=== PATIENT | female | born 1935 | race Caucasian/White ===

== ENCOUNTER 2019-02-27 16:52 | Emergency (ER) | payer MEDICARE ==
[2019-02-27 16:57] VITALS: BP 199/80; PULSE 104; RESP 20; TEMP 98.4
[2019-02-27] MEDS ORDERED: IBUPROFEN 600 MG TAB PO STA (17:07)
[2019-02-27] MEDS ORDERED: DIPH,PERTUS(ACELL)TETVAC-LF 0.5 ML VIAL IM ONE (17:08)
--- NOTE | 2019-02-27 17:12 | ED ---
General Adult HPI - General Chief complaint: Extremity Injury, Upper Stated complaint: hand lac Time Seen by Provider: 02/27/19 16:59 Source: patient Mode of arrival: ambulatory Limitations: no limitations - History of Present Illness Initial comments: 83-year-old female presenting with left hand pain after cutting her finger with scissors 1 week prior. She states that since then she began having throbbing and shooting pain with ROM of her hand. She denies any fevers, drainage, or swelling. She is not up to date on her tetanus. She did not take anything for the pain. She states it was her home kitchen scissors she was using. - Related Data Home Medications Medication Instructions Recorded Confirmed Gemfibrozil [Lopid] 600 mg PO AC-BID 11/04/15 11/04/15 Ibuprofen [Motrin] 800 mg PO Q8HR PRN 11/04/15 11/04/15 Previous Rx's Medication Instructions Recorded predniSONE 10 mg PO DIRECTED #42 tab 11/04/15 valACYclovir HCL [Valacyclovir] 1,000 mg PO TID #21 tab 11/04/15 Cephalexin [Keflex] 500 mg PO Q6HR 7 Days #28 cap 02/27/19 Ibuprofen [Motrin] 600 mg PO Q6HR PRN #30 tab 02/27/19 Allergies Allergy/AdvReac Type Severity Reaction Status Date / Time Penicillins Allergy Rash/Hives Verified 11/04/15 02:57 Review of Systems ROS Statement: Those systems with pertinent positive or pertinent negative responses have been documented in the HPI. Review of Systems Constitutional: Denies fever, chills Eyes: Denies change in vision, Denies pain Ears, nose, mouth, throat: Denies headaches, Denies sore throat Cardiovascular: Denies chest pain. Denies palpitations Respiratory: Denies shortness of breath, Denies cough Gastrointestinal: Denies abdominal pain. Denies nausea, vomiting, diarrhea. Genitourinary: Denies hematuria, Denies infections Musculoskeletal: Positive pain, Denies swelling Integumentary: Positive wound Neurological: Denies headache, focal weakness, focal numbness Psychiatric: Denies anxiety, Denies depression Hematologic/Lymphatic: Denies easy bleeding or bruising ROS Other: All systems not noted in ROS Statement are negative. 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 Atraumatic Eyes: PERRL. EOMI. No scleral icterus. No injected conjunctiva Neck: Full ROM Chest/Lungs: Clear to auscultation bilaterally. No wheezing, rhonchi, or rales Cardiac: Regular rate, rhythm. No murmurs or rubs Abdomen/GI: Soft, nontender, nondistended. No rebound, guarding, or rigidity. Musculoskeletal: Full ROM Skin: Warm, dry. Superifical healing laceration to the webspace between the index and ring finger on left with tenderness to palpation. No tenderness along the flexor tendon. No pain with passive ROM. No erythema. No purulent drainage, fluctuance, or induration. Neurologic: A/Ox3, full ROM. Limitations: no limitations Course Vital Signs 02/27/19 16:52 Temperature 98.4 F Pulse Rate 104 H Respiratory 20 Rate Blood Pressure 199/80 O2 Sat by Pulse 95 Oximetry Medical Decision Making - Medical Decision Making 83-year-old female presenting with hand pain after cutting her finger with scissors. This exam the patient is awake, alert, no acute distress. VSS. X- ray is negative for foreign body. Bedside Ultrasound showed no discrete collection of fluid. I discussed with the patient placing her on a short course of antibiotics for cellulitis secondary to the redness and tenderness she was having in that aspect of her hand. I discussed that I would like her to follow- up with her primary care physician in the next 1-2 days for wound recheck, and if she is unable to be seen to come back to the emergency department. Patient has a penicillin ALLERGY but states it is just hives, and therefore she was started on Keflex. I discussed this with the patient and she was agreeable to trying the antibiotic. I also gave the patient hand surgery follow-up in case her symptoms worsen. Patient verbalized understanding of her treatment plan. No further emergent workup indicated. The patient was given return to ED instructions. They were instructed to follow up with their primary care provid er. Stable for discharge at this time. Disposition Clinical Impression: Hand injury, Cellulitis, Osteoarthritis Disposition: HOME SELF-CARE Condition: Good Instructions (If sedation given, give patient instructions): Cellulitis (ED), Osteoarthritis (ED) Prescriptions: Cephalexin [Keflex] 500 mg PO Q6HR 7 Days #28 cap Ibuprofen [Motrin] 600 mg PO Q6HR PRN #30 tab PRN Reason: Pain Is patient prescribed a controlled substance at d/c from ED?: No Referrals: Brandon Lopez MD [Primary Care Provider] - 1-2 days Enrique Funez DO [Medical Doctor] - 1-2 days
--- NOTE | 2019-02-27 18:10 | XR ---
EXAMINATION TYPE: XR hand limited LT DATE OF EXAM: 02/27/2019 COMPARISON: NONE HISTORY: Left hand pain TECHNIQUE: 2 views FINDINGS: There is narrowing of the IP joints of the digits. There is narrowing and spurring at the f irst carpometacarpal joint. I see no fracture nor dislocation. There is no subluxation. There is no s ign of a foreign body. IMPRESSION: Osteoarthritis. no fracture. No foreign body seen.
[2019-02-27] MEDS ORDERED: CEPHALEXIN 500MG STARTER PACK 4 CAP BTL PO STA (18:30)
== END 2019-02-27 18:42 | disposition home or self-care (01) ==
LOC: EC 16:52
DX: S61.412A Laceration without foreign body of left hand, initial encounter (principal); L03.818 Cellulitis of other sites; M19.042 Primary osteoarthritis, left hand; E78.5 Hyperlipidemia, unspecified; Z87.891 Personal history of nicotine dependence; Z79.899 Other long term (current) drug therapy; Z88.0 Allergy status to penicillin; Z23 Encounter for immunization; W26.8XXA Contact with other sharp object(s), not elsewhere classified, initial encounter; Y92.009 Unspecified place in unspecified non-institutional (private) residence as the place of occurrence of the external cause
CPT/HCPCS: 90471; 90715; 99284

== ENCOUNTER 2020-02-23 18:25 | Emergency (ER) | payer MEDICARE ==
[2020-02-23 18:34] VITALS: BP 145/72; PULSE 82; RESP 18; TEMP 97.3
[2020-02-23] MEDS ORDERED: DIPH,PERTUS(ACELL)TETVAC-LF 0.5 ML VIAL IM ONE (19:20)
[2020-02-23] MEDS ORDERED: LIDOCAINE 1% INJ 10MG/ML (20 ML MDV) SQ ONE (19:20)
--- NOTE | 2020-02-23 20:15 | ED ---
Wound/Laceration HPI - General Source: patient Mode of arrival: ambulatory Limitations: no limitations <Mercedes Tapia - Last Filed: 02/24/20 06:14> <Sharmin Kumar - Last Filed: 02/28/20 00:03> - General Chief Complaint: Wound/Laceration Stated Complaint: Laceration Time Seen by Provider: 02/23/20 19:07 - History of Present Illness Initial Comments: Patient is an 84-year-old female presenting to the emergency Department with complaints of a laceration on her right ring finger from a mandolin. Patient states she was slicing potatoes when she actually cut her right finger. She does not number her last tetanus vaccine. She is not currently on blood thinners. Bleeding is controlled at this time by bandage. She has no other complaints. Upon arrival to the ER her vitals are stable. (Mercedes Tapia) - Related Data Home Medications Medication Instructions Recorded Confirmed Gemfibrozil [Lopid] 600 mg PO AC-BID 11/04/15 11/04/15 Ibuprofen [Motrin] 800 mg PO Q8HR PRN 11/04/15 11/04/15 Previous Rx's Medication Instructions Recorded predniSONE 10 mg PO DIRECTED #42 tab 11/04/15 valACYclovir HCL [Valacyclovir] 1,000 mg PO TID #21 tab 11/04/15 Cephalexin [Keflex] 500 mg PO Q6HR 7 Days #28 cap 02/27/19 Ibuprofen [Motrin] 600 mg PO Q6HR PRN #30 tab 02/27/19 Allergies Allergy/AdvReac Type Severity Reaction Status Date / Time Penicillins Allergy Rash/Hives Verified 02/23/20 18:34 Review of Systems ROS Other: All systems not noted in ROS Statement are negative. <Mercedes Tapia - Last Filed: 02/24/20 06:14> ROS Other: All systems not noted in ROS Statement are negative. <Sharmin Kumar - Last Filed: 02/28/20 00:03> ROS Statement: Those systems with pertinent positive or pertinent negative responses have been documented in the HPI. 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 HEAD: Atraumatic, normocephalic. EYES: Pupils equal round and reactive to light, extraocular movements intact, sclera anicteric, conjunctiva are normal. ENT: Moist mucous membranes. NECK: Normal range of motion, supple without lymphadenopathy or JVD. LUNGS: Breath sounds clear to auscultation bilaterally and equal. No wheezes rales or rhonchi. HEART: Regular rate and rhythm without murmurs, rubs or gallops. ABDOMEN: Soft, nontender, normoactive bowel sounds. : Deferred EXTREMITIES: The patient has full range of motion of the right hand and fingers. Neurovascular intact. No pitting or edema. No clubbing or cyanosis. NEUROLOGICAL: Normal speech, normal gait. PSYCH: Normal mood, normal affect. SKIN: Warm, Dry, normal turgor, no rashes. Patient has a 2 cm laceration to the palmar aspect of the right ring finger, distal portion. No nail involvement. Bleeding is controlled at this time. (ReginaMercedes Pamela) Course Vital Signs 02/23/20 18:32 Temperature 97.3 F L Pulse Rate 82 Respiratory 18 Rate Blood Pressure 145/72 O2 Sat by Pulse 98 Oximetry Procedures - Laceration Laceration #1 Consent Obtained: verbal consent Indication: laceration Site: hand (Right ring finger, palmar aspect, distal portion) Size (cm): 2 Description: linear, avulsion Depth: simple, single layer Anesthetic Used: lidocaine 1% Anesthesia Technique: local infiltration Amount (mls): 3 Pre-repair: irrigated extensively Type of Sutures: nylon Size of Sutures: 5-0 Number of Sutures: 3 Technique: simple, interrupted Patient Tolerated Procedure: well <Mercedes Tapia - Last Filed: 02/24/20 06:14> Medical Decision Making <Mercedes Tapia - Last Filed: 02/24/20 06:14> <Sharmin Kumar Last Filed: 02/28/20 00:03> - Medical Decision Making Patient is an 84-year-old female here for a 2 cm laceration to her right ring finger. She is not on blood thinners. Her tetanus vaccine was updated today. Patient's wound was cleaned, closed with 3, 5-0 sutures. Patient tolerated procedure well. Patient is stable for discharge. Patient was sutures removed in 7-10 days. Patient will apply topical antibiotic twice a day. She is in agreement with this plan of care. Return parameters were discussed with the patient she verbalized understanding. Case discussed with Dr. Kumar. (Mercedes Tapia) I was available for consultation in the emergency department. The history and physical exam were done by the midlevel provider. I was consulted for this patients care. I reviewed the case with the midlevel provider and based on their presentation of the patient, I agree with the assessment, medical decision making and plan of care as documented. Chart was dictated using [employer] dictation software. Attempts were made to correct any dictation errors however some typographical errors may persist. Patient was seen during a national state of emergency due to the Covid-19 pandemic. (Sharmin Kumar) Disposition Is patient prescribed a controlled substance at d/c from ED?: No <Mercedes Tapia - Last Filed: 02/24/20 06:14> <Sharmin Kumar - Last Filed: 02/28/20 00:03> Clinical Impression: Laceration of right ring finger Disposition: HOME SELF-CARE Condition: Stable Instructions (If sedation given, give patient instructions): Care For Your Stitches (ED) Additional Instructions: Please return to the Emergency Department if symptoms worsen or any other concerns. Stitches need to be removed in 7-10 days as discussed. Keep wound clean and dry. Apply topical antibiotic twice a day. Tetanus vaccine was updated today. Referrals: Brandon Lopez MD [Primary Care Provider] - 1-2 days
== END 2020-02-23 20:20 | disposition home or self-care (01) ==
LOC: EC 18:25
DX: S61.214A Laceration without foreign body of right ring finger without damage to nail, initial encounter (principal); Z23 Encounter for immunization; E78.5 Hyperlipidemia, unspecified; G51.0 Bell's palsy; Z79.899 Other long term (current) drug therapy; Z88.0 Allergy status to penicillin; W27.8XXA Contact with other nonpowered hand tool, initial encounter; Y93.G3 Activity, cooking and baking; Y92.000 Kitchen of unspecified non-institutional (private) residence as the place of occurrence of the external cause
CPT/HCPCS: 90715; 99282; 12001; 90471; J2001

== ENCOUNTER 2021-01-17 17:15 | Inpatient (IN) | payer MEDICARE ==
[2021-01-17] MEDS ORDERED: cefTRIAXone IN SWFI 1,000 MG/10 ML SYRINGE IVP STA (17:49)
[2021-01-17] MEDS ORDERED: SODIUM CHLORIDE 0.9% 1,000 ML IV STA (17:49)
[2021-01-17 18:21] LABS: Basophils % (A) 0 %; Eosinophils # (A) 0.1 k/uL (0-0.7); Eosinophils % (A) 2 %; HCT 41.5 % (34.0-46.0); HGB 13.5 gm/dL (11.4-16.0); Lymphocytes # (A) 0.9 k/uL (1.0-4.8); Lymphocytes % (A) 20 %; MCH 28.3 pg (25.0-35.0); MCHC 32.5 g/dL (31.0-37.0); MCV 87.1 fL (80.0-100.0); Mean Platelet Volume 10.4; Monocytes # (A) 0.3 k/uL (0-1.0); Monocytes % (A) 6 %; Neutrophils # (A) 3.3 k/uL (1.3-7.7); Neutrophils % (A) 71 %; Platelet Count 155 k/uL (150-450); Poikilocytosis Slight; RBC 4.76 m/uL (3.80-5.40); RDW 15.8 % (11.5-15.5); WBC 4.7 k/uL (3.8-10.6)
[2021-01-17 18:35] LABS: Albumin 3.9 g/dL (3.5-5.0); C Reactive Protein 53.6 mg/L (<10.0); Calcium 8.3 mg/dL (8.4-10.2); Potassium 4.3 mmol/L (3.5-5.1); Total Bilirubin 0.7 mg/dL (0.2-1.3); Total Protein 6.7 g/dL (6.3-8.2)
[2021-01-17 18:40] LABS: Prothrombin Time 10.4 sec (9.0-12.0)
[2021-01-17 18:42] LABS: Partial Thromboplastin Time 19.8 sec (22.0-30.0)
[2021-01-17 18:43] LABS: D-Dimer 1.41 mg/L FEU (<0.60)
--- NOTE | 2021-01-17 18:57 | XR ---
EXAMINATION TYPE: XR chest 1V portable DATE OF EXAM: 01/17/2021 COMPARISON: NONE HISTORY: Shortness of breath and weakness. TECHNIQUE: Single frontal view of the chest is obtained. FINDINGS: There a reticular increased markings bilaterally greatest in the periphery of the upper tata ngs. No pleural effusion or pneumothorax seen. Mild cardiomegaly. The osseous structures are intact . Overlying EKG leads. IMPRESSION: Mild cardiomegaly. 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 Areas of acute infiltrate in the periphery of the upper lungs canno t be excluded. Correlation with old outside x-ray or CT would be extremely beneficial.
--- NOTE | 2021-01-17 18:59 | ED ---
Weakness HPI <Rolo Lima - Last Filed: 01/17/21 20:18> - General Source: patient, EMS Mode of arrival: EMS <Edson Laboy - Last Filed: 01/17/21 20:31> - General Chief complaint: Weakness Stated complaint: weakness/fever Time Seen by Provider: 01/17/21 17:30 - History of Present Illness Initial comments: 85-year-old female resents to emergency Department with a chief complaint of fever and weakness. Patient reports 9 days ago she received the moderna vaccine and ever since then she has been feeling progressively weaker. Patient reports an operative cough for the past several days along with a fever for the past 5 days. Patient reports she has been mouth breathing the whole time because her nose is congested. She does report dyspnea at rest but denies any chest pain. States she's had decreased oral intake. She denies any nausea vomiting or diarrhea. (Edson Laboy) - Related Data Home Medications Medication Instructions Recorded Confirmed Montelukast Sodium [Singulair] 10 mg PO HS 01/17/21 01/17/21 lisinopriL [Zestril] 5 mg PO DAILY 01/17/21 01/17/21 Allergies Allergy/AdvReac Type Severity Reaction Status Date / Time Penicillins Allergy Rash/Hives Verified 01/17/21 18:18 Review of Systems ROS Other: All systems not noted in ROS Statement are negative. <Rolo Lima - Last Filed: 01/17/21 20:18> ROS Other: All systems not noted in ROS Statement are negative. <Edson Laboy - Last Filed: 01/17/21 20:31> ROS Statement: Those systems with pertinent positive or pertinent negative responses have been documented in the HPI. 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, History of Any Multi-Drug Resistant Organisms: None Reported Past Surgical History: Orthopedic Surgery Past Psychological History: No Psychological Hx Reported Smoking Status: Former smoker Past Alcohol Use History: None Reported Past Drug Use History: None Reported <Edson Laboy - Last Filed: 01/17/21 20:31> General Exam Limitations: no limitations General appearance: alert, in no apparent distress Head exam: Present: atraumatic, normocephalic, normal inspection Eye exam: Present: normal appearance, PERRL, EOMI Pupils: Present: normal accommodation ENT exam: Present: normal exam, normal oropharynx, mucous membranes dry Neck exam: Present: normal inspection, full ROM. Absent: tenderness Respiratory exam: Present: normal lung sounds bilaterally. Absent: respiratory distress, wheezes, rales, rhonchi, stridor Cardiovascular Exam: Present: regular rate, normal rhythm, normal heart sounds GI/Abdominal exam: Present: soft. Absent: distended, tenderness, guarding Extremities exam: Present: normal inspection, full ROM, normal capillary refill. Absent: tenderness Back exam: Present: normal inspection, full ROM. Absent: tenderness Neurological exam: Present: alert, oriented X3 Skin exam: Present: warm, dry, intact, normal color <Edson Laboy - Last Filed: 01/17/21 20:31> Course <Rolo Lima - Last Filed: 01/17/21 20:18> Vital Signs 01/17/21 01/17/21 01/17/21 17:25 17:35 20:11 Temperature 102.2 F H 101.1 F H Pulse Rate 109 H 107 H Respiratory 22 22 18 Rate Blood Pressure 188/95 157/85 O2 Sat by Pulse 88 L 97 Oximetry - Reevaluation(s) Reevaluation #1: 01/17/21 20:18 The supervision: I did personally evaluate this case patient did present with complaints of weakness she does have evidence of infiltrates on imaging. (Rolo Lima) Medical Decision Making - Lab Data Result diagrams: 01/17/21 18:05 01/17/21 18:05 <Rolo Lima - Last Filed: 01/17/21 20:18> - Lab Data Result diagrams: 01/17/21 18:05 01/17/21 18:05 <Edson Laboy - Last Filed: 01/17/21 20:31> - Medical Decision Making 85-year-old female presents to emergency Department with a chief complaint of fever and weakness. On physical examination, patient has dry mucous membrane. She has been mouth breathing the whole time. Lungs are clear to auscultation. On initial evaluation, she is tachycardic, febrile and hypoxic. Patient was immediately started on 4 L of nasal cannula. Her oxygen saturation has been brought up to mid 90s. CBC unremarkable. Elevated reactive markers. Elevated d-dimer. CT angiogram cannot fully exclude PE. She will be started on 40 mg Lovenox. She tested positive for coronavirus. Patient is otherwise in the mid 80s on room air. Patient will be started on azithromycin and 6 migrans of Decadron. She will be admitted for further medical management. Case discussed with Dr. Lima. Admitting physician is , I spoke with Jessica Soni NP. Pulmonary on consult (Edson Laboy) - Lab Data Lab Results 01/17/21 01/17/21 01/17/21 Range/Units 18:05 18:05 18:05 WBC 4.7 (3.8-10.6) k/uL RBC 4.76 (3.80-5.40) m/uL Hgb 13.5 (11.4-16.0) gm/dL Hct 41.5 (34.0-46.0) % MCV 87.1 (80.0-100.0) fL MCH 28.3 (25.0-35.0) pg MCHC 32.5 (31.0-37.0) g/dL RDW 15.8 H (11.5-15.5) % Plt Count 155 (150-450) k/uL MPV 10.4 Neutrophils % 71 % Lymphocytes % 20 % Monocytes % 6 % Eosinophils % 2 % Basophils % 0 % Neutrophils # 3.3 (1.3-7.7) k/uL Lymphocytes # 0.9 L (1.0-4.8) k/uL Monocytes # 0.3 (0-1.0) k/uL Eosinophils # 0.1 (0-0.7) k/uL Basophils # 0.0 (0-0.2) k/uL Poikilocytosis Slight PT 10.4 (9.0-12.0) sec INR 1.0 (<1.2) APTT 19.8 L (22.0-30.0) sec D-Dimer 1.41 H (<0.60) mg/L FEU Sodium 135 L (137-145) mmol/L Potassium 4.3 (3.5-5.1) mmol/L Chloride 101 (98-107) mmol/L Carbon Dioxide 22 (22-30) mmol/L Anion Gap 12 mmol/L BUN 13 (7-17) mg/dL Creatinine 0.72 (0.52-1.04) mg/dL Est GFR (CKD-EPI)AfAm 90 (>60 ml/min/1.73 sqM) Est GFR (CKD-EPI)NonAf 78 (>60 ml/min/1.73 sqM) Glucose 116 H (74-99) mg/dL Plasma Lactic Acid Remigio (0.7-2.0) mmol/L Calcium 8.3 L (8.4-10.2) mg/dL Magnesium 2.0 (1.6-2.3) mg/dL Total Bilirubin 0.7 (0.2-1.3) mg/dL AST 42 H (14-36) U/L ALT 30 (4-34) U/L Alkaline Phosphatase 82 (38-126) U/L Lactate Dehydrogenase 902 H (313-618) U/L Troponin I (0.000-0.034) ng/mL C-Reactive Protein 53.6 H (<10.0) mg/L Total Protein 6.7 (6.3-8.2) g/dL Albumin 3.9 (3.5-5.0) g/dL Urine Color Urine Appearance (Clear) Urine pH (5.0-8.0) Ur Specific [place] (1.001-1.035) Urine Protein (Negative) Urine Glucose (UA) (Negative) Urine Ketones (Negative) Urine Blood (Negative) Urine Nitrite (Negative) Urine Bilirubin (Negative) Urine Urobilinogen (<2.0) mg/dL Ur Leukocyte Esterase (Negative) Urine WBC (0-5) /hpf Ur Squamous Epith Cells (0-4) /hpf Urine Bacteria (None) /hpf Urine Mucus (None) /hpf Coronavirus (PCR) (Not Detectd) 01/17/21 01/17/21 01/17/21 Range/Units 18:05 18:05 18:05 WBC (3.8-10.6) k/uL RBC (3.80-5.40) m/uL Hgb (11.4-16.0) gm/dL Hct (34.0-46.0) % MCV (80.0-100.0) fL MCH (25.0-35.0) pg MCHC (31.0-37.0) g/dL RDW (11.5-15.5) % Plt Count (150-450) k/uL MPV Neutrophils % % Lymphocytes % % Monocytes % % Eosinophils % % Basophils % % Neutrophils # (1.3-7.7) k/uL Lymphocytes # (1.0-4.8) k/uL Monocytes # (0-1.0) k/uL Eosinophils # (0-0.7) k/uL Basophils # (0-0.2) k/uL Poikilocytosis PT (9.0-12.0) sec INR (<1.2) APTT (22.0-30.0) sec D-Dimer (<0.60) mg/L FEU Sodium (137-145) mmol/L Potassium (3.5-5.1) mmol/L Chloride (98-107) mmol/L Carbon Dioxide (22-30) mmol/L Anion Gap mmol/L BUN (7-17) mg/dL Creatinine (0.52-1.04) mg/dL Est GFR (CKD-EPI)AfAm (>60 ml/min/1.73 sqM) Est GFR (CKD-EPI)NonAf (>60 ml/min/1.73 sqM) Glucose (74-99) mg/dL Plasma Lactic Acid Remigio 1.2 (0.7-2.0) mmol/L Calcium (8.4-10.2) mg/dL Magnesium (1.6-2.3) mg/dL Total Bilirubin (0.2-1.3) mg/dL AST (14-36) U/L ALT (4-34) U/L Alkaline Phosphatase (38-126) U/L Lactate Dehydrogenase (313-618) U/L Troponin I 0.016 (0.000-0.034) ng/mL C-Reactive Protein (<10.0) mg/L Total Protein (6.3-8.2) g/dL Albumin (3.5-5.0) g/dL Urine Color Urine Appearance (Clear) Urine pH (5.0-8.0) Ur Specific [place] (1.001-1.035) Urine Protein (Negative) Urine Glucose (UA) (Negative) Urine Ketones (Negative) Urine Blood (Negative) Urine Nitrite (Negative) Urine Bilirubin (Negative) Urine Urobilinogen (<2.0) mg/dL Ur Leukocyte Esterase (Negative) Urine WBC (0-5) /hpf Ur Squamous Epith Cells (0-4) /hpf Urine Bacteria (None) /hpf Urine Mucus (None) /hpf Coronavirus (PCR) Detected A (Not Detectd) 01/17/21 Range/Units 19:19 WBC (3.8-10.6) k/uL RBC (3.80-5.40) m/uL Hgb (11.4-16.0) gm/dL Hct (34.0-46.0) % MCV (80.0-100.0) fL MCH (25.0-35.0) pg MCHC (31.0-37.0) g/dL RDW (11.5-15.5) % Plt Count (150-450) k/uL MPV Neutrophils % % Lymphocytes % % Monocytes % % Eosinophils % % Basophils % % Neutrophils # (1.3-7.7) k/uL Lymphocytes # (1.0-4.8) k/uL Monocytes # (0-1.0) k/uL Eosinophils # (0-0.7) k/uL Basophils # (0-0.2) k/uL Poikilocytosis PT (9.0-12.0) sec INR (<1.2) APTT (22.0-30.0) sec D-Dimer (<0.60) mg/L FEU Sodium (137-145) mmol/L Potassium (3.5-5.1) mmol/L Chloride (98-107) mmol/L Carbon Dioxide (22-30) mmol/L Anion Gap mmol/L BUN (7-17) mg/dL Creatinine (0.52-1.04) mg/dL Est GFR (CKD-EPI)AfAm (>60 ml/min/1.73 sqM) Est GFR (CKD-EPI)NonAf (>60 ml/min/1.73 sqM) Glucose (74-99) mg/dL Plasma Lactic Acid Remigio (0.7-2.0) mmol/L Calcium (8.4-10.2) mg/dL Magnesium (1.6-2.3) mg/dL Total Bilirubin (0.2-1.3) mg/dL AST (14-36) U/L ALT (4-34) U/L Alkaline Phosphatase (38-126) U/L Lactate Dehydrogenase (313-618) U/L Troponin I (0.000-0.034) ng/mL C-Reactive Protein (<10.0) mg/L Total Protein (6.3-8.2) g/dL Albumin (3.5-5.0) g/dL Urine Color Yellow Urine Appearance Clear (Clear) Urine pH 6.0 (5.0-8.0) Ur Specific [place] 1.015 (1.001-1.035) Urine Protein 1+ H (Negative) Urine Glucose (UA) Negative (Negative) Urine Ketones 2+ H (Negative) Urine Blood Negative (Negative) Urine Nitrite Negative (Negative) Urine Bilirubin Negative (Negative) Urine Urobilinogen <2.0 (<2.0) mg/dL Ur Leukocyte Esterase Negative (Negative) Urine WBC 1 (0-5) /hpf Ur Squamous Epith Cells 3 (0-4) /hpf Urine Bacteria Rare H (None) /hpf Urine Mucus Rare H (None) /hpf Coronavirus (PCR) (Not Detectd) Disposition <Rolo Lima - Last Filed: 01/17/21 20:18> Is patient prescribed a controlled substance at d/c from ED?: No Time of Disposition: 20:09 <Edson Laboy - Last Filed: 01/17/21 20:31> Clinical Impression: Pneumonia due to coronavirus disease 2019, Hypoxemia Disposition: ADMITTED IP TO THIS HOSP Condition: Fair Referrals: Brandon Lopez MD [Primary Care Provider] - 1-2 days
[2021-01-17 19:28] LABS: Appearance,Urine Clear (Clear); Bacteria,Urine Rare /hpf; Bilirubin,Urine Negative (Negative); Blood,Urine Negative (Negative); Color,Urine Yellow; Glucose,Urine (UA) Negative (Negative); Ketones,Urine 2+ (Negative); Leukocyte Esterase,Urine Negative (Negative); Mucus,Urine Rare /hpf; Nitrite,Urine Negative (Negative); Protein,Urine 1+ (Negative); Specific Gravity,Urine 1.015 (1.001-1.035); Squamous Epithelial Cell,Urine 3 /hpf (0-4); Urobilinogen,Urine <2.0 mg/dL (<2.0); WBC,Urine 1 /hpf (0-5)
[2021-01-17] MEDS ORDERED: MORPHINE SULFATE 4 MG/ML SYRINGE IV PRN (20:03)
[2021-01-17] MEDS ORDERED: NALOXONE 0.4 MG/ML 1 ML VIAL IV PRN (20:03)
[2021-01-17] MEDS ORDERED: oxyCODONE-APAP 5-325MG 1 EACH TAB PO PRN (20:03)
[2021-01-17] MEDS ORDERED: traMADol 50 MG TAB PO PRN (20:03)
[2021-01-17] MEDS ORDERED: LORazepam 2 MG/ML INJ IV PRN (20:03)
--- NOTE | 2021-01-17 20:04 | CT ---
EXAMINATION TYPE: CT chest angio for PE DATE OF EXAM: 01/17/2021 COMPARISON: Chest x-ray earlier today HISTORY: Elevated d-dimer, Covid + CT DLP: 443.2 mGycm Automated exposure control for dose reduction was used. CONTRAST: CT Chest for pulmonary embolism performed with with IV Contrast, patient injected with 80 mL of Isovu e 370. FINDINGS: LUNGS: Peripheral reticulation and honeycombing in the upper lungs bilaterally with increased groundg lass and intralobular opacities. Evaluation is suboptimal as patient unable to hold breath, significa nt degradation mid to lower lungs. Additional multifocal areas of groundglass opacity in the mid to l ower lungs bilaterally. Roughly 5 mm nodule or nodular consolidation lateral right lower lobe axial i mage 75 noted. No pleural effusion or pneumothorax seen. MEDIASTINUM: There is a suboptimal study with heterogeneity in the periphery. There is equal dense co ntrast in the aorta. Most dense contrast noted SVC. No central pulmonary embolism. Cannot entirely ex clude segmental and subsegmental PE on this study. There are prominent bilateral hilar lymph nodes. T here are prominent prevascular along with AP window, paratracheal, and subcarinal lymph nodes mild ca rdiomegaly. No pericardial effusion is seen. OTHER: Small sized hiatal hernia. Diffuse fatty infiltration of liver. Slight scoliotic curvature wi th fairly moderate multilevel spurring in the spine. IMPRESSION: 1. Suboptimal study without central acute pulmonary embolus. Cannot exclude smaller segmental and sub segmental on the embolism on this study. 2. Multifocal infiltrates and/or edema on background upper lung fibrotic changes, consistent with cov id-19 infection. Reactive thoracic adenopathy noted. Underlying cardiomegaly present.
[2021-01-17] MEDS ORDERED: AZITHROMYCIN 500 MG in SODIUM CHLORIDE 0.9% 250 ML IVPB STA (20:10)
[2021-01-17] MEDS: ACETAMINOPHEN TAB 325 MG TAB PO PRN (20:18)
[2021-01-17] MEDS ORDERED: ENOXAPARIN 40 MG/0.4 ML SYRINGE SQ STA (20:29)
[2021-01-17] MEDS: SODIUM CHLORIDE 0.9% 1,000 ML IV SCH (22:02)
[2021-01-18 00:56] LABS: Ferritin 520.1 ng/mL (10.0-291.0)
[2021-01-18] MEDS: DEXAMETHASONE SOD PHOSPHATE 10 MG/ML 1 ML VIAL IV SCH (07:55)
[2021-01-18] MEDS: SODIUM CHLORIDE 0.9% 1,000 ML IV SCH ×3 (07:57→21:59)
[2021-01-18] MEDS ORDERED: REMDESIVIR 200 MG in SODIUM CHLORIDE 0.9% 250 ML IVPB ONE (14:00)
--- NOTE | 2021-01-18 14:22 | P.CNPUL ---
History of Present Illness Consult date: 01/18/21 Requesting physician: Viviane Lee Reason for consult: dyspnea, abnormal CXR/CT Chief complaint: Fever, weakness History of present illness: This is a very pleasant 85-year-old female patient who follows with Dr. Lopez as her primary care provider. She has a history of hypertension, Polanco's palsy, former smoker. She presented to the emergency room yesterday with complaints of ongoing fever and weakness. She had obtained the Moderna vaccination approximately 7 days ago. Shortly after that she developed increasing cough, congestion, aches, weakness, fever. Her cough and shortness of breath has been progressively getting worse the past 5 days. She presented here to the emergency room yesterday for the same. Chest x-ray revealed mild cardiomegaly. Reticular nodular interstitial changes bilaterally with possible chronic parenchymal fibrosis. Areas of acute infiltrate in the periphery of the upper lungs. CT angiogram ruled out any central PE. There is noted multifocal infiltrates and/or edema back on of upper lung fibrotic changes, consistent with CoVID 19 infection. Reactive thoracic adenopathy noted. CoVID 19 screen positive. White count 4.7. Hemoglobin 13.5. Lymphocytes 0.9. D-dimer 1.41. Sodium 135. Potassium 4.3. Creatinine 0.72. LDH 902. C-reactive protein 53.6. Pro-calcitonin 0.09. She been initiated on dexamethasone. She is seen today in consultation on the regular medical floor. She is currently resting comfortably in bed. Awake and alert. In mild respiratory distress. Earlier this morning she was on 3 L maintain O2 saturation in the 90s. She is currently on 13 L high flow nasal cannula. Temperature 100.3. Hemodynamically stable. S he has a loose nonproductive cough. Review of Systems REVIEW OF SYSTEMS: CONSTITUTIONAL: Fever, weakness. Denies any recent significant weight loss or weight gain. EYES: Denies change in vision. EARS, NOSE, MOUTH, THROAT: Denies headaches, denies sore throat. CARDIOVASCULAR: Denies chest pain, palpitations or syncopal episodes. RESPIRATORY: Positive for shortness of breath, cough, congestion no hemoptysis. GASTROINTESTINAL: Denies change in appetite, denies abdominal pain GENITOURINARY: Denies hematuria, denies infections. MUSKULOSKELETAL: Denies pain, denies swelling. INTEGUMENTARY: Denies rash, denies eczema. NEUROLOGICAL: Denies recent memory loss, no recent seizure activity. PSYCHIATRIC: Denies anxiety, denies depression. HEMATOLOGIC/LYMPHATIC: Denies anemia, denies enlarged lymph nodes. Past Medical History Past Medical History: Hyperlipidemia, Hypertension Additional Past Medical History / Comment(s): bells palsy, History of Any Multi-Drug Resistant Organisms: None Reported Past Surgical History: Orthopedic Surgery Additional Past Surgical History / Comment(s): left pointer finger Past Anesthesia/Blood Transfusion Reactions: No Reported Reaction Past Psychological History: No Psychological Hx Reported Smoking Status: Former smoker Past Alcohol Use History: None Reported Additional Past Alcohol Use History / Comment(s): quit 10 years ago Past Drug Use History: None Reported Medications and Allergies Home Medications Medication Instructions Recorded Confirmed Type Montelukast Sodium [Singulair] 10 mg PO HS 01/17/21 01/17/21 History lisinopriL [Zestril] 5 mg PO DAILY 01/17/21 01/17/21 History Allergies Allergy/AdvReac Type Severity Reaction Status Date / Time Penicillins Allergy Rash/Hives Verified 01/17/21 18:18 Physical Exam Vitals: Vital Signs Temp Pulse Pulse Resp BP BP Pulse Ox 01/18/21 13:32 98.4 F 84 24 136/70 92 L 01/18/21 12:51 90 L 01/18/21 10:00 100.3 F H 97 22 148/77 93 L 01/18/21 07:44 96 01/18/21 05:44 99.5 F 97 20 152/82 97 01/18/21 02:00 97.9 F 86 20 145/80 90 L 01/17/21 22:43 99.1 F 98 22 157/83 92 L 01/17/21 20:11 101.1 F H 107 H 18 157/85 97 01/17/21 17:35 22 01/17/21 17:25 102.2 F H 109 H 22 188/95 88 L Intake and Output 01/17/21 01/18/21 01/18/21 22:59 06:59 14:59 Intake Total 300 Balance 300 Intake: Oral 300 Other: Voiding Method Toilet Toilet # Voids 2 Weight 97.976 kg GENERAL EXAM: Alert, obese, pleasant 85-year-old female patient, on 13 L high flow nasal cannula, comfortable in mild distress. HEAD: Normocephalic. EYES: Normal reaction of pupils, equal size. NOSE: Clear with pink turbinates. THROAT: No erythema or exudates. NECK: No masses, no JVD. CHEST: No chest wall deformity. LUNGS: Equal air entry with crackles in the posterior bases, scattered rhonchi. CVS: S1 and S2 normal with no audible murmur, regular rhythm. ABDOMEN: No hepatosplenomegaly, normal bowel sounds, no guarding or rigidity. SPINE: No scoliosis or deformity SKIN: No rashes CENTRAL NERVOUS SYSTEM: No focal deficits, tone is normal in all 4 extremities. EXTREMITIES: There is no peripheral edema. No clubbing, no cyanosis. Peripheral pulses are intact. Results - Laboratory Findings CBC and BMP: 01/17/21 18:05 01/17/21 18:05 PT/INR, D-dimer PT 10.4 sec (9.0-12.0) 01/17/21 18:05 INR 1.0 (<1.2) 01/17/21 18:05 D-Dimer 1.41 mg/L FEU (<0.60) H 01/17/21 18:05 Abnormal lab findings: Abnormal Labs 01/17/21 01/17/21 01/17/21 18:05 18:05 18:05 RDW 15.8 H Lymphocytes # 0.9 L APTT 19.8 L D-Dimer 1.41 H Sodium 135 L Glucose 116 H Calcium 8.3 L Ferritin 520.1 H AST 42 H Lactate Dehydrogenase 902 H C-Reactive Protein 53.6 H Urine Protein Urine Ketones Urine Bacteria Urine Mucus Coronavirus (PCR) 01/17/21 01/17/21 18:05 19:19 RDW Lymphocytes # APTT D-Dimer Sodium Glucose Calcium Ferritin AST Lactate Dehydrogenase C-Reactive Protein Urine Protein 1+ H Urine Ketones 2+ H Urine Bacteria Rare H Urine Mucus Rare H Coronavirus (PCR) Detected A - Diagnostic Findings Chest x-ray: image reviewed CT scan - chest: image reviewed Assessment and Plan Assessment: 1 Acute hypoxic respiratory failure secondary to acute CoVID 19 pneumonitis 2 Febrile illness secondary to above 3 Lymphocytopenia secondary to above 4 Elevated inflammatory markers secondary to above 5 Obesity 6 Hypertension 7 Former smoker Plan: The patient was seen and evaluated by Dr. Soraino The patient is somewhat of a poor historian regarding specific dates of her onset of illness Suspect within the past week and her symptoms have worsened, initiate Remdesivir Continue dexamethasone, Lovenox, Colcrys, vitamin supplements Repeat chest x-ray and labs in a.m. Continue monitor oxygen requirements closely May need transfer to the intensive care unit condition deteriorated In the interim, we'll continue to follow and make further recommendations based on her clinical status I, the cosigning physician, performed a history & physical examination of the patient. Lungs sounds with crackles in bilateral bases, few scattered rhonchi. Maintaining good O2 saturations in the 90s on 13 L high flow nasal cannula. I discussed the assessment and plan of care with my nurse practitioner, Alley Luna. I attest to the above consultation as dictated by her. Time with Patient: Greater than 30
[2021-01-18] MEDS: ENOXAPARIN 40 MG/0.4 ML SYRINGE SQ SCH (15:23)
[2021-01-18] MEDS: ASCORBIC ACID 500 MG TAB PO SCH (15:24)
[2021-01-18] MEDS: CHOLECALCIFEROL 25 MCG (1000 IU) TABLET PO SCH (15:24)
[2021-01-18] MEDS: ZINC SULFATE 220 MG CAP PO SCH (15:24)
[2021-01-18] MEDS: FAMOTIDINE 20 MG TAB PO SCH (21:56)
[2021-01-18] MEDS: COLCHICINE 0.6 MG EACH PO SCH (21:56)
--- NOTE | 2021-01-19 00:12 | P.HPIM ---
History of Present Illness H&P Date: 01/18/21 Chief Complaint: Shortness of breath Patient is a 85-year-old female with known history of hypertension, hyperlipidemia, history of Polanco's palsy and previous history of smoking presents to ER on 01/17/2021 with complaints of fever and generalized weakness and exertional dyspnea. Patient states that she received first dose of Covid 19 vaccine on 01/08/2021. Patient says that she has been feeling progressively weak since then. Patient does complain of cough along with fever for the past 5 days. Denied any abdominal pain. No nausea or vomiting. Patient has not been eating well due to decreased appetite. Chest x-ray showed mild cardiomegaly. Reticulonodular interstitial changes bilaterally and chronic parenchymal changes. Areas of acute infiltrate in the periphery of the upper lungs cannot be excluded. CT angiogram showed suboptimal study without central acute pulmonary embolus. Cannot exclude small segmental and subsegmental on the embolism on this study. Multifocal infiltrates/and or edema on background upper lung fibrotic changes consistent with Covid 19 infection. Reactive thoracic adenopathy noted. Underlying cardiomegaly present. D-dimer 1.41 Sodium 135 percussion 4.3, chloride 101, BUN 13 and creatinine 0.72 Ferritin 520, Eliquis 902, CRP 53.6 and a pro-calcitonin level is 0.09 Urinalysis is negative for infection. Covid 19 PCR is detected. Patient was hypoxic with pulse ox 88% on room air on admission and tachycardic and febrile with T-max 102.2 Review of Systems Constitutional: Patient does have fever chills and generalized weakness and malaise.. Abdomen: Patient denied nausea vomiting and diarrhea and abdominal pain. Cardiovascular: Patient denies any chest pain or short of breath no palpitations. Respiratory: Cough without sputum production and positive shortness of breath Neurologic: Patient denied any numbness or tingling headache. Musculoskeletal: Patient denies any complaints of joint swelling or deformity. Skin: Negative Psychiatric: Negative Endocrine: No heat or cold intolerance. No recent weight gain. Genitourinary: No dysuria or hematuria. All other 14 point ROS negative except the above Past Medical History Past Medical History: Hyperlipidemia, Hypertension Additional Past Medical History / Comment(s): bells palsy, History of Any Multi-Drug Resistant Organisms: None Reported Past Surgical History: Orthopedic Surgery Additional Past Surgical History / Comment(s): left pointer finger Past Anesthesia/Blood Transfusion Reactions: No Reported Reaction Past Psychological History: No Psychological Hx Reported Smoking Status: Former smoker Past Alcohol Use History: None Reported Additional Past Alcohol Use History / Comment(s): quit 10 years ago Past Drug Use History: None Reported Medications and Allergies Home Medications Medication Instructions Recorded Confirmed Type Montelukast Sodium [Singulair] 10 mg PO HS 01/17/21 01/17/21 History lisinopriL [Zestril] 5 mg PO DAILY 01/17/21 01/17/21 History Allergies Allergy/AdvReac Type Severity Reaction Status Date / Time Penicillins Allergy Rash/Hives Verified 01/17/21 18:18 Physical Exam Vitals: Vital Signs Temp Pulse Pulse Resp BP BP Pulse Ox 01/18/21 10:00 100.3 F H 97 22 148/77 93 L 01/18/21 07:44 96 01/18/21 05:44 99.5 F 97 20 152/82 97 01/18/21 02:00 97.9 F 86 20 145/80 90 L 01/17/21 22:43 99.1 F 98 22 157/83 92 L 01/17/21 20:11 101.1 F H 107 H 18 157/85 97 01/17/21 17:35 22 01/17/21 17:25 102.2 F H 109 H 22 188/95 88 L Intake and Output 01/17/21 01/18/21 01/18/21 22:59 06:59 14:59 Intake Total 300 Balance 300 Intake: Oral 300 Other: Voiding Method Toilet # Voids 2 Weight 97.976 kg PHYSICAL EXAMINATION: Patient is lying in the bed comfortably, no acute distress, awake alert and oriented.. HEENT: Normocephalic. Neck is supple. Pupils reactive. Nostrils clear. Oral cavity is moist. Ears reveal no drainage. Neck reveals no JVD, carotid bruits, or thyromegaly. CHEST EXAMINATION: Trachea is central. Symmetrical expansion. No wheezing. Scattered coarse sounds.. CARDIAC: Normal S1, S2 with no gallops. No murmurs ABDOMEN: Soft. Bowel sounds normal. No organomegaly. No abdominal bruits. Extremities: reveal no edema. No clubbing or cyanosis Neurologically awake, alert, oriented x3 with well-coordinated movements. No focal deficits noted Skin: No rash or skin lesions. Psychiatric: Coperative. Nonsuicidal Musculoskeletal: No joint swelling or deformity. Normal range of motion. Results CBC & Chem 7: 01/17/21 18:05 01/17/21 18:05 Labs: Abnormal Lab Results - Last 24 Hours (Table) 01/17/21 01/17/21 01/17/21 Range/Units 18:05 18:05 18:05 RDW 15.8 H (11.5-15.5) % Lymphocytes # 0.9 L (1.0-4.8) k/uL APTT 19.8 L (22.0-30.0) sec D-Dimer 1.41 H (<0.60) mg/L FEU Sodium 135 L (137-145) mmol/L Glucose 116 H (74-99) mg/dL Calcium 8.3 L (8.4-10.2) mg/dL Ferritin 520.1 H (10.0-291.0) ng/mL AST 42 H (14-36) U/L Lactate Dehydrogenase 902 H (313-618) U/L C-Reactive Protein 53.6 H (<10.0) mg/L Urine Protein (Negative) Urine Ketones (Negative) Urine Bacteria (None) /hpf Urine Mucus (None) /hpf Coronavirus (PCR) (Not Detectd) 01/17/21 01/17/21 Range/Units 18:05 19:19 RDW (11.5-15.5) % Lymphocytes # (1.0-4.8) k/uL APTT (22.0-30.0) sec D-Dimer (<0.60) mg/L FEU Sodium (137-145) mmol/L Glucose (74-99) mg/dL Calcium (8.4-10.2) mg/dL Ferritin (10.0-291.0) ng/mL AST (14-36) U/L Lactate Dehydrogenase (313-618) U/L C-Reactive Protein (<10.0) mg/L Urine Protein 1+ H (Negative) Urine Ketones 2+ H (Negative) Urine Bacteria Rare H (None) /hpf Urine Mucus Rare H (None) /hpf Coronavirus (PCR) Detected A (Not Detectd) Thrombosis Risk Factor Assmnt - DVT/VTE Prophylaxis DVT/VTE Prophylaxis: Pharmacologic Prophylaxis ordered - Choose All That Apply Each Risk Factor Represents 3 Points: Age 75 years or older Thrombosis Risk Factor Assessment Total Risk Factor Score: 3 Thrombosis Risk Factor Assessment Level: Moderate Risk Assessment and Plan Assessment: Acute hypoxic respiratory failure secondary to covid 19 pneumoniae with upper lobe peripheral infiltrates. Elevated inflammatory markers secondary to Coumadin 19 pneumonia Hypertension Hyperlipidemia Morbid obesity with BMI 38.3 Elevated d-dimer level without evidence of pulmonary embolism History of smoking Plan: Patient will be continued on oxygen supplementation and titrate down FiO2 slowly as tolerated. Patient will be continued on dexamethasone, Lovenox colchicine and vitamin supplementation. Patient was initiated on Remicade as per course. Pulmonary is on board. Prognosis is guarded at this time. Continue to monitor closely. Time with Patient: Greater than 30
[2021-01-19] MEDS: ACETAMINOPHEN TAB 325 MG TAB PO PRN (05:20)
--- NOTE | 2021-01-19 07:27 | XR ---
EXAMINATION TYPE: XR chest 1V portable DATE OF EXAM: 01/19/2021 COMPARISON: 01/17/2021 HISTORY: Covid TECHNIQUE: Single frontal view of the chest is obtained. FINDINGS there is marked diffuse interstitial opacity and partial airspace opacities in the left lung laterally and in the right lung laterally and perihilar region. Allowing for differences in techniqu e, these infiltrates are essentially unchanged. There is no pneumothorax or pleural effusion. Heart size is normal. The osseous structures are intact. IMPRESSION: Bilateral diffuse interstitial and airspace opacities unchanged compared to the prior study.
[2021-01-19 07:33] LABS: C Reactive Protein 62.8 mg/L (<10.0)
[2021-01-19] MEDS: ENOXAPARIN 40 MG/0.4 ML SYRINGE SQ SCH (08:23)
[2021-01-19] MEDS: SODIUM CHLORIDE 0.9% 1,000 ML IV SCH (08:24)
[2021-01-19] MEDS: lisinopriL 5 MG TAB PO SCH (08:24)
[2021-01-19] MEDS: DEXAMETHASONE SOD PHOSPHATE 10 MG/ML 1 ML VIAL IV SCH (08:24)
[2021-01-19] MEDS: ASCORBIC ACID 500 MG TAB PO SCH (08:24)
[2021-01-19] MEDS: ZINC SULFATE 220 MG CAP PO SCH (08:24)
[2021-01-19] MEDS: CHOLECALCIFEROL 25 MCG (1000 IU) TABLET PO SCH (08:24)
[2021-01-19] MEDS: COLCHICINE 0.6 MG EACH PO SCH ×2 (08:24→20:33)
[2021-01-19] MEDS: FAMOTIDINE 20 MG TAB PO SCH ×2 (08:24→20:33)
[2021-01-19] MEDS ORDERED: FUROSEMIDE 10 MG/ML 4 ML VIAL IV STA (10:49)
--- NOTE | 2021-01-19 12:40 | P.PN ---
Subjective Progress Note Date: 01/19/21 Principal diagnosis: Acute CoVID 19 pneumonia This is a very pleasant 85-year-old female patient who follows with Dr. Lopez as her primary care provider. She has a history of hypertension, Polanco's palsy, former smoker. She presented to the emergency room yesterday with complaints of ongoing fever and weakness. She had obtained the Moderna vaccination approximately 7 days ago. Shortly after that she developed increasing cough, congestion, aches, weakness, fever. Her cough and shortness of breath has been progressively getting worse the past 5 days. She presented here to the emergency room yesterday for the same. Chest x-ray revealed mild cardiomegaly. Reticular nodular interstitial changes bilaterally with possible chronic parenchymal fibrosis. Areas of acute infiltrate in the periphery of the upper lungs. CT angiogram ruled out any central PE. There is noted multifocal infiltrates and/or edema back on of upper lung fibrotic changes, consistent with CoVID 19 infection. Reactive thoracic adenopathy noted. CoVID 19 screen positive. White count 4.7. Hemoglobin 13.5. Lymphocytes 0.9. D-dimer 1.41. Sodium 135. Potassium 4.3. Creatinine 0.72. LDH 902. C-reactive protein 53.6. Pro-calcitonin 0.09. She been initiated on dexamethasone. She is seen today in consultation on the regular medical floor. She is currently resting comfortably in bed. Awake and alert. In mild respiratory distress. Earlier this morning she was on 3 L maintain O2 saturation in the 90s. She is currently on 13 L high flow nasal cannula. Temperature 100.3. Hemodynamically stable. She has a loose nonproductive cough. The patient seen today 01/19/2021 in follow-up on the regular medical floor. She is currently resting in bed. Awake and alert in no acute distress. She is still requiring 15 L high flow nasal cannula along with a nonrebreather mask but having O2 saturations in the upper 90s. Earlier temperature today 100.8. Chest x-ray continues to show bilateral infiltrates. Blood cultures reveal no growth to date. D-dimer 1.51. LDH is 972. C-reactive protein 62.8. She is on day #2 of Remdesivir. She remains on Lovenox, dexamethasone, vitamin supplements. Objective - Vital Signs Vital signs: Vital Signs Temp 97.9 F 01/19/21 09:35 Pulse 85 01/19/21 09:35 Resp 20 01/19/21 09:35 BP 121/69 01/19/21 09:35 Pulse Ox 99 01/19/21 09:35 Intake & Output 01/18/21 01/19/21 01/19/21 18:59 06:59 18:59 Other: Voiding Method Toilet Toilet Toilet # Voids 3 4 # Bowel Movements 1 - Exam GENERAL EXAM: Alert, obese, pleasant 85-year-old female patient, on 15 L high flow nasal cannula along with a nonrebreather mask, comfortable in mild distress. HEAD: Normocephalic. EYES: Normal reaction of pupils, equal size. NOSE: Clear with pink turbinates. THROAT: No erythema or exudates. NECK: No masses, no JVD. CHEST: No chest wall deformity. LUNGS: Equal air entry with crackles in the posterior bases, scattered rhonchi. CVS: S1 and S2 normal with no audible murmur, regular rhythm. ABDOMEN: No hepatosplenomegaly, normal bowel sounds, no guarding or rigidity. SPINE: No scoliosis or deformity SKIN: No rashes CENTRAL NERVOUS SYSTEM: No focal deficits, tone is normal in all 4 extremities. EXTREMITIES: There is no peripheral edema. No clubbing, no cyanosis. Peripheral pulses are intact. - Labs CBC & Chem 7: 01/17/21 18:05 01/17/21 18:05 Labs: Abnormal Lab Results - Last 24 Hours (Table) 01/19/21 01/19/21 Range/Units 06:40 06:40 D-Dimer 1.51 H (<0.60) mg/L FEU Lactate Dehydrogenase 972 H (313-618) U/L C-Reactive Protein 62.8 H (<10.0) mg/L Microbiology - Last 24 Hours (Table) 01/17/21 18:00 Blood Culture - Preliminary Blood No Growth after 24 hours 01/17/21 18:05 Blood Culture - Preliminary Blood No Growth after 24 hours Assessment and Plan Assessment: 1 Acute hypoxic respiratory failure secondary to acute CoVID 19 pneumonitis. Initiated on Remdesivir 01/18/2021 2 Febrile illness secondary to above 3 Lymphocytopenia secondary to above 4 Elevated inflammatory markers secondary to above 5 Obesity 6 Hypertension 7 Former smoker Plan: The patient was seen and evaluated by Dr. Christie Chest x-ray and labs reviewed Lasix 40 mg IVP 1, IV fluids to KVO Day #2 of Remdesivir Continue dexamethasone, Lovenox, Colcrys, vitamin supplements Continue monitor oxygen requirements closely May need transfer to the intensive care unit if condition deteriorates We will continue to follow I, the cosigning physician, performed a history & physical examination of the patient. Lungs sounds with crackles in bilateral bases, few scattered rhonchi. Maintaining good O2 saturations in the 90s on 15 L high flow nasal cannula along with nonrebreather mask. I discussed the assessment and plan of care with my nurse practitioner, Alley Luna. I attest to the above note as dictated by her.
[2021-01-19] MEDS: REMDESIVIR 100 MG in SODIUM CHLORIDE 0.9% 250 ML IVPB SCH (13:56)
[2021-01-20] MEDS: COLCHICINE 0.6 MG EACH PO SCH ×2 (07:43→21:37)
[2021-01-20] MEDS: lisinopriL 5 MG TAB PO SCH (07:43)
[2021-01-20] MEDS: ZINC SULFATE 220 MG CAP PO SCH (07:43)
[2021-01-20] MEDS: FAMOTIDINE 20 MG TAB PO SCH ×2 (07:43→21:37)
[2021-01-20] MEDS: ASCORBIC ACID 500 MG TAB PO SCH (07:43)
[2021-01-20] MEDS: DEXAMETHASONE SOD PHOSPHATE 10 MG/ML 1 ML VIAL IV SCH (07:44)
[2021-01-20] MEDS: ENOXAPARIN 40 MG/0.4 ML SYRINGE SQ SCH (07:44)
[2021-01-20] MEDS: CHOLECALCIFEROL 25 MCG (1000 IU) TABLET PO SCH (07:44)
[2021-01-20 11:39] LABS: C Reactive Protein 6.8 mg/dL (0.0-0.8)
[2021-01-20] MEDS: REMDESIVIR 100 MG in SODIUM CHLORIDE 0.9% 250 ML IVPB SCH (13:38)
--- NOTE | 2021-01-20 14:46 | P.PN ---
Subjective Progress Note Date: 01/20/21 Principal diagnosis: Acute CoVID 19 pneumonia This is a very pleasant 85-year-old female patient who follows with Dr. Lopez as her primary care provider. She has a history of hypertension, Polanco's palsy, former smoker. She presented to the emergency room yesterday with complaints of ongoing fever and weakness. She had obtained the Moderna vaccination approximately 7 days ago. Shortly after that she developed increasing cough, congestion, aches, weakness, fever. Her cough and shortness of breath has been progressively getting worse the past 5 days. She presented here to the emergency room yesterday for the same. Chest x-ray revealed mild cardiomegaly. Reticular nodular interstitial changes bilaterally with possible chronic parenchymal fibrosis. Areas of acute infiltrate in the periphery of the upper lungs. CT angiogram ruled out any central PE. There is noted multifocal infiltrates and/or edema back on of upper lung fibrotic changes, consistent with CoVID 19 infection. Reactive thoracic adenopathy noted. CoVID 19 screen positive. White count 4.7. Hemoglobin 13.5. Lymphocytes 0.9. D-dimer 1.41. Sodium 135. Potassium 4.3. Creatinine 0.72. LDH 902. C-reactive protein 53.6. Pro-calcitonin 0.09. She been initiated on dexamethasone. She is seen today in consultation on the regular medical floor. She is currently resting comfortably in bed. Awake and alert. In mild respiratory distress. Earlier this morning she was on 3 L maintain O2 saturation in the 90s. She is currently on 13 L high flow nasal cannula. Temperature 100.3. Hemodynamically stable. She has a loose nonproductive cough. The patient seen today 01/19/2021 in follow-up on the regular medical floor. She is currently resting in bed. Awake and alert in no acute distress. She is still requiring 15 L high flow nasal cannula along with a nonrebreather mask but having O2 saturations in the upper 90s. Earlier temperature today 100.8. Chest x-ray continues to show bilateral infiltrates. Blood cultures reveal no growth to date. D-dimer 1.51. LDH is 972. C-reactive protein 62.8. She is on day #2 of Remdesivir. She remains on Lovenox, dexamethasone, vitamin supplements. The patient is seen today 01/20/2021 in follow-up on the regular medical floor. She is currently resting fairly comfortably in bed. Awake and alert in no acute distress. She is still requiring 15 L high flow nasal cannula and a nonrebreather mask will maintaining O2 saturations are 95%. Blood cultures reveal no growth. D-dimer 1.27. LDH 398. C-reactive protein 6.8. This is day #3 of her Remdesivir. She remains on Lovenox, dexamethasone, vitamin supplements. Objective - Vital Signs Vital signs: Vital Signs Temp 97.5 F L 01/20/21 14:00 Pulse 82 01/20/21 14:00 Resp 18 01/20/21 14:00 BP 147/81 01/20/21 14:00 Pulse Ox 91 L 01/20/21 14:00 Intake & Output 01/19/21 01/20/21 01/20/21 17:59 06:59 18:59 Other: Voiding Method Toilet # Voids - Exam GENERAL EXAM: Alert, obese, pleasant 85-year-old female patient, on 15 L high flow nasal cannula along with a nonrebreather mask, comfortable in mild distress. HEAD: Normocephalic. EYES: Normal reaction of pupils, equal size. NOSE: Clear with pink turbinates. THROAT: No erythema or exudates. NECK: No masses, no JVD. CHEST: No chest wall deformity. LUNGS: Equal air entry with crackles in the posterior bases, scattered rhonchi. CVS: S1 and S2 normal with no audible murmur, regular rhythm. ABDOMEN: No hepatosplenomegaly, normal bowel sounds, no guarding or rigidity. SPINE: No scoliosis or deformity SKIN: No rashes CENTRAL NERVOUS SYSTEM: No focal deficits, tone is normal in all 4 extremities. EXTREMITIES: There is no peripheral edema. No clubbing, no cyanosis. Peripheral pulses are intact. - Labs CBC & Chem 7: 01/17/21 18:05 01/17/21 18:05 Labs: Abnormal Lab Results - Last 24 Hours (Table) 01/20/21 01/20/21 Range/Units 06:13 06:13 D-Dimer 1.27 H (<0.60) mg/L FEU Lactate Dehydrogenase 398 H (120-246) U/L C-Reactive Protein 6.8 H (0.0-0.8) mg/dL Microbiology - Last 24 Hours (Table) 01/17/21 18:00 Blood Culture - Preliminary Blood No Growth after 48 hours 01/17/21 18:05 Blood Culture - Preliminary Blood No Growth after 48 hours Assessment and Plan Assessment: 1 Acute hypoxic respiratory failure secondary to acute CoVID 19 pneumonitis. Initiated on Remdesivir 01/18/2021 2 Febrile illness secondary to above 3 Lymphocytopenia secondary to above 4 Elevated inflammatory markers secondary to above 5 Obesity 6 Hypertension 7 Former smoker Plan: The patient was seen and evaluated by Dr. Soriano Day #3 of Remdesivir Continue dexamethasone, Lovenox, Colcrys, vitamin supplements Continue to monitor oxygen requirements closely Titrate down the FiO2 as tolerated Follow-up chest x-ray in a.m. We will continue to follow I, the cosigning physician, performed a history & physical examination of the patient. Lungs sounds with crackles in bilateral bases, few scattered rhonchi. Maintaining good O2 saturations in the 90s on 15 L high flow nasal cannula along with nonrebreather mask. I discussed the assessment and plan of care with my nurse practitioner, Alley Luna. I attest to the above note as dictated by her.
[2021-01-20] MEDS: SODIUM CHLORIDE 0.9% 1,000 ML IV SCH (21:38)
--- NOTE | 2021-01-21 01:23 | P.PN ---
Subjective Progress Note Date: 01/19/21 Principal diagnosis: Acute hypoxic respiratory failure secondary to covid 19 pneumoniae with upper lobe peripheral infiltrates. Elevated inflammatory markers secondary to Coumadin 19 pneumonia Patient is a 85-year-old female with known history of hypertension, hyperlipidemia, history of Polanco's palsy and previous history of smoking presents to ER on 01/17/2021 with complaints of fever and generalized weakness and exertional dyspnea. Patient states that she received first dose of Covid 19 vaccine on 01/08/2021. Patient says that she has been feeling progressively weak since then. Patient does complain of cough along with fever for the past 5 days. Denied any abdominal pain. No nausea or vomiting. Patient has not been eating well due to decreased appetite. Chest x-ray showed mild cardiomegaly. Reticulonodular interstitial changes bilaterally and chronic parenchymal changes. Areas of acute infiltrate in the periphery of the upper lungs cannot be excluded. CT angiogram showed suboptimal study without central acute pulmonary embolus. Cannot exclude small segmental and subsegmental on the embolism on this study. Multifocal infiltrates/and or edema on background upper lung fibrotic changes consistent with Covid 19 infection. Reactive thoracic adenopathy noted. Underlying cardiomegaly present. D-dimer 1.41 Sodium 135 percussion 4.3, chloride 101, BUN 13 and creatinine 0.72 Ferritin 520, Eliquis 902, CRP 53.6 and a pro-calcitonin level is 0.09 Urinalysis is negative for infection. Covid 19 PCR is detected. Patient was hypoxic with pulse ox 88% on room air on admission and tachycardic and febrile with T-max 102.2 01/19/2021 Patient is currently resting in the bed awake alert and oriented. No acute distress. Exertional dyspnea and requiring oxygen high flow at 15 L via nasal cannula and 100% nonrebreather intermittently. T-max is 100.8 Chest x-ray showed bilateral diffuse interstitial and airspace opacities unchanged compared to prior study. Laboratory data showed LDH 972 CRP 62.8 and D-dimer 1.51 pulmonary is following. Patient is being continued on dexamethasone, remdesivir course and Lovenox. No nausea vomiting or abdominal pain or diarrhea. No dysuria or hematuria. No chest pain. Objective - Vital Signs Vital signs: Vital Signs Temp 97.9 F 01/19/21 09:35 Pulse 85 01/19/21 09:35 Resp 20 03/13/21 09:35 BP 121/69 01/19/21 09:35 Pulse Ox 99 01/19/21 09:35 Intake & Output 01/18/21 01/19/21 01/19/21 18:59 06:59 18:59 Other: Voiding Method Toilet Toilet Toilet # Voids 3 4 # Bowel Movements 1 - Exam PHYSICAL EXAMINATION: Patient is lying in the bed comfortably, no acute distress, awake alert and oriented.. HEENT: Normocephalic. Neck is supple. Pupils reactive. Nostrils clear. Oral cavity is moist. Ears reveal no drainage. Neck reveals no JVD, carotid bruits, or thyromegaly. CHEST EXAMINATION: Trachea is central. Symmetrical expansion. No wheezing. Scattered coarse sounds.. CARDIAC: Normal S1, S2 with no gallops. No murmurs ABDOMEN: Soft. Bowel sounds normal. No organomegaly. No abdominal bruits. Extremities: reveal no edema. No clubbing or cyanosis Neurologically awake, alert, oriented x3 with well-coordinated movements. No focal deficits noted Skin: No rash or skin lesions. Psychiatric: Coperative. Nonsuicidal Musculoskeletal: No joint swelling or deformity. Normal range of motion. - Labs CBC & Chem 7: 01/17/21 18:05 01/17/21 18:05 Labs: Abnormal Lab Results - Last 24 Hours (Table) 01/19/21 01/19/21 Range/Units 06:40 06:40 D-Dimer 1.51 H (<0.60) mg/L FEU Lactate Dehydrogenase 972 H (313-618) U/L C-Reactive Protein 62.8 H (<10.0) mg/L Microbiology - Last 24 Hours (Table) 01/17/21 18:00 Blood Culture - Preliminary Blood No Growth after 24 hours 01/17/21 18:05 Blood Culture - Preliminary Blood No Growth after 24 hours Assessment and Plan Assessment: Acute hypoxic respiratory failure secondary to covid 19 pneumoniae with upper lobe peripheral infiltrates. Elevated inflammatory markers secondary to Coumadin 19 pneumonia Hypertension Hyperlipidemia Morbid obesity with BMI 38.3 Elevated d-dimer level without evidence of pulmonary embolism History of smoking Plan: Patient will be continued on oxygen supplementation and titrate down FiO2 slowly as tolerated. Patient will be continued on dexamethasone, Lovenox colchicine an d vitamin supplementation. Patient was initiated on Remdesivir course. Pulmonary is on board. Prognosis is guarded at this time. Continue to monitor closely. Time with Patient: Greater than 30
--- NOTE | 2021-01-21 01:25 | P.PN ---
Subjective Progress Note Date: 01/20/21 Principal diagnosis: Acute hypoxic respiratory failure secondary to covid 19 pneumoniae with upper lobe peripheral infiltrates. Elevated inflammatory markers secondary to Coumadin 19 pneumonia Patient is a 85-year-old female with known history of hypertension, hyperlipidemia, history of Polanco's palsy and previous history of smoking presents to ER on 01/17/2021 with complaints of fever and generalized weakness and exertional dyspnea. Patient states that she received first dose of Covid 19 vaccine on 01/08/2021. Patient says that she has been feeling progressively weak since then. Patient does complain of cough along with fever for the past 5 days. Denied any abdominal pain. No nausea or vomiting. Patient has not been eating well due to decreased appetite. Chest x-ray showed mild cardiomegaly. Reticulonodular interstitial changes bilaterally and chronic parenchymal changes. Areas of acute infiltrate in the periphery of the upper lungs cannot be excluded. CT angiogram showed suboptimal study without central acute pulmonary embolus. Cannot exclude small segmental and subsegmental on the embolism on this study. Multifocal infiltrates/and or edema on background upper lung fibrotic changes consistent with Covid 19 infection. Reactive thoracic adenopathy noted. Underlying cardiomegaly present. D-dimer 1.41 Sodium 135 percussion 4.3, chloride 101, BUN 13 and creatinine 0.72 Ferritin 520, Eliquis 902, CRP 53.6 and a pro-calcitonin level is 0.09 Urinalysis is negative for infection. Covid 19 PCR is detected. Patient was hypoxic with pulse ox 88% on room air on admission and tachycardic and febrile with T-max 102.2 01/19/2021 Patient is currently resting in the bed awake alert and oriented. No acute distress. Exertional dyspnea and requiring oxygen high flow at 15 L via nasal cannula and 100% nonrebreather intermittently. T-max is 100.8 Chest x-ray showed bilateral diffuse interstitial and airspace opacities unchanged compared to prior study. Laboratory data showed LDH 972 CRP 62.8 and D-dimer 1.51 pulmonary is following. Patient is being continued on dexamethasone, remdesivir course and Lovenox. No nausea vomiting or abdominal pain or diarrhea. No dysuria or hematuria. No chest pain. 01/20/2021 Patient is awake alert and oriented x3. No acute distress. Currently 100% nonrebreather with 15 L high flow oxygen. Still elevated inflammatory markers. Remdesivir day 3. Patient has been afebrile today. No complaints of nausea vomiting or abdominal pain or diarrhea. Tolerate oral diet. No headache or dizziness. No chest pain. Continue dexamethasone, Lovenox subcu and vitamin supplementation. Pulmonary is on board. Current medications reviewed. Objective - Vital Signs Vital signs: Vital Signs Temp 97.5 F L 01/20/21 14:00 Pulse 82 01/20/21 14:00 Resp 18 01/20/21 14:00 BP 147/81 01/20/21 14:00 Pulse Ox 91 L 01/20/21 14:00 Intake & Output 01/19/21 01/20/21 01/20/21 17:59 06:59 18:59 Other: Voiding Method Toilet # Voids - Exam PHYSICAL EXAMINATION: Patient is lying in the bed comfortably, no acute distress, awake alert and oriented.. HEENT: Normocephalic. Neck is supple. Pupils reactive. Nostrils clear. Oral cavity is moist. Ears reveal no drainage. Neck reveals no JVD, carotid bruits, or thyromegaly. CHEST EXAMINATION: Trachea is central. Symmetrical expansion. No wheezing. Scattered coarse sounds.. CARDIAC: Normal S1, S2 with no gallops. No murmurs ABDOMEN: Soft. Bowel sounds normal. No organomegaly. No abdominal bruits. Extremities: reveal no edema. No clubbing or cyanosis Neurologically awake, alert, oriented x3 with well-coordinated movements. No focal deficits noted Skin: No rash or skin lesions. Psychiatric: Coperative. Nonsuicidal Musculoskeletal: No joint swelling or deformity. Normal range of motion. - Labs CBC & Chem 7: 01/17/21 18:05 01/17/21 18:05 Labs: Abnormal Lab Results - Last 24 Hours (Table) 01/20/21 01/20/21 Range/Units 06:13 06:13 D-Dimer 1.27 H (<0.60) mg/L FEU Lactate Dehydrogenase 398 H (120-246) U/L C-Reactive Protein 6.8 H (0.0-0.8) mg/dL Microbiology - Last 24 Hours (Table) 01/17/21 18:00 Blood Culture - Preliminary Blood No Growth after 48 hours 01/17/21 18:05 Blood Culture - Preliminary Blood No Growth after 48 hours Assessment and Plan Assessment: Acute hypoxic respiratory failure secondary to covid 19 pneumoniae with upper lobe peripheral infiltrates. Elevated inflammatory markers secondary to Coumadin 19 pneumonia Hypertension Hyperlipidemia Morbid obesity with BMI 38.3 Elevated d-dimer level without evidence of pulmonary embolism History of smoking Plan: Patient will be continued on oxygen supplementation and titrate down FiO2 slowly as tolerated. Patient will be continued on dexamethasone, Lovenox colchicine and vitamin supplementation. Patient was initiated on Remdesivir course. Pulmonary is on board. Prognosis is guarded at this time. Continue to monitor closely. Time with Patient: Greater than 30
[2021-01-21] MEDS: FAMOTIDINE 20 MG TAB PO SCH ×2 (07:41→20:45)
[2021-01-21] MEDS: ASCORBIC ACID 500 MG TAB PO SCH (07:41)
[2021-01-21] MEDS: COLCHICINE 0.6 MG EACH PO SCH ×2 (07:41→20:45)
[2021-01-21] MEDS: DEXAMETHASONE SOD PHOSPHATE 10 MG/ML 1 ML VIAL IV SCH (07:42)
[2021-01-21] MEDS: ENOXAPARIN 40 MG/0.4 ML SYRINGE SQ SCH (07:42)
[2021-01-21] MEDS: CHOLECALCIFEROL 25 MCG (1000 IU) TABLET PO SCH (07:42)
[2021-01-21] MEDS: lisinopriL 5 MG TAB PO SCH (07:42)
[2021-01-21] MEDS: ZINC SULFATE 220 MG CAP PO SCH (07:42)
--- NOTE | 2021-01-21 08:20 | XR ---
EXAMINATION TYPE: XR chest 1V portable DATE OF EXAM: 01/21/2021 COMPARISON: 01/19/2021 HISTORY: Cough TECHNIQUE: Single frontal view of the chest is obtained. FINDINGS: There is patchy bilateral infiltrates. Heart size stable. Atherosclerotic change aorta. Bi apical pleural thickening. No pleural effusion or pneumothorax. Size stable. Atherosclerotic change a catherine IMPRESSION: 1. Patchy bilateral infiltrate stable.
[2021-01-21 10:44] LABS: Basophils # (A) 0.01 X 10*3/uL (0.00-0.10); Basophils % (A) 0.1 %; Eosinophils # (A) 0 X 10*3/uL (0.04-0.35); Eosinophils % (A) 0 %; HCT 38.1 % (37.2-46.3); HGB 12.2 g/dL (12.0-15.0); Lymphocytes # (A) 0.94 X 10*3/uL (0.90-5.00); Lymphocytes % (A) 11.2 %; MCH 28.7 pg (27.0-32.0); MCV 89.6 fL (80.0-97.0); Mean Platelet Volume 11.9 fL (9.5-12.2); Monocytes # (A) 0.58 X 10*3/uL (0.20-1.00); Monocytes % (A) 6.9 %; Neutrophils # (A) 6.78 X 10*3/uL (1.80-7.70); Neutrophils % (A) 80.8 %; Platelet Count 289 X 10*3/uL (140-440); RBC 4.25 X 10*6/uL (4.10-5.20); RDW 15.9 % (11.5-14.5); WBC 8.39 X 10*3/uL (4.50-10.00)
--- NOTE | 2021-01-21 11:54 | P.PN ---
Subjective from records: Patient is a 85-year-old female with known history of hypertension, hyperlipidemia, history of Polanco's palsy and previous history of smoking presents to ER on 01/17/2021 with complaints of fever and generalized weakness and exertional dyspnea. Patient states that she received first dose of Covid 19 vaccine on 01/08/2021. Patient says that she has been feeling progressively weak since then. Patient does complain of cough along with fever for the past 5 days. Denied any abdominal pain. No nausea or vomiting. Patient has not been eating well due to decreased appetite. Chest x-ray showed mild cardiomegaly. Reticulonodular interstitial changes bilaterally and chronic parenchymal changes. Areas of acute infiltrate in the periphery of the upper lungs cannot be excluded. CT angiogram showed suboptimal study without central acute pulmonary embolus. Cannot exclude small segmental and subsegmental on the embolism on this study. Multifocal infiltrates/and or edema on background upper lung fibrotic changes consistent with Covid 19 infection. Reactive thoracic adenopathy noted. Underlying cardiomegaly present. D-dimer 1.41 Sodium 135 percussion 4.3, chloride 101, BUN 13 and creatinine 0.72 Ferritin 520, Eliquis 902, CRP 53.6 and a pro-calcitonin level is 0.09 Urinalysis is negative for infection. Covid 19 PCR is detected. Patient was hypoxic with pulse ox 88% on room air on admission and tachycardic and febrile with T-max 102.2 subjective 01/21/2021 this is a pleasant 85 years old female with multiple medical problems as above who was admitted with acute hypoxia secondary to bilateral cough or pneumonia.today she is lying in bed with mild respiratory distress, she feels a little better. She still on 15 L oxygen via nasal cannula with oxygen saturation 94% She denies chest pain or abdominal pain or diarrhea. She has little competent flap She remains on dexamethasone, remdesivir, and Vitamin C. CTA of the chest is negative for PE yesterday her lactate dehydrogenase were trending downto 300 and C-reactive protein down to 6.8. Pulmonary team on the case CONSTITUTIONAL: No fever, no malaise, no fatigue. HEENT: No recent visual problems or hearing problems. Denied any sore throat. CARDIOVASCULAR: No orthopnea, PND, no palpitations, no syncope. PULMONARY: No chest wall tenderness, no hemoptysis. GASTROINTESTINAL: No diarrhea, no nausea, no vomiting, no abdominal pain. Normoactive bowel sounds. NEUROLOGICAL: No headaches, no weakness, no numbness. HEMATOLOGICAL: Denies any bleeding or petechiae. Active Medications Generic Name Dose Route Start Last Admin Trade Name Freq PRN Reason Stop Dose Admin Acetaminophen 650 mg 01/17/21 20:03 01/19/21 05:20 Acetaminophen Tab 325 Mg Tab PO 650 mg Q6HR PRN Administration Mild Pain or Fever > 100.5 Ascorbic Acid 1,000 mg 01/18/21 14:30 01/21/21 07:41 Ascorbic Acid 500 Mg Tab PO 1,000 mg DAILY CARMINE Administration Cholecalciferol 25 mcg 01/18/21 14:30 01/21/21 07:42 Cholecalciferol 25 Mcg (1000 Iu) Tablet PO 25 mcg DAILY CARMINE Administration Colchicine 0.6 mg 01/18/21 21:00 01/21/21 07:41 Colchicine 0.6 Mg Each PO 0.6 mg BID CARMINE Administration Dexamethasone Sodium Phosphate 6 mg 01/18/21 09:00 01/21/21 07:42 Dexamethasone Sod Phosphate 10 Mg/Ml 1 Ml Vial IV 6 mg DAILY CARMINE Administration Enoxaparin Sodium 40 mg 01/18/21 14:30 01/21/21 07:42 Enoxaparin 40 Mg/0.4 Ml Syringe SQ 40 mg DAILY CARMINE Administration Famotidine 20 mg 01/18/21 21:00 01/21/21 07:41 Famotidine 20 Mg Tab PO 20 mg BID CARMINE Administration Sodium Chloride 1,000 mls @ 20 mls/hr 01/17/21 20:15 01/20/21 21:38 Saline 0.9% IV 20 mls/hr .Q24H CARMINE Administration Remdesivir 100 mg/ Sodium 250 mls @ 250 mls/hr 01/19/21 14:00 01/20/21 13:38 Chloride IVPB 01/22/21 14:59 250 mls/hr DAILY@1400 CARMINE Administration Lisinopril 5 mg 01/19/21 09:00 01/21/21 07:42 Lisinopril 5 Mg Tab PO 5 mg DAILY CARMINE Administration Lorazepam 0.5 mg 01/17/21 20:03 Lorazepam 2 Mg/Ml Inj IV Q6HR PRN Anxiety Morphine Sulfate 4 mg 01/17/21 20:03 Morphine Sulfate 4 Mg/Ml Syringe IV Q4HR PRN Severe Pain Naloxone HCl 0.2 mg 01/17/21 20:03 Naloxone 0.4 Mg/Ml 1 Ml Vial IV Q2M PRN Opioid Reversal Oxycodone/Acetaminophen 1 each 01/17/21 20:03 Oxycodone-Apap 5-325mg 1 Each Tab PO Q4HR PRN Severe Pain Tramadol HCl 50 mg 01/17/21 20:03 Tramadol 50 Mg Tab PO Q6H PRN Moderate Pain Zinc Sulfate 220 mg 01/18/21 14:30 01/21/21 07:42 Zinc Sulfate 220 Mg Cap PO 220 mg DAILY CARMINE Administration Objective - Vital Signs Vital signs: Vital Signs Temp 98.4 F 01/21/21 10:00 Pulse 80 01/21/21 10:00 Resp 20 01/21/21 10:00 BP 154/83 01/21/21 10:00 Pulse Ox 94 L 01/21/21 10:00 Intake & Output 01/20/21 01/21/21 01/21/21 18:59 06:59 18:59 Intake Total 470 Balance 470 Intake: Intake, IV Titration 470 Amount Remdesivir 100 mg In 250 Sodium Chloride 0.9% 250 ml @ 250 mls/hr IVPB DAILY@1400 [facility] Rx#: [id number] Sodium Chloride 0.9% 1, 220 000 ml @ 20 mls/hr IV . Q24H [facility] Rx#:[id number] Other: Voiding Method Toilet Toilet Toilet # Voids 3 # Bowel Movements 1 - Exam GENERAL: The patient is alert and oriented x3, not in any acute distress. Well developed, well nourished. HEENT: Pupils are round and equally reacting to light. EOMI. No scleral icterus. No conjunctival pallor. Normocephalic, atraumatic. No pharyngeal erythema. No thyromegaly. CARDIOVASCULAR: S1 and S2 present. No murmurs, rubs, or gallops. -PULMONARY: Chest is clear to auscultation, no wheezing or crackles.bilateral crepitation ABDOMEN: Soft, nontender, nondistended, normoactive bowel sounds. No palpable organomegaly. MUSCULOSKELETAL: No joint swelling or deformity. EXTREMITIES: No cyanosis, clubbing, or pedal edema. NEUROLOGICAL: Gross neurological examination did not reveal any focal deficits. SKIN: No rashes. no petechiae. - Labs CBC & Chem 7: 01/21/21 06:26 01/17/21 18:05 Labs: Abnormal Lab Results - Last 24 Hours (Table) 01/21/21 01/21/21 Range/Units 06:26 06:26 RDW 15.9 H (11.5-14.5) % Immature Gran # 0.08 H (0.00-0.04) X 10*3/uL Eosinophils # 0 L (0.04-0.35) X 10*3/uL D-Dimer 2.52 H (<0.60) mg/L FEU Microbiology - Last 24 Hours (Table) 01/17/21 18:00 Blood Culture - Preliminary Blood No Growth after 72 hours 01/17/21 18:05 Blood Culture - Preliminary Blood No Growth after 72 hours Assessment and Plan Assessment: Acute hypoxic respiratory failure secondary to covid 19 pneumoniae with upper lobe peripheral infiltrates. Elevated inflammatory markers secondary to Coumadin 19 pneumonia Hypertension Hyperlipidemia Morbid obesity with BMI 38.3 Elevated d-dimer level without evidence of pulmonary embolism History of smoking Plan: this is a pleasant 85 years old female who presents with cough and pneumonia and hypoxia. Patient will be continued on oxygen supplementation and titrate down FiO2 slowly as tolerated. Patient will be continued on dexamethasone, Lovenox , remdesivir and vitamin supplementation.Pulmonary is on board. Prognosis is guarded at this time. Continue to monitor closely.
[2021-01-21] MEDS: REMDESIVIR 100 MG in SODIUM CHLORIDE 0.9% 250 ML IVPB SCH (14:11)
[2021-01-21] MEDS: SODIUM CHLORIDE 0.9% 1,000 ML IV SCH (15:12)
[2021-01-21 15:32] LABS: Anion Gap 5.8 mmol/L (4.00-12.00); BUN/Creat Ratio 33.33 Ratio (12.00-20.00); C Reactive Protein 3.2 mg/dL (0.0-0.8); Calcium 8.4 mg/dL (8.7-10.3); Carbon Dioxide 28.2 mmol/L (21.6-31.8); Non-African American GFR(CKD) 83.7 (60.0-200.0)
--- NOTE | 2021-01-21 15:47 | P.PN ---
Subjective Progress Note Date: 01/21/21 Principal diagnosis: COVID 19 This is a very pleasant 85-year-old female patient who follows with Dr. Lopez as her primary care provider. She has a history of hypertension, Polanco's palsy, former smoker. She presented to the emergency room yesterday with complaints of ongoing fever and weakness. She had obtained the Moderna vaccination approximately 7 days ago. Shortly after that she developed increasing cough, congestion, aches, weakness, fever. Her cough and shortness of breath has been progressively getting worse the past 5 days. She presented here to the emergency room yesterday for the same. Chest x-ray revealed mild cardiomegaly. Reticular nodular interstitial changes bilaterally with possible chronic parenchymal fibrosis. Areas of acute infiltrate in the periphery of the upper lungs. CT angiogram ruled out any central PE. There is noted multifocal infi ltrates and/or edema back on of upper lung fibrotic changes, consistent with CoVID 19 infection. Reactive thoracic adenopathy noted. CoVID 19 screen positive. White count 4.7. Hemoglobin 13.5. Lymphocytes 0.9. D-dimer 1.41. Sodium 135. Potassium 4.3. Creatinine 0.72. LDH 902. C-reactive protein 53.6. Pro-calcitonin 0.09. She been initiated on dexamethasone. She is seen today in consultation on the regular medical floor. She is currently resting comfortably in bed. Awake and alert. In mild respiratory distress. Earlier this morning she was on 3 L maintain O2 saturation in the 90s. She is currently on 13 L high flow nasal cannula. Temperature 100.3. Hemodynamically stable. She has a loose nonproductive cough. The patient seen today 01/19/2021 in follow-up on the regular medical floor. She is currently resting in bed. Awake and alert in no acute distress. She is still requiring 15 L high flow nasal cannula along with a nonrebreather mask but having O2 saturations in the upper 90s. Earlier temperature today 100.8. Chest x-ray continues to show bilateral infiltrates. Blood cultures reveal no growth to date. D-dimer 1.51. LDH is 972. C-reactive protein 62.8. She is on day #2 of Remdesivir. She remains on Lovenox, dexamethasone, vitamin supplements. The patient is seen today 01/20/2021 in follow-up on the regular medical floor. She is currently resting fairly comfortably in bed. Awake and alert in no acute distress. She is still requiring 15 L high flow nasal cannula and a nonrebreather mask will maintaining O2 saturations are 95%. Blood cultures reveal no growth. D-dimer 1.27. LDH 398. C-reactive protein 6.8. This is day #3 of her Remdesivir. She remains on Lovenox, dexamethasone, vitamin supplements. On 01/27/2020 with patient seen in follow-up on medical floor, today is day 4 of Remdesivir, patient still requires high flow oxygen, she is currently in the 100% nonrebreather, and she does desaturate quite easily, with any little bit of exertion, she complicated with a car rate of 20 ML per hour, no fever, chest discomfort, today's chest x-ray shows stable patchy bilateral infiltrates. She remains on IV dexamethasone, 6 mg daily, on prophylactic dose of Lovenox, Pepcid, Remdesivir, and vitamins. Objective - Vital Signs Vital signs: Vital Signs Temp 98.9 F 01/21/21 13:32 Pulse 82 01/21/21 13:32 Resp 20 01/21/21 14:19 BP 145/72 01/21/21 13:32 Pulse Ox 87 L 01/21/21 13:32 Intake & Output 01/20/21 01/21/21 01/21/21 18:59 06:59 18:59 Intake Total 470 Balance 470 Intake: Intake, IV Titration 470 Amount Remdesivir 100 mg In 250 Sodium Chloride 0.9% 250 ml @ 250 mls/hr IVPB DAILY@1400 [facility] Rx#: [id number] Sodium Chloride 0.9% 1, 220 000 ml @ 20 mls/hr IV . Q24H [facility] Rx#:[id number] Other: Voiding Method Toilet Toilet Toilet # Voids 3 # Bowel Movements 1 - Exam GENERAL EXAM: Alert, very pleasant 85-year-old white female, tinnitus oxygen and the pulse ox of 87-92% comfortable in no apparent distress. HEAD: Normocephalic/atraumatic. EYES: Normal reaction of pupils, equal size. Conjunctiva pink, sclera white. NOSE: Clear with pink turbinates. THROAT: No erythema or exudates. NECK: No masses, no JVD, no thyroid enlargement, no adenopathy. CHEST: No chest wall deformity. Symmetrical expansion. LUNGS: Equal air entry with no crackles, wheeze, rhonchi or dullness. CVS: Regular rate and rhythm, normal S1 and S2, no gallops, no murmurs, no rubs ABDOMEN: Soft, nontender. No hepatosplenomegaly, normal bowel sounds, no guarding or rigidity. EXTREMITIES: No clubbing, no edema, no cyanosis, 2+ pulses and upper and lower extremities. MUSCULOSKELETAL: Muscle strength and tone normal. SPINE: No scoliosis or deformity SKIN: No rashes CENTRAL NERVOUS SYSTEM: Alert and oriented -3. No focal deficits, tone is normal in all 4 extremities. PSYCHIATRIC: Alert and oriented -3. Appropriate affect. Intact judgment and insight. - Labs CBC & Chem 7: 01/21/21 06:26 01/21/21 06:26 Labs: Abnormal Lab Results - Last 24 Hours (Table) 01/21/21 01/21/21 01/21/21 Range/Units 06:26 06:26 06:26 RDW 15.9 H (11.5-14.5) % Immature Gran # 0.08 H (0.00-0.04) X 10*3/uL Eosinophils # 0 L (0.04-0.35) X 10*3/uL D-Dimer 2.52 H (<0.60) mg/L FEU Chloride 111 H (96-109) mmol/L BUN/Creatinine Ratio 33.33 H (12.00-20.00) Ratio Glucose 117 H (70-110) mg/dL Calcium 8.4 L (8.7-10.3) mg/dL Lactate Dehydrogenase 444 H (120-246) U/L C-Reactive Protein 3.2 H (0.0-0.8) mg/dL Microbiology - Last 24 Hours (Table) 01/17/21 18:00 Blood Culture - Preliminary Blood No Growth after 72 hours 01/17/21 18:05 Blood Culture - Preliminary Blood No Growth after 72 hours Assessment and Plan Plan: Assessment: #1. Acute hypoxic respiratory failure secondary to acute coronary 19 pneumonitis, initiated on Remdesivir on 01/18/2021 #2. Febrile illness secondary to the above #3. Lymphopenia related to the above #4. Elevated inflammatory marker secondary to the above #5. Obesity #6. Hypertension #7. Former smoker Plan: Continue current medical treatment, continue Remdesivir, continue current dose dexamethasone, continue vitamins, continue prophylactic dose Lovenox, today's chest x-ray has been reviewed showing stable bilateral infiltrates. Patient sti ll requires high flow oxygen, easily desaturates. Today's labs have been noted, overload secondary markers are improving. Continue to follow patient's clinical course I performed a history & physical examination of the patient and discussed their management with my nurse practitioner, Trish Bell. I reviewed the nurse practitioner's note and agree with the documented findings and plan of care. Lung sounds are positive for diminished breath sounds The findings and the impression was discussed with the patient. I attest to the documentation by the nurse practitioner. Time with Patient: Less than 30
[2021-01-22] MEDS: lisinopriL 5 MG TAB PO SCH (09:07)
[2021-01-22] MEDS: ZINC SULFATE 220 MG CAP PO SCH (09:07)
[2021-01-22] MEDS: FAMOTIDINE 20 MG TAB PO SCH ×2 (09:07→20:48)
[2021-01-22] MEDS: DEXAMETHASONE SOD PHOSPHATE 10 MG/ML 1 ML VIAL IV SCH (09:07)
[2021-01-22] MEDS: CHOLECALCIFEROL 25 MCG (1000 IU) TABLET PO SCH (09:07)
[2021-01-22] MEDS: ASCORBIC ACID 500 MG TAB PO SCH (09:07)
[2021-01-22] MEDS: COLCHICINE 0.6 MG EACH PO SCH ×2 (09:07→20:48)
[2021-01-22] MEDS: ENOXAPARIN 40 MG/0.4 ML SYRINGE SQ SCH (09:08)
--- NOTE | 2021-01-22 12:16 | P.PN ---
Subjective from records: Patient is a 85-year-old female with known history of hypertension, hyperlipidemia, history of Polanco's palsy and previous history of smoking presents to ER on 01/17/2021 with complaints of fever and generalized weakness and exertional dyspnea. Patient states that she received first dose of Covid 19 vaccine on 01/08/2021. Patient says that she has been feeling progressively weak since then. Patient does complain of cough along with fever for the past 5 days. Denied any abdominal pain. No nausea or vomiting. Patient has not been eating well due to decreased appetite. Chest x-ray showed mild cardiomegaly. Reticulonodular interstitial changes bilaterally and chronic parenchymal changes. Areas of acute infiltrate in the periphery of the upper lungs cannot be excluded. CT angiogram showed suboptimal study without central acute pulmonary embolus. Cannot exclude small segmental and subsegmental on the embolism on this study. Multifocal infiltrates/and or edema on background upper lung fibrotic changes consistent with Covid 19 infection. Reactive thoracic adenopathy noted. Underlying cardiomegaly present. D-dimer 1.41 Sodium 135 percussion 4.3, chloride 101, BUN 13 and creatinine 0.72 Ferritin 520, Eliquis 902, CRP 53.6 and a pro-calcitonin level is 0.09 Urinalysis is negative for infection. Covid 19 PCR is detected. Patient was hypoxic with pulse ox 88% on room air on admission and tachycardic and febrile with T-max 102.2 subjective 01/21/2021 this is a pleasant 85 years old female with multiple medical problems as above who was admitted with acute hypoxia secondary to bilateral cough or pneumonia.today she is lying in bed with mild respiratory distress, she feels a little better. She still on 15 L oxygen via nasal cannula with oxygen saturation 94% She denies chest pain or abdominal pain or diarrhea. She has little competent flap She remains on dexamethasone, remdesivir, and Vitamin C. CTA of the chest is negative for PE yesterday her lactate dehydrogenase were trending downto 300 and C-reactive protein down to 6.8. Pulmonary team on the case 01/22/2021 Patient remains treated for Covid pneumonitis. She still needs high-dose of oxygen at 15 L/m via nonrebreather. She is afebrile but tachypneic with a breathing rate 20-22. Her trending up today to 5.2, she was on Lovenox 40 mg daily and increase it to 40 mg twice daily. Keep monitoring d-dimer Also she is on dexamethasone, zinc and vitamin C. Today her last dose of remdesivir Prognosis remains guarded CONSTITUTIONAL: No fever, no malaise, no fatigue. HEENT: No recent visual problems or hearing problems. Denied any sore throat. CARDIOVASCULAR: No orthopnea, PND, no palpitations, no syncope. PULMONARY: No chest wall tenderness, no hemoptysis. GASTROINTESTINAL: No diarrhea, no nausea, no vomiting, no abdominal pain. Normo active bowel sounds. NEUROLOGICAL: No headaches, no weakness, no numbness. HEMATOLOGICAL: Denies any bleeding or petechiae. Active Medications Generic Name Dose Route Start Last Admin Trade Name Freq PRN Reason Stop Dose Admin Acetaminophen 650 mg 01/17/21 20:03 01/19/21 05:20 Acetaminophen Tab 325 Mg Tab PO 650 mg Q6HR PRN Administration Mild Pain or Fever > 100.5 Amlodipine Besylate 5 mg 01/22/21 12:15 Amlodipine 5 Mg Tab PO DAILY CARMINE Ascorbic Acid 1,000 mg 01/18/21 14:30 01/22/21 09:07 Ascorbic Acid 500 Mg Tab PO 1,000 mg DAILY CARMINE Administration Cholecalciferol 25 mcg 01/18/21 14:30 01/22/21 09:07 Cholecalciferol 25 Mcg (1000 Iu) Tablet PO 25 mcg DAILY CARMINE Administration Colchicine 0.6 mg 01/18/21 21:00 01/22/21 09:07 Colchicine 0.6 Mg Each PO 0.6 mg BID CARMINE Administration Dexamethasone Sodium Phosphate 6 mg 01/18/21 09:00 01/22/21 09:07 Dexamethasone Sod Phosphate 10 Mg/Ml 1 Ml Vial IV 6 mg DAILY CARMINE Administration Enoxaparin Sodium 40 mg 01/22/21 21:00 Enoxaparin 40 Mg/0.4 Ml Syringe SQ Q12HR CARMINE Famotidine 20 mg 01/18/21 21:00 01/22/21 09:07 Famotidine 20 Mg Tab PO 20 mg BID CARMINE Administration Hydralazine HCl 25 mg 01/22/21 12:10 Hydralazine Hcl 25 Mg Tab PO Q6HR PRN Blood Pressure - High Sodium Chloride 1,000 mls @ 20 mls/hr 01/17/21 20:15 01/21/21 15:12 Saline 0.9% IV Not Given .Q24H CARMINE Remdesivir 100 mg/ Sodium 250 mls @ 250 mls/hr 01/19/21 14:00 01/21/21 14:11 Chloride IVPB 01/22/21 14:59 250 mls/hr DAILY@1400 CARMINE Administration Lisinopril 5 mg 01/19/21 09:00 01/22/21 09:07 Lisinopril 5 Mg Tab PO 5 mg DAILY CARMNIE Administration Lorazepam 0.5 mg 01/17/21 20:03 Lorazepam 2 Mg/Ml Inj IV Q6HR PRN Anxiety Morphine Sulfate 4 mg 01/17/21 20:03 Morphine Sulfate 4 Mg/Ml Syringe IV Q4HR PRN Severe Pain Naloxone HCl 0.2 mg 01/17/21 20:03 Naloxone 0.4 Mg/Ml 1 Ml Vial IV Q2M PRN Opioid Reversal Oxycodone/Acetaminophen 1 each 01/17/21 20:03 Oxycodone-Apap 5-325mg 1 Each Tab PO Q4HR PRN Severe Pain Tramadol HCl 50 mg 01/17/21 20:03 Tramadol 50 Mg Tab PO Q6H PRN Moderate Pain Zinc Sulfate 220 mg 01/18/21 14:30 01/22/21 09:07 Zinc Sulfate 220 Mg Cap PO 220 mg DAILY CARMINE Administration Objective - Vital Signs Vital signs: Vital Signs Temp 98.6 F 01/22/21 10:00 Pulse 78 01/22/21 10:00 Resp 20 01/22/21 10:00 BP 188/85 01/22/21 10:00 Pulse Ox 90 L 01/22/21 10:00 Intake & Output 01/21/21 01/22/21 01/22/21 18:59 06:59 18:59 Output Total 200 Balance -200 Output: Urine 200 Other: Voiding Method Toilet Toilet Toilet # Voids 4 4 - Exam GENERAL: The patient is alert and oriented x3, not in any acute distress. Well developed, well nourished. HEENT: Pupils are round and equally reacting to light. EOMI. No scleral icterus. No conjunctival pallor. Normocephalic, atraumatic. No pharyngeal erythema. No thyromegaly. CARDIOVASCULAR: S1 and S2 present. No murmurs, rubs, or gallops. -PULMONARY: Chest is clear to auscultation, no wheezing or crackles.bilateral crepitation ABDOMEN: Soft, nontender, nondistended, normoactive bowel sounds. No palpable organomegaly. MUSCULOSKELETAL: No joint swelling or deformity. EXTREMITIES: No cyanosis, clubbing, or pedal edema. NEUROLOGICAL: Gross neurological examination did not reveal any focal deficits. SKIN: No rashes. no petechiae. - Labs CBC & Chem 7: 01/21/21 06:26 01/21/21 06:26 Labs: Abnormal Lab Results - Last 24 Hours (Table) 01/21/21 01/22/21 Range/Units 06:26 06:52 D-Dimer 5.22 H (<0.60) mg/L FEU Chloride 111 H (96-109) mmol/L BUN/Creatinine Ratio 33.33 H (12.00-20.00) Ratio Glucose 117 H (70-110) mg/dL Calcium 8.4 L (8.7-10.3) mg/dL Lactate Dehydrogenase 444 H (120-246) U/L C-Reactive Protein 3.2 H (0.0-0.8) mg/dL Microbiology - Last 24 Hours (Table) 01/17/21 18:00 Blood Culture - Preliminary Blood No Growth after 96 hours 01/17/21 18:05 Blood Culture - Preliminary Blood No Growth after 96 hours Assessment and Plan Assessment: Acute hypoxic respiratory failure secondary to covid 19 pneumoniae with upper lobe peripheral infiltrates. Elevated inflammatory markers secondary to Coumadin 19 pneumonia Hypertension Hyperlipidemia Morbid obesity with BMI 38.3 Elevated d-dimer level without evidence of pulmonary embolism History of smoking Plan: this is a pleasant 85 years old female who presents with cough and pneumonia and hypoxia. Patient will be continued on oxygen supplementation and titrate down FiO2 slowly as tolerated. Patient will be continued on dexamethasone, Lovenox and vitamin supplementation. Is on 01/22. Her last dose of remdesivir Pulmonary is on board. Prognosis is guarded at this time. Continue to monitor closely. Norvasc and when necessary hydralazine for high blood pressure secondary to steroid effect Labs and medication were reviewed.. Continue same treatment. Continue with symptomatic treatment. Resume home medication. Monitor lytes and vitals. DVT and GI prophylaxis. Further recommendationsas per clinical course of the patient DVT prophylaxis: Subcutaneous Lovenox GI Prophylaxis: Pepcid Prognosis is guarded
[2021-01-22] MEDS: amLODIPine 5 MG TAB PO SCH (12:50)
--- NOTE | 2021-01-22 15:01 | P.PN ---
Subjective Progress Note Date: 01/22/21 Principal diagnosis: COVID 19 This is a very pleasant 85-year-old female patient who follows with Dr. Lopez as her primary care provider. She has a history of hypertension, Polanco's palsy, former smoker. She presented to the emergency room yesterday with complaints of ongoing fever and weakness. She had obtained the Moderna vaccination approximately 7 days ago. Shortly after that she developed increasing cough, congestion, aches, weakness, fever. Her cough and shortness of breath has been progressively getting worse the past 5 days. She presented here to the emergency room yesterday for the same. Chest x-ray revealed mild cardiomegaly. Reticular nodular interstitial changes bilaterally with possible chronic parenchymal fibrosis. Areas of acute infiltrate in the periphery of the upper lungs. CT angiogram ruled out any central PE. There is noted multifocal infi ltrates and/or edema back on of upper lung fibrotic changes, consistent with CoVID 19 infection. Reactive thoracic adenopathy noted. CoVID 19 screen positive. White count 4.7. Hemoglobin 13.5. Lymphocytes 0.9. D-dimer 1.41. Sodium 135. Potassium 4.3. Creatinine 0.72. LDH 902. C-reactive protein 53.6. Pro-calcitonin 0.09. She been initiated on dexamethasone. She is seen today in consultation on the regular medical floor. She is currently resting comfortably in bed. Awake and alert. In mild respiratory distress. Earlier this morning she was on 3 L maintain O2 saturation in the 90s. She is currently on 13 L high flow nasal cannula. Temperature 100.3. Hemodynamically stable. She has a loose nonproductive cough. The patient seen today 01/19/2021 in follow-up on the regular medical floor. She is currently resting in bed. Awake and alert in no acute distress. She is still requiring 15 L high flow nasal cannula along with a nonrebreather mask but having O2 saturations in the upper 90s. Earlier temperature today 100.8. Chest x-ray continues to show bilateral infiltrates. Blood cultures reveal no growth to date. D-dimer 1.51. LDH is 972. C-reactive protein 62.8. She is on day #2 of Remdesivir. She remains on Lovenox, dexamethasone, vitamin supplements. The patient is seen today 01/20/2021 in follow-up on the regular medical floor. She is currently resting fairly comfortably in bed. Awake and alert in no acute distress. She is still requiring 15 L high flow nasal cannula and a nonrebreather mask will maintaining O2 saturations are 95%. Blood cultures reveal no growth. D-dimer 1.27. LDH 398. C-reactive protein 6.8. This is day #3 of her Remdesivir. She remains on Lovenox, dexamethasone, vitamin supplements. On 01/27/2020 with patient seen in follow-up on medical floor, today is day 4 of Remdesivir, patient still requires high flow oxygen, she is currently in the 100% nonrebreather, and she does desaturate quite easily, with any little bit of exertion, she complicated with a car rate of 20 ML per hour, no fever, chest discomfort, today's chest x-ray shows stable patchy bilateral infiltrates. She remains on IV dexamethasone, 6 mg daily, on prophylactic dose of Lovenox, Pepcid, Remdesivir, and vitamins. On 01/22/2021 patient seen in follow-up on medical floor, patient is on 15 L of oxygen, her pulse ox is 88-92%. Inflammatory markers are improving, but d-dimer is up to 5.22. No new chest x-ray today, Estrace chest x-ray showed patchy bilateral infiltrates that were stable in appearance. No fever or chills, no nausea vomiting or diarrhea. Patient is on Lovenox 40 mg twice daily which was adjusted from prophylactic dose. Patient continues on Remdesivir, she will receive her fifth dose today. Objective - Vital Signs Vital signs: Vital Signs Temp 97.4 F L 01/22/21 14:00 Pulse 81 01/22/21 14:00 Resp 20 01/22/21 14:00 BP 165/90 01/22/21 14:00 Pulse Ox 88 L 01/22/21 14:00 Intake & Output 01/21/21 01/22/21 01/22/21 18:59 06:59 18:59 Output Total 200 Balance -200 Output: Urine 200 Other: Voiding Method Toilet Toilet Toilet # Voids 4 4 - Exam GENERAL EXAM: Alert, very pleasant 85-year-old white female, on 15 l/min oxygen and the pulse ox of 87-92% comfortable in no apparent distress. HEAD: Normocephalic/atraumatic. EYES: Normal reaction of pupils, equal size. Conjunctiva pink, sclera white. NOSE: Clear with pink turbinates. THROAT: No erythema or exudates. NECK: No masses, no JVD, no thyroid enlargement, no adenopathy. CHEST: No chest wall deformity. Symmetrical expansion. LUNGS: Equal air entry with no crackles, wheeze, rhonchi or dullness. CVS: Regular rate and rhythm, normal S1 and S2, no gallops, no murmurs, no rubs ABDOMEN: Soft, nontender. No hepatosplenomegaly, normal bowel sounds, no guarding or rigidity. EXTREMITIES: No clubbing, no edema, no cyanosis, 2+ pulses and upper and lower extremities. MUSCULOSKELETAL: Muscle strength and tone normal. SPINE: No scoliosis or deformity SKIN: No rashes CENTRAL NERVOUS SYSTEM: Alert and oriented -3. No focal deficits, tone is normal in all 4 extremities. PSYCHIATRIC: Alert and oriented -3. Appropriate affect. Intact judgment and insight. - Labs CBC & Chem 7: 01/21/21 06:26 01/21/21 06:26 Labs: Abnormal Lab Results - Last 24 Hours (Table) 01/21/21 01/22/21 Range/Units 06:26 06:52 D-Dimer 5.22 H (<0.60) mg/L FEU Chloride 111 H (96-109) mmol/L BUN/Creatinine Ratio 33.33 H (12.00-20.00) Ratio Glucose 117 H (70-110) mg/dL Calcium 8.4 L (8.7-10.3) mg/dL Lactate Dehydrogenase 444 H (120-246) U/L C-Reactive Protein 3.2 H (0.0-0.8) mg/dL Microbiology - Last 24 Hours (Table) 01/17/21 18:00 Blood Culture - Preliminary Blood No Growth after 96 hours 01/17/21 18:05 Blood Culture - Preliminary Blood No Growth after 96 hours Assessment and Plan Plan: Assessment: #1. Acute hypoxic respiratory failure secondary to acute coronary 19 pneumonitis, initiated on Remdesivir on 01/18/2021 #2. Febrile illness secondary to the above #3. Lymphopenia related to the above #4. Elevated inflammatory marker secondary to the above #5. Obesity #6. Hypertension #7. Former smoker #8. Elevated d-dimer, CTA chest was a suboptimal study without evidence of central acute pulmonary embolism however smaller segmental PEs could not be completely excluded. Plan: D-dimer has been noted, we will increase the Lovenox dose to 50 mg twice daily at intermediate dose 0.5 mg BID, continue following clinical course, continue Remdesivir treatment, continue Decadron. Overall prognosis is guarded. I performed a history & physical examination of the patient and discussed their management with my nurse practitioner, Trish Bell. I reviewed the nurse practitioner's note and agree with the documented findings and plan of care. Lung sounds are positive for diminished breath sounds The findings and the impression was discussed with the patient. I attest to the documentation by the nurse practitioner. Time with Patient: Less than 30
[2021-01-22] MEDS: REMDESIVIR 100 MG in SODIUM CHLORIDE 0.9% 250 ML IVPB SCH (17:52)
[2021-01-22] MEDS: SODIUM CHLORIDE 0.9% 1,000 ML IV SCH (19:07)
[2021-01-22] MEDS: ENOXAPARIN 60 MG/0.6 ML SYRINGE SQ SCH (20:48)
[2021-01-22] MEDS ORDERED: ENOXAPARIN 40 MG/0.4 ML SYRINGE SQ SCH (21:00)
[2021-01-23] MEDS ORDERED: hydrALAZINE HCL 25 MG TAB PO ONE
[2021-01-23] MEDS: lisinopriL 5 MG TAB PO SCH (08:38)
[2021-01-23] MEDS: FAMOTIDINE 20 MG TAB PO SCH ×2 (08:38→20:37)
[2021-01-23] MEDS: CHOLECALCIFEROL 25 MCG (1000 IU) TABLET PO SCH (08:38)
[2021-01-23] MEDS: ASCORBIC ACID 500 MG TAB PO SCH (08:38)
[2021-01-23] MEDS: amLODIPine 5 MG TAB PO SCH (08:38)
[2021-01-23] MEDS: ZINC SULFATE 220 MG CAP PO SCH (08:39)
[2021-01-23] MEDS: DEXAMETHASONE SOD PHOSPHATE 10 MG/ML 1 ML VIAL IV SCH (08:39)
[2021-01-23] MEDS: COLCHICINE 0.6 MG EACH PO SCH ×2 (08:39→20:37)
[2021-01-23] MEDS: ENOXAPARIN 60 MG/0.6 ML SYRINGE SQ SCH ×2 (08:39→20:37)
[2021-01-23 09:44] LABS: C Reactive Protein 39.5 mg/L (<10.0)
--- NOTE | 2021-01-23 14:44 | P.PN ---
Subjective Progress Note Date: 01/23/21 Principal diagnosis: COVID 19 This is a very pleasant 85-year-old female patient who follows with Dr. Lopez as her primary care provider. She has a history of hypertension, Polanco's palsy, former smoker. She presented to the emergency room yesterday with complaints of ongoing fever and weakness. She had obtained the Moderna vaccination approximately 7 days ago. Shortly after that she developed increasing cough, congestion, aches, weakness, fever. Her cough and shortness of breath has been progressively getting worse the past 5 days. She presented here to the emergency room yesterday for the same. Chest x-ray revealed mild cardiomegaly. Reticular nodular interstitial changes bilaterally with possible chronic parenchymal fibrosis. Areas of acute infiltrate in the periphery of the upper lungs. CT angiogram ruled out any central PE. There is noted multifocal infi ltrates and/or edema back on of upper lung fibrotic changes, consistent with CoVID 19 infection. Reactive thoracic adenopathy noted. CoVID 19 screen positive. White count 4.7. Hemoglobin 13.5. Lymphocytes 0.9. D-dimer 1.41. Sodium 135. Potassium 4.3. Creatinine 0.72. LDH 902. C-reactive protein 53.6. Pro-calcitonin 0.09. She been initiated on dexamethasone. She is seen today in consultation on the regular medical floor. She is currently resting comfortably in bed. Awake and alert. In mild respiratory distress. Earlier this morning she was on 3 L maintain O2 saturation in the 90s. She is currently on 13 L high flow nasal cannula. Temperature 100.3. Hemodynamically stable. She has a loose nonproductive cough. The patient seen today 01/19/2021 in follow-up on the regular medical floor. She is currently resting in bed. Awake and alert in no acute distress. She is still requiring 15 L high flow nasal cannula along with a nonrebreather mask but having O2 saturations in the upper 90s. Earlier temperature today 100.8. Chest x-ray continues to show bilateral infiltrates. Blood cultures reveal no growth to date. D-dimer 1.51. LDH is 972. C-reactive protein 62.8. She is on day #2 of Remdesivir. She remains on Lovenox, dexamethasone, vitamin supplements. The patient is seen today 01/20/2021 in follow-up on the regular medical floor. She is currently resting fairly comfortably in bed. Awake and alert in no acute distress. She is still requiring 15 L high flow nasal cannula and a nonrebreather mask will maintaining O2 saturations are 95%. Blood cultures reveal no growth. D-dimer 1.27. LDH 398. C-reactive protein 6.8. This is day #3 of her Remdesivir. She remains on Lovenox, dexamethasone, vitamin supplements. On 01/27/2020 with patient seen in follow-up on medical floor, today is day 4 of Remdesivir, patient still requires high flow oxygen, she is currently in the 100% nonrebreather, and she does desaturate quite easily, with any little bit of exertion, she complicated with a car rate of 20 ML per hour, no fever, chest discomfort, today's chest x-ray shows stable patchy bilateral infiltrates. She remains on IV dexamethasone, 6 mg daily, on prophylactic dose of Lovenox, Pepcid, Remdesivir, and vitamins. On 01/22/2021 patient seen in follow-up on medical floor, patient is on 15 L of oxygen, her pulse ox is 88-92%. Inflammatory markers are improving, but d-dimer is up to 5.22. No new chest x-ray today, [facility]ace chest x-ray showed patchy bilateral infiltrates that were stable in appearance. No fever or chills, no nausea vomiting or diarrhea. Patient is on Lovenox 40 mg twice daily which was adjusted from prophylactic dose. Patient continues on Remdesivir, she will receive her fifth dose today. On 01/23/2021 patient seen in follow-up on medical floor. She is sleeping comfortably in bed, breathing comfortably, she is on partial nonrebreather mask, pulse ox is 85-92%, seems to be in no acute respiratory distress, no new chest x-ray today, no fever or chills, blood pressures have been a bit elevated with systolic between 160-180, and diastolic in the 70s to 90s. Patient finished her Remdesivir, she remains on Lovenox 50 mg twice daily, she continues on IV dexamethasone and vitamins. sleepy today, but no acute distress noted. Objective - Vital Signs Vital signs: Vital Signs Temp 97.5 F L 01/23/21 14:00 Pulse 83 01/23/21 14:00 Resp 22 01/23/21 14:00 BP 170/98 01/23/21 14:00 Pulse Ox 92 L 01/23/21 14:00 Intake & Output 01/22/21 01/23/21 01/23/21 18:59 06:59 18:59 Intake Total 650 300 Balance 650 300 Intake: Intake, IV Titration 250 Amount Remdesivir 100 mg In 250 Sodium Chloride 0.9% 250 ml @ 250 mls/hr IVPB DAILY@1400 [facility] Rx#: [id number] Oral 400 300 Other: Voiding Method Toilet Toilet Toilet # Voids 4 2 # Bowel Movements 2 - Exam GENERAL EXAM: Alert, very pleasant 85-year-old white female, on 15 l/min oxygen and the pulse ox of 87-92% comfortable in no apparent distress. HEAD: Normocephalic/atraumatic. EYES: Normal reaction of pupils, equal size. Conjunctiva pink, sclera white. NOSE: Clear with pink turbinates. THROAT: No erythema or exudates. NECK: No masses, no JVD, no thyroid enlargement, no adenopathy. CHEST: No chest wall deformity. Symmetrical expansion. LUNGS: Equal air entry with no crackles, wheeze, rhonchi or dullness. CVS: Regular rate and rhythm, normal S1 and S2, no gallops, no murmurs, no rubs ABDOMEN: Soft, nontender. No hepatosplenomegaly, normal bowel sounds, no guarding or rigidity. EXTREMITIES: No clubbing, no edema, no cyanosis, 2+ pulses and upper and lower extremities. MUSCULOSKELETAL: Muscle strength and tone normal. SPINE: No scoliosis or deformity SKIN: No rashes CENTRAL NERVOUS SYSTEM: Alert and oriented -3. No focal deficits, tone is normal in all 4 extremities. PSYCHIATRIC: Alert and oriented -3. Appropriate affect. Intact judgment and insight. - Labs CBC & Chem 7: 01/21/21 06:26 01/21/21 06:26 Labs: Abnormal Lab Results - Last 24 Hours (Table) 01/23/21 01/23/21 Range/Units 06:31 06:31 D-Dimer 5.89 H (<0.60) mg/L FEU Lactate Dehydrogenase 1239 H (313-618) U/L C-Reactive Protein 39.5 H (<10.0) mg/L Microbiology - Last 24 Hours (Table) 01/17/21 18:00 Blood Culture - Preliminary Blood No Growth after 120 hours 01/17/21 18:05 Blood Culture - Preliminary Blood No Growth after 120 hours Assessment and Plan Plan: Assessment: #1. Acute hypoxic respiratory failure secondary to acute coronary 19 pneumonitis, initiated on Remdesivir on 01/18/2021, finished Remdesivir on 01/22/2021 #2. Febrile illness secondary to the above #3. Lymphopenia related to the above #4. Elevated inflammatory marker secondary to the above #5. Obesity #6. Hypertension #7. Former smoker #8. Elevated d-dimer, CTA chest was a suboptimal study without evidence of central acute pulmonary embolism however smaller segmental PEs could not be completely excluded. Plan: We will obtain a follow-up d-dimer,, inflammatory markers, chest x-ray tomorrow. Wean FiO2, patient still requiring high flow oxygen, but breathing comfortably, no acute distress. We'll continue current doses of Lovenox, 50 milligrams twice daily, continue vitamins, continue same dose IV steroids I performed a history & physical examination of the patient and discussed their management with my nurse practitioner, Trish Bell. I reviewed the nurse practitioner's note and agree with the documented findings and plan of care. Lung sounds are positive for diminished breath sounds The findings and the impression was discussed with the patient. I attest to the documentation by the nurse practitioner. Time with Patient: Less than 30
[2021-01-23 15:40] VITALS: BMI 38.2
--- NOTE | 2021-01-23 15:57 | P.PN ---
Subjective from records: Patient is a 85-year-old female with known history of hypertension, hyperlipidemia, history of Polanco's palsy and previous history of smoking presents to ER on 01/17/2021 with complaints of fever and generalized weakness and exertional dyspnea. Patient states that she received first dose of Covid 19 vaccine on 01/08/2021. Patient says that she has been feeling progressively weak since then. Patient does complain of cough along with fever for the past 5 days. Denied any abdominal pain. No nausea or vomiting. Patient has not been eating well due to decreased appetite. Chest x-ray showed mild cardiomegaly. Reticulonodular interstitial changes bilaterally and chronic parenchymal changes. Areas of acute infiltrate in the periphery of the upper lungs cannot be excluded. CT angiogram showed suboptimal study without central acute pulmonary embolus. Cannot exclude small segmental and subsegmental on the embolism on this study. Multifocal infiltrates/and or edema on background upper lung fibrotic changes consistent with Covid 19 infection. Reactive thoracic adenopathy noted. Underlying cardiomegaly present. D-dimer 1.41 Sodium 135 percussion 4.3, chloride 101, BUN 13 and creatinine 0.72 Ferritin 520, Eliquis 902, CRP 53.6 and a pro-calcitonin level is 0.09 Urinalysis is negative for infection. Covid 19 PCR is detected. Patient was hypoxic with pulse ox 88% on room air on admission and tachycardic and febrile with T-max 102.2 subjective 01/21/2021 this is a pleasant 85 years old female with multiple medical problems as above who was admitted with acute hypoxia secondary to bilateral cough or pneumonia.today she is lying in bed with mild respiratory distress, she feels a little better. She still on 15 L oxygen via nasal cannula with oxygen saturation 94% She denies chest pain or abdominal pain or diarrhea. She has little competent flap She remains on dexamethasone, remdesivir, and Vitamin C. CTA of the chest is negative for PE yesterday her lactate dehydrogenase were trending downto 300 and C-reactive protein down to 6.8. Pulmonary team on the case 01/22/2021 Patient remains treated for Covid pneumonitis. She still needs high-dose of oxygen at 15 L/m via nonrebreather. She is afebrile but tachypneic with a breathing rate 20-22. Her trending up today to 5.2, she was on Lovenox 40 mg daily and increase it to 40 mg twice daily. Keep monitoring d-dimer Also she is on dexamethasone, zinc and vitamin C. Today her last dose of remdesivir Prognosis remains guarded 01/23/2021 Patient is still with respiratory distress due to Covid pneumonia and she is still on 15 L oxygen via nasal cannula. Yesterday her Lovenox dose was increased to 50 mg twice daily because her d-dimer went up to 5.2, today is 5.8. However her inflammatory markers went up with lactate dehydrogenase to 1239 and C-reactive protein to 39.5 . Other than that she remains on dexamethasone, zinc and vitamin C with pulmonary team on the case CONSTITUTIONAL: No fever, no malaise, no fatigue. HEENT: No recent visual problems or hearing problems. Denied any sore throat. CARDIOVASCULAR: No orthopnea, PND, no palpitations, no syncope. PULMONARY: No chest wall tenderness, no hemoptysis. GASTROINTESTINAL: No diarrhea, no nausea, no vomiting, no abdominal pain. Normoactive bowel sounds. NEUROLOGICAL: No headaches, no weakness, no numbness. HEMATOLOGICAL: Denies any bleeding or petechiae. Active Medications Generic Name Dose Route Start Last Admin Trade Name Freq PRN Reason Stop Dose Admin Acetaminophen 650 mg 01/17/21 20:03 01/19/21 05:20 Acetaminophen Tab 325 Mg Tab PO 650 mg Q6HR PRN Administration Mild Pain or Fever > 100.5 Amlodipine Besylate 5 mg 01/22/21 12:15 01/23/21 08:38 Amlodipine 5 Mg Tab PO 5 mg DAILY CARMINE Administration Ascorbic Acid 1,000 mg 01/18/21 14:30 01/23/21 08:38 Ascorbic Acid 500 Mg Tab PO 1,000 mg DAILY CARMINE Administration Cholecalciferol 25 mcg 01/18/21 14:30 01/23/21 08:38 Cholecalciferol 25 Mcg (1000 Iu) Tablet PO 25 mcg DAILY CARMINE Administration Colchicine 0.6 mg 01/18/21 21:00 01/23/21 08:39 Colchicine 0.6 Mg Each PO 0.6 mg BID CARMINE Administration Dexamethasone Sodium Phosphate 6 mg 01/18/21 09:00 01/23/21 08:39 Dexamethasone Sod Phosphate 10 Mg/Ml 1 Ml Vial IV 6 mg DAILY CARMINE Administration Enoxaparin Sodium 50 mg 01/22/21 21:00 01/23/21 08:39 Enoxaparin 60 Mg/0.6 Ml Syringe SQ 50 mg Q12HR CARMINE Administration Famotidine 20 mg 01/18/21 21:00 01/23/21 08:38 Famotidine 20 Mg Tab PO 20 mg BID CARMINE Administration Hydralazine HCl 25 mg 01/22/21 12:10 Hydralazine Hcl 25 Mg Tab PO Q6HR PRN Blood Pressure - High Sodium Chloride 1,000 mls @ 20 mls/hr 01/17/21 20:15 01/22/21 19:07 Saline 0.9% IV Not Given .Q24H CARMINE Lisinopril 5 mg 01/19/21 09:00 01/23/21 08:38 Lisinopril 5 Mg Tab PO 5 mg DAILY CARMINE Administration Morphine Sulfate 4 mg 01/17/21 20:03 Morphine Sulfate 4 Mg/Ml Syringe IV Q4HR PRN Severe Pain Naloxone HCl 0.2 mg 01/17/21 20:03 Naloxone 0.4 Mg/Ml 1 Ml Vial IV Q2M PRN Opioid Reversal Oxycodone/Acetaminophen 1 each 01/17/21 20:03 Oxycodone-Apap 5-325mg 1 Each Tab PO Q4HR PRN Severe Pain Tramadol HCl 50 mg 01/17/21 20:03 Tramadol 50 Mg Tab PO Q6H PRN Moderate Pain Zinc Sulfate 220 mg 01/18/21 14:30 01/23/21 08:39 Zinc Sulfate 220 Mg Cap PO 220 mg DAILY CARMINE Administration Objective - Vital Signs Vital signs: Vital Signs Temp 97.5 F L 01/23/21 14:00 Pulse 83 01/23/21 14:00 Resp 22 01/23/21 14:00 BP 170/98 01/23/21 14:00 Pulse Ox 92 L 01/23/21 14:00 Intake & Output 01/22/21 01/23/21 01/23/21 18:59 06:59 18:59 Intake Total 650 300 Balance 650 300 Weight 97.976 kg Intake: Intake, IV Titration 250 Amount Remdesivir 100 mg In 250 Sodium Chloride 0.9% 250 ml @ 250 mls/hr IVPB DAILY@1400 [facility] Rx#: [id number] Oral 400 300 Other: Voiding Method Toilet Toilet Toilet # Voids 4 2 # Bowel Movements 2 - Exam GENERAL: The patient is alert and oriented x3, not in any acute distress. Well developed, well nourished. HEENT: Pupils are round and equally reacting to light. EOMI. No scleral icterus. No conjunctival pallor. Normocephalic, atraumatic. No pharyngeal erythema. No thyromegaly. CARDIOVASCULAR: S1 and S2 present. No murmurs, rubs, or gallops. -PULMONARY: Chest is clear to auscultation, no wheezing or crackles.bilateral crepitation ABDOMEN: Soft, nontender, nondistended, normoactive bowel sounds. No palpable organomegaly. MUSCULOSKELETAL: No joint swelling or deformity. EXTREMITIES: No cyanosis, clubbing, or pedal edema. NEUROLOGICAL: Gross neurological examination did not reveal any focal deficits. SKIN: No rashes. no petechiae. - Labs CBC & Chem 7: 01/21/21 06:26 01/21/21 06:26 Labs: Abnormal Lab Results - Last 24 Hours (Table) 01/23/21 01/23/21 Range/Units 06:31 06:31 D-Dimer 5.89 H (<0.60) mg/L FEU Lactate Dehydrogenase 1239 H (313-618) U/L C-Reactive Protein 39.5 H (<10.0) mg/L Microbiology - Last 24 Hours (Table) 01/17/21 18:00 Blood Culture - Preliminary Blood No Growth after 120 hours 01/17/21 18:05 Blood Culture - Preliminary Blood No Growth after 120 hours Assessment and Plan Assessment: Acute hypoxic respiratory failure secondary to covid 19 pneumoniae with upper lobe peripheral infiltrates. Elevated inflammatory markers secondary to Coumadin 19 pneumonia Hypertension Hyperlipidemia Morbid obesity with BMI 38.3 Elevated d-dimer level without evidence of pulmonary embolism History of smoking Plan: this is a pleasant 85 years old female who presents with cough and pneumonia and hypoxia. Patient will be continued on oxygen supplementation and titrate down FiO2 slowly as tolerated. Patient will be continued on dexamethasone, Lovenox and vitamin supplementation. Is on 01/22. Her last dose of remdesivir Pulmonary is on board. Prognosis is guarded at this time. Continue to monitor closely. Norvasc and when necessary hydralazine for high blood pressure secondary to steroid effect Labs and medication were reviewed.. Continue same treatment. Continue with symptomatic treatment. Resume home medication. Monitor lytes and vitals. DVT and GI prophylaxis. Further recommendationsas per clinical course of the patient DVT prophylaxis: Subcutaneous Lovenox GI Prophylaxis: Pepcid Prognosis is guarded
[2021-01-23] MEDS: hydrALAZINE HCL 25 MG TAB PO PRN (18:54)
[2021-01-23] MEDS: SODIUM CHLORIDE 0.9% 1,000 ML IV SCH (19:22)
[2021-01-24] MEDS: hydrALAZINE HCL 50 MG TAB PO SCH ×3 (00:16→20:34)
[2021-01-24] MEDS: ASCORBIC ACID 500 MG TAB PO SCH (07:26)
[2021-01-24] MEDS: lisinopriL 5 MG TAB PO SCH (07:27)
[2021-01-24] MEDS: FAMOTIDINE 20 MG TAB PO SCH (07:27)
[2021-01-24] MEDS: ZINC SULFATE 220 MG CAP PO SCH (07:27)
[2021-01-24] MEDS: amLODIPine 5 MG TAB PO SCH (07:27)
[2021-01-24] MEDS: CHOLECALCIFEROL 25 MCG (1000 IU) TABLET PO SCH (07:27)
[2021-01-24] MEDS: DEXAMETHASONE SOD PHOSPHATE 10 MG/ML 1 ML VIAL IV SCH (07:27)
[2021-01-24] MEDS: ENOXAPARIN 60 MG/0.6 ML SYRINGE SQ SCH ×2 (07:28→20:34)
[2021-01-24] MEDS: COLCHICINE 0.6 MG EACH PO SCH ×2 (07:29→20:34)
--- NOTE | 2021-01-24 08:22 | XR ---
EXAMINATION TYPE: XR chest 1V portable DATE OF EXAM: 01/24/2021 COMPARISON: 01/22/2020 HISTORY: Shortness of breath TECHNIQUE: Single frontal view of the chest is obtained. FINDINGS: There is patchy bilateral infiltrates. Heart size stable. Atherosclerotic change aorta. Bi apical pleural thickening. No pleural effusion or pneumothorax. Size stable. Atherosclerotic change a catherine. IMPRESSION: 1. Patchy bilateral infiltrate stable.
[2021-01-24 11:18] LABS: Basophils # (A) 0.03 X 10*3/uL (0.00-0.10); Basophils % (A) 0.2 %; Eosinophils # (A) 0.01 X 10*3/uL (0.04-0.35); Eosinophils % (A) 0.1 %; HCT 42.7 % (37.2-46.3); HGB 13.3 g/dL (12.0-15.0); Lymphocytes # (A) 1.09 X 10*3/uL (0.90-5.00); Lymphocytes % (A) 8.2 %; MCH 28.4 pg (27.0-32.0); MCHC 31.1 g/dL (32.0-37.0); MCV 91.2 fL (80.0-97.0); Mean Platelet Volume 11.3 fL (9.5-12.2); Monocytes # (A) 0.87 X 10*3/uL (0.20-1.00); Monocytes % (A) 6.6 %; Neutrophils # (A) 10.91 X 10*3/uL (1.80-7.70); Neutrophils % (A) 82.2 %; Platelet Count 342 X 10*3/uL (140-440); RBC 4.68 X 10*6/uL (4.10-5.20); RDW 15.9 % (11.5-14.5); WBC 13.27 X 10*3/uL (4.50-10.00)
--- NOTE | 2021-01-24 12:20 | P.PN ---
Subjective from records: Patient is a 85-year-old female with known history of hypertension, hyperlipidemia, history of Polanco's palsy and previous history of smoking presents to ER on 01/17/2021 with complaints of fever and generalized weakness and exertional dyspnea. Patient states that she received first dose of Covid 19 vaccine on 01/08/2021. Patient says that she has been feeling progressively weak since then. Patient does complain of cough along with fever for the past 5 days. Denied any abdominal pain. No nausea or vomiting. Patient has not been eating well due to decreased appetite. Chest x-ray showed mild cardiomegaly. Reticulonodular interstitial changes bilaterally and chronic parenchymal changes. Areas of acute infiltrate in the periphery of the upper lungs cannot be excluded. CT angiogram showed suboptimal study without central acute pulmonary embolus. Cannot exclude small segmental and subsegmental on the embolism on this study. Multifocal infiltrates/and or edema on background upper lung fibrotic changes consistent with Covid 19 infection. Reactive thoracic adenopathy noted. Underlying cardiomegaly present. D-dimer 1.41 Sodium 135 percussion 4.3, chloride 101, BUN 13 and creatinine 0.72 Ferritin 520, Eliquis 902, CRP 53.6 and a pro-calcitonin level is 0.09 Urinalysis is negative for infection. Covid 19 PCR is detected. Patient was hypoxic with pulse ox 88% on room air on admission and tachycardic and febrile with T-max 102.2 subjective 01/21/2021 this is a pleasant 85 years old female with multiple medical problems as above who was admitted with acute hypoxia secondary to bilateral cough or pneumonia.today she is lying in bed with mild respiratory distress, she feels a little better. She still on 15 L oxygen via nasal cannula with oxygen saturation 94% She denies chest pain or abdominal pain or diarrhea. She has little competent flap She remains on dexamethasone, remdesivir, and Vitamin C. CTA of the chest is negative for PE yesterday her lactate dehydrogenase were trending downto 300 and C-reactive protein down to 6.8. Pulmonary team on the case 01/22/2021 Patient remains treated for Covid pneumonitis. She still needs high-dose of oxygen at 15 L/m via nonrebreather. She is afebrile but tachypneic with a breathing rate 20-22. Her trending up today to 5.2, she was on Lovenox 40 mg daily and increase it to 40 mg twice daily. Keep monitoring d-dimer Also she is on dexamethasone, zinc and vitamin C. Today her last dose of remdesivir Prognosis remains guarded 01/23/2021 Patient is still with respiratory distress due to Covid pneumonia and she is still on 15 L oxygen via nasal cannula. Yesterday her Lovenox dose was increased to 50 mg twice daily because her d-dimer went up to 5.2, today is 5.8. However her inflammatory markers went up with lactate dehydrogenase to 1239 and C-reactive protein to 39.5 . Other than that she remains on dexamethasone, zinc and vitamin C with pulmonary team on the case 01/24/2021 She still lethargic with hypoxia needing 15 the time of oxygen, despite that she's mildly tachypneic. Mildly hypothermic. Her blood pressure is better controlled After adding hydralazine Labs showing mild leukocytosis of 13 point okay but she is on steroids. Other labs are pending including basic metabolic panel, C-reactive protein and LDH as well as pro-calcitonin Repeat chest x-ray showed patchy bilateral infiltrates stable She is currently covered with dexamethasone, zinc, vitamin C, Lovenox 50 mg twice daily, and she finished her therapy with remdesivir CONSTITUTIONAL: No fever, no malaise, no fatigue. HEENT: No recent visual problems or hearing problems. Denied any sore throat. CARDIOVASCULAR: No orthopnea, PND, no palpitations, no syncope. PULMONARY: No chest wall tenderness, no hemoptysis. GASTROINTESTINAL: No diarrhea, no nausea, no vomiting, no abdominal pain. Normoactive bowel sounds. NEUROLOGICAL: No headaches, no weakness, no numbness. HEMATOLOGICAL: Denies any bleeding or petechiae. Active Medications Generic Name Dose Route Start Last Admin Trade Name Freq PRN Reason Stop Dose Admin Acetaminophen 650 mg 01/17/21 20:03 01/19/21 05:20 Acetaminophen Tab 325 Mg Tab PO 650 mg Q6HR PRN Administration Mild Pain or Fever > 100.5 Amlodipine Besylate 5 mg 01/22/21 12:15 01/24/21 07:27 Amlodipine 5 Mg Tab PO 5 mg DAILY [facility] Administration Ascorbic Acid 1,000 mg 01/18/21 14:30 01/24/21 07:26 Ascorbic Acid 500 Mg Tab PO 1,000 mg DAILY [facility] Administration Cholecalciferol 25 mcg 01/18/21 14:30 01/24/21 07:27 Cholecalciferol 25 Mcg (1000 Iu) Tablet PO 25 mcg DAILY [facility] Administration Colchicine 0.6 mg 01/18/21 21:00 01/24/21 07:29 Colchicine 0.6 Mg Each PO 0.6 mg BID CARMINE Administration Dexamethasone Sodium Phosphate 6 mg 01/18/21 09:00 01/24/21 07:27 Dexamethasone Sod Phosphate 10 Mg/Ml 1 Ml Vial IV 6 mg DAILY [facility] Administration Enoxaparin Sodium 50 mg 01/22/21 21:00 01/24/21 07:28 Enoxaparin 60 Mg/0.6 Ml Syringe SQ 50 mg Q12HR [facility] Administration Famotidine 20 mg 01/18/21 21:00 01/24/21 07:27 Famotidine 20 Mg Tab PO 20 mg BID [facility] Administration Hydralazine HCl 25 mg 01/22/21 12:10 01/23/21 18:54 Hydralazine Hcl 25 Mg Tab PO 25 mg Q6HR PRN Administration Blood Pressure - High Hydralazine HCl 50 mg 01/23/21 21:30 01/24/21 07:27 Hydralazine Hcl 50 Mg Tab PO 50 mg BID [facility] Administration Sodium Chloride 1,000 mls @ 20 mls/hr 01/17/21 20:15 01/23/21 19:22 Saline 0.9% IV Not Given .Q24H [facility] Lisinopril 5 mg 01/19/21 09:00 01/24/21 07:27 Lisinopril 5 Mg Tab PO 5 mg DAILY [facility] Administration Morphine Sulfate 4 mg 01/17/21 20:03 Morphine Sulfate 4 Mg/Ml Syringe IV Q4HR PRN Severe Pain Naloxone HCl 0.2 mg 01/17/21 20:03 Naloxone 0.4 Mg/Ml 1 Ml Vial IV Q2M PRN Opioid Reversal Oxycodone/Acetaminophen 1 each 01/17/21 20:03 Oxycodone-Apap 5-325mg 1 Each Tab PO Q4HR PRN Severe Pain Tramadol HCl 50 mg 01/17/21 20:03 Tramadol 50 Mg Tab PO Q6H PRN Moderate Pain Zinc Sulfate 220 mg 01/18/21 14:30 01/24/21 07:27 Zinc Sulfate 220 Mg Cap PO 220 mg DAILY [facility] Administration Objective - Vital Signs Vital signs: Vital Signs Temp 97 F L 01/24/21 09:59 Pulse 89 01/24/21 09:59 Resp 19 01/24/21 09:59 BP 164/74 01/24/21 09:59 Pulse Ox 90 L 01/24/21 09:59 Intake & Output 01/23/21 01/24/21 01/24/21 18:59 06:59 18:59 Intake Total 100 Balance 100 Weight 97.976 kg Intake: Oral 100 Other: Voiding Method Toilet Toilet # Voids 1 # Bowel Movements 1 - Exam GENERAL: The patient is alert and oriented x3, not in any acute distress. Well developed, well nourished. HEENT: Pupils are round and equally reacting to light. EOMI. No scleral icterus. No conjunctival pallor. Normocephalic, atraumatic. No pharyngeal erythema. No thyromegaly. CARDIOVASCULAR: S1 and S2 present. No murmurs, rubs, or gallops. -PULMONARY: Chest is clear to auscultation, no wheezing or crackles.bilateral crepitation ABDOMEN: Soft, nontender, nondistended, normoactive bowel sounds. No palpable organomegaly. MUSCULOSKELETAL: No joint swelling or deformity. EXTREMITIES: No cyanosis, clubbing, or pedal edema. NEUROLOGICAL: Gross neurological examination did not reveal any focal deficits. SKIN: No rashes. no petechiae. - Labs CBC & Chem 7: 01/24/21 06:54 01/21/21 06:26 Labs: Abnormal Lab Results - Last 24 Hours (Table) 01/24/21 01/24/21 Range/Units 06:54 06:54 WBC 13.27 H (4.50-10.00) X 10*3/uL MCHC 31.1 L (32.0-37.0) g/dL RDW 15.9 H (11.5-14.5) % Absolute Nucleated RBC 0.02 H (0.00-0.00) X 10*3/uL Immature Gran # 0.36 H (0.00-0.04) X 10*3/uL Neutrophils # 10.91 H (1.80-7.70) X 10*3/uL Eosinophils # 0.01 L (0.04-0.35) X 10*3/uL NRBC/100 WBC Diff 0.2 H (0.0-0.0) /100 WBCS D-Dimer 4.49 H (<0.60) mg/L FEU Microbiology - Last 24 Hours (Table) 01/17/21 18:00 Blood Culture - Final Blood No Growth after 144 hours 01/17/21 18:05 Blood Culture - Final Blood No Growth after 144 hours Assessment and Plan Assessment: Acute hypoxic respiratory failure secondary to covid 19 pneumoniae with upper lobe peripheral infiltrates. Elevated inflammatory markers secondary to Coumadin 19 pneumonia Hypertension Hyperlipidemia Morbid obesity with BMI 38.3 Elevated d-dimer level without evidence of pulmonary embolism History of smoking Plan: this is a pleasant 85 years old female who presents with cough and pneumonia and hypoxia. Patient will be continued on oxygen supplementation and titrate down FiO2 slowly as tolerated. Patient will be continued on dexamethasone, Lovenox and vitamin supplementation. Is on 01/22. Her last dose of remdesivir Pulmonary is on board. Prognosis is guarded at this time. Continue to monitor closely. Norvasc and when necessary hydralazine for high blood pressure secondary to steroid effect Labs and medication were reviewed.. Continue same treatment. Continue with symptomatic treatment. Resume home medication. Monitor lytes and vitals. DVT and GI prophylaxis. Further recommendationsas per clinical course of the patient DVT prophylaxis: Subcutaneous Lovenox GI Prophylaxis: Pepcid Prognosis is guarded
[2021-01-24 12:38] LABS: African American GFR (CKD) 78.5 (60.0-200.0); Anion Gap 10.9 mmol/L (4.00-12.00); C Reactive Protein 2.3 mg/dL (0.0-0.8); Calcium 8.6 mg/dL (8.7-10.3); Carbon Dioxide 26.1 mmol/L (21.6-31.8); Non-African American GFR(CKD) 67.7 (60.0-200.0); Potassium 3.8 mmol/L (3.5-5.5)
[2021-01-24] MEDS ORDERED: methylPREDNISolone SOD SUCCI 125 MG/2 ML VIAL IV SCH (12:45)
--- NOTE | 2021-01-24 15:43 | P.PN ---
Subjective Progress Note Date: 01/24/21 Principal diagnosis: COVID 19 This is a very pleasant 85-year-old female patient who follows with Dr. Lopez as her primary care provider. She has a history of hypertension, Polanco's palsy, former smoker. She presented to the emergency room yesterday with complaints of ongoing fever and weakness. She had obtained the Moderna vaccination approximately 7 days ago. Shortly after that she developed increasing cough, congestion, aches, weakness, fever. Her cough and shortness of breath has been progressively getting worse the past 5 days. She presented here to the emergency room yesterday for the same. Chest x-ray revealed mild cardiomegaly. Reticular nodular interstitial changes bilaterally with possible chronic parenchymal fibrosis. Areas of acute infiltrate in the periphery of the upper lungs. CT angiogram ruled out any central PE. There is noted multifocal infi ltrates and/or edema back on of upper lung fibrotic changes, consistent with CoVID 19 infection. Reactive thoracic adenopathy noted. CoVID 19 screen positive. White count 4.7. Hemoglobin 13.5. Lymphocytes 0.9. D-dimer 1.41. Sodium 135. Potassium 4.3. Creatinine 0.72. LDH 902. C-reactive protein 53.6. Pro-calcitonin 0.09. She been initiated on dexamethasone. She is seen today in consultation on the regular medical floor. She is currently resting comfortably in bed. Awake and alert. In mild respiratory distress. Earlier this morning she was on 3 L maintain O2 saturation in the 90s. She is currently on 13 L high flow nasal cannula. Temperature 100.3. Hemodynamically stable. She has a loose nonproductive cough. The patient seen today 01/19/2021 in follow-up on the regular medical floor. She is currently resting in bed. Awake and alert in no acute distress. She is still requiring 15 L high flow nasal cannula along with a nonrebreather mask but having O2 saturations in the upper 90s. Earlier temperature today 100.8. Chest x-ray continues to show bilateral infiltrates. Blood cultures reveal no growth to date. D-dimer 1.51. LDH is 972. C-reactive protein 62.8. She is on day #2 of Remdesivir. She remains on Lovenox, dexamethasone, vitamin supplements. The patient is seen today 01/20/2021 in follow-up on the regular medical floor. She is currently resting fairly comfortably in bed. Awake and alert in no acute distress. She is still requiring 15 L high flow nasal cannula and a nonrebreather mask will maintaining O2 saturations are 95%. Blood cultures reveal no growth. D-dimer 1.27. LDH 398. C-reactive protein 6.8. This is day #3 of her Remdesivir. She remains on Lovenox, dexamethasone, vitamin supplements. On 01/27/2020 with patient seen in follow-up on medical floor, today is day 4 of Remdesivir, patient still requires high flow oxygen, she is currently in the 100% nonrebreather, and she does desaturate quite easily, with any little bit of exertion, she complicated with a car rate of 20 ML per hour, no fever, chest discomfort, today's chest x-ray shows stable patchy bilateral infiltrates. She remains on IV dexamethasone, 6 mg daily, on prophylactic dose of Lovenox, Pepcid, Remdesivir, and vitamins. On 01/22/2021 patient seen in follow-up on medical floor, patient is on 15 L of oxygen, her pulse ox is 88-92%. Inflammatory markers are improving, but d-dimer is up to 5.22. No new chest x-ray today, Estrace chest x-ray showed patchy bilateral infiltrates that were stable in appearance. No fever or chills, no nausea vomiting or diarrhea. Patient is on Lovenox 40 mg twice daily which was adjusted from prophylactic dose. Patient continues on Remdesivir, she will receive her fifth dose today. On 01/23/2021 patient seen in follow-up on medical floor. She is sleeping comfortably in bed, breathing comfortably, she is on partial nonrebreather mask, pulse ox is 85-92%, seems to be in no acute respiratory distress, no new chest x-ray today, no fever or chills, blood pressures have been a bit elevated with systolic between 160-180, and diastolic in the 70s to 90s. Patient finished her Remdesivir, she remains on Lovenox 50 mg twice daily, she continues on IV dexamethasone and vitamins. sleepy today, but no acute distress noted. On 01/24/2021 patient seen in follow-up on medical floor. She is resting comfo rtably in bed, she is currently on 15 L of oxygen per high flow nasal cannula, and nonrebreather her pulse ox is between 88-90%, chest x-ray findings show stable patchy bilateral infiltrates. Patient does not appear to be in acute distress, denies any chest pain, she is a little bit more weak on today's exam. Patient continues on Lovenox 50 mg twice daily, she is on Decadron, vitamins, and she finished her Remdesivir treatment. D-dimer is down trending today, down to 4.49, inflammatory markers are improving, LDH is down to 482, and CRP is down to 2.3 from 39.5 on yesterday's labs, pro-calcitonin is negative at 0.04. Objective - Vital Signs Vital signs: Vital Signs Temp 97.5 F L 01/24/21 13:52 Pulse 99 01/24/21 13:52 Resp 20 01/24/21 13:52 BP 157/84 01/24/21 13:52 Pulse Ox 90 L 01/24/21 13:52 Intake & Output 01/23/21 01/24/21 01/24/21 18:59 06:59 18:59 Intake Total 100 Balance 100 Weight 97.976 kg Intake: Oral 100 Other: Voiding Method Toilet Toilet # Voids 1 # Bowel Movements 1 - Exam GENERAL EXAM: Alert, very pleasant 85-year-old white female, on 15 l/min oxygen and 100% nonrebreather and the pulse ox of 88-92% comfortable in no apparent distress. HEAD: Normocephalic/atraumatic. EYES: Normal reaction of pupils, equal size. Conjunctiva pink, sclera white. NOSE: Clear with pink turbinates. THROAT: No erythema or exudates. NECK: No masses, no JVD, no thyroid enlargement, no adenopathy. CHEST: No chest wall deformity. Symmetrical expansion. LUNGS: Equal air entry with no crackles, wheeze, rhonchi or dullness. CVS: Regular rate and rhythm, normal S1 and S2, no gallops, no murmurs, no rubs ABDOMEN: Soft, nontender. No hepatosplenomegaly, normal bowel sounds, no guarding or rigidity. EXTREMITIES: No clubbing, no edema, no cyanosis, 2+ pulses and upper and lower extremities. MUSCULOSKELETAL: Muscle strength and tone normal. SPINE: No scoliosis or deformity SKIN: No rashes CENTRAL NERVOUS SYSTEM: Alert and oriented -3. No focal deficits, tone is normal in all 4 extremities. PSYCHIATRIC: Alert and oriented -3. Appropriate affect. Intact judgment and insight. - Labs CBC & Chem 7: 01/24/21 06:54 01/24/21 06:54 Labs: Abnormal Lab Results - Last 24 Hours (Table) 01/24/21 01/24/21 01/24/21 Range/Units 06:54 06:54 06:54 WBC 13.27 H (4.50-10.00) X 10*3/uL MCHC 31.1 L (32.0-37.0) g/dL RDW 15.9 H (11.5-14.5) % Absolute Nucleated RBC 0.02 H (0.00-0.00) X 10*3/uL Immature Gran # 0.36 H (0.00-0.04) X 10*3/uL Neutrophils # 10.91 H (1.80-7.70) X 10*3/uL Eosinophils # 0.01 L (0.04-0.35) X 10*3/uL NRBC/100 WBC Diff 0.2 H (0.0-0.0) /100 WBCS D-Dimer 4.49 H (<0.60) mg/L FEU BUN/Creatinine Ratio 25.00 H (12.00-20.00) Ratio Glucose 121 H (70-110) mg/dL Calcium 8.6 L (8.7-10.3) mg/dL Lactate Dehydrogenase 482 H (120-246) U/L C-Reactive Protein 2.3 H (0.0-0.8) mg/dL Microbiology - Last 24 Hours (Table) 01/17/21 18:00 Blood Culture - Final Blood No Growth after 144 hours 01/17/21 18:05 Blood Culture - Final Blood No Growth after 144 hours Assessment and Plan Plan: Assessment: #1. Acute hypoxic respiratory failure secondary to acute coronary 19 pneumonitis, initiated on Remdesivir on 01/18/2021, finished Remdesivir on 01/22/2021 #2. Febrile illness secondary to the above #3. Lymphopenia related to the above #4. Elevated inflammatory marker secondary to the above #5. Obesity #6. Hypertension #7. Former smoker #8. Elevated d-dimer, CTA chest was a suboptimal study without evidence of central acute pulmonary embolism however smaller segmental PEs could not be completely excluded. Plan: Today's chest x-ray shows stable findings of bilateral infiltrates, patient is still requiring high flow oxygen, in her O2 saturations are marginal, however since her markers are improving, clinically appears to be in no acute distress, d-dimer is trending down, we'll continue current dose of Lovenox, Decadron, she finished her Remdesivir. Urged patient to sit up in the chair, deep breathe and cough, we'll switch her Decadron to IV Solu-Medrol 60 mg every 6 hours. we'll continue to follow I performed a history & physical examination of the patient and discussed their management with my nurse practitioner, Trish Bell. I reviewed the nurse practitioner's note and agree with the documented findings and plan of care. Lung sounds are positive for diminished breath sounds The findings and the im pression was discussed with the patient. I attest to the documentation by the nurse practitioner. Time with Patient: Less than 30
[2021-01-24] MEDS: SODIUM CHLORIDE 0.9% 1,000 ML IV SCH (18:12)
[2021-01-24] MEDS: methylPREDNISolone SOD SUCCI 125 MG/2 ML VIAL IV SCH (20:34)
[2021-01-25] MEDS: methylPREDNISolone SOD SUCCI 125 MG/2 ML VIAL IV SCH ×4 (04:57→20:35)
[2021-01-25 06:59] LABS: Glucose,Whole Blood 142 mg/dL (75-99)
[2021-01-25] MEDS: CHOLECALCIFEROL 25 MCG (1000 IU) TABLET PO SCH (09:43)
[2021-01-25] MEDS: ZINC SULFATE 220 MG CAP PO SCH (09:43)
[2021-01-25] MEDS: FAMOTIDINE 20 MG TAB PO SCH (09:43)
[2021-01-25] MEDS: ASCORBIC ACID 500 MG TAB PO SCH (09:43)
[2021-01-25] MEDS: ENOXAPARIN 60 MG/0.6 ML SYRINGE SQ SCH ×2 (09:43→20:36)
[2021-01-25] MEDS: hydrALAZINE HCL 50 MG TAB PO SCH ×2 (09:43→20:34)
[2021-01-25] MEDS: COLCHICINE 0.6 MG EACH PO SCH ×2 (09:43→20:34)
[2021-01-25] MEDS: amLODIPine 5 MG TAB PO SCH (09:43)
[2021-01-25] MEDS: lisinopriL 5 MG TAB PO SCH (09:43)
[2021-01-25 11:51] LABS: Glucose,Whole Blood 148 mg/dL (75-99)
[2021-01-25 16:50] LABS: Glucose,Whole Blood 160 mg/dL (75-99)
--- NOTE | 2021-01-25 17:16 | P.PN ---
Subjective Progress Note Date: 01/25/21 Principal diagnosis: COVID 19 This is a very pleasant 85-year-old female patient who follows with Dr. Lopez as her primary care provider. She has a history of hypertension, Polanco's palsy, former smoker. She presented to the emergency room yesterday with complaints of ongoing fever and weakness. She had obtained the Moderna vaccination approximately 7 days ago. Shortly after that she developed increasing cough, congestion, aches, weakness, fever. Her cough and shortness of breath has been progressively getting worse the past 5 days. She presented here to the emergency room yesterday for the same. Chest x-ray revealed mild cardiomegaly. Reticular nodular interstitial changes bilaterally with possible chronic parenchymal fibrosis. Areas of acute infiltrate in the periphery of the upper lungs. CT angiogram ruled out any central PE. There is noted multifocal infi ltrates and/or edema back on of upper lung fibrotic changes, consistent with CoVID 19 infection. Reactive thoracic adenopathy noted. CoVID 19 screen positive. White count 4.7. Hemoglobin 13.5. Lymphocytes 0.9. D-dimer 1.41. Sodium 135. Potassium 4.3. Creatinine 0.72. LDH 902. C-reactive protein 53.6. Pro-calcitonin 0.09. She been initiated on dexamethasone. She is seen today in consultation on the regular medical floor. She is currently resting comfortably in bed. Awake and alert. In mild respiratory distress. Earlier this morning she was on 3 L maintain O2 saturation in the 90s. She is currently on 13 L high flow nasal cannula. Temperature 100.3. Hemodynamically stable. She has a loose nonproductive cough. The patient seen today 01/19/2021 in follow-up on the regular medical floor. She is currently resting in bed. Awake and alert in no acute distress. She is still requiring 15 L high flow nasal cannula along with a nonrebreather mask but having O2 saturations in the upper 90s. Earlier temperature today 100.8. Chest x-ray continues to show bilateral infiltrates. Blood cultures reveal no growth to date. D-dimer 1.51. LDH is 972. C-reactive protein 62.8. She is on day #2 of Remdesivir. She remains on Lovenox, dexamethasone, vitamin supplements. The patient is seen today 01/20/2021 in follow-up on the regular medical floor. She is currently resting fairly comfortably in bed. Awake and alert in no acute distress. She is still requiring 15 L high flow nasal cannula and a nonrebreather mask will maintaining O2 saturations are 95%. Blood cultures reveal no growth. D-dimer 1.27. LDH 398. C-reactive protein 6.8. This is day #3 of her Remdesivir. She remains on Lovenox, dexamethasone, vitamin supplements. On 01/27/2020 with patient seen in follow-up on medical floor, today is day 4 of Remdesivir, patient still requires high flow oxygen, she is currently in the 100% nonrebreather, and she does desaturate quite easily, with any little bit of exertion, she complicated with a car rate of 20 ML per hour, no fever, chest discomfort, today's chest x-ray shows stable patchy bilateral infiltrates. She remains on IV dexamethasone, 6 mg daily, on prophylactic dose of Lovenox, Pepcid, Remdesivir, and vitamins. On 01/22/2021 patient seen in follow-up on medical floor, patient is on 15 L of oxygen, her pulse ox is 88-92%. Inflammatory markers are improving, but d-dimer is up to 5.22. No new chest x-ray today, Estrace chest x-ray showed patchy bilateral infiltrates that were stable in appearance. No fever or chills, no nausea vomiting or diarrhea. Patient is on Lovenox 40 mg twice daily which was adjusted from prophylactic dose. Patient continues on Remdesivir, she will receive her fifth dose today. On 01/23/2021 patient seen in follow-up on medical floor. She is sleeping comfortably in bed, breathing comfortably, she is on partial nonrebreather mask, pulse ox is 85-92%, seems to be in no acute respiratory distress, no new chest x-ray today, no fever or chills, blood pressures have been a bit elevated with systolic between 160-180, and diastolic in the 70s to 90s. Patient finished her Remdesivir, she remains on Lovenox 50 mg twice daily, she continues on IV dexamethasone and vitamins. sleepy today, but no acute distress noted. On 01/24/2021 patient seen in follow-up on medical floor. She is resting comfo rtably in bed, she is currently on 15 L of oxygen per high flow nasal cannula, and nonrebreather her pulse ox is between 88-90%, chest x-ray findings show stable patchy bilateral infiltrates. Patient does not appear to be in acute distress, denies any chest pain, she is a little bit more weak on today's exam. Patient continues on Lovenox 50 mg twice daily, she is on Decadron, vitamins, and she finished her Remdesivir treatment. D-dimer is down trending today, down to 4.49, inflammatory markers are improving, LDH is down to 482, and CRP is down to 2.3 from 39.5 on yesterday's labs, pro-calcitonin is negative at 0.04. On 01/25/2021 patient seen in follow-up on medical floor. Patient is on 15 L high flow and nonrebreather 100%, her pulse ox is 87-91%, 0.9 on the scene is running at 20 ML per hour, she finished Remdesivir treatment couple days ago, she remains on IV steroids, and Lovenox 50 mg twice daily, yesterday's labs showed improving d-dimer Objective - Vital Signs Vital signs: Vital Signs Temp 97.6 F 01/25/21 14:00 Pulse 90 01/25/21 14:00 Resp 18 01/25/21 14:00 BP 137/74 01/25/21 14:00 Pulse Ox 91 L 01/25/21 14:00 Intake & Output 01/24/21 01/25/21 01/25/21 18:59 06:59 18:59 Intake Total 630 Balance 630 Intake: Intake, IV Titration 230 Amount Sodium Chloride 0.9% 1, 230 000 ml @ 20 mls/hr IV . Q24H [facility] Rx#:[id number] Oral 400 Other: Voiding Method Toilet # Voids 1 2 - Exam GENERAL EXAM: Alert, very pleasant 85-year-old white female, on 15 l/min oxygen and 100% nonrebreather and the pulse ox of 88-92% comfortable in no apparent distress. HEAD: Normocephalic/atraumatic. EYES: Normal reaction of pupils, equal size. Conjunctiva pink, sclera white. NOSE: Clear with pink turbinates. THROAT: No erythema or exudates. NECK: No masses, no JVD, no thyroid enlargement, no adenopathy. CHEST: No chest wall deformity. Symmetrical expansion. LUNGS: Equal air entry with no crackles, wheeze, rhonchi or dullness. CVS: Regular rate and rhythm, normal S1 and S2, no gallops, no murmurs, no rubs ABDOMEN: Soft, nontender. No hepatosplenomegaly, normal bowel sounds, no guardi ng or rigidity. EXTREMITIES: No clubbing, no edema, no cyanosis, 2+ pulses and upper and lower extremities. MUSCULOSKELETAL: Muscle strength and tone normal. SPINE: No scoliosis or deformity SKIN: No rashes CENTRAL NERVOUS SYSTEM: Alert and oriented -3. No focal deficits, tone is normal in all 4 extremities. PSYCHIATRIC: Alert and oriented -3. Appropriate affect. Intact judgment and insight. - Labs CBC & Chem 7: 01/24/21 06:54 01/24/21 06:54 Labs: Abnormal Lab Results - Last 24 Hours (Table) 01/25/21 01/25/21 01/25/21 Range/Units 06:57 11:47 16:48 POC Glucose (mg/dL) 142 H 148 H 160 H (75-99) mg/dL Assessment and Plan Plan: Assessment: #1. Acute hypoxic respiratory failure secondary to acute coronary 19 pneumonitis, initiated on Remdesivir on 01/18/2021, finished Remdesivir on 01/22/2021 #2. Febrile illness secondary to the above #3. Lymphopenia related to the above #4. Elevated inflammatory marker secondary to the above #5. Obesity #6. Hypertension #7. Former smoker #8. Elevated d-dimer, CTA chest was a suboptimal study without evidence of central acute pulmonary embolism however smaller segmental PEs could not be completely excluded. Plan: Continue current medical treatment, continue same dose IV steroids, Lovenox, patient has finished Remdesivir treatment on 01/22/2021, we'll obtain follow-up inflammatory markers and the chest x-ray tomorrow, encouraged patient to sit up in the chair, deep breathing cough, provide incentive spirometer, we'll continue to follow I performed a history & physical examination of the patient and discussed their management with my nurse practitioner, Trish Bell. I reviewed the nurse practitioner's note and agree with the documented findings and plan of care. Lung sounds are positive for diminished breath sounds The findings and the impression was discussed with the patient. I attest to the documentation by the nurse practitioner. Time with Patient: Less than 30
[2021-01-25] MEDS: INSULIN ASPART (NovoLOG) 100 UNIT/ML VIAL SQ SCH ×2 (17:35→20:35)
[2021-01-25] MEDS: SODIUM CHLORIDE 0.9% 1,000 ML IV SCH (17:36)
--- NOTE | 2021-01-25 17:45 | P.PN ---
Subjective Progress Note Date: 01/25/21 This is a very pleasant 85-year-old female patient who follows with Dr. Lopez as her primary care provider. She has a history of hypertension, Polanco's palsy, former smoker. She presented to the emergency room yesterday with complaints of ongoing fever and weakness. She had obtained the Moderna vaccination approximately 7 days ago. Shortly after that she developed increasing cough, congestion, aches, weakness, fever. Her cough and shortness of breath has been progressively getting worse the past 5 days. She presented here to the emergency room yesterday for the same. Chest x-ray revealed mild cardiomegaly. Reticular nodular interstitial changes bilaterally with possible chronic parenchymal fibrosis. Areas of acute infiltrate in the periphery of the upper lungs. CT angiogram ruled out any central PE. There is noted multifocal infiltrates and/or edema back on of upper lung fibrotic changes, consistent with CoVID 19 infection. Reactive thoracic adenopathy noted. CoVID 19 screen positive. White count 4.7. Hemoglobin 13.5. Lymphocytes 0.9. D-dimer 1.41. Sodium 135. Potassium 4.3. Creatinine 0.72. LDH 902. C-reactive protein 53.6. Pro-calcitonin 0.09. She been initiated on dexamethasone. She is seen today in consultation on the regular medical floor. She is currently resting comfortably in bed. Awake and alert. In mild respiratory distress. Earlier this morning she was on 3 L maintain O2 saturation in the 90s. She is currently on 13 L high flow nasal cannula. Temperature 100.3. Hemodynamically stable. She has a loose nonproductive cough. 01/25/2021 patient is seen and evaluated in follow-up on medical floor. Patient remains on 15 L high flow and nonrebreather 100%, her pulse ox is 87-91%, 0.9 on the scene is running at 20 ML per hour Patient completed Remdesivir treatment couple days ago, she remains on IV steroids, and Lovenox 50 mg twice daily, yesterday's labs showed improving d- dimer Pulmonary service remains on board and recommending to continue current medical treatment with IV steroids, Lovenox and continue to trend inflammatory markers; plan for a chest x-ray tomorrow Objective - Vital Signs Vital signs: Vital Signs Temp 97.5 F L 01/25/21 10:00 Pulse 104 H 01/25/21 10:00 Resp 20 01/25/21 10:00 BP 185/83 01/25/21 10:00 Pulse Ox 87 L 01/25/21 10:00 Intake & Output 01/24/21 01/25/21 01/25/21 18:59 06:59 18:59 Intake Total 630 Balance 630 Intake: Intake, IV Titration 230 Amount Sodium Chloride 0.9% 1, 230 000 ml @ 20 mls/hr IV . Q24H [facility] Rx#:[id number] Oral 400 Other: Voiding Method Toilet # Voids 1 2 - Exam GENERAL: The patient is alert and oriented x3, not in any acute distress. Well developed, well nourished. HEENT: Pupils are round and equally reacting to light. EOMI. No scleral icterus. No conjunctival pallor. Normocephalic, atraumatic. No pharyngeal erythema. No thyromegaly. CARDIOVASCULAR: S1 and S2 present. No murmurs, rubs, or gallops. -PULMONARY: Chest is clear to auscultation, no wheezing or crackles.bilateral crepitation ABDOMEN: Soft, nontender, nondistended, normoactive bowel sounds. No palpable organomegaly. MUSCULOSKELETAL: No joint swelling or deformity. EXTREMITIES: No cyanosis, clubbing, or pedal edema. NEUROLOGICAL: Gross neurological examination did not reveal any focal deficits. SKIN: No rashes. no petechiae. - Labs CBC & Chem 7: 01/24/21 06:54 01/24/21 06:54 Labs: Abnormal Lab Results - Last 24 Hours (Table) 01/24/21 01/24/21 01/25/21 Range/Units 06:54 06:54 06:57 WBC 13.27 H (4.50-10.00) X 10*3/uL MCHC 31.1 L (32.0-37.0) g/dL RDW 15.9 H (11.5-14.5) % Absolute Nucleated RBC 0.02 H (0.00-0.00) X 10*3/uL Immature Gran # 0.36 H (0.00-0.04) X 10*3/uL Neutrophils # 10.91 H (1.80-7.70) X 10*3/uL Eosinophils # 0.01 L (0.04-0.35) X 10*3/uL NRBC/100 WBC Diff 0.2 H (0.0-0.0) /100 WBCS BUN/Creatinine Ratio 25.00 H (12.00-20.00) Ratio Glucose 121 H (70-110) mg/dL POC Glucose (mg/dL) 142 H (75-99) mg/dL Calcium 8.6 L (8.7-10.3) mg/dL Lactate Dehydrogenase 482 H (120-246) U/L C-Reactive Protein 2.3 H (0.0-0.8) mg/dL Assessment and Plan Assessment: Acute hypoxic respiratory failure secondary to covid 19 pneumoniae with upper lobe peripheral infiltrates. Elevated inflammatory markers secondary to Coumadin 19 pneumonia Hypertension Hyperlipidemia Morbid obesity with BMI 38.3 Elevated d-dimer level without evidence of pulmonary embolism History of smoking Plan: this is a pleasant 85 years old female who presents with cough and pneumonia and hypoxia. Patient will be continued on oxygen supplementation and titrate down FiO2 slowly as tolerated. Patient will be continued on dexamethasone, Lovenox and vitamin supplementation. Is on 01/22. Her last dose of remdesivir Pulmonary is on board. Prognosis is guarded at this time. Continue to monitor closely. Norvasc and when necessary hydralazine for high blood pressure secondary to steroid effect Labs and medication were reviewed.. Continue same treatment. Continue with symptomatic treatment. Resume home medication. Monitor lytes and vitals. DVT and GI prophylaxis. Further recommendationsas per clinical course of the patient DVT prophylaxis: Subcutaneous Lovenox GI Prophylaxis: Pepcid Prognosis is guarded
[2021-01-25 20:10] LABS: Glucose,Whole Blood 260 mg/dL (75-99)
[2021-01-26] MEDS: hydrALAZINE HCL 25 MG TAB PO PRN (01:59)
[2021-01-26] MEDS: methylPREDNISolone SOD SUCCI 125 MG/2 ML VIAL IV SCH ×4 (01:59→21:23)
[2021-01-26 06:55] LABS: Glucose,Whole Blood 151 mg/dL (75-99)
[2021-01-26 08:17] LABS: African American GFR (CKD) >90 (>60 ml/min/1.73 sqM); Anion Gap 6 mmol/L; Blood Urea Nitrogen 28 mg/dL (7-17); C Reactive Protein 11.7 mg/L (<10.0); Calcium 8.4 mg/dL (8.4-10.2); Carbon Dioxide 28 mmol/L (22-30); Chloride 105 mmol/L (98-107); Glucose 155 mg/dL (74-99); LDH 1259 U/L (313-618); Non-African American GFR(CKD) 83 (>60 ml/min/1.73 sqM); Potassium 3.8 mmol/L (3.5-5.1); Sodium 139 mmol/L (137-145)
[2021-01-26] MEDS: COLCHICINE 0.6 MG EACH PO SCH ×2 (08:32→21:23)
[2021-01-26] MEDS: lisinopriL 5 MG TAB PO SCH (08:32)
[2021-01-26] MEDS: INSULIN ASPART (NovoLOG) 100 UNIT/ML VIAL SQ SCH ×4 (08:32→21:23)
[2021-01-26] MEDS: ZINC SULFATE 220 MG CAP PO SCH (08:32)
[2021-01-26] MEDS: amLODIPine 5 MG TAB PO SCH (08:33)
[2021-01-26] MEDS: CHOLECALCIFEROL 25 MCG (1000 IU) TABLET PO SCH (08:33)
[2021-01-26] MEDS: FAMOTIDINE 20 MG TAB PO SCH (08:33)
[2021-01-26] MEDS: ENOXAPARIN 60 MG/0.6 ML SYRINGE SQ SCH ×2 (08:33→21:23)
[2021-01-26] MEDS: ASCORBIC ACID 500 MG TAB PO SCH (08:33)
[2021-01-26] MEDS: hydrALAZINE HCL 50 MG TAB PO SCH ×2 (08:33→21:23)
[2021-01-26 11:33] LABS: Glucose,Whole Blood 221 mg/dL (75-99)
--- NOTE | 2021-01-26 11:35 | XR ---
EXAMINATION TYPE: XR chest 1V portable DATE OF EXAM: 01/26/2021 COMPARISON: 01/24/2021 INDICATION: Covid 19 TECHNIQUE: Single frontal view of the chest is obtained. FINDINGS: The heart size is normal. The pulmonary vasculature is normal. Patchy infiltrates are present bilaterally greater on the right. Findings have slight improvement ove r the interval. IMPRESSION: 1. Slight improvement of nonspecific scattered infiltrates bilaterally can be compatible with atypica l pneumonia in the proper clinical setting
[2021-01-26] MEDS: SODIUM CHLORIDE 0.9% 1,000 ML IV SCH (15:33)
--- NOTE | 2021-01-26 15:59 | P.PN ---
Subjective Progress Note Date: 01/26/21 Principal diagnosis: Acute CoVID 19 pneumonia This is a very pleasant 85-year-old female patient who follows with Dr. Lopez as her primary care provider. She has a history of hypertension, Polanco's palsy, former smoker. She presented to the emergency room yesterday with complaints of ongoing fever and weakness. She had obtained the Moderna vaccination approximately 7 days ago. Shortly after that she developed increasing cough, congestion, aches, weakness, fever. Her cough and shortness of breath has been progressively getting worse the past 5 days. She presented here to the emergency room yesterday for the same. Chest x-ray revealed mild cardiomegaly. Reticular nodular interstitial changes bilaterally with possible chronic parenchymal fibrosis. Areas of acute infiltrate in the periphery of the upper lungs. CT angiogram ruled out any central PE. There is noted multifocal infiltrates and/or edema back on of upper lung fibrotic changes, consistent with CoVID 19 infection. Reactive thoracic adenopathy noted. CoVID 19 screen positive. White count 4.7. Hemoglobin 13.5. Lymphocytes 0.9. D-dimer 1.41. Sodium 135. Potassium 4.3. Creatinine 0.72. LDH 902. C-reactive protein 53.6. Pro-calcitonin 0.09. She been initiated on dexamethasone. She is seen today in consultation on the regular medical floor. She is currently resting comfortably in bed. Awake and alert. In mild respiratory distress. Earlier this morning she was on 3 L maintain O2 saturation in the 90s. She is currently on 13 L high flow nasal cannula. Temperature 100.3. Hemodynamically stable. She has a loose nonproductive cough. The patient seen today 01/19/2021 in follow-up on the regular medical floor. She is currently resting in bed. Awake and alert in no acute distress. She is still requiring 15 L high flow nasal cannula along with a nonrebreather mask but having O2 saturations in the upper 90s. Earlier temperature today 100.8. Chest x-ray continues to show bilateral infiltrates. Blood cultures reveal no growth to date. D-dimer 1.51. LDH is 972. C-reactive protein 62.8. She is on day #2 of Remdesivir. She remains on Lovenox, dexamethasone, vitamin supplements. The patient is seen today 01/20/2021 in follow-up on the regular medical floor. She is currently resting fairly comfortably in bed. Awake and alert in no acute distress. She is still requiring 15 L high flow nasal cannula and a nonrebreather mask will maintaining O2 saturations are 95%. Blood cultures reveal no growth. D-dimer 1.27. LDH 398. C-reactive protein 6.8. This is day #3 of her Remdesivir. She remains on Lovenox, dexamethasone, vitamin supplements. The patient is seen today 01/26/2021 in follow-up on the regular medical floor. She is currently sitting up in bed. Awake and alert in no acute distress. She states she is feeling quite a bit better. She is still requiring 15 L high flow nasal cannula along with a nonrebreather to maintain O2 saturations in the 90s. No worsening shortness of breath, cough or congestion. D-dimer 3.32. Sodium 139. Potassium 3.8. Creatinine 0.62. LDH 1259. C-reactive protein 11.7. She remains on IV Solu-Medrol, which is seen, Lovenox, vitamin supplements. He completed a course of Remdesivir. Objective - Vital Signs Vital signs: Vital Signs Temp 97.7 F 01/26/21 10:15 Pulse 88 01/26/21 10:15 Resp 18 01/26/21 10:15 BP 173/79 01/26/21 10:15 Pulse Ox 93 L 01/26/21 11:39 Intake & Output 01/25/21 01/26/21 01/26/21 18:59 06:59 18:59 Intake Total 300 Balance 300 Intake: Intake, IV Titration 300 Amount Sodium Chloride 0.9% 1, 300 000 ml @ 20 mls/hr IV . Q24H [facility] Rx#:[id number] Other: Voiding Method Bedside Commode # Voids 2 2 - Exam GENERAL EXAM: Alert, obese, pleasant 85-year-old female patient, on 15 L high flow nasal cannula along with a nonrebreather mask, comfortable in mild distress. HEAD: Normocephalic. EYES: Normal reaction of pupils, equal size. NOSE: Clear with pink turbinates. THROAT: No erythema or exudates. NECK: No masses, no JVD. CHEST: No chest wall deformity. LUNGS: Equal air entry with crackles in the posterior bases, scattered rhonchi. CVS: S1 and S2 normal with no audible murmur, regular rhythm. ABDOMEN: No hepatosplenomegaly, normal bowel sounds, no guarding or rigidity. SPINE: No scoliosis or deformity SKIN: No rashes CENTRAL NERVOUS SYSTEM: No focal deficits, tone is normal in all 4 extremities. EXTREMITIES: There is no peripheral edema. No clubbing, no cyanosis. Peripheral pulses are intact. - Labs CBC & Chem 7: 01/24/21 06:54 01/26/21 07:27 Labs: Abnormal Lab Results - Last 24 Hours (Table) 01/25/21 01/25/21 01/26/21 Range/Units 16:48 20:08 06:53 D-Dimer (<0.60) mg/L FEU BUN (7-17) mg/dL Glucose (74-99) mg/dL POC Glucose (mg/dL) 160 H 260 H 151 H (75-99) mg/dL Lactate Dehydrogenase (313-618) U/L C-Reactive Protein (<10.0) mg/L 01/26/21 01/26/21 01/26/21 Range/Units 07:27 07:27 11:30 D-Dimer 3.32 H (<0.60) mg/L FEU BUN 28 H (7-17) mg/dL Glucose 155 H (74-99) mg/dL POC Glucose (mg/dL) 221 H (75-99) mg/dL Lactate Dehydrogenase 1259 H (313-618) U/L C-Reactive Protein 11.7 H (<10.0) mg/L Assessment and Plan Assessment: 1 Acute hypoxic respiratory failure secondary to acute CoVID 19 pneumonitis. Initiated on Remdesivir 01/18/2021 2 Febrile illness secondary to above 3 Lymphocytopenia secondary to above 4 Elevated inflammatory markers secondary to above 5 Obesity 6 Hypertension 7 Former smoker Plan: The patient was seen and evaluated by Dr. Hanks Chest x-ray showing slight improvement. Inflated a course of Remdesivir Continue dexamethasone, Lovenox, Colcrys, vitamin supplements Continue to monitor oxygen requirements closely Titrate down the FiO2 as tolerated We will continue to follow I, the cosigning physician, performed a history & physical examination of the patient. Lungs sounds with crackles in bilateral bases, few scattered rhonchi. Maintaining good O2 saturations in the 90s on 15 L high flow nasal cannula along with nonrebreather mask. I discussed the assessment and plan of care with my nurse practitioner, Alley Luna. I attest to the above note as dictated by her.
--- NOTE | 2021-01-26 16:36 | P.PN ---
Subjective Progress Note Date: 01/26/21 Principal diagnosis: Covid 19 that his pneumonia This is a very pleasant 85-year-old female patient who follows with Dr. Lopez as her primary care provider. She has a history of hypertension, Polanco's palsy, former smoker. She presented to the emergency room yesterday with complaints of ongoing fever and weakness. She had obtained the Moderna vaccination approximately 7 days ago. Shortly after that she developed increasing cough, congestion, aches, weakness, fever. Her cough and shortness of breath has been progressively getting worse the past 5 days. She presented here to the emergency room yesterday for the same. Chest x-ray revealed mild cardiomegaly. Reticular nodular interstitial changes bilaterally with possible chronic parenchymal fibrosis. Areas of acute infiltrate in the periphery of the upper lungs. CT angiogram ruled out any central PE. There is noted multifocal infiltrates and/or edema back on of upper lung fibrotic changes, consistent with CoVID 19 infection. Reactive thoracic adenopathy noted. CoVID 19 screen positive. White count 4.7. Hemoglobin 13.5. Lymphocytes 0.9. D-dimer 1.41. Sodium 135. Potassium 4.3. Creatinine 0.72. LDH 902. C-reactive protein 53.6. Pro-calcitonin 0.09. She been initiated on dexamethasone. She is seen today in consultation on the regular medical floor. She is currently resting comfortably in bed. Awake and alert. In mild respiratory distress. Earlier this morning she was on 3 L maintain O2 saturation in the 90s. She is currently on 13 L high flow nasal cannula. Temperature 100.3. Hemodynamically stable. She has a loose nonproductive cough. 01/25/2021 patient is seen and evaluated in follow-up on medical floor. Patient remains on 15 L high flow and nonrebreather 100%, her pulse ox is 87-91%, 0.9 on the scene is running at 20 ML per hour Patient completed Remdesivir treatment couple days ago, she remains on IV steroids, and Lovenox 50 mg twice daily, yesterday's labs showed improving d- dimer Pulmonary service remains on board and recommending to continue current medical treatment with IV steroids, Lovenox and continue to trend inflammatory markers; plan for a chest x-ray tomorrow 01/26/2021 Patient is seen and evaluated in follow-up on the regular medical floor. She is currently sitting up in bed. Awake and alert in no acute distress. She states she is feeling quite a bit better. She is still requiring 15 L high flow nasal cannula along with a nonrebreather to maintain O2 saturations in the 90s. No worsening shortness of breath, cough or congestion. D-dimer 3.32. Sodium 139. Potassium 3.8. Creatinine 0.62. LDH 1259. C-reactive protein 11.7. She remains on IV Solu-Medrol, which is seen, Lovenox, vitamin supplements. He completed a course of Remdesivir. Objective - Vital Signs Vital signs: Vital Signs Temp 97.7 F 01/26/21 10:15 Pulse 88 01/26/21 10:15 Resp 18 01/26/21 10:15 BP 173/79 01/26/21 10:15 Pulse Ox 94 L 01/26/21 10:15 Intake & Output 01/25/21 01/26/21 01/26/21 18:59 06:59 18:59 Intake Total 300 Balance 300 Intake: Intake, IV Titration 300 Amount Sodium Chloride 0.9% 1, 300 000 ml @ 20 mls/hr IV . Q24H [facility] Rx#:[id number] Other: Voiding Method Bedside Commode # Voids 2 2 - Exam GENERAL: The patient is alert and oriented x3, not in any acute distress. Well developed, well nourished. HEENT: Pupils are round and equally reacting to light. EOMI. No scleral icterus. No conjunctival pallor. Normocephalic, atraumatic. No pharyngeal erythema. No thyromegaly. CARDIOVASCULAR: S1 and S2 present. No murmurs, rubs, or gallops. -PULMONARY: Chest is clear to auscultation, no wheezing or crackles.bilateral crepitation ABDOMEN: Soft, nontender, nondistended, normoactive bowel sounds. No palpable organomegaly. MUSCULOSKELETAL: No joint swelling or deformity. EXTREMITIES: No cyanosis, clubbing, or pedal edema. NEUROLOGICAL: Gross neurological examination did not reveal any focal deficits. SKIN: No rashes. no petechiae. - Labs CBC & Chem 7: 01/24/21 06:54 01/26/21 07:27 Labs: Abnormal Lab Results - Last 24 Hours (Table) 01/25/21 01/25/21 01/25/21 Range/Units 11:47 16:48 20:08 D-Dimer (<0.60) mg/L FEU BUN (7-17) mg/dL Glucose (74-99) mg/dL POC Glucose (mg/dL) 148 H 160 H 260 H (75-99) mg/dL Lactate Dehydrogenase (313-618) U/L C-Reactive Protein (<10.0) mg/L 01/26/21 01/26/21 01/26/21 Range/Units 06:53 07:27 07:27 D-Dimer 3.32 H (<0.60) mg/L FEU BUN 28 H (7-17) mg/dL Glucose 155 H (74-99) mg/dL POC Glucose (mg/dL) 151 H (75-99) mg/dL Lactate Dehydrogenase 1259 H (313-618) U/L C-Reactive Protein 11.7 H (<10.0) mg/L 01/26/21 Range/Units 11:30 D-Dimer (<0.60) mg/L FEU BUN (7-17) mg/dL Glucose (74-99) mg/dL POC Glucose (mg/dL) 221 H (75-99) mg/dL Lactate Dehydrogenase (313-618) U/L C-Reactive Protein (<10.0) mg/L Assessment and Plan Assessment: Acute hypoxic respiratory failure secondary to covid 19 pneumoniae with upper lobe peripheral infiltrates. Elevated inflammatory markers secondary to Coumadin 19 pneumonia Hypertension Hyperlipidemia Morbid obesity with BMI 38.3 Elevated d-dimer level without evidence of pulmonary embolism History of smoking Plan: this is a pleasant 85 years old female who presents with cough and pneumonia and hypoxia. Patient will be continued on oxygen supplementation and titrate down FiO2 slowly as tolerated. Patient will be continued on dexamethasone, Lovenox and vitamin supplementation. Is on 01/22. Her last dose of remdesivir Pulmonary is on lorena amelie. Prognosis is guarded at this time. Continue to monitor closely. Norvasc and when necessary hydralazine for high blood pressure secondary to steroid effect Labs and medication were reviewed.. Continue same treatment. Continue with symptomatic treatment. Resume home medication. Monitor lytes and vitals. DVT and GI prophylaxis. Further recommendationsas per clinical course of the patient DVT prophylaxis: Subcutaneous Lovenox GI Prophylaxis: Pepcid Prognosis is guarded
[2021-01-26 17:05] LABS: Glucose,Whole Blood 126 mg/dL (75-99)
[2021-01-26 21:06] LABS: Glucose,Whole Blood 147 mg/dL (75-99)
[2021-01-27] MEDS: methylPREDNISolone SOD SUCCI 125 MG/2 ML VIAL IV SCH ×4 (02:10→21:23)
[2021-01-27 07:03] LABS: Glucose,Whole Blood 140 mg/dL (75-99)
[2021-01-27] MEDS: INSULIN ASPART (NovoLOG) 100 UNIT/ML VIAL SQ SCH ×4 (08:37→21:24)
[2021-01-27] MEDS: ZINC SULFATE 220 MG CAP PO SCH (08:42)
[2021-01-27] MEDS: amLODIPine 5 MG TAB PO SCH (08:42)
[2021-01-27] MEDS: lisinopriL 5 MG TAB PO SCH (08:42)
[2021-01-27] MEDS: CHOLECALCIFEROL 25 MCG (1000 IU) TABLET PO SCH (08:42)
[2021-01-27] MEDS: hydrALAZINE HCL 50 MG TAB PO SCH ×2 (08:42→21:23)
[2021-01-27] MEDS: COLCHICINE 0.6 MG EACH PO SCH ×2 (08:42→21:23)
[2021-01-27] MEDS: ASCORBIC ACID 500 MG TAB PO SCH (08:42)
[2021-01-27] MEDS: FAMOTIDINE 20 MG TAB PO SCH (08:42)
[2021-01-27] MEDS: ENOXAPARIN 60 MG/0.6 ML SYRINGE SQ SCH ×2 (08:43→21:23)
[2021-01-27 11:50] LABS: Glucose,Whole Blood 155 mg/dL (75-99)
--- NOTE | 2021-01-27 15:20 | P.PN ---
Subjective Progress Note Date: 01/27/21 Principal diagnosis: COVID pneumonia, hypoxemia. The patient seen today 01/19/2021 in follow-up on the regular medical floor. She is currently resting in bed. Awake and alert in no acute distress. She is still requiring 15 L high flow nasal cannula along with a nonrebreather mask but having O2 saturations in the upper 90s. Earlier temperature today 100.8. Chest x-ray continues to show bilateral infiltrates. Blood cultures reveal no growth to date. D-dimer 1.51. LDH is 972. C-reactive protein 62.8. She is on day #2 of Remdesivir. She remains on Lovenox, dexamethasone, vitamin supplements. The patient is seen today 01/20/2021 in follow-up on the regular medical floor. She is currently resting fairly comfortably in bed. Awake and alert in no acute distress. She is still requiring 15 L high flow nasal cannula and a nonrebreather mask will maintaining O2 saturations are 95%. Blood cultures reveal no growth. D-dimer 1.27. LDH 398. C-reactive protein 6.8. This is day #3 of her Remdesivir. She remains on Lovenox, dexamethasone, vitamin supplements. The patient is seen today 01/26/2021 in follow-up on the regular medical floor. She is currently sitting up in bed. Awake and alert in no acute distress. She states she is feeling quite a bit better. She is still requiring 15 L high flow nasal cannula along with a nonrebreather to maintain O2 saturations in the 90s. No worsening shortness of breath, cough or congestion. D-dimer 3.32. Sodium 139. Potassium 3.8. Creatinine 0.62. LDH 1259. C-reactive protein 11.7. She remains on IV Solu-Medrol, which is seen, Lovenox, vitamin supplements. He completed a course of Remdesivir. Progress note dated 01/27/2021. The patient is again seen on January 27, in room 476. The patient remains on 15 L high flow nasal cannula, along with a nonrebreather mask. With that, her saturations are in the high 80s low 90s. She appears not to be in any distress though, and is not demonstrating any air hunger. The patient did 5 days of REM. She is on other appropriate medications including Solu-Medrol, Lovenox, vitamin C, vitamin D3, and zinc. No new laboratory data today. Her most recent chest x-ray was yesterday and has been reviewed. She is currently sitting at the side of the bed again, in no acute distress. Objective - Vital Signs Vital signs: Vital Signs Temp 97.7 F 01/27/21 13:43 Pulse 85 01/27/21 13:43 Resp 18 01/27/21 13:43 BP 154/80 01/27/21 13:43 Pulse Ox 90 L 01/27/21 13:43 Intake & Output 01/26/21 01/27/21 01/27/21 18:59 06:59 18:59 Intake Total 250 Balance 250 Intake: Intake, IV Titration 250 Amount Sodium Chloride 0.9% 1, 250 000 ml @ 20 mls/hr IV . Q24H [facility] Rx#:[id number] Other: Voiding Method Bedside Commode # Voids 4 - Exam No acute distress, oriented 3, currently on a 15 L high flow nasal cannula, and nonrebreather mask. No conversational dyspnea, or use of accessory muscles. HEENT examination is grossly unremarkable. Mucous membranes are moist. Neck supple. Full range of motion. No adenopathy thyromegaly or neck vein distention. Cardiovascular examination reveals regular rhythm rate. S1-S2 normal. No S3 or S4. No discernible murmur noted. Heart sounds are distant. Heart rate 85 bpm. Lungs reveal bilateral diffuse rhonchi and crackles. Breath sounds are equal but diminished throughout. There are no wheezes. Exam is essentially unchanged. Abdomen soft bowel sounds are heard. No masses or tenderness. Extremities are intact. No cyanosis clubbing or edema. Skin is without rash or lesion. Neurologic examination is brief but nonfocal. - Labs CBC & Chem 7: 01/24/21 06:54 01/26/21 07:27 Labs: Abnormal Lab Results - Last 24 Hours (Table) 01/26/21 01/26/21 01/27/21 Range/Units 17:01 21:05 07:00 POC Glucose (mg/dL) 126 H 147 H 140 H (75-99) mg/dL 01/27/21 Range/Units 11:48 POC Glucose (mg/dL) 155 H (75-99) mg/dL Assessment and Plan Assessment: Acute hypoxemic respiratory failure, secondary to COVID 19 pneumonia, status post REM therapy. Febrile illness secondary to above. Lymphocytopenia, secondary to COVID 19 infection. Obesity. Hypertension. History of previous tobacco use. Plan: Plan dated 01/27/2021. Most recent chest x-ray may show some slight improvement. The patient did complete her course of REM. The patient remains on Decadron, Lovenox, vitamin C, vitamin D3, and zinc. She also remains on a nonrebreather mask, along with high flow nasal cannula. Despite her oxygen requirements, the patient does not appear to be particularly short of breath. We will continue to follow. Overall prognosis remains guarded given her age. Time with Patient: Less than 30
--- NOTE | 2021-01-27 15:56 | P.PN ---
Subjective Progress Note Date: 01/27/21 Principal diagnosis: Covid 19 that his pneumonia This is a very pleasant 85-year-old female patient who follows with Dr. Lopez as her primary care provider. She has a history of hypertension, Polanco's palsy, former smoker. She presented to the emergency room yesterday with complaints of ongoing fever and weakness. She had obtained the Moderna vaccination approximately 7 days ago. Shortly after that she developed increasing cough, congestion, aches, weakness, fever. Her cough and shortness of breath has been progressively getting worse the past 5 days. She presented here to the emergency room yesterday for the same. Chest x-ray revealed mild cardiomegaly. Reticular nodular interstitial changes bilaterally with possible chronic parenchymal fibrosis. Areas of acute infiltrate in the periphery of the upper lungs. CT angiogram ruled out any central PE. There is noted multifocal infiltrates and/or edema back on of upper lung fibrotic changes, consistent with CoVID 19 infection. Reactive thoracic adenopathy noted. CoVID 19 screen positive. White count 4.7. Hemoglobin 13.5. Lymphocytes 0.9. D-dimer 1.41. Sodium 135. Potassium 4.3. Creatinine 0.72. LDH 902. C-reactive protein 53.6. Pro-calcitonin 0.09. She been initiated on dexamethasone. She is seen today in consultation on the regular medical floor. She is currently resting comfortably in bed. Awake and alert. In mild respiratory distress. Earlier this morning she was on 3 L maintain O2 saturation in the 90s. She is currently on 13 L high flow nasal cannula. Temperature 100.3. Hemodynamically stable. She has a loose nonproductive cough. 01/25/2021 patient is seen and evaluated in follow-up on medical floor. Patient remains on 15 L high flow and nonrebreather 100%, her pulse ox is 87-91%, 0.9 on the scene is running at 20 ML per hour Patient completed Remdesivir treatment couple days ago, she remains on IV steroids, and Lovenox 50 mg twice daily, yesterday's labs showed improving d- dimer Pulmonary service remains on board and recommending to continue current medical treatment with IV steroids, Lovenox and continue to trend inflammatory markers; plan for a chest x-ray tomorrow 01/26/2021 Patient is seen and evaluated in follow-up on the regular medical floor. She is currently sitting up in bed. Awake and alert in no acute distress. She states she is feeling quite a bit better. She is still requiring 15 L high flow nasal cannula along with a nonrebreather to maintain O2 saturations in the 90s. No worsening shortness of breath, cough or congestion. D-dimer 3.32. Sodium 139. Potassium 3.8. Creatinine 0.62. LDH 1259. C-reactive protein 11.7. She remains on IV Solu-Medrol, which is seen, Lovenox, vitamin supplements. He completed a course of Remdesivir. 01/27/2021 Patient is seen and evaluated in room at bedside The patient remains on 15 L high flow nasal cannula, along with a nonrebreather mask. With that, her saturations are in the high 80s low 90s. She appears not to be in any distress though, and is not demonstrating any air hunger. The patient did 5 days of REM. She is on other appropriate medications including Solu-Medrol, Lovenox, vitamin C, vitamin D3, and zinc. No new laboratory data today. Her most recent chest x-ray was yesterday and has been reviewed. She is currently sitting at the side of the bed again, in no acute distress. Objective - Vital Signs Vital signs: Vital Signs Temp 98.4 F 01/27/21 09:44 Pulse 86 01/27/21 09:44 Resp 18 01/27/21 09:44 BP 147/76 01/27/21 09:44 Pulse Ox 90 L 01/27/21 09:44 Intake & Output 01/26/21 01/27/21 01/27/21 18:59 06:59 18:59 Intake Total 250 Balance 250 Intake: Intake, IV Titration 250 Amount Sodium Chloride 0.9% 1, 250 000 ml @ 20 mls/hr IV . Q24H [facility] Rx#:[id number] Other: Voiding Method Bedside Commode # Voids 4 - Exam GENERAL: The patient is alert and oriented x3, not in any acute distress. Well developed, well nourished. HEENT: Pupils are round and equally reacting to light. EOMI. No scleral icterus. No conjunctival pallor. Normocephalic, atraumatic. No pharyngeal erythema. No thyromegaly. CARDIOVASCULAR: S1 and S2 present. No murmurs, rubs, or gallops. -PULMONARY: Chest is clear to auscultation, no wheezing or crackles.bilateral crepitation ABDOMEN: Soft, nontender, nondistended, normoactive bowel sounds. No palpable organomegaly. MUSCULOSKELETAL: No joint swelling or deformity. EXTREMITIES: No cyanosis, clubbing, or pedal edema. NEUROLOGICAL: Gross neurological examination did not reveal any focal deficits. SKIN: No rashes. no petechiae. - Labs CBC & Chem 7: 01/24/21 06:54 01/26/21 07:27 Labs: Abnormal Lab Results - Last 24 Hours (Table) 01/26/21 01/26/21 01/26/21 Range/Units 11:30 17:01 21:05 POC Glucose (mg/dL) 221 H 126 H 147 H (75-99) mg/dL 01/27/21 Range/Units 07:00 POC Glucose (mg/dL) 140 H (75-99) mg/dL Assessment and Plan Assessment: Acute hypoxic respiratory failure secondary to covid 19 pneumoniae with upper lobe peripheral infiltrates. Elevated inflammatory markers secondary to Coumadin 19 pneumonia Hypertension Hyperlipidemia Morbid obesity with BMI 38.3 Elevated d-dimer level without evidence of pulmonary embolism History of smoking Plan: this is a pleasant 85 years old female who presents with cough and pneumonia and hypoxia. Patient will be continued on oxygen supplementation and titrate down FiO2 slowly as tolerated. Patient will be continued on dexamethasone, Lovenox and vitamin supplementation. Is on 01/22. Her last dose of remdesivir Pulmonary is on board. Prognosis is guarded at this time. Continue to monitor closely. Norvasc and when necessary hydralazine for high blood pressure secondary to steroid effect Labs and medication were reviewed.. Continue same treatment. Continue with symptomatic treatment. Resume home medication. Monitor lytes and vitals. DVT and GI prophylaxis. Further recommendationsas per clinical course of the patient DVT prophylaxis: Subcutaneous Lovenox GI Prophylaxis: Pepcid Prognosis is guarded
[2021-01-27 17:08] LABS: Glucose,Whole Blood 144 mg/dL (75-99)
[2021-01-27] MEDS: SODIUM CHLORIDE 0.9% 1,000 ML IV SCH (17:30)
[2021-01-27 21:06] LABS: Glucose,Whole Blood 187 mg/dL (75-99)
[2021-01-28] MEDS: methylPREDNISolone SOD SUCCI 125 MG/2 ML VIAL IV SCH ×4 (02:09→20:51)
[2021-01-28 06:55] LABS: Glucose,Whole Blood 162 mg/dL (75-99)
[2021-01-28] MEDS: CHOLECALCIFEROL 25 MCG (1000 IU) TABLET PO SCH (08:06)
[2021-01-28] MEDS: FAMOTIDINE 20 MG TAB PO SCH (08:06)
[2021-01-28] MEDS: INSULIN ASPART (NovoLOG) 100 UNIT/ML VIAL SQ SCH ×4 (08:06→20:51)
[2021-01-28] MEDS: ENOXAPARIN 60 MG/0.6 ML SYRINGE SQ SCH ×2 (08:06→20:49)
[2021-01-28] MEDS: ASCORBIC ACID 500 MG TAB PO SCH (08:07)
[2021-01-28] MEDS: COLCHICINE 0.6 MG EACH PO SCH ×2 (08:07→20:51)
[2021-01-28] MEDS: amLODIPine 5 MG TAB PO SCH (08:08)
[2021-01-28] MEDS: ZINC SULFATE 220 MG CAP PO SCH (08:08)
[2021-01-28] MEDS: hydrALAZINE HCL 50 MG TAB PO SCH ×2 (08:08→20:51)
[2021-01-28] MEDS: lisinopriL 5 MG TAB PO SCH (08:08)
[2021-01-28 12:03] LABS: Glucose,Whole Blood 174 mg/dL (75-99)
--- NOTE | 2021-01-28 13:33 | P.PN ---
Subjective Progress Note Date: 01/28/21 COVID pneumonia, hypoxemia. 01/28/2021 on seeing the patient for a follow-up. The patient remains on a on the percent on a 100% facemask. The patient is on Decadron. Not having any significant shortness of breath. The patient completed her course of REM and the patient is still on a combination of IV Solu-Medrol, Lovenox, vitamin C and vitamin D and zinc. No chest pain. No worsening of shortness of breath. No altered mentation. No nausea. No vomiting. No diarrhea. Abdominal pain. No recent inflammatory markers and the last level is up from 01/26/2021 with LDH was 1259 on today's evaluation, the patient is laying down comfortably in bed. She still in the 100% nonrebreather facemask. She is not having any worsening shortness of breath. The latest chest x-ray is from 01/26/2021 and it shows stable bilateral pulmonary infiltrates. Objective - Vital Signs Vital signs: Vital Signs Temp 98.1 F 01/28/21 09:36 Pulse 83 01/28/21 09:36 Resp 18 01/28/21 09:36 BP 159/78 01/28/21 09:36 Pulse Ox 93 L 01/28/21 09:36 Intake & Output 01/27/21 01/28/21 01/28/21 18:59 06:59 18:59 Other: Voiding Method Bedside Commode # Voids 2 - Exam No acute distress, oriented 3, currently on a 15 L high flow nonrebreather mask. No conversational dyspnea, or use of accessory muscles. HEENT examination is grossly unremarkable. Mucous membranes are moist. Neck supple. Full range of motion. No adenopathy thyromegaly or neck vein distention. Cardiovascular examination reveals regular rhythm rate. S1-S2 normal. No S3 or S4. No discernible murmur noted. Heart sounds are distant. Heart rate 85 bpm. Lungs reveal bilateral diffuse rhonchi and crackles. Breath sounds are equal but diminished throughout. There are no wheezes. Exam is essentially unchanged. Abdomen soft bowel sounds are heard. No masses or tenderness. Extremities are intact. No cyanosis clubbing or edema. Skin is without rash or lesion. Neurologic examination is brief but nonfocal. - Labs CBC & Chem 7: 01/24/21 06:54 01/26/21 07:27 Labs: Abnormal Lab Results - Last 24 Hours (Table) 01/27/21 01/27/21 01/28/21 Range/Units 17:03 21:04 06:51 POC Glucose (mg/dL) 144 H 187 H 162 H (75-99) mg/dL 01/28/21 Range/Units 12:00 POC Glucose (mg/dL) 174 H (75-99) mg/dL Assessment and Plan Plan: 1 Acute hypoxemic respiratory failure, secondary to COVID 19 pneumonia, status post REM therapy. 2 Febrile illness secondary to above. 3 Lymphocytopenia, secondary to COVID 19 infection. 4 Obesity. 5 Hypertension. 6 History of previous tobacco use. Plan Most recent chest x-ray may show some slight improvement. The patient did complete her course of Remdesivir. Continue Decadron, Lovenox, vitamin C, vitamin D3, and zinc. nonrebreather mask, the patient will be attempted at a lower oxygen flow probably high flow oxygen as the lungs are clear today with some limited infiltration of the lung bases. Repeat chest x-ray tomorrow. Repeat inflammatory markers tomorrow. LDH from 01/27/2020 was elevated and hasn't been checked since. We'll continue to follow.
[2021-01-28] MEDS: SODIUM CHLORIDE 0.9% 1,000 ML IV SCH (15:25)
[2021-01-28 16:52] LABS: Glucose,Whole Blood 194 mg/dL (75-99)
[2021-01-28 20:12] LABS: Glucose,Whole Blood 208 mg/dL (75-99)
[2021-01-29] MEDS: hydrALAZINE HCL 25 MG TAB PO PRN (02:43)
[2021-01-29] MEDS: methylPREDNISolone SOD SUCCI 125 MG/2 ML VIAL IV SCH ×4 (02:43→21:00)
[2021-01-29 07:05] LABS: Glucose,Whole Blood 153 mg/dL (75-99)
[2021-01-29] MEDS: amLODIPine 5 MG TAB PO SCH (07:59)
[2021-01-29] MEDS: CHOLECALCIFEROL 25 MCG (1000 IU) TABLET PO SCH (07:59)
[2021-01-29] MEDS: ASCORBIC ACID 500 MG TAB PO SCH (07:59)
[2021-01-29] MEDS: hydrALAZINE HCL 50 MG TAB PO SCH ×2 (08:00→20:59)
[2021-01-29] MEDS: ZINC SULFATE 220 MG CAP PO SCH (08:00)
[2021-01-29] MEDS: FAMOTIDINE 20 MG TAB PO SCH (08:00)
[2021-01-29] MEDS: ENOXAPARIN 60 MG/0.6 ML SYRINGE SQ SCH ×2 (08:00→20:59)
[2021-01-29] MEDS: COLCHICINE 0.6 MG EACH PO SCH ×2 (08:01→20:59)
[2021-01-29] MEDS: INSULIN ASPART (NovoLOG) 100 UNIT/ML VIAL SQ SCH ×4 (08:01→21:00)
[2021-01-29] MEDS: SODIUM CHLORIDE 0.9% 1,000 ML IV SCH (08:02)
[2021-01-29] MEDS: lisinopriL 5 MG TAB PO SCH (08:03)
--- NOTE | 2021-01-29 08:10 | XR ---
EXAMINATION TYPE: XR chest 1V portable DATE OF EXAM: 01/29/2021 COMPARISON: 01/27/2000 HISTORY: Shortness TECHNIQUE: Single frontal view of the chest is obtained. FINDINGS: Patchy interstitial and subsegmental areas of infiltrate are stable. Stable. Ectasia of the aorta. No pneumothorax or sizable pleural effusion. Underlying COPD suspected. Arthropathy of the shoulder. IMPRESSION: 1. Diffuse bilateral patchy infiltrates stable.
[2021-01-29 11:16] LABS: Glucose,Whole Blood 160 mg/dL (75-99)
[2021-01-29 11:20] LABS: African American GFR (CKD) >90 (>60 ml/min/1.73 sqM); Anion Gap 4 mmol/L; Blood Urea Nitrogen 28 mg/dL (7-17); Calcium 8.2 mg/dL (8.4-10.2); Carbon Dioxide 33 mmol/L (22-30); Chloride 101 mmol/L (98-107); Glucose 141 mg/dL (74-99); Non-African American GFR(CKD) 86 (>60 ml/min/1.73 sqM); Potassium 4.3 mmol/L (3.5-5.1); Sodium 138 mmol/L (137-145)
[2021-01-29 11:22] LABS: Basophils % (A) 0 %; Eosinophils # (A) 0.1 k/uL (0-0.7); Eosinophils % (A) 0 %; HCT 41.6 % (34.0-46.0); HGB 13.7 gm/dL (11.4-16.0); Lymphocytes # (A) 0.5 k/uL (1.0-4.8); Lymphocytes % (A) 3 %; MCH 29.8 pg (25.0-35.0); MCV 90.2 fL (80.0-100.0); Mean Platelet Volume 10.2; Monocytes # (A) 0.6 k/uL (0-1.0); Monocytes % (A) 4 %; Neutrophils # (A) 15.5 k/uL (1.3-7.7); Neutrophils % (A) 93 %; Platelet Count 208 k/uL (150-450); RBC 4.61 m/uL (3.80-5.40); RDW 15.5 % (11.5-15.5); WBC 16.7 k/uL (3.8-10.6)
[2021-01-29 12:45] LABS: C Reactive Protein <0.4 mg/dL (0.0-0.8); LDH 479 U/L (120-246)
--- NOTE | 2021-01-29 13:24 | P.PN ---
Subjective Progress Note Date: 01/29/21 COVID pneumonia, hypoxemia. 01/28/2021 on seeing the patient for a follow-up. The patient remains on a on the percent on a 100% facemask. The patient is on Decadron. Not having any significant shortness of breath. The patient completed her course of REM and the patient is still on a combination of IV Solu-Medrol, Lovenox, vitamin C and vitamin D and zinc. No chest pain. No worsening of shortness of breath. No altered mentation. No nausea. No vomiting. No diarrhea. Abdominal pain. No recent inflammatory markers and the last level is up from 01/26/2021 with LDH was 1259 on today's evaluation, the patient is laying down comfortably in bed. She still in the 100% nonrebreather facemask. She is not having any worsening shortness of breath. The latest chest x-ray is from 01/26/2021 and it shows stable bilateral pulmonary infiltrates. 07/01/2021 the patient is currently off the 100% nonrebreather. The she is on high flow oxygen at 60 L with an FiO2 of 90%. Her pulse ox is between 89-90%. She is in for Covid and he related pneumonia. She is completing a course of REM and she remains on IV Solu-Medrol, Lovenox, vitamin C and vitamin D. In terms of her shortness of breath, the patient is still unchanged. The blood work today shows pending inflammatory markers. Electrolytes are all within normal limits. Creatinine is at 0.5. Glucose is 141. The white cell count today is at 16.7 with a hemoglobin of 13.7. D-dimer is at 1.92. Chest x-ray is again showing right upper lobe pulmonary infiltrate, left lower lobe pulmonary infiltrate, the physician is rather diffuse. Based on comparing the x-rays, the findings are essentially stable for now. Objective - Vital Signs Vital signs: Vital Signs Temp 98.0 F 01/29/21 10:00 Pulse 94 01/29/21 10:00 Resp 20 01/29/21 10:00 BP 164/78 01/29/21 10:00 Pulse Ox 89 L 01/29/21 11:46 Intake & Output 01/28/21 01/29/21 01/29/21 18:59 06:59 18:59 Intake Total 240 780 Balance 240 780 Intake: Intake, IV Titration 240 240 Amount Sodium Chloride 0.9% 1, 240 240 000 ml @ 20 mls/hr IV . Q24H [facility] Rx#:[id number] Oral 540 Other: Voiding Method Bedside Commode # Voids 2 3 1 # Bowel Movements 1 - Exam No acute distress, oriented 3, currently on a 60 L high flow nonrebreather mask. No conversational dyspnea, or use of accessory muscles. HEENT examination is grossly unremarkable. Mucous membranes are moist. Neck supple. Full range of motion. No adenopathy thyromegaly or neck vein distention. Cardiovascular examination reveals regular rhythm rate. S1-S2 normal. No S3 or S4. No discernible murmur noted. Heart sounds are distant. Heart rate 85 bpm. Lungs reveal bilateral diffuse rhonchi and crackles. Breath sounds are equal but diminished throughout. There are no wheezes. Exam is essentially unchanged. Abdomen soft bowel sounds are heard. No masses or tenderness. Extremities are intact. No cyanosis clubbing or edema. Skin is without rash or lesion. Neurologic examination is brief but nonfocal. - Labs CBC & Chem 7: 01/29/21 06:45 01/29/21 06:45 Labs: Abnormal Lab Results - Last 24 Hours (Table) 01/28/21 01/28/21 01/29/21 Range/Units 16:49 20:09 06:45 WBC (3.8-10.6) k/uL Neutrophils # (1.3-7.7) k/uL Lymphocytes # (1.0-4.8) k/uL D-Dimer 1.92 H (<0.60) mg/L FEU Carbon Dioxide (22-30) mmol/L BUN (7-17) mg/dL Glucose (74-99) mg/dL POC Glucose (mg/dL) 194 H 208 H (75-99) mg/dL Calcium (8.4-10.2) mg/dL Lactate Dehydrogenase (120-246) U/L 01/29/21 01/29/21 01/29/21 Range/Units 06:45 06:45 06:45 WBC 16.7 H (3.8-10.6) k/uL Neutrophils # 15.5 H (1.3-7.7) k/uL Lymphocytes # 0.5 L (1.0-4.8) k/uL D-Dimer (<0.60) mg/L FEU Carbon Dioxide 33 H (22-30) mmol/L BUN 28 H (7-17) mg/dL Glucose 141 H (74-99) mg/dL POC Glucose (mg/dL) (75-99) mg/dL Calcium 8.2 L (8.4-10.2) mg/dL Lactate Dehydrogenase 479 H (120-246) U/L 01/29/21 01/29/21 Range/Units 07:04 11:14 WBC (3.8-10.6) k/uL Neutrophils # (1.3-7.7) k/uL Lymphocytes # (1.0-4.8) k/uL D-Dimer (<0.60) mg/L FEU Carbon Dioxide (22-30) mmol/L BUN (7-17) mg/dL Glucose (74-99) mg/dL POC Glucose (mg/dL) 153 H 160 H (75-99) mg/dL Calcium (8.4-10.2) mg/dL Lactate Dehydrogenase (120-246) U/L Assessment and Plan Plan: 1 Acute hypoxemic respiratory failure, secondary to COVID 19 pneumonia, she is currently on Decadron and she is completed her REM therapy. She currently is on high flow oxygen at 60 L with an FiO2 of 90%. Chest x-ray findings from today are essentially stable with diffuse bilateral pulmonary infiltrates. No major change in her condition. No major change in he chest x-ray findings.r 2 Febrile illness secondary to above. 3 Lymphocytopenia, secondary to COVID 19 infection. 4 Obesity. 5 Hypertension. 6 History of previous tobacco use. Plan Most recent chest x-rayfrom today is showing stable findings. Clinically unchanged. Currently on high flow oxygen. She is on Decadron.. The patient did complete her course of Remdesivir. Continue Decadron, Lovenox, vitamin C, vitamin D3, and zinc. Repeat inflammatory markers tomorrow. We'll continue to follow.
[2021-01-29 16:20] LABS: Glucose,Whole Blood 237 mg/dL (75-99)
[2021-01-29 20:07] LABS: Glucose,Whole Blood 148 mg/dL (75-99)
[2021-01-30] MEDS: methylPREDNISolone SOD SUCCI 125 MG/2 ML VIAL IV SCH ×4 (02:21→21:26)
[2021-01-30 07:17] LABS: Glucose,Whole Blood 144 mg/dL (75-99)
[2021-01-30] MEDS: FAMOTIDINE 20 MG TAB PO SCH (07:55)
[2021-01-30] MEDS: COLCHICINE 0.6 MG EACH PO SCH ×2 (07:55→21:25)
[2021-01-30] MEDS: INSULIN ASPART (NovoLOG) 100 UNIT/ML VIAL SQ SCH ×4 (07:55→21:26)
[2021-01-30] MEDS: CHOLECALCIFEROL 25 MCG (1000 IU) TABLET PO SCH (07:56)
[2021-01-30] MEDS: ENOXAPARIN 60 MG/0.6 ML SYRINGE SQ SCH ×2 (07:56→21:25)
[2021-01-30] MEDS: ZINC SULFATE 220 MG CAP PO SCH (07:56)
[2021-01-30] MEDS: lisinopriL 5 MG TAB PO SCH (07:56)
[2021-01-30] MEDS: hydrALAZINE HCL 50 MG TAB PO SCH ×3 (07:56→21:25)
[2021-01-30] MEDS: ASCORBIC ACID 500 MG TAB PO SCH (07:56)
[2021-01-30] MEDS: amLODIPine 5 MG TAB PO SCH (07:56)
[2021-01-30 10:38] LABS: C Reactive Protein <0.4 mg/dL (0.0-0.8); LDH 451 U/L (120-246)
[2021-01-30 11:55] LABS: Glucose,Whole Blood 180 mg/dL (75-99)
[2021-01-30] MEDS: SODIUM CHLORIDE 0.9% 1,000 ML IV SCH (12:44)
--- NOTE | 2021-01-30 15:49 | P.PN ---
Subjective Progress Note Date: 01/30/21 COVID pneumonia, hypoxemia. 01/28/2021 on seeing the patient for a follow-up. The patient remains on a on the percent on a 100% facemask. The patient is on Decadron. Not having any significant shortness of breath. The patient completed her course of REM and the patient is still on a combination of IV Solu-Medrol, Lovenox, vitamin C and vitamin D and zinc. No chest pain. No worsening of shortness of breath. No altered mentation. No nausea. No vomiting. No diarrhea. Abdominal pain. No recent inflammatory markers and the last level is up from 01/26/2021 with LDH was 1259 on today's evaluation, the patient is laying down comfortably in bed. She still in the 100% nonrebreather facemask. She is not having any worsening shortness of breath. The latest chest x-ray is from 01/26/2021 and it shows stable bilateral pulmonary infiltrates. 07/01/2021 the patient is currently off the 100% nonrebreather. The she is on high flow oxygen at 60 L with an FiO2 of 90%. Her pulse ox is between 89-90%. She is in for Covid and he related pneumonia. She is completing a course of REM and she remains on IV Solu-Medrol, Lovenox, vitamin C and vitamin D. In terms of her shortness of breath, the patient is still unchanged. The blood work today shows pending inflammatory markers. Electrolytes are all within normal limits. Creatinine is at 0.5. Glucose is 141. The white cell count today is at 16.7 with a hemoglobin of 13.7. D-dimer is at 1.92. Chest x-ray is again showing right upper lobe pulmonary infiltrate, left lower lobe pulmonary infiltrate, the physician is rather diffuse. Based on comparing the x-rays, the findings are essentially stable for now. 01/30/2021, the patient is in a high flow oxygen and currently she is on 6 L with an FiO2 of 80%. Her pulse ox is around 96% pH is quite comfortable. She is able to tolerate some diet while being on high flow oxygen. She has not used her 100% nonrebreather facemask. Noted that she was able to maintain a pulse ox above 90%. No chest pain , she is also on IV Solu Medrol 60 mg every 6 hours.s feeling less short of breath. She completed the course of REMand she remains on a course of IV Solu-Medrol, in addition to vitamin C and vitamin D. Her d-dimer is at 1.88. No other labs are available from today.she is on Lovenox 50 mg subcu every 12 hours. her chest x-ray from yesterday was showing diffuse patchy bilateral pulmonary infiltrates, stable compared to the earlier chest x-ray from 01/26/2021 Objective - Vital Signs Vital signs: Vital Signs Temp 98.2 F 01/30/21 14:20 Pulse 94 01/30/21 14:20 Resp 15 01/30/21 14:20 BP 135/72 01/30/21 14:20 Pulse Ox 96 01/30/21 15:37 Intake & Output 01/29/21 01/30/21 01/30/21 18:59 06:59 18:59 Intake Total 160 Balance 160 Intake: IV 160 Sodium Chloride 0.9% 1, 160 000 ml @ 20 mls/hr IV . Q24H [facility] Rx#:[id number] Other: Voiding Method Bedside Commode # Voids 1 3 - Exam No acute distress, oriented 3, currently on a 60 L high flow , an FiO2 of 80% . No conversational dyspnea, or use of accessory muscles. HEENT examination is grossly unremarkable. Mucous membranes are moist. Neck supple. Full range of motion. No adenopathy thyromegaly or neck vein distention. Cardiovascular examination reveals regular rhythm rate. S1-S2 normal. No S3 or S4. No discernible murmur noted. Heart sounds are distant. Heart rate 85 bpm. Lungs reveal bilateral diffuse rhonchi and crackles. Breath sounds are equal but diminished throughout. There are no wheezes. Exam is essentially unchanged. Abdomen soft bowel sounds are heard. No masses or tenderness. Extremities are intact. No cyanosis clubbing or edema. Skin is without rash or lesion. Neurologic examination is brief but nonfocal. - Labs CBC & Chem 7: 01/29/21 06:45 01/29/21 06:45 Labs: Abnormal Lab Results - Last 24 Hours (Table) 01/29/21 01/29/21 01/30/21 Range/Units 16:19 20:03 05:58 D-Dimer 1.88 H (<0.60) mg/L FEU POC Glucose (mg/dL) 237 H 148 H (75-99) mg/dL Lactate Dehydrogenase (120-246) U/L 01/30/21 01/30/21 01/30/21 Range/Units 05:58 07:13 11:47 D-Dimer (<0.60) mg/L FEU POC Glucose (mg/dL) 144 H 180 H (75-99) mg/dL Lactate Dehydrogenase 451 H (120-246) U/L Assessment and Plan Plan: 1 Acute hypoxemic respiratory failure, secondary to COVID 19 pneumonia, she is currently on IV Solu-Medrol and she is completed her REM therapy. She currently is on high flow oxygen at 60 L with an FiO2 of 80%. Chest x-ray findings from yesterday are essentially stable with diffuse bilateral pulmonary infiltrates. No major change in her condition. No major change in he chest x-ray findings. Clinically however, the patient is feeling slightly better on today's evaluation. She prefers to high flow oxygen. She is able to tolerate her diet. No altered mentation. No GI upset. No fever. Overall symptoms have been stable and slightly improved in terms of her respiratory symptoms. 2 Febrile illness secondary to above. 3 Lymphocytopenia, secondary to COVID 19 infection. 4 Obesity. 5 Hypertension. 6 History of previous tobacco use. Plan Most recent chest x-rayfrom today is showing stable findings. Clinically unc hanged. Currently on high flow oxygen. She is IV Solu-Medro . The patient did complete her course of Remdesivir. Continue Solumedrol, Lovenox, vitamin C, vitamin D3, and zinc. Repeat inflammatory markers tomorrow. WEAN DOWN THE fIo2 TO MAINTAIN A SATURATION ABOVE 90%. kEEP THE HIGH FLOW AT 60 l We'll continue to follow.
[2021-01-30 17:17] LABS: Glucose,Whole Blood 132 mg/dL (75-99)
[2021-01-30 20:33] LABS: Glucose,Whole Blood 197 mg/dL (75-99)
--- NOTE | 2021-01-30 23:02 | P.PN ---
Subjective Progress Note Date: 01/28/21 Principal diagnosis: Acute hypoxic respiratory failure secondary to covid 19 pneumoniae with upper lobe peripheral infiltrates. Elevated inflammatory markers secondary to Coumadin 19 pneumonia Patient is a 85-year-old female with known history of hypertension, hyperlipidemia, history of Polanco's palsy and previous history of smoking presents to ER on 01/17/2021 with complaints of fever and generalized weakness and exertional dyspnea. Patient states that she received first dose of Covid 19 vaccine on 01/08/2021. Patient says that she has been feeling progressively weak since then. Patient does complain of cough along with fever for the past 5 days. Denied any abdominal pain. No nausea or vomiting. Patient has not been eating well due to decreased appetite. Chest x-ray showed mild cardiomegaly. Reticulonodular interstitial changes bilaterally and chronic parenchymal changes. Areas of acute infiltrate in the periphery of the upper lungs cannot be excluded. CT angiogram showed suboptimal study without central acute pulmonary embolus. Cannot exclude small segmental and subsegmental on the embolism on this study. Multifocal infiltrates/and or edema on background upper lung fibrotic changes consistent with Covid 19 infection. Reactive thoracic adenopathy noted. Underlying cardiomegaly present. D-dimer 1.41 Sodium 135 percussion 4.3, chloride 101, BUN 13 and creatinine 0.72 Ferritin 520, Eliquis 902, CRP 53.6 and a pro-calcitonin level is 0.09 Urinalysis is negative for infection. Covid 19 PCR is detected. Patient was hypoxic with pulse ox 88% on room air on admission and tachycardic and febrile with T-max 102.2 01/19/2021 Patient is currently resting in the bed awake alert and oriented. No acute distress. Exertional dyspnea and requiring oxygen high flow at 15 L via nasal cannula and 100% nonrebreather intermittently. T-max is 100.8 Chest x-ray showed bilateral diffuse interstitial and airspace opacities unchanged compared to prior study. Laboratory data showed LDH 972 CRP 62.8 and D-dimer 1.51 pulmonary is following. Patient is being continued on dexamethasone, remdesivir course and Lovenox. No nausea vomiting or abdominal pain or diarrhea. No dysuria or hematuria. No chest pain. 01/20/2021 Patient is awake alert and oriented x3. No acute distress. Currently 100% nonrebreather with 15 L high flow oxygen. Still elevated inflammatory markers. Remdesivir day 3. Patient has been afebrile today. No complaints of nausea vomiting or abdominal pain or diarrhea. Tolerate oral diet. No headache or dizziness. No chest pain. Continue dexamethasone, Lovenox subcu and vitamin supplementation. Pulmonary is on board. 01/28/2021 Patient is in the telemetry unit. Awake alert and oriented x3. No complaints of worsening shortness of breath. But patient still requiring oxygen and is on Airvo. Completed remdesivir course. Currently on Solu-Medrol 60 mg every 6 hourly and multivitamins and on anticoagulation. No complaints of fever or chills. No nausea vomiting or abdominal pain or diarrhea. Continues to have elevated inflammatory markers. Chest x-ray showed bilateral stable infiltrates. Continued on current management and pulmonary is on board. Current medications reviewed. Current medications reviewed. Objective - Vital Signs Vital signs: Vital Signs Temp 98.1 F 01/28/21 09:36 Pulse 83 01/28/21 09:36 Resp 18 01/28/21 09:36 BP 159/78 01/28/21 09:36 Pulse Ox 93 L 01/28/21 14:02 Intake & Output 01/27/21 01/28/21 01/28/21 18:59 06:59 18:59 Other: Voiding Method Bedside Commode # Voids 2 - Exam PHYSICAL EXAMINATION: Patient is lying in the bed comfortably, no acute distress, awake alert and oriented.. HEENT: Normocephalic. Neck is supple. Pupils reactive. Nostrils clear. Oral cavity is moist. Ears reveal no drainage. Neck reveals no JVD, carotid bruits, or thyromegaly. CHEST EXAMINATION: Trachea is central. Symmetrical expansion. No wheezing. Scattered coarse sounds.. CARDIAC: Normal S1, S2 with no gallops. No murmurs ABDOMEN: Soft. Bowel sounds normal. No organomegaly. No abdominal bruits. Extremities: reveal no edema. No clubbing or cyanosis Neurologically awake, alert, oriented x3 with well-coordinated movements. No focal deficits noted Skin: No rash or skin lesions. Psychiatric: Coperative. Nonsuicidal Musculoskeletal: No joint swelling or deformity. Normal range of motion. - Labs CBC & Chem 7: 01/29/21 06:45 01/29/21 06:45 Labs: Abnormal Lab Results - Last 24 Hours (Table) 01/27/21 01/27/21 01/28/21 Range/Units 17:03 21:04 06:51 POC Glucose (mg/dL) 144 H 187 H 162 H (75-99) mg/dL 01/28/21 Range/Units 12:00 POC Glucose (mg/dL) 174 H (75-99) mg/dL Assessment and Plan Assessment: Acute hypoxic respiratory failure secondary to covid 19 pneumoniae with upper lobe peripheral infiltrates. Elevated inflammatory markers secondary to Coumadin 19 pneumonia Hypertension Hyperlipidemia Morbid obesity with BMI 38.3 Elevated d-dimer level without evidence of pulmonary embolism History of smoking Plan: Patient will be continued on oxygen supplementation and titrate down FiO2 slowly as tolerated. Patient will be continued on dexamethasone, Lovenox colchicine and vitamin supplementation. Patient completed Remdesivir course. Pulmonary is on board. Prognosis is guarded at this time. Continue to monitor closely. Time with Patient: Greater than 30
--- NOTE | 2021-01-30 23:17 | P.PN ---
Subjective Progress Note Date: 01/29/21 Principal diagnosis: Acute hypoxic respiratory failure secondary to covid 19 pneumoniae with upper lobe peripheral infiltrates. Elevated inflammatory markers secondary to Coumadin 19 pneumonia Patient is a 85-year-old female with known history of hypertension, hyperlipidemia, history of Polanco's palsy and previous history of smoking presents to ER on 01/17/2021 with complaints of fever and generalized weakness and exertional dyspnea. Patient states that she received first dose of Covid 19 vaccine on 01/08/2021. Patient says that she has been feeling progressively weak since then. Patient does complain of cough along with fever for the past 5 days. Denied any abdominal pain. No nausea or vomiting. Patient has not been eating well due to decreased appetite. Chest x-ray showed mild cardiomegaly. Reticulonodular interstitial changes bilaterally and chronic parenchymal changes. Areas of acute infiltrate in the periphery of the upper lungs cannot be excluded. CT angiogram showed suboptimal study without central acute pulmonary embolus. Cannot exclude small segmental and subsegmental on the embolism on this study. Multifocal infiltrates/and or edema on background upper lung fibrotic changes consistent with Covid 19 infection. Reactive thoracic adenopathy noted. Underlying cardiomegaly present. D-dimer 1.41 Sodium 135 percussion 4.3, chloride 101, BUN 13 and creatinine 0.72 Ferritin 520, Eliquis 902, CRP 53.6 and a pro-calcitonin level is 0.09 Urinalysis is negative for infection. Covid 19 PCR is detected. Patient was hypoxic with pulse ox 88% on room air on admission and tachycardic and febrile with T-max 102.2 01/19/2021 Patient is currently resting in the bed awake alert and oriented. No acute distress. Exertional dyspnea and requiring oxygen high flow at 15 L via nasal cannula and 100% nonrebreather intermittently. T-max is 100.8 Chest x-ray showed bilateral diffuse interstitial and airspace opacities unchanged compared to prior study. Laboratory data showed LDH 972 CRP 62.8 and D-dimer 1.51 pulmonary is following. Patient is being continued on dexamethasone, remdesivir course and Lovenox. No nausea vomiting or abdominal pain or diarrhea. No dysuria or hematuria. No chest pain. 01/20/2021 Patient is awake alert and oriented x3. No acute distress. Currently 100% nonrebreather with 15 L high flow oxygen. Still elevated inflammatory markers. Remdesivir day 3. Patient has been afebrile today. No complaints of nausea vomiting or abdominal pain or diarrhea. Tolerate oral diet. No headache or dizziness. No chest pain. Continue dexamethasone, Lovenox subcu and vitamin supplementation. Pulmonary is on board. 01/28/2021 Patient is in the telemetry unit. Awake alert and oriented x3. No complaints of worsening shortness of breath. But patient still requiring oxygen and is on Airvo. Completed remdesivir course. Currently on Solu-Medrol 60 mg every 6 hourly and multivitamins and on anticoagulation. No complaints of fever or chills. No nausea vomiting or abdominal pain or diarrhea. Continues to have elevated inflammatory markers. Chest x-ray showed bilateral stable infiltrates. Continued on current management and pulmonary is on board. 01/29/2021 Patient is awake alert and oriented x3. Currently on Airvo at 60L. No complaints of chest pain or worsening shortness of breath. Continued on IV Solu-Medrol and multivitamins and Lovenox. D-dimer level is 1.88 and blood sugar is controlled. LDH is 451 and CRP less than 0.4. Still requiring high flow oxygen. Patient has been afebrile. No nausea vomiting abdominal pain or diarrhea. Tolerating oral diet. Current medications reviewed. Objective - Vital Signs Vital signs: Vital Signs Temp 98.0 F 01/29/21 14:00 Pulse 94 01/29/21 14:00 Resp 20 01/29/21 14:00 BP 145/55 01/29/21 14:00 Pulse Ox 93 L 01/29/21 14:00 Intake & Output 01/28/21 01/29/21 01/29/21 18:59 06:59 18:59 Intake Total 240 780 Balance 240 780 Intake: Intake, IV Titration 240 240 Amount Sodium Chloride 0.9% 1, 240 240 000 ml @ 20 mls/hr IV . Q24H [facility] Rx#:[id number] Oral 540 Other: Voiding Method Bedside Commode # Voids 2 3 1 # Bowel Movements 1 - Exam PHYSICAL EXAMINATION: Patient is lying in the bed comfortably, no acute distress, awake alert and oriented.. HEENT: Normocephalic. Neck is supple. Pupils reactive. Nostrils clear. Oral cavity is moist. Ears reveal no drainage. Neck reveals no JVD, carotid bruits, or thyromegaly. CHEST EXAMINATION: Trachea is central. Symmetrical expansion. No wheezing. Scattered coarse sounds.. CARDIAC: Normal S1, S2 with no gallops. No murmurs ABDOMEN: Soft. Bowel sounds normal. No organomegaly. No abdominal bruits. Extremities: reveal no edema. No clubbing or cyanosis Neurologically awake, alert, oriented x3 with well-coordinated movements. No focal deficits noted Skin: No rash or skin lesions. Psychiatric: Coperative. Nonsuicidal Musculoskeletal: No joint swelling or deformity. Normal range of motion. - Labs CBC & Chem 7: 01/29/21 06:45 01/29/21 06:45 Labs: Abnormal Lab Results - Last 24 Hours (Table) 01/28/21 01/28/21 01/29/21 Range/Units 16:49 20:09 06:45 WBC (3.8-10.6) k/uL Neutrophils # (1.3-7.7) k/uL Lymphocytes # (1.0-4.8) k/uL D-Dimer 1.92 H (<0.60) mg/L FEU Carbon Dioxide (22-30) mmol/L BUN (7-17) mg/dL Glucose (74-99) mg/dL POC Glucose (mg/dL) 194 H 208 H (75-99) mg/dL Calcium (8.4-10.2) mg/dL Lactate Dehydrogenase (120-246) U/L 01/29/21 01/29/21 01/29/21 Range/Units 06:45 06:45 06:45 WBC 16.7 H (3.8-10.6) k/uL Neutrophils # 15.5 H (1.3-7.7) k/uL Lymphocytes # 0.5 L (1.0-4.8) k/uL D-Dimer (<0.60) mg/L FEU Carbon Dioxide 33 H (22-30) mmol/L BUN 28 H (7-17) mg/dL Glucose 141 H (74-99) mg/dL POC Glucose (mg/dL) (75-99) mg/dL Calcium 8.2 L (8.4-10.2) mg/dL Lactate Dehydrogenase 479 H (120-246) U/L 01/29/21 01/29/21 Range/Units 07:04 11:14 WBC (3.8-10.6) k/uL Neutrophils # (1.3-7.7) k/uL Lymphocytes # (1.0-4.8) k/uL D-Dimer (<0.60) mg/L FEU Carbon Dioxide (22-30) mmol/L BUN (7-17) mg/dL Glucose (74-99) mg/dL POC Glucose (mg/dL) 153 H 160 H (75-99) mg/dL Calcium (8.4-10.2) mg/dL Lactate Dehydrogenase (120-246) U/L Assessment and Plan Assessment: Acute hypoxic respiratory failure secondary to covid 19 pneumoniae with upper lobe peripheral infiltrates. Elevated inflammatory markers secondary to Coumadin 19 pneumonia Hypertension Hyperlipidemia Morbid obesity with BMI 38.3 Elevated d-dimer level without evidence of pulmonary embolism History of smoking Plan: Patient will be continued on oxygen supplementation and titrate down FiO2 slowly as tolerated. Patient will be continued on dexamethasone, Lovenox colchicine and vitamin supplementation. Patient completed Remdesivir course. Pulmonary is on board. Prognosis is guarded at this time. Continue to monitor closely. Time with Patient: Greater than 30
--- NOTE | 2021-01-30 23:19 | P.PN ---
Subjective Progress Note Date: 01/30/21 Principal diagnosis: Acute hypoxic respiratory failure secondary to covid 19 pneumoniae with upper lobe peripheral infiltrates. Elevated inflammatory markers secondary to Coumadin 19 pneumonia Patient is a 85-year-old female with known history of hypertension, hyperlipidemia, history of Polanco's palsy and previous history of smoking presents to ER on 01/17/2021 with complaints of fever and generalized weakness and exertional dyspnea. Patient states that she received first dose of Covid 19 vaccine on 01/08/2021. Patient says that she has been feeling progressively weak since then. Patient does complain of cough along with fever for the past 5 days. Denied any abdominal pain. No nausea or vomiting. Patient has not been eating well due to decreased appetite. Chest x-ray showed mild cardiomegaly. Reticulonodular interstitial changes bilaterally and chronic parenchymal changes. Areas of acute infiltrate in the periphery of the upper lungs cannot be excluded. CT angiogram showed suboptimal study without central acute pulmonary embolus. Cannot exclude small segmental and subsegmental on the embolism on this study. Multifocal infiltrates/and or edema on background upper lung fibrotic changes consistent with Covid 19 infection. Reactive thoracic adenopathy noted. Underlying cardiomegaly present. D-dimer 1.41 Sodium 135 percussion 4.3, chloride 101, BUN 13 and creatinine 0.72 Ferritin 520, Eliquis 902, CRP 53.6 and a pro-calcitonin level is 0.09 Urinalysis is negative for infection. Covid 19 PCR is detected. Patient was hypoxic with pulse ox 88% on room air on admission and tachycardic and febrile with T-max 102.2 01/19/2021 Patient is currently resting in the bed awake alert and oriented. No acute distress. Exertional dyspnea and requiring oxygen high flow at 15 L via nasal cannula and 100% nonrebreather intermittently. T-max is 100.8 Chest x-ray showed bilateral diffuse interstitial and airspace opacities unchanged compared to prior study. Laboratory data showed LDH 972 CRP 62.8 and D-dimer 1.51 pulmonary is following. Patient is being continued on dexamethasone, remdesivir course and Lovenox. No nausea vomiting or abdominal pain or diarrhea. No dysuria or hematuria. No chest pain. 01/20/2021 Patient is awake alert and oriented x3. No acute distress. Currently 100% nonrebreather with 15 L high flow oxygen. Still elevated inflammatory markers. Remdesivir day 3. Patient has been afebrile today. No complaints of nausea vomiting or abdominal pain or diarrhea. Tolerate oral diet. No headache or dizziness. No chest pain. Continue dexamethasone, Lovenox subcu and vitamin supplementation. Pulmonary is on board. 01/28/2021 Patient is in the telemetry unit. Awake alert and oriented x3. No complaints of worsening shortness of breath. But patient still requiring oxygen and is on Airvo. Completed remdesivir course. Currently on Solu-Medrol 60 mg every 6 hourly and multivitamins and on anticoagulation. No complaints of fever or chills. No nausea vomiting or abdominal pain or diarrhea. Continues to have elevated inflammatory markers. Chest x-ray showed bilateral stable infiltrates. Continued on current management and pulmonary is on board. 01/29/2021 Patient is awake alert and oriented x3. Currently on Airvo at 60L. No complaints of chest pain or worsening shortness of breath. Continued on IV Solu-Medrol and multivitamins and Lovenox. D-dimer level is 1.88 and blood sugar is controlled. LDH is 451 and CRP less than 0.4. Still requiring high flow oxygen. Patient has been afebrile. No nausea vomiting abdominal pain or diarrhea. Tolerating oral diet. 01/30/2021 Patient is awake alert and oriented x3. Still requiring 60 L oxygen with FiO2 83% and saturating at 96%. Patient was tachycardic this morning. No complaints of chest pain or worsening shortness of breath. Patient is currently on IV Solu-Medrol, Lovenox and multivitamins. Patient has been afebrile. Has not improved her breathing status last few days. Pulmonary is on board. Current medications reviewed. Objective - Vital Signs Vital signs: Vital Signs Temp 98.2 F 01/30/21 14:20 Pulse 94 01/30/21 14:20 Resp 15 01/30/21 14:20 BP 135/72 01/30/21 14:20 Pulse Ox 96 01/30/21 15:37 Intake & Output 01/29/21 01/30/21 01/30/21 18:59 06:59 18:59 Intake Total 160 Balance 160 Intake: IV 160 Sodium Chloride 0.9% 1, 160 000 ml @ 20 mls/hr IV . Q24H [facility] Rx#:[id number] Other: Voiding Method Bedside Commode # Voids 1 3 - Exam PHYSICAL EXAMINATION: Patient is lying in the bed comfortably, no acute distress, awake alert and oriented.. HEENT: Normocephalic. Neck is supple. Pupils reactive. Nostrils clear. Oral cavity is moist. Ears reveal no drainage. Neck reveals no JVD, carotid bruits, or thyromegaly. CHEST EXAMINATION: Trachea is central. Symmetrical expansion. No wheezing. Scattered coarse sounds.. CARDIAC: Normal S1, S2 with no gallops. No murmurs ABDOMEN: Soft. Bowel sounds normal. No organomegaly. No abdominal bruits. Extremities: reveal no edema. No clubbing or cyanosis Neurologically awake, alert, oriented x3 with well-coordinated movements. No focal deficits noted Skin: No rash or skin lesions. Psychiatric: Coperative. Nonsuicidal Musculoskeletal: No joint swelling or deformity. Normal range of motion. - Labs CBC & Chem 7: 01/29/21 06:45 01/29/21 06:45 Labs: Abnormal Lab Results - Last 24 Hours (Table) 01/29/21 01/30/21 01/30/21 Range/Units 20:03 05:58 05:58 D-Dimer 1.88 H (<0.60) mg/L FEU POC Glucose (mg/dL) 148 H (75-99) mg/dL Lactate Dehydrogenase 451 H (120-246) U/L 01/30/21 01/30/21 Range/Units 07:13 11:47 D-Dimer (<0.60) mg/L FEU POC Glucose (mg/dL) 144 H 180 H (75-99) mg/dL Lactate Dehydrogenase (120-246) U/L Assessment and Plan Assessment: Acute hypoxic respiratory failure secondary to covid 19 pneumoniae with upper lobe peripheral infiltrates. Elevated inflammatory markers secondary to Coumadin 19 pneumonia Hypertension Hyperlipidemia Morbid obesity with BMI 38.3 Elevated d-dimer level without evidence of pulmonary embolism History of smoking Plan: Patient will be continued on oxygen supplementation and titrate down FiO2 slowly as tolerated. Patient will be continued on dexamethasone, Lovenox colchicine and vitamin supplementation. Patient completed Remdesivir course. Pulmonary is on board. Prognosis is guarded at this time. Continue to monitor closely. Time with Patient: Greater than 30
[2021-01-31] MEDS: hydrALAZINE HCL 25 MG TAB PO PRN (02:41)
[2021-01-31] MEDS: methylPREDNISolone SOD SUCCI 125 MG/2 ML VIAL IV SCH ×4 (02:41→21:32)
[2021-01-31 07:16] LABS: Glucose,Whole Blood 141 mg/dL (75-99)
[2021-01-31] MEDS: ZINC SULFATE 220 MG CAP PO SCH (07:45)
[2021-01-31] MEDS: FAMOTIDINE 20 MG TAB PO SCH ×2 (07:45→21:33)
[2021-01-31] MEDS: hydrALAZINE HCL 50 MG TAB PO SCH ×2 (07:45→21:33)
[2021-01-31] MEDS: lisinopriL 5 MG TAB PO SCH (07:45)
[2021-01-31] MEDS: CHOLECALCIFEROL 25 MCG (1000 IU) TABLET PO SCH (07:46)
[2021-01-31] MEDS: amLODIPine 5 MG TAB PO SCH (07:46)
[2021-01-31] MEDS: ASCORBIC ACID 500 MG TAB PO SCH (07:46)
[2021-01-31] MEDS: ENOXAPARIN 60 MG/0.6 ML SYRINGE SQ SCH (07:46)
[2021-01-31] MEDS: INSULIN ASPART (NovoLOG) 100 UNIT/ML VIAL SQ SCH ×4 (07:46→21:32)
[2021-01-31] MEDS: COLCHICINE 0.6 MG EACH PO SCH ×2 (07:46→21:34)
[2021-01-31 11:15] LABS: Basophils # (A) 0.03 X 10*3/uL (0.00-0.10); Basophils % (A) 0.1 %; Eosinophils # (A) 0 X 10*3/uL (0.04-0.35); Eosinophils % (A) 0 %; HCT 44.6 % (37.2-46.3); HGB 14.1 g/dL (12.0-15.0); Lymphocytes # (A) 0.88 X 10*3/uL (0.90-5.00); Lymphocytes % (A) 4.1 %; MCH 28.4 pg (27.0-32.0); MCHC 31.6 g/dL (32.0-37.0); MCV 89.7 fL (80.0-97.0); Mean Platelet Volume 12.4 fL (9.5-12.2); Monocytes # (A) 0.79 X 10*3/uL (0.20-1.00); Monocytes % (A) 3.7 %; Neutrophils # (A) 19.26 X 10*3/uL (1.80-7.70); Neutrophils % (A) 90.3 %; Platelet Count 183 X 10*3/uL (140-440); RBC 4.97 X 10*6/uL (4.10-5.20); RDW 15.7 % (11.5-14.5); WBC 21.35 X 10*3/uL (4.50-10.00)
[2021-01-31 11:47] LABS: Anion Gap 8.8 mmol/L (4.00-12.00); Calcium 8.8 mg/dL (8.7-10.3); Carbon Dioxide 29.2 mmol/L (21.6-31.8); Non-African American GFR(CKD) 83.7 (60.0-200.0); Potassium 4.2 mmol/L (3.5-5.5)
[2021-01-31] MEDS: SODIUM CHLORIDE 0.9% 1,000 ML IV SCH (12:34)
[2021-01-31 12:35] LABS: Glucose,Whole Blood 175 mg/dL (75-99)
[2021-01-31] MEDS ORDERED: FUROSEMIDE 10 MG/ML 4 ML VIAL IV STA (14:53)
--- NOTE | 2021-01-31 14:54 | P.PN ---
Subjective Progress Note Date: 01/31/21 COVID pneumonia, hypoxemia. 01/28/2021 on seeing the patient for a follow-up. The patient remains on a on the percent on a 100% facemask. The patient is on Decadron. Not having any significant shortness of breath. The patient completed her course of REM and the patient is still on a combination of IV Solu-Medrol, Lovenox, vitamin C and vitamin D and zinc. No chest pain. No worsening of shortness of breath. No altered mentation. No nausea. No vomiting. No diarrhea. Abdominal pain. No recent inflammatory markers and the last level is up from 01/26/2021 with LDH was 1259 on today's evaluation, the patient is laying down comfortably in bed. She still in the 100% nonrebreather facemask. She is not having any worsening shortness of breath. The latest chest x-ray is from 01/26/2021 and it shows stable bilateral pulmonary infiltrates. 07/01/2021 the patient is currently off the 100% nonrebreather. The she is on high flow oxygen at 60 L with an FiO2 of 90%. Her pulse ox is between 89-90%. She is in for Covid and he related pneumonia. She is completing a course of REM and she remains on IV Solu-Medrol, Lovenox, vitamin C and vitamin D. In terms of her shortness of breath, the patient is still unchanged. The blood work today shows pending inflammatory markers. Electrolytes are all within normal limits. Creatinine is at 0.5. Glucose is 141. The white cell count today is at 16.7 with a hemoglobin of 13.7. D-dimer is at 1.92. Chest x-ray is again showing right upper lobe pulmonary infiltrate, left lower lobe pulmonary infiltrate, the physician is rather diffuse. Based on comparing the x-rays, the findings are essentially stable for now. 01/30/2021, the patient is in a high flow oxygen and currently she is on 60 L with an FiO2 of 80%. Her pulse ox is around 96% and he is quite comfortable. She is able to tolerate some diet while being on high flow oxygen. She has not used her 100% nonrebreather facemask. Noted that she was able to maintain a pulse ox above 90%. No chest pain , she is also on IV Solu Medrol 60 mg every 6 hours.s feeling less short of breath. She completed the course of REMand she remains on a course of IV Solu-Medrol, in addition to vitamin C and vitamin D. Her d-dimer is at 1.88. No other labs are available from today.she is on Lovenox 50 mg subcu every 12 hours. her chest x-ray from yesterday was showing diffuse patchy bilateral pulmonary infiltrates, stable compared to the earlier chest x-ray from 01/26/2021 01/31/2021, the patient is still on high flow oxygen at 60with an FiO2 of 80% that was started up on the 70%. The patient is reporting that her breathing is better today. She is not using the 100% nonrebreather facemask. She is on IV Solu-Medrol. She completed her course of REM. She is also on vitamin C. She is on vitamin D. On her blood work, the patient has a white cell count of 21 and this has increased compared to yesterday. Meanwhile, inflammatory markers from yesterday will all low. No chest pain. No cough or sputum production. She has short of breath and she has a very limited reserve. She is on Lovenox 50 mg subcu for DVT prophylaxis twice a day and her d-dimer was 1.88. Objective - Vital Signs Vital signs: Vital Signs Temp 97.6 F 01/31/21 09:56 Pulse 95 01/31/21 09:56 Resp 16 01/31/21 09:56 BP 170/85 01/31/21 09:56 Pulse Ox 91 L 01/31/21 12:31 Intake & Output 01/30/21 01/31/21 01/31/21 18:59 06:59 18:59 Intake Total 160 Balance 160 Intake: IV 160 Sodium Chloride 0.9% 1, 160 000 ml @ 20 mls/hr IV . Q24H [facility] Rx#:[id number] Other: Voiding Method Bedside Commode # Voids 2 - Exam No acute distress, oriented 3, currently on a 60 L high flow , an FiO2 of 80% . No conversational dyspnea, or use of accessory muscles. HEENT examination is grossly unremarkable. Mucous membranes are moist. Neck supple. Full range of motion. No adenopathy thyromegaly or neck vein distention. Cardiovascular examination reveals regular rhythm rate. S1-S2 normal. No S3 or S4. No discernible murmur noted. Heart sounds are distant. Heart rate 85 bpm. Lungs reveal bilateral diffuse rhonchi and crackles. Breath sounds are equal but diminished throughout. There are no wheezes. Exam is essentially unchanged. Abdomen soft bowel sounds are heard. No masses or tenderness. Extremities are intact. No cyanosis clubbing or edema. Skin is without rash or lesion. Neurologic examination is brief but nonfocal. - Labs CBC & Chem 7: 01/31/21 07:58 01/31/21 07:58 Labs: Abnormal Lab Results - Last 24 Hours (Table) 01/30/21 01/30/21 01/31/21 Range/Units 17:11 20:31 07:13 WBC (4.50-10.00) X 10*3/uL MCHC (32.0-37.0) g/dL RDW (11.5-14.5) % MPV (9.5-12.2) fL Immature Gran # (0.00-0.04) X 10*3/uL Neutrophils # (1.80-7.70) X 10*3/uL Lymphocytes # (0.90-5.00) X 10*3/uL Eosinophils # (0.04-0.35) X 10*3/uL BUN (9.0-27.0) mg/dL BUN/Creatinine Ratio (12.00-20.00) Ratio Glucose (70-110) mg/dL POC Glucose (mg/dL) 132 H 197 H 141 H (75-99) mg/dL 01/31/21 01/31/21 01/31/21 Range/Units 07:58 07:58 12:23 WBC 21.35 H (4.50-10.00) X 10*3/uL MCHC 31.6 L (32.0-37.0) g/dL RDW 15.7 H (11.5-14.5) % MPV 12.4 H (9.5-12.2) fL Immature Gran # 0.39 H (0.00-0.04) X 10*3/uL Neutrophils # 19.26 H (1.80-7.70) X 10*3/uL Lymphocytes # 0.88 L (0.90-5.00) X 10*3/uL Eosinophils # 0 L (0.04-0.35) X 10*3/uL BUN 30.0 H (9.0-27.0) mg/dL BUN/Creatinine Ratio 50.00 H (12.00-20.00) Ratio Glucose 145 H (70-110) mg/dL POC Glucose (mg/dL) 175 H (75-99) mg/dL Assessment and Plan Plan: 1 Acute hypoxemic respiratory failure, secondary to COVID 19 pneumonia, she is currently on IV Solu-Medrol and she is completed her REM therapy. She currently is on high flow oxygen at 60 L with an FiO2 of 70-80%. Chest x-ray findings from yesterday are essentially stable with diffuse bilateral pulmonary infiltrates. No major change in her condition. Likely feeling better. She is on IV Solu-Medrol. She completed her course of REM. She would benefit from Lasix as the patient is showing some signs of fluid overload. 2 Febrile illness secondary to above. 3 Lymphocytopenia, secondary to COVID 19 infection. Also developed some leukocytosis, consider steroid use. We'll check a pro-calcitonin level. 4 Obesity. 5 Hypertension. 6 History of previous tobacco use. Plan Check pro-calcitonin level Given a dose of Lasix 40 mg IV Continue IV Solu-Medrol completed her course of Remdesivir. Continue Solumedrol, Lovenox, vitamin C, vitamin D3, and zinc. Dr. Weston dose to 40 mg subcu once a day for DVT prophylaxis. Her d-dimer level is low. Repeat inflammatory markers tomorrow. WEAN DOWN THE fIo2 TO MAINTAIN A SATURATION ABOVE 90%. kEEP THE HIGH FLOW AT 60 l We'll continue to follow.
[2021-01-31 16:39] LABS: Glucose,Whole Blood 171 mg/dL (75-99)
[2021-01-31 20:51] LABS: Glucose,Whole Blood 151 mg/dL (75-99)
[2021-02-01] MEDS ORDERED: methylPREDNISolone SOD SUCCI 125 MG/2 ML VIAL ONE (03:00)
[2021-02-01] MEDS: methylPREDNISolone SOD SUCCI 125 MG/2 ML VIAL IV SCH ×4 (06:20→21:10)
[2021-02-01 07:04] LABS: Glucose,Whole Blood 182 mg/dL (75-99)
[2021-02-01] MEDS ORDERED: ENOXAPARIN 60 MG/0.6 ML SYRINGE SQ SCH (09:00)
--- NOTE | 2021-02-01 09:32 | XR ---
EXAMINATION TYPE: XR chest 1V portable DATE OF EXAM: 02/01/2021 COMPARISON: Chest x-ray 01/29/2021 HISTORY: Covid 19, shortness of breath TECHNIQUE: Single frontal view of the chest is obtained. FINDINGS: Bilateral airspace disease is present. No pneumothorax or pleural effusion. Patient is rot ated. Cardiac mediastinal silhouette is stable. There are overlying artifacts. IMPRESSION: Correlate for pneumonia.
[2021-02-01] MEDS: CHOLECALCIFEROL 25 MCG (1000 IU) TABLET PO SCH (09:33)
[2021-02-01] MEDS: COLCHICINE 0.6 MG EACH PO SCH ×2 (09:33→21:09)
[2021-02-01] MEDS: ZINC SULFATE 220 MG CAP PO SCH (09:33)
[2021-02-01] MEDS: lisinopriL 20 MG TAB PO SCH (09:33)
[2021-02-01] MEDS: FAMOTIDINE 20 MG TAB PO SCH ×2 (09:33→21:09)
[2021-02-01] MEDS: amLODIPine 10 MG TAB PO SCH (09:34)
[2021-02-01] MEDS: hydrALAZINE HCL 50 MG TAB PO SCH ×2 (09:34→21:09)
[2021-02-01] MEDS: ASCORBIC ACID 500 MG TAB PO SCH (09:34)
[2021-02-01] MEDS: INSULIN ASPART (NovoLOG) 100 UNIT/ML VIAL SQ SCH ×4 (09:35→21:09)
[2021-02-01 10:17] LABS: C Reactive Protein <0.4 mg/dL (0.0-0.8); LDH 428 U/L (120-246)
[2021-02-01 11:13] LABS: Glucose,Whole Blood 162 mg/dL (75-99)
[2021-02-01] MEDS: SODIUM CHLORIDE 0.9% 1,000 ML IV SCH (12:20)
--- NOTE | 2021-02-01 13:03 | P.PN ---
Subjective Progress Note Date: 02/01/21 Principal diagnosis: COVID 19 This is a very pleasant 85-year-old female patient who follows with Dr. Lopez as her primary care provider. She has a history of hypertension, Polanco's palsy, former smoker. She presented to the emergency room yesterday with complaints of ongoing fever and weakness. She had obtained the Moderna vaccination approximately 7 days ago. Shortly after that she developed increasing cough, congestion, aches, weakness, fever. Her cough and shortness of breath has been progressively getting worse the past 5 days. She presented here to the emergency room yesterday for the same. Chest x-ray revealed mild cardiomegaly. Reticular nodular interstitial changes bilaterally with possible chronic parenchymal fibrosis. Areas of acute infiltrate in the periphery of the upper lungs. CT angiogram ruled out any central PE. There is noted multifocal infi ltrates and/or edema back on of upper lung fibrotic changes, consistent with CoVID 19 infection. Reactive thoracic adenopathy noted. CoVID 19 screen positive. White count 4.7. Hemoglobin 13.5. Lymphocytes 0.9. D-dimer 1.41. Sodium 135. Potassium 4.3. Creatinine 0.72. LDH 902. C-reactive protein 53.6. Pro-calcitonin 0.09. She been initiated on dexamethasone. She is seen today in consultation on the regular medical floor. She is currently resting comfortably in bed. Awake and alert. In mild respiratory distress. Earlier this morning she was on 3 L maintain O2 saturation in the 90s. She is currently on 13 L high flow nasal cannula. Temperature 100.3. Hemodynamically stable. She has a loose nonproductive cough. The patient seen today 01/19/2021 in follow-up on the regular medical floor. She is currently resting in bed. Awake and alert in no acute distress. She is still requiring 15 L high flow nasal cannula along with a nonrebreather mask but having O2 saturations in the upper 90s. Earlier temperature today 100.8. Chest x-ray continues to show bilateral infiltrates. Blood cultures reveal no growth to date. D-dimer 1.51. LDH is 972. C-reactive protein 62.8. She is on day #2 of Remdesivir. She remains on Lovenox, dexamethasone, vitamin supplements. The patient is seen today 01/20/2021 in follow-up on the regular medical floor. She is currently resting fairly comfortably in bed. Awake and alert in no acute distress. She is still requiring 15 L high flow nasal cannula and a nonrebreather mask will maintaining O2 saturations are 95%. Blood cultures reveal no growth. D-dimer 1.27. LDH 398. C-reactive protein 6.8. This is day #3 of her Remdesivir. She remains on Lovenox, dexamethasone, vitamin supplements. On 01/27/2020 with patient seen in follow-up on medical floor, today is day 4 of Remdesivir, patient still requires high flow oxygen, she is currently in the 100% nonrebreather, and she does desaturate quite easily, with any little bit of exertion, she complicated with a car rate of 20 ML per hour, no fever, chest discomfort, today's chest x-ray shows stable patchy bilateral infiltrates. She remains on IV dexamethasone, 6 mg daily, on prophylactic dose of Lovenox, Pepcid, Remdesivir, and vitamins. On 01/22/2021 patient seen in follow-up on medical floor, patient is on 15 L of oxygen, her pulse ox is 88-92%. Inflammatory markers are improving, but d-dimer is up to 5.22. No new chest x-ray today, [facility]strace chest x-ray showed patchy bilateral infiltrates that were stable in appearance. No fever or chills, no nausea vomiting or diarrhea. Patient is on Lovenox 40 mg twice daily which was adjusted from prophylactic dose. Patient continues on Remdesivir, she will receive her fifth dose today. On 01/23/2021 patient seen in follow-up on medical floor. She is sleeping comfortably in bed, breathing comfortably, she is on partial nonrebreather mask, pulse ox is 85-92%, seems to be in no acute respiratory distress, no new chest x-ray today, no fever or chills, blood pressures have been a bit elevated with systolic between 160-180, and diastolic in the 70s to 90s. Patient finished her Remdesivir, she remains on Lovenox 50 mg twice daily, she continues on IV dexamethasone and vitamins. sleepy today, but no acute distress noted. On 01/24/2021 patient seen in follow-up on medical floor. She is resting comfo rtably in bed, she is currently on 15 L of oxygen per high flow nasal cannula, and nonrebreather her pulse ox is between 88-90%, chest x-ray findings show stable patchy bilateral infiltrates. Patient does not appear to be in acute distress, denies any chest pain, she is a little bit more weak on today's exam. Patient continues on Lovenox 50 mg twice daily, she is on Decadron, vitamins, and she finished her Remdesivir treatment. D-dimer is down trending today, down to 4.49, inflammatory markers are improving, LDH is down to 482, and CRP is down to 2.3 from 39.5 on yesterday's labs, pro-calcitonin is negative at 0.04. On 01/25/2021 patient seen in follow-up on medical floor. Patient is on 15 L high flow and nonrebreather 100%, her pulse ox is 87-91%, 0.9 on the scene is running at 20 ML per hour, she finished Remdesivir treatment couple days ago, she remains on IV steroids, and Lovenox 50 mg twice daily, yesterday's labs showed improving d-dimer On 02/01/2021 patient seen in follow-up on medical floor, she remains on Airvo, is 60 L and 80% FiO2, her pulse ox is around 93%, despite still requiring high flow oxygen she states she is feeling better, she is breathing easier, she is sitting up on the side the bed, be in no acute distress, no chest discomfort, no cough, chest x-ray today shows bilateral airspace disease persistence. We'll give the patient a dose of IV Lasix yesterday, intake and output are inaccurate, there is no weight from today, his labs revealed improving d-dimer, down to 1.49, LDH is relatively stable, down trending some, down to 428, and CRP is less than 0.4. Pro-calcitonin level came back negative at 0.05, patient is on Lovenox 50 mg daily, she remains on vitamin cocktail, and high-dose IV steroids at 60 mg every 6 hours. No nausea vomiting or diarrhea, she is tolerating oral intake. Objective - Vital Signs Vital signs: Vital Signs Temp 97.6 F 02/01/21 10:00 Pulse 91 02/01/21 10:00 Resp 18 02/01/21 10:00 BP 144/75 02/01/21 10:00 Pulse Ox 93 L 02/01/21 10:00 Intake & Output 01/31/21 02/01/21 02/01/21 18:59 06:59 18:59 Other: Voiding Method Bedside Commode # Voids 3 4 # Bowel Movements 2 3 - Exam GENERAL EXAM: Alert, very pleasant 85-year-old white female, on Airvo at 60 L and 80%, with a pulse ox of 93% comfortable in no apparent distress. HEAD: Normocephalic/atraumatic. EYES: Normal reaction of pupils, equal size. Conjunctiva pink, sclera white. NOSE: Clear with pink turbinates. THROAT: No erythema or exudates. NECK: No masses, no JVD, no thyroid enlargement, no adenopathy. CHEST: No chest wall deformity. Symmetrical expansion. LUNGS: Equal air entry with no crackles, wheeze, rhonchi or dullness. CVS: Regular rate and rhythm, normal S1 and S2, no gallops, no murmurs, no rubs ABDOMEN: Soft, nontender. No hepatosplenomegaly, normal bowel sounds, no guarding or rigidity. EXTREMITIES: No clubbing, no edema, no cyanosis, 2+ pulses and upper and lower extremities. MUSCULOSKELETAL: Muscle strength and tone normal. SPINE: No scoliosis or deformity SKIN: No rashes CENTRAL NERVOUS SYSTEM: Alert and oriented -3. No focal deficits, tone is normal in all 4 extremities. PSYCHIATRIC: Alert and oriented -3. Appropriate affect. Intact judgment and insight. - Labs CBC & Chem 7: 01/31/21 07:58 01/31/21 07:58 Labs: Abnormal Lab Results - Last 24 Hours (Table) 01/31/21 01/31/21 02/01/21 Range/Units 16:31 20:49 06:28 D-Dimer 1.49 H (<0.60) mg/L FEU POC Glucose (mg/dL) 171 H 151 H (75-99) mg/dL Lactate Dehydrogenase (120-246) U/L 02/01/21 02/01/21 02/01/21 Range/Units 06:28 06:55 11:10 D-Dimer (<0.60) mg/L FEU POC Glucose (mg/dL) 182 H 162 H (75-99) mg/dL Lactate Dehydrogenase 428 H (120-246) U/L Assessment and Plan Plan: Assessment: #1. Acute hypoxic respiratory failure secondary to acute coronary 19 pneumonitis, initiated on Remdesivir on 01/18/2021, finished Remdesivir on 01/22/2021 #2. Febrile illness secondary to the above, her fever has resolved #3. Lymphopenia related to the above, improving #4. Elevated inflammatory marker secondary to the above, improved #5. Obesity #6. Hypertension #7. Former smoker #8. Elevated d-dimer, CTA chest was a suboptimal study without evidence of central acute pulmonary embolism however smaller segmental PEs could not be completely excluded. Plan: Clinically stable although still requiring high flow oxygen, continue attempting to wean it down, to keep O2 sat at or above 90%. Her breathing is stable, no worsening in her dyspnea. She is afebrile, vital signs are stable, will continue same dose IV Solu-Medrol, will adjust the dose of Lovenox to 40 mg daily, d-dimer is down trending, continue the vitamin cocktail, we'll obtain follow-up blood work tomorrow including CBC, CMP, follow-up inflammatory markers in d-dimer. I performed a history & physical examination of the patient and discussed their management with my nurse practitioner, Trish Bell. I reviewed the nurse practitioner's note and agree with the documented findings and plan of care. Lung sounds are positive for diminished breath sounds The findings and the impression was discussed with the patient. I attest to the documentation by the nurse practitioner. Time with Patient: Less than 30
[2021-02-01 16:46] LABS: Glucose,Whole Blood 142 mg/dL (75-99)
[2021-02-01 20:34] LABS: Glucose,Whole Blood 242 mg/dL (75-99)
[2021-02-02] MEDS: methylPREDNISolone SOD SUCCI 125 MG/2 ML VIAL IV SCH ×4 (03:12→20:42)
[2021-02-02 07:01] LABS: D-Dimer 1.26 mg/L FEU (<0.60); Prothrombin Time 10.8 sec (9.0-12.0)
[2021-02-02 07:06] LABS: Glucose,Whole Blood 142 mg/dL (75-99)
--- NOTE | 2021-02-02 08:01 | XR ---
EXAMINATION TYPE: XR chest 1V portable DATE OF EXAM: 02/02/2021 COMPARISON: 02/01/2021 HISTORY: Shortness of breath TECHNIQUE: Single frontal view of the chest is obtained. FINDINGS There is diffuse alveolar pattern of lung opacity bilaterally right greater than left and greatest in the right mid-upper lung zone. There is been no significant interval change. Heart size is normal. The osseous structures are intact. There is no pleural effusion or pneumothorax . IMPRESSION: No change in the lung infiltrates is described above.
[2021-02-02] MEDS: CHOLECALCIFEROL 25 MCG (1000 IU) TABLET PO SCH (08:08)
[2021-02-02] MEDS: FAMOTIDINE 20 MG TAB PO SCH ×2 (08:08→20:41)
[2021-02-02] MEDS: ASCORBIC ACID 500 MG TAB PO SCH (08:08)
[2021-02-02] MEDS: hydrALAZINE HCL 50 MG TAB PO SCH ×2 (08:08→20:41)
[2021-02-02] MEDS: lisinopriL 20 MG TAB PO SCH (08:08)
[2021-02-02] MEDS: COLCHICINE 0.6 MG EACH PO SCH ×2 (08:08→20:42)
[2021-02-02] MEDS: amLODIPine 10 MG TAB PO SCH (08:09)
[2021-02-02] MEDS: INSULIN ASPART (NovoLOG) 100 UNIT/ML VIAL SQ SCH ×4 (08:09→20:42)
[2021-02-02] MEDS: ZINC SULFATE 220 MG CAP PO SCH (08:09)
[2021-02-02] MEDS: ENOXAPARIN 40 MG/0.4 ML SYRINGE SQ SCH (08:09)
[2021-02-02 09:04] LABS: Basophils # (A) 0.02 X 10*3/uL (0.00-0.10); Basophils % (A) 0.1 %; Eosinophils # (A) 0 X 10*3/uL (0.04-0.35); Eosinophils % (A) 0 %; HCT 40.1 % (37.2-46.3); HGB 12.7 g/dL (12.0-15.0); Lymphocytes # (A) 0.52 X 10*3/uL (0.90-5.00); Lymphocytes % (A) 3.5 %; MCH 28.5 pg (27.0-32.0); MCHC 31.7 g/dL (32.0-37.0); MCV 89.9 fL (80.0-97.0); Mean Platelet Volume 11.6 fL (9.5-12.2); Monocytes # (A) 0.53 X 10*3/uL (0.20-1.00); Monocytes % (A) 3.5 %; Neutrophils # (A) 13.69 X 10*3/uL (1.80-7.70); Neutrophils % (A) 91.6 %; Platelet Count 167 X 10*3/uL (140-440); RBC 4.46 X 10*6/uL (4.10-5.20); RDW 15.6 % (11.5-14.5); WBC 14.96 X 10*3/uL (4.50-10.00)
--- NOTE | 2021-02-02 10:50 | P.PN ---
Subjective Progress Note Date: 02/02/21 COVID pneumonia, hypoxemia. 01/28/2021 on seeing the patient for a follow-up. The patient remains on a on the percent on a 100% facemask. The patient is on Decadron. Not having any significant shortness of breath. The patient completed her course of REM and the patient is still on a combination of IV Solu-Medrol, Lovenox, vitamin C and vitamin D and zinc. No chest pain. No worsening of shortness of breath. No altered mentation. No nausea. No vomiting. No diarrhea. Abdominal pain. No recent inflammatory markers and the last level is up from 01/26/2021 with LDH was 1259 on today's evaluation, the patient is laying down comfortably in bed. She still in the 100% nonrebreather facemask. She is not having any worsening shortness of breath. The latest chest x-ray is from 01/26/2021 and it shows stable bilateral pulmonary infiltrates. 07/01/2021 the patient is currently off the 100% nonrebreather. The she is on high flow oxygen at 60 L with an FiO2 of 90%. Her pulse ox is between 89-90%. She is in for Covid and he related pneumonia. She is completing a course of REM and she remains on IV Solu-Medrol, Lovenox, vitamin C and vitamin D. In terms of her shortness of breath, the patient is still unchanged. The blood work today shows pending inflammatory markers. Electrolytes are all within normal limits. Creatinine is at 0.5. Glucose is 141. The white cell count today is at 16.7 with a hemoglobin of 13.7. D-dimer is at 1.92. Chest x-ray is again showing right upper lobe pulmonary infiltrate, left lower lobe pulmonary infiltrate, the physician is rather diffuse. Based on comparing the x-rays, the findings are essentially stable for now. 01/30/2021, the patient is in a high flow oxygen and currently she is on 60 L with an FiO2 of 80%. Her pulse ox is around 96% and he is quite comfortable. She is able to tolerate some diet while being on high flow oxygen. She has not used her 100% nonrebreather facemask. Noted that she was able to maintain a pulse ox above 90%. No chest pain , she is also on IV Solu Medrol 60 mg every 6 hours.s feeling less short of breath. She completed the course of REMand she remains on a course of IV Solu-Medrol, in addition to vitamin C and vitamin D. Her d-dimer is at 1.88. No other labs are available from today.she is on Lovenox 50 mg subcu every 12 hours. her chest x-ray from yesterday was showing diffuse patchy bilateral pulmonary infiltrates, stable compared to the earlier chest x-ray from 01/26/2021 01/31/2021, the patient is still on high flow oxygen at 60with an FiO2 of 80% that was started up on the 70%. The patient is reporting that her breathing is better today. She is not using the 100% nonrebreather facemask. She is on IV Solu-Medrol. She completed her course of REM. She is also on vitamin C. She is on vitamin D. On her blood work, the patient has a white cell count of 21 and this has increased compared to yesterday. Meanwhile, inflammatory markers from yesterday will all low. No chest pain. No cough or sputum production. She has short of breath and she has a very limited reserve. She is on Lovenox 50 mg subcu for DVT prophylaxis twice a day and her d-dimer was 1.88. On 02/01/2021 patient seen in follow-up on medical floor, she remains on Airvo, is 60 L and 80% FiO2, her pulse ox is around 93%, despite still requiring high flow oxygen she states she is feeling better, she is breathing easier, she is sitting up on the side the bed, be in no acute distress, no chest discomfort, no cough, chest x-ray today shows bilateral airspace disease persistence. We'll give the patient a dose of IV Lasix yesterday, intake and output are inaccurate, there is no weight from today, his labs revealed improving d-dimer, down to 1.49, LDH is relatively stable, down trending some, down to 428, and CRP is less than 0.4. Pro-calcitonin level came back negative at 0.05, patient is on Lovenox 50 mg daily, she remains on vitamin cocktail, and high-dose IV steroids at 60 mg every 6 hours. No nausea vomiting or diarrhea, she is tolerating oral intake. 02/02/2021, the patient remains on a voided 60 L with an FiO2 of 75%. Her current pulse ox is 94% and I'm hoping we should be able to cut down the FiO2 further. The patient is otherwise doing the same as yesterday. In terms of inflammatory markers, the patient has a LDH level of 341 which is lower and her CRP is essentially normalized. Her d-dimer is at 1.26. The latest chest x-ray is from today and it showed no significant interval change and the patient continues to have bilateral diffuse alveolar pattern right more than left more so in the right middle lobe area. The patient is receiving treatment and she is on Lovenox 50 mg subcutaneous every day. She is also on IV Solu-Medrol 60 mg every 6 hours. No altered mentation. No nausea. No vomiting. No chest pain. No other significant events otherwise for now. Objective - Vital Signs Vital signs: Vital Signs Temp 97.8 F 02/02/21 06:00 Pulse 66 02/02/21 06:00 Resp 18 02/02/21 06:00 BP 153/85 02/02/21 06:00 Pulse Ox 93 L 02/02/21 06:00 Intake & Output 02/01/21 02/02/21 02/02/21 18:59 06:59 18:59 Other: Voiding Method Bedside Commode # Voids 3 3 # Bowel Movements 1 2 - Exam No acute distress, oriented 3, currently on a 60 L high flow , an FiO2 of 75% . No conversational dyspnea, or use of accessory muscles. HEENT examination is grossly unremarkable. Mucous membranes are moist. Neck supple. Full range of motion. No adenopathy thyromegaly or neck vein distention. Cardiovascular examination reveals regular rhythm rate. S1-S2 normal. No S3 or S4. No discernible murmur noted. Heart sounds are distant. Heart rate 85 bpm. Lungs reveal bilateral diffuse rhonchi and crackles. Breath sounds are equal but diminished throughout. There are no wheezes. Exam is essentially unchanged. Abdomen soft bowel sounds are heard. No masses or tenderness. Extremities are intact. No cyanosis clubbing or edema. Skin is without rash or lesion. Neurologic examination is brief but nonfocal. - Labs CBC & Chem 7: 02/02/21 06:11 01/31/21 07:58 Labs: Abnormal Lab Results - Last 24 Hours (Table) 02/01/21 02/01/21 02/01/21 Range/Units 11:10 16:45 20:33 WBC (4.50-10.00) X 10*3/uL MCHC (32.0-37.0) g/dL RDW (11.5-14.5) % Immature Gran # (0.00-0.04) X 10*3/uL Neutrophils # (1.80-7.70) X 10*3/uL Lymphocytes # (0.90-5.00) X 10*3/uL Eosinophils # (0.04-0.35) X 10*3/uL APTT (22.0-30.0) sec D-Dimer (<0.60) mg/L FEU POC Glucose (mg/dL) 162 H 142 H 242 H (75-99) mg/dL Lactate Dehydrogenase (120-246) U/L 02/02/21 02/02/21 02/02/21 Range/Units 06:11 06:11 06:11 WBC 14.96 H (4.50-10.00) X 10*3/uL MCHC 31.7 L (32.0-37.0) g/dL RDW 15.6 H (11.5-14.5) % Immature Gran # 0.20 H (0.00-0.04) X 10*3/uL Neutrophils # 13.69 H (1.80-7.70) X 10*3/uL Lymphocytes # 0.52 L (0.90-5.00) X 10*3/uL Eosinophils # 0 L (0.04-0.35) X 10*3/uL APTT 20.0 L (22.0-30.0) sec D-Dimer 1.26 H (<0.60) mg/L FEU POC Glucose (mg/dL) (75-99) mg/dL Lactate Dehydrogenase 341 H (120-246) U/L 02/02/21 Range/Units 07:04 WBC (4.50-10.00) X 10*3/uL MCHC (32.0-37.0) g/dL RDW (11.5-14.5) % Immature Gran # (0.00-0.04) X 10*3/uL Neutrophils # (1.80-7.70) X 10*3/uL Lymphocytes # (0.90-5.00) X 10*3/uL Eosinophils # (0.04-0.35) X 10*3/uL APTT (22.0-30.0) sec D-Dimer (<0.60) mg/L FEU POC Glucose (mg/dL) 142 H (75-99) mg/dL Lactate Dehydrogenase (120-246) U/L Assessment and Plan Plan: 1 Acute hypoxemic respiratory failure, secondary to COVID 19 pneumonia, she is currently on IV Solu-Medrol and she is completed her REM therapy. She currently is on high flow oxygen at 60 L with an FiO2 of 70-80%. Chest x-ray findings from yesterday are essentially stable with diffuse bilateral pulmonary infiltrates. No major change in her condition. Likely feeling better. She is on IV Solu-Medrol. She completed her course of REM. Examination today shows no significant crackles. She is moving air bilaterally. She sounds good. I think she should be able to wean down the FiO2 further. 2 Febrile illness secondary to above. 3 Lymphocytopenia, secondary to COVID 19 infection. Also developed some leukocytosis, consider steroid use. We'll check a pro-calcitonin level. 4 Obesity. 5 Hypertension. 6 History of previous tobacco use. Plan Continue IV Solu-Medrol completed her course of Remdesivir. Continue Solumedrol, Lovenox, vitamin C, vitamin D3, and zinc. Lovenox dose to 40 mg subcu once a day for DVT prophylaxis. Her d-dimer level is low. Repeat inflammatory markers are low The patient is very slow to progress, I'm going to contact respiratory and try to wean down the FiO2 further to maintain a saturation above 90%. We'll continue to follow.
[2021-02-02 12:05] LABS: Glucose,Whole Blood 145 mg/dL (75-99)
[2021-02-02] MEDS: SODIUM CHLORIDE 0.9% 1,000 ML IV SCH (14:26)
[2021-02-02 16:38] LABS: Glucose,Whole Blood 223 mg/dL (75-99)
[2021-02-02 20:02] LABS: Glucose,Whole Blood 234 mg/dL (75-99)
--- NOTE | 2021-02-03 00:09 | P.PN ---
Subjective Progress Note Date: 01/31/21 Principal diagnosis: Acute hypoxic respiratory failure secondary to covid 19 pneumoniae with upper lobe peripheral infiltrates. Elevated inflammatory markers secondary to Coumadin 19 pneumonia Patient is a 85-year-old female with known history of hypertension, hyperlipidemia, history of Polanco's palsy and previous history of smoking presents to ER on 01/17/2021 with complaints of fever and generalized weakness and exertional dyspnea. Patient states that she received first dose of Covid 19 vaccine on 01/08/2021. Patient says that she has been feeling progressively weak since then. Patient does complain of cough along with fever for the past 5 days. Denied any abdominal pain. No nausea or vomiting. Patient has not been eating well due to decreased appetite. Chest x-ray showed mild cardiomegaly. Reticulonodular interstitial changes bilaterally and chronic parenchymal changes. Areas of acute infiltrate in the periphery of the upper lungs cannot be excluded. CT angiogram showed suboptimal study without central acute pulmonary embolus. Cannot exclude small segmental and subsegmental on the embolism on this study. Multifocal infiltrates/and or edema on background upper lung fibrotic changes consistent with Covid 19 infection. Reactive thoracic adenopathy noted. Underlying cardiomegaly present. D-dimer 1.41 Sodium 135 percussion 4.3, chloride 101, BUN 13 and creatinine 0.72 Ferritin 520, Eliquis 902, CRP 53.6 and a pro-calcitonin level is 0.09 Urinalysis is negative for infection. Covid 19 PCR is detected. Patient was hypoxic with pulse ox 88% on room air on admission and tachycardic and febrile with T-max 102.2 01/19/2021 Patient is currently resting in the bed awake alert and oriented. No acute distress. Exertional dyspnea and requiring oxygen high flow at 15 L via nasal cannula and 100% nonrebreather intermittently. T-max is 100.8 Chest x-ray showed bilateral diffuse interstitial and airspace opacities unchanged compared to prior study. Laboratory data showed LDH 972 CRP 62.8 and D-dimer 1.51 pulmonary is following. Patient is being continued on dexamethasone, remdesivir course and Lovenox. No nausea vomiting or abdominal pain or diarrhea. No dysuria or hematuria. No chest pain. 01/20/2021 Patient is awake alert and oriented x3. No acute distress. Currently 100% nonrebreather with 15 L high flow oxygen. Still elevated inflammatory markers. Remdesivir day 3. Patient has been afebrile today. No complaints of nausea vomiting or abdominal pain or diarrhea. Tolerate oral diet. No headache or dizziness. No chest pain. Continue dexamethasone, Lovenox subcu and vitamin supplementation. Pulmonary is on board. 01/28/2021 Patient is in the telemetry unit. Awake alert and oriented x3. No complaints of worsening shortness of breath. But patient still requiring oxygen and is on Airvo. Completed remdesivir course. Currently on Solu-Medrol 60 mg every 6 hourly and multivitamins and on anticoagulation. No complaints of fever or chills. No nausea vomiting or abdominal pain or diarrhea. Continues to have elevated inflammatory markers. Chest x-ray showed bilateral stable infiltrates. Continued on current management and pulmonary is on board. 01/29/2021 Patient is awake alert and oriented x3. Currently on Airvo at 60L. No complaints of chest pain or worsening shortness of breath. Continued on IV Solu-Medrol and multivitamins and Lovenox. D-dimer level is 1.88 and blood sugar is controlled. LDH is 451 and CRP less than 0.4. Still requiring high flow oxygen. Patient has been afebrile. No nausea vomiting abdominal pain or diarrhea. Tolerating oral diet. 01/30/2021 Patient is awake alert and oriented x3. Still requiring 60 L oxygen with FiO2 83% and saturating at 96%. Patient was tachycardic this morning. No complaints of chest pain or worsening shortness of breath. Patient is currently on IV Solu-Medrol, Lovenox and multivitamins. Patient has been afebrile. Has not improved her breathing status last few days. Pulmonary is on board. 01/31/2021 Patient is currently lying in the bed comfortably. Awake alert oriented x3. Still requiring oxygen at 60 L airvo with FiO2 80%. Patient is being continued on IV Solu-Medrol, Lovenox twice daily and multivitamins. Laboratory data showed WBC 21.35, hemoglobin 14.1 and platelets 183 Sodium 140 potassium 4.2 chloride 102 BUN 13 creatinine 0.6 blood sugar is 145 and procalcitonin level is 0.05 Denied any complaints of nausea or vomiting or abdominal pain or diarrhea. Current medications reviewed. Objective - Vital Signs Vital signs: Vital Signs Temp 98.2 F 01/31/21 22:00 Pulse 87 01/31/21 22:00 Resp 18 01/31/21 22:00 BP 159/80 01/31/21 22:00 Pulse Ox 93 L 01/31/21 22:00 Intake & Output 01/31/21 01/31/21 02/01/21 06:59 18:59 06:59 Other: Voiding Method Bedside Commode # Voids 2 3 4 # Bowel Movements 2 3 - Exam PHYSICAL EXAMINATION: Patient is lying in the bed comfortably, no acute distress, awake alert and oriented.. HEENT: Normocephalic. Neck is supple. Pupils reactive. Nostrils clear. Oral cavity is moist. Ears reveal no drainage. Neck reveals no JVD, carotid bruits, or thyromegaly. CHEST EXAMINATION: Trachea is central. Symmetrical expansion. No wheezing. Scattered coarse sounds.. CARDIAC: Normal S1, S2 with no gallops. No murmurs ABDOMEN: Soft. Bowel sounds normal. No organomegaly. No abdominal bruits. Extremities: reveal no edema. No clubbing or cyanosis Neurologically awake, alert, oriented x3 with well-coordinated movements. No focal deficits noted Skin: No rash or skin lesions. Psychiatric: Coperative. Nonsuicidal Musculoskeletal: No joint swelling or deformity. Normal range of motion. - Labs CBC & Chem 7: 02/02/21 06:11 01/31/21 07:58 Labs: Abnormal Lab Results - Last 24 Hours (Table) 01/31/21 01/31/21 01/31/21 Range/Units 07:13 07:58 07:58 WBC 21.35 H (4.50-10.00) X 10*3/uL MCHC 31.6 L (32.0-37.0) g/dL RDW 15.7 H (11.5-14.5) % MPV 12.4 H (9.5-12.2) fL Immature Gran # 0.39 H (0.00-0.04) X 10*3/uL Neutrophils # 19.26 H (1.80-7.70) X 10*3/uL Lymphocytes # 0.88 L (0.90-5.00) X 10*3/uL Eosinophils # 0 L (0.04-0.35) X 10*3/uL BUN 30.0 H (9.0-27.0) mg/dL BUN/Creatinine Ratio 50.00 H (12.00-20.00) Ratio Glucose 145 H (70-110) mg/dL POC Glucose (mg/dL) 141 H (75-99) mg/dL 01/31/21 01/31/21 01/31/21 Range/Units 12:23 16:31 20:49 WBC (4.50-10.00) X 10*3/uL MCHC (32.0-37.0) g/dL RDW (11.5-14.5) % MPV (9.5-12.2) fL Immature Gran # (0.00-0.04) X 10*3/uL Neutrophils # (1.80-7.70) X 10*3/uL Lymphocytes # (0.90-5.00) X 10*3/uL Eosinophils # (0.04-0.35) X 10*3/uL BUN (9.0-27.0) mg/dL BUN/Creatinine Ratio (12.00-20.00) Ratio Glucose (70-110) mg/dL POC Glucose (mg/dL) 175 H 171 H 151 H (75-99) mg/dL Assessment and Plan Assessment: Acute hypoxic respiratory failure secondary to covid 19 pneumoniae with upper lo be peripheral infiltrates. Elevated inflammatory markers secondary to Coumadin 19 pneumonia Hypertension Hyperlipidemia Morbid obesity with BMI 38.3 Elevated d-dimer level without evidence of pulmonary embolism History of smoking Plan: Patient will be continued on oxygen supplementation and titrate down FiO2 slowly as tolerated. Patient will be continued on dexamethasone, Lovenox colchicine and vitamin supplementation. Patient completed Remdesivir course. Pulmonary is on board. Prognosis is guarded at this time. Continue to monitor closely. Time with Patient: Greater than 30
--- NOTE | 2021-02-03 00:11 | P.PN ---
Subjective Progress Note Date: 02/01/21 Principal diagnosis: Acute hypoxic respiratory failure secondary to covid 19 pneumoniae with upper lobe peripheral infiltrates. Elevated inflammatory markers secondary to Coumadin 19 pneumonia Patient is a 85-year-old female with known history of hypertension, hyperlipidemia, history of Polanco's palsy and previous history of smoking presents to ER on 01/17/2021 with complaints of fever and generalized weakness and exertional dyspnea. Patient states that she received first dose of Covid 19 vaccine on 01/08/2021. Patient says that she has been feeling progressively weak since then. Patient does complain of cough along with fever for the past 5 days. Denied any abdominal pain. No nausea or vomiting. Patient has not been eating well due to decreased appetite. Chest x-ray showed mild cardiomegaly. Reticulonodular interstitial changes bilaterally and chronic parenchymal changes. Areas of acute infiltrate in the periphery of the upper lungs cannot be excluded. CT angiogram showed suboptimal study without central acute pulmonary embolus. Cannot exclude small segmental and subsegmental on the embolism on this study. Multifocal infiltrates/and or edema on background upper lung fibrotic changes consistent with Covid 19 infection. Reactive thoracic adenopathy noted. Underlying cardiomegaly present. D-dimer 1.41 Sodium 135 percussion 4.3, chloride 101, BUN 13 and creatinine 0.72 Ferritin 520, Eliquis 902, CRP 53.6 and a pro-calcitonin level is 0.09 Urinalysis is negative for infection. Covid 19 PCR is detected. Patient was hypoxic with pulse ox 88% on room air on admission and tachycardic and febrile with T-max 102.2 01/19/2021 Patient is currently resting in the bed awake alert and oriented. No acute distress. Exertional dyspnea and requiring oxygen high flow at 15 L via nasal cannula and 100% nonrebreather intermittently. T-max is 100.8 Chest x-ray showed bilateral diffuse interstitial and airspace opacities unchanged compared to prior study. Laboratory data showed LDH 972 CRP 62.8 and D-dimer 1.51 pulmonary is following. Patient is being continued on dexamethasone, remdesivir course and Lovenox. No nausea vomiting or abdominal pain or diarrhea. No dysuria or hematuria. No chest pain. 01/20/2021 Patient is awake alert and oriented x3. No acute distress. Currently 100% nonrebreather with 15 L high flow oxygen. Still elevated inflammatory markers. Remdesivir day 3. Patient has been afebrile today. No complaints of nausea vomiting or abdominal pain or diarrhea. Tolerate oral diet. No headache or dizziness. No chest pain. Continue dexamethasone, Lovenox subcu and vitamin supplementation. Pulmonary is on board. 01/28/2021 Patient is in the telemetry unit. Awake alert and oriented x3. No complaints of worsening shortness of breath. But patient still requiring oxygen and is on Airvo. Completed remdesivir course. Currently on Solu-Medrol 60 mg every 6 hourly and multivitamins and on anticoagulation. No complaints of fever or chills. No nausea vomiting or abdominal pain or diarrhea. Continues to have elevated inflammatory markers. Chest x-ray showed bilateral stable infiltrates. Continued on current management and pulmonary is on board. 01/29/2021 Patient is awake alert and oriented x3. Currently on Airvo at 60L. No complaints of chest pain or worsening shortness of breath. Continued on IV Solu-Medrol and multivitamins and Lovenox. D-dimer level is 1.88 and blood sugar is controlled. LDH is 451 and CRP less than 0.4. Still requiring high flow oxygen. Patient has been afebrile. No nausea vomiting abdominal pain or diarrhea. Tolerating oral diet. 01/30/2021 Patient is awake alert and oriented x3. Still requiring 60 L oxygen with FiO2 83% and saturating at 96%. Patient was tachycardic this morning. No complaints of chest pain or worsening shortness of breath. Patient is currently on IV Solu-Medrol, Lovenox and multivitamins. Patient has been afebrile. Has not improved her breathing status last few days. Pulmonary is on board. 01/31/2021 Patient is currently lying in the bed comfortably. Awake alert oriented x3. Still requiring oxygen at 60 L airvo with FiO2 80%. Patient is being continued on IV Solu-Medrol, Lovenox twice daily and multivitamins. Laboratory data showed WBC 21.35, hemoglobin 14.1 and platelets 183 Sodium 140 potassium 4.2 chloride 102 BUN 13 creatinine 0.6 blood sugar is 145 and procalcitonin level is 0.05 Denied any complaints of nausea or vomiting or abdominal pain or diarrhea. 02/01/2021 Patient is currently in the medical floor. Remains on high flow oxygenAirvo 60 L with 80% FiO2. No complaints of chest pain or worsening shortness of breath. Patient is slow to respond. Afebrile. No nausea vomiting or abdominal pain or diarrhea. Chest x-ray was done today showed correlate for pneumonia. Patient is being continued on IV Solu-Medrol, Lovenox and multivitamins. Improving inflammatory markers. Current medications reviewed. Objective - Vital Signs Vital signs: Vital Signs Temp 97.8 F 02/01/21 18:00 Pulse 90 02/01/21 18:00 Resp 18 02/01/21 18:00 BP 141/70 02/01/21 18:00 Pulse Ox 91 L 02/01/21 18:00 Intake & Output 02/01/21 02/01/21 02/02/21 06:59 18:59 06:59 Other: Voiding Method Bedside Commode # Voids 4 3 # Bowel Movements 3 1 - Exam PHYSICAL EXAMINATION: Patient is lying in the bed comfortably, no acute distress, awake alert and oriented.. HEENT: Normocephalic. Neck is supple. Pupils reactive. Nostrils clear. Oral cavity is moist. Ears reveal no drainage. Neck reveals no JVD, carotid bruits, or thyromegaly. CHEST EXAMINATION: Trachea is central. Symmetrical expansion. No wheezing. Scattered coarse sounds.. CARDIAC: Normal S1, S2 with no gallops. No murmurs ABDOMEN: Soft. Bowel sounds normal. No organomegaly. No abdominal bruits. Extremities: reveal no edema. No clubbing or cyanosis Neurologically awake, alert, oriented x3 with well-coordinated movements. No focal deficits noted Skin: No rash or skin lesions. Psychiatric: Coperative. Nonsuicidal Musculoskeletal: No joint swelling or deformity. Normal range of motion. - Labs CBC & Chem 7: 02/02/21 06:11 01/31/21 07:58 Labs: Abnormal Lab Results - Last 24 Hours (Table) 02/01/21 02/01/21 02/01/21 Range/Units 06:28 06:28 06:55 D-Dimer 1.49 H (<0.60) mg/L FEU POC Glucose (mg/dL) 182 H (75-99) mg/dL Lactate Dehydrogenase 428 H (120-246) U/L 02/01/21 02/01/21 02/01/21 Range/Units 11:10 16:45 20:33 D-Dimer (<0.60) mg/L FEU POC Glucose (mg/dL) 162 H 142 H 242 H (75-99) mg/dL Lactate Dehydrogenase (120-246) U/L Assessment and Plan Assessment: Acute hypoxic respiratory failure secondary to covid 19 pneumoniae with upper lobe peripheral infiltrates. Elevated inflammatory markers secondary to Coumadin 19 pneumonia Hypertension Hyperlipidemia Morbid obesity with BMI 38.3 Elevated d-dimer level without evidence of pulmonary embolism History of smoking Plan: Patient will be continued on oxygen supplementation and titrate down FiO2 slowly as tolerated. Patient will be continued on dexamethasone, Lovenox colchicine and vitamin supplementation. Patient completed Remdesivir course. Pulmonary is on board. Prognosis is guarded at this time. Continue to monitor closely.
--- NOTE | 2021-02-03 00:14 | P.PN ---
Subjective Progress Note Date: 02/02/21 Principal diagnosis: Acute hypoxic respiratory failure secondary to covid 19 pneumoniae with upper lobe peripheral infiltrates. Elevated inflammatory markers secondary to Coumadin 19 pneumonia Patient is a 85-year-old female with known history of hypertension, hyperlipidemia, history of Polanco's palsy and previous history of smoking presents to ER on 01/17/2021 with complaints of fever and generalized weakness and exertional dyspnea. Patient states that she received first dose of Covid 19 vaccine on 01/08/2021. Patient says that she has been feeling progressively weak since then. Patient does complain of cough along with fever for the past 5 days. Denied any abdominal pain. No nausea or vomiting. Patient has not been eating well due to decreased appetite. Chest x-ray showed mild cardiomegaly. Reticulonodular interstitial changes bilaterally and chronic parenchymal changes. Areas of acute infiltrate in the periphery of the upper lungs cannot be excluded. CT angiogram showed suboptimal study without central acute pulmonary embolus. Cannot exclude small segmental and subsegmental on the embolism on this study. Multifocal infiltrates/and or edema on background upper lung fibrotic changes consistent with Covid 19 infection. Reactive thoracic adenopathy noted. Underlying cardiomegaly present. D-dimer 1.41 Sodium 135 percussion 4.3, chloride 101, BUN 13 and creatinine 0.72 Ferritin 520, Eliquis 902, CRP 53.6 and a pro-calcitonin level is 0.09 Urinalysis is negative for infection. Covid 19 PCR is detected. Patient was hypoxic with pulse ox 88% on room air on admission and tachycardic and febrile with T-max 102.2 01/19/2021 Patient is currently resting in the bed awake alert and oriented. No acute distress. Exertional dyspnea and requiring oxygen high flow at 15 L via nasal cannula and 100% nonrebreather intermittently. T-max is 100.8 Chest x-ray showed bilateral diffuse interstitial and airspace opacities unchanged compared to prior study. Laboratory data showed LDH 972 CRP 62.8 and D-dimer 1.51 pulmonary is following. Patient is being continued on dexamethasone, remdesivir course and Lovenox. No nausea vomiting or abdominal pain or diarrhea. No dysuria or hematuria. No chest pain. 01/20/2021 Patient is awake alert and oriented x3. No acute distress. Currently 100% nonrebreather with 15 L high flow oxygen. Still elevated inflammatory markers. Remdesivir day 3. Patient has been afebrile today. No complaints of nausea vomiting or abdominal pain or diarrhea. Tolerate oral diet. No headache or dizziness. No chest pain. Continue dexamethasone, Lovenox subcu and vitamin supplementation. Pulmonary is on board. 01/28/2021 Patient is in the telemetry unit. Awake alert and oriented x3. No complaints of worsening shortness of breath. But patient still requiring oxygen and is on Airvo. Completed remdesivir course. Currently on Solu-Medrol 60 mg every 6 hourly and multivitamins and on anticoagulation. No complaints of fever or chills. No nausea vomiting or abdominal pain or diarrhea. Continues to have elevated inflammatory markers. Chest x-ray showed bilateral stable infiltrates. Continued on current management and pulmonary is on board. 01/29/2021 Patient is awake alert and oriented x3. Currently on Airvo at 60L. No complaints of chest pain or worsening shortness of breath. Continued on IV Solu-Medrol and multivitamins and Lovenox. D-dimer level is 1.88 and blood sugar is controlled. LDH is 451 and CRP less than 0.4. Still requiring high flow oxygen. Patient has been afebrile. No nausea vomiting abdominal pain or diarrhea. Tolerating oral diet. 01/30/2021 Patient is awake alert and oriented x3. Still requiring 60 L oxygen with FiO2 83% and saturating at 96%. Patient was tachycardic this morning. No complaints of chest pain or worsening shortness of breath. Patient is currently on IV Solu-Medrol, Lovenox and multivitamins. Patient has been afebrile. Has not improved her breathing status last few days. Pulmonary is on board. 01/31/2021 Patient is currently lying in the bed comfortably. Awake alert oriented x3. Still requiring oxygen at 60 L airvo with FiO2 80%. Patient is being continued on IV Solu-Medrol, Lovenox twice daily and multivitamins. Laboratory data showed WBC 21.35, hemoglobin 14.1 and platelets 183 Sodium 140 potassium 4.2 chloride 102 BUN 13 creatinine 0.6 blood sugar is 145 and procalcitonin level is 0.05 Denied any complaints of nausea or vomiting or abdominal pain or diarrhea. 02/01/2021 Patient is currently in the medical floor. Remains on high flow oxygenAirvo 60 L with 80% FiO2. No complaints of chest pain or worsening shortness of breath. Patient is slow to respond. Afebrile. No nausea vomiting or abdominal pain or diarrhea. Chest x-ray was done today showed correlate for pneumonia. Patient is being continued on IV Solu-Medrol, Lovenox and multivitamins. Improving inflammatory markers. 02/02/2021 Patient is currently resting in the bed. Awake alert and oriented x3. Requiring high flowAirvo 55 L with 60% FiO2 and saturating at 92%. Laboratory data showed WBC 14.96, hemoglobin 12.7 and platelets 167 D-dimer is 1.26 and LDH 341. Blood sugar is 142 this morning. Patient is being continued on IV Solu-Medrol, Lovenox and multivitamins and colchicine. Patient has been afebrile. No nausea vomiting abdominal pain or diarrhea. Tolerating oral diet. No cough or sputum production. No chest pain or worsening shortness of breath. Active Medications Acetaminophen (Acetaminophen Tab 325 Mg Tab) 650 mg PO Q6HR PRN PRN Reason: Mild Pain or Fever > 100.5 Last Admin: 01/19/21 05:20 Dose: 650 mg Documented by: Amlodipine Besylate (Amlodipine 10 Mg Tab) 10 mg PO DAILY [facility] Last Admin: 02/02/21 08:09 Dose: 10 mg Documented by: Ascorbic Acid (Ascorbic Acid 500 Mg Tab) 1,000 mg PO DAILY [facility] Last Admin: 02/02/21 08:08 Dose: 1,000 mg Documented by: Cholecalciferol (Cholecalciferol 25 Mcg (1000 Iu) Tablet) 25 mcg PO DAILY [facility] Last Admin: 02/02/21 08:08 Dose: 25 mcg Documented by: Colchicine (Colchicine 0.6 Mg Each) 0.6 mg PO BID [facility] Last Admin: 02/02/21 20:42 Dose: 0.6 mg Documented by: Enoxaparin Sodium (Enoxaparin 40 Mg/0.4 Ml Syringe) 40 mg SQ DAILY [facility] Last Admin: 02/02/21 08:09 Dose: 40 mg Documented by: Famotidine (Famotidine 20 Mg Tab) 20 mg PO BID [facility] Last Admin: 02/02/21 20:41 Dose: 20 mg Documented by: Hydralazine HCl (Hydralazine Hcl 25 Mg Tab) 25 mg PO Q6HR PRN PRN Reason: Blood Pressure - High Last Admin: 01/31/21 02:41 Dose: 25 mg Documented by: Hydralazine HCl (Hydralazine Hcl 50 Mg Tab) 50 mg PO BID [facility] Last Admin: 02/02/21 20:41 Dose: 50 mg Documented by: Sodium Chloride (Saline 0.9%) 1,000 mls @ 20 mls/hr IV .Q24H [facility] Last Admin: 02/02/21 14:26 Dose: Not Given Documented by: Insulin Aspart (Insulin Aspart (Novolog) 100 Unit/Ml Vial) 0 unit SQ ACHS [facility]; Protocol Last Admin: 02/02/21 20:42 Dose: 8 unit Documented by: Lisinopril (Lisinopril 20 Mg Tab) 20 mg PO DAILY [facility] Last Admin: 02/02/21 08:08 Dose: 20 mg Documented by: Methylprednisolone Sodium Succinate (Methylprednisolone Sod Succi 125 Mg/2 Ml Vial) 60 mg IV Q6H [facility] Last Admin: 02/02/21 20:42 Dose: 60 mg Documented by: Naloxone HCl (Naloxone 0.4 Mg/Ml 1 Ml Vial) 0.2 mg IV Q2M PRN PRN Reason: Opioid Reversal Zinc Sulfate (Zinc Sulfate 220 Mg Cap) 220 mg PO DAILY [facility] Last Admin: 02/02/21 08:09 Dose: 220 mg Documented by: Objective - Vital Signs Vital signs: Vital Signs Temp 97.7 F 02/02/21 14:00 Pulse 90 02/02/21 14:00 Resp 18 02/02/21 14:00 BP 138/81 02/02/21 14:00 Pulse Ox 97 02/02/21 14:00 Intake & Output 02/01/21 02/02/21 02/02/21 18:59 06:59 18:59 Other: Voiding Method Bedside Commode # Voids 3 3 3 # Bowel Movements 1 2 1 - Exam PHYSICAL EXAMINATION: Patient is lying in the bed comfortably, no acute distress, awake alert and oriented.. HEENT: Normocephalic. Neck is supple. Pupils reactive. Nostrils clear. Oral cavity is moist. Ears reveal no drainage. Neck reveals no JVD, carotid bruits, or thyromegaly. CHEST EXAMINATION: Trachea is central. Symmetrical expansion. No wheezing. Scattered coarse sounds.. CARDIAC: Normal S1, S2 with no gallops. No murmurs ABDOMEN: Soft. Bowel sounds normal. No organomegaly. No abdominal bruits. Extremities: reveal no edema. No clubbing or cyanosis Neurologically awake, alert, oriented x3 with well-coordinated movements. No focal deficits noted Skin: No rash or skin lesions. Psychiatric: Coperative. Nonsuicidal Musculoskeletal: No joint swelling or deformity. Normal range of motion. - Labs CBC & Chem 7: 02/02/21 06:11 01/31/21 07:58 Labs: Abnormal Lab Results - Last 24 Hours (Table) 02/01/21 02/02/21 02/02/21 Range/Units 20:33 06:11 06:11 WBC 14.96 H (4.50-10.00) X 10*3/uL MCHC 31.7 L (32.0-37.0) g/dL RDW 15.6 H (11.5-14.5) % Immature Gran # 0.20 H (0.00-0.04) X 10*3/uL Neutrophils # 13.69 H (1.80-7.70) X 10*3/uL Lymphocytes # 0.52 L (0.90-5.00) X 10*3/uL Eosinophils # 0 L (0.04-0.35) X 10*3/uL APTT 20.0 L (22.0-30.0) sec D-Dimer 1.26 H (<0.60) mg/L FEU POC Glucose (mg/dL) 242 H (75-99) mg/dL Lactate Dehydrogenase (120-246) U/L 02/02/21 02/02/21 02/02/21 Range/Units 06:11 07:04 12:03 WBC (4.50-10.00) X 10*3/uL MCHC (32.0-37.0) g/dL RDW (11.5-14.5) % Immature Gran # (0.00-0.04) X 10*3/uL Neutrophils # (1.80-7.70) X 10*3/uL Lymphocytes # (0.90-5.00) X 10*3/uL Eosinophils # (0.04-0.35) X 10*3/uL APTT (22.0-30.0) sec D-Dimer (<0.60) mg/L FEU POC Glucose (mg/dL) 142 H 145 H (75-99) mg/dL Lactate Dehydrogenase 341 H (120-246) U/L 02/02/21 Range/Units 16:37 WBC (4.50-10.00) X 10*3/uL MCHC (32.0-37.0) g/dL RDW (11.5-14.5) % Immature Gran # (0.00-0.04) X 10*3/uL Neutrophils # (1.80-7.70) X 10*3/uL Lymphocytes # (0.90-5.00) X 10*3/uL Eosinophils # (0.04-0.35) X 10*3/uL APTT (22.0-30.0) sec D-Dimer (<0.60) mg/L FEU POC Glucose (mg/dL) 223 H (75-99) mg/dL Lactate Dehydrogenase (120-246) U/L Assessment and Plan Assessment: Acute hypoxic respiratory failure secondary to covid 19 pneumoniae with upper lobe peripheral infiltrates. Elevated inflammatory markers secondary to Coumadin 19 pneumonia improving Hypertension Hyperlipidemia Morbid obesity with BMI 38.3 Elevated d-dimer level without evidence of pulmonary embolism History of smoking Plan: Patient will be continued on oxygen supplementation and titrate down FiO2 slowly as tolerated. Patient is slow to improve. Patient will be continued on Solumedrol, Lovenox colchicine and vitamin supplementation. Patient completed Remdesivir course. Pulmonary is on board. Prognosis is guarded at this time. Continue to monitor closely. Time with Patient: Greater than 30
[2021-02-03] MEDS: methylPREDNISolone SOD SUCCI 125 MG/2 ML VIAL IV SCH ×3 (03:33→20:46)
[2021-02-03 07:03] LABS: Glucose,Whole Blood 151 mg/dL (75-99)
[2021-02-03] MEDS: ASCORBIC ACID 500 MG TAB PO SCH (08:18)
[2021-02-03] MEDS: FAMOTIDINE 20 MG TAB PO SCH ×2 (08:18→20:45)
[2021-02-03] MEDS: amLODIPine 10 MG TAB PO SCH (08:18)
[2021-02-03] MEDS: COLCHICINE 0.6 MG EACH PO SCH ×2 (08:18→20:49)
[2021-02-03] MEDS: INSULIN ASPART (NovoLOG) 100 UNIT/ML VIAL SQ SCH ×4 (08:19→20:47)
[2021-02-03] MEDS: ZINC SULFATE 220 MG CAP PO SCH (08:19)
[2021-02-03] MEDS: lisinopriL 20 MG TAB PO SCH (08:19)
[2021-02-03] MEDS: hydrALAZINE HCL 50 MG TAB PO SCH ×2 (08:19→20:45)
[2021-02-03] MEDS: ENOXAPARIN 40 MG/0.4 ML SYRINGE SQ SCH (08:19)
[2021-02-03] MEDS: CHOLECALCIFEROL 25 MCG (1000 IU) TABLET PO SCH (08:19)
[2021-02-03 11:45] LABS: Glucose,Whole Blood 195 mg/dL (75-99)
[2021-02-03] MEDS: SODIUM CHLORIDE 0.9% 1,000 ML IV SCH (11:53)
--- NOTE | 2021-02-03 12:28 | P.PN ---
Subjective Progress Note Date: 02/03/21 COVID pneumonia, hypoxemia. 01/28/2021 on seeing the patient for a follow-up. The patient remains on a on the percent on a 100% facemask. The patient is on Decadron. Not having any significant shortness of breath. The patient completed her course of REM and the patient is still on a combination of IV Solu-Medrol, Lovenox, vitamin C and vitamin D and zinc. No chest pain. No worsening of shortness of breath. No altered mentation. No nausea. No vomiting. No diarrhea. Abdominal pain. No recent inflammatory markers and the last level is up from 01/26/2021 with LDH was 1259 on today's evaluation, the patient is laying down comfortably in bed. She still in the 100% nonrebreather facemask. She is not having any worsening shortness of breath. The latest chest x-ray is from 01/26/2021 and it shows stable bilateral pulmonary infiltrates. 07/01/2021 the patient is currently off the 100% nonrebreather. The she is on high flow oxygen at 60 L with an FiO2 of 90%. Her pulse ox is between 89-90%. She is in for Covid and he related pneumonia. She is completing a course of REM and she remains on IV Solu-Medrol, Lovenox, vitamin C and vitamin D. In terms of her shortness of breath, the patient is still unchanged. The blood work today shows pending inflammatory markers. Electrolytes are all within normal limits. Creatinine is at 0.5. Glucose is 141. The white cell count today is at 16.7 with a hemoglobin of 13.7. D-dimer is at 1.92. Chest x-ray is again showing right upper lobe pulmonary infiltrate, left lower lobe pulmonary infiltrate, the physician is rather diffuse. Based on comparing the x-rays, the findings are essentially stable for now. 01/30/2021, the patient is in a high flow oxygen and currently she is on 60 L with an FiO2 of 80%. Her pulse ox is around 96% and he is quite comfortable. She is able to tolerate some diet while being on high flow oxygen. She has not used her 100% nonrebreather facemask. Noted that she was able to maintain a pulse ox above 90%. No chest pain , she is also on IV Solu Medrol 60 mg every 6 hours.s feeling less short of breath. She completed the course of REMand she remains on a course of IV Solu-Medrol, in addition to vitamin C and vitamin D. Her d-dimer is at 1.88. No other labs are available from today.she is on Lovenox 50 mg subcu every 12 hours. her chest x-ray from yesterday was showing diffuse patchy bilateral pulmonary infiltrates, stable compared to the earlier chest x-ray from 01/26/2021 01/31/2021, the patient is still on high flow oxygen at 60with an FiO2 of 80% that was started up on the 70%. The patient is reporting that her breathing is better today. She is not using the 100% nonrebreather facemask. She is on IV Solu-Medrol. She completed her course of REM. She is also on vitamin C. She is on vitamin D. On her blood work, the patient has a white cell count of 21 and this has increased compared to yesterday. Meanwhile, inflammatory markers from yesterday will all low. No chest pain. No cough or sputum production. She has short of breath and she has a very limited reserve. She is on Lovenox 50 mg subcu for DVT prophylaxis twice a day and her d-dimer was 1.88. On 02/01/2021 patient seen in follow-up on medical floor, she remains on Airvo, is 60 L and 80% FiO2, her pulse ox is around 93%, despite still requiring high flow oxygen she states she is feeling better, she is breathing easier, she is sitting up on the side the bed, be in no acute distress, no chest discomfort, no cough, chest x-ray today shows bilateral airspace disease persistence. We'll give the patient a dose of IV Lasix yesterday, intake and output are inaccurate, there is no weight from today, his labs revealed improving d-dimer, down to 1.49, LDH is relatively stable, down trending some, down to 428, and CRP is less than 0.4. Pro-calcitonin level came back negative at 0.05, patient is on Lovenox 50 mg daily, she remains on vitamin cocktail, and high-dose IV steroids at 60 mg every 6 hours. No nausea vomiting or diarrhea, she is tolerating oral intake. 02/02/2021, the patient remains on a voided 60 L with an FiO2 of 75%. Her current pulse ox is 94% and I'm hoping we should be able to cut down the FiO2 further. The patient is otherwise doing the same as yesterday. In terms of inflammatory markers, the patient has a LDH level of 341 which is lower and her CRP is essentially normalized. Her d-dimer is at 1.26. The latest chest x-ray is from today and it showed no significant interval change and the patient continues to have bilateral diffuse alveolar pattern right more than left more so in the right middle lobe area. The patient is receiving treatment and she is on Lovenox 50 mg subcutaneous every day. She is also on IV Solu-Medrol 60 mg every 6 hours. No altered mentation. No nausea. No vomiting. No chest pain. No other significant events otherwise for now. Today's evaluation, the patient's oxidation is improved as the patient's high flow oxygen has been drop down to 30 L were FiO2 of 50%. Patient's pulse ox is currently 91%. She is doing well. She is not having any new complaints. No new labs from today. She is in good spirits. She wants to get better and go home as soon as possible. In terms of her medication, she is on IV Solu-Medrol 60 mg every 6 hours. She is also on Lovenox 40 mg subcu. She has completed her course of REM Objective - Vital Signs Vital signs: Vital Signs Temp 97.6 F 02/03/21 10:00 Pulse 87 02/03/21 10:00 Resp 19 02/03/21 10:00 BP 130/76 02/03/21 10:00 Pulse Ox 91 L 02/03/21 10:00 Intake & Output 02/02/21 02/03/21 02/03/21 18:59 06:59 18:59 Output Total 800 Balance -800 Output: Urine 800 Other: Voiding Method Bedside Commode # Voids 3 2 # Bowel Movements 1 2 - Exam No acute distress, oriented 3, currently on a 30 L high flow , an FiO2 of 50% . No conversational dyspnea, or use of accessory muscles. HEENT examination is grossly unremarkable. Mucous membranes are moist. Neck supple. Full range of motion. No adenopathy thyromegaly or neck vein distention. Cardiovascular examination reveals regular rhythm rate. S1-S2 normal. No S3 or S4. No discernible murmur noted. Heart sounds are distant. Heart rate 85 bpm. Lungs reveal bilateral diffuse rhonchi and crackles. Breath sounds are equal but diminished throughout. There are no wheezes. Exam is essentially unchanged. Abdomen soft bowel sounds are heard. No masses or tenderness. Extremities are intact. No cyanosis clubbing or edema. Skin is without rash or lesion. Neurologic examination is brief but nonfocal. - Labs CBC & Chem 7: 02/02/21 06:11 01/31/21 07:58 Labs: Abnormal Lab Results - Last 24 Hours (Table) 02/02/21 02/02/21 02/03/21 Range/Units 16:37 20:01 07:02 POC Glucose (mg/dL) 223 H 234 H 151 H (75-99) mg/dL 02/03/21 Range/Units 11:44 POC Glucose (mg/dL) 195 H (75-99) mg/dL Assessment and Plan Plan: 1 Acute hypoxemic respiratory failure, secondary to COVID 19 pneumonia, she is currently on IV Solu-Medrol and she is completed her REM therapy. She currently is on high flow oxygen at 30 L with an FiO2 of 50%. Chest x-ray findings from yesterday are essentially stable with diffuse bilateral pulmonary infiltrates. And finally glad to see some improvement in patient's oxygenation. The patient has been in the hospital for more than 2 weeks and she is currently seeing some improvement in her oxygenation were able to wean down the flow down to 30 L and the thyroid is currently at 50%. I'm hoping that within the next 24-48 hours we can switch her to regular nasal cannula. 2 Febrile illness secondary to above. 3 Lymphocytopenia, secondary to COVID 19 infection. Also developed some leukocytosis, consider steroid use. We'll check a pro-calcitonin level. 4 Obesity. 5 Hypertension. 6 History of previous tobacco use. Plan Continue weaning the oxygen flow currently on 30 L with an FiO2 of 50% completed her course of Remdesivir. Continue Solumedrol and reduce the dose to 40 mg every 12 hours Lovenox, vitamin C, vitamin D3, and zinc. Lovenox dose to 40 mg subcu once a day for DVT prophylaxis. Her d-dimer level is low. Repeat inflammatory markers are low The patient is very slow to progress, I'm going to contact respiratory and try to wean down the FiO2 further to maintain a saturation above 90%. We'll continue to follow.
[2021-02-03 17:02] LABS: Glucose,Whole Blood 175 mg/dL (75-99)
[2021-02-03 20:17] LABS: Glucose,Whole Blood 183 mg/dL (75-99)
--- NOTE | 2021-02-04 02:01 | P.PN ---
Subjective Progress Note Date: 02/03/21 Principal diagnosis: Acute hypoxic respiratory failure secondary to covid 19 pneumoniae with upper lobe peripheral infiltrates. Elevated inflammatory markers secondary to Coumadin 19 pneumonia Patient is a 85-year-old female with known history of hypertension, hyperlipidemia, history of Polanco's palsy and previous history of smoking presents to ER on 01/17/2021 with complaints of fever and generalized weakness and exertional dyspnea. Patient states that she received first dose of Covid 19 vaccine on 01/08/2021. Patient says that she has been feeling progressively weak since then. Patient does complain of cough along with fever for the past 5 days. Denied any abdominal pain. No nausea or vomiting. Patient has not been eating well due to decreased appetite. Chest x-ray showed mild cardiomegaly. Reticulonodular interstitial changes bilaterally and chronic parenchymal changes. Areas of acute infiltrate in the periphery of the upper lungs cannot be excluded. CT angiogram showed suboptimal study without central acute pulmonary embolus. Cannot exclude small segmental and subsegmental on the embolism on this study. Multifocal infiltrates/and or edema on background upper lung fibrotic changes consistent with Covid 19 infection. Reactive thoracic adenopathy noted. Underlying cardiomegaly present. D-dimer 1.41 Sodium 135 percussion 4.3, chloride 101, BUN 13 and creatinine 0.72 Ferritin 520, Eliquis 902, CRP 53.6 and a pro-calcitonin level is 0.09 Urinalysis is negative for infection. Covid 19 PCR is detected. Patient was hypoxic with pulse ox 88% on room air on admission and tachycardic and febrile with T-max 102.2 01/19/2021 Patient is currently resting in the bed awake alert and oriented. No acute distress. Exertional dyspnea and requiring oxygen high flow at 15 L via nasal cannula and 100% nonrebreather intermittently. T-max is 100.8 Chest x-ray showed bilateral diffuse interstitial and airspace opacities unchanged compared to prior study. Laboratory data showed LDH 972 CRP 62.8 and D-dimer 1.51 pulmonary is following. Patient is being continued on dexamethasone, remdesivir course and Lovenox. No nausea vomiting or abdominal pain or diarrhea. No dysuria or hematuria. No chest pain. 01/20/2021 Patient is awake alert and oriented x3. No acute distress. Currently 100% nonrebreather with 15 L high flow oxygen. Still elevated inflammatory markers. Remdesivir day 3. Patient has been afebrile today. No complaints of nausea vomiting or abdominal pain or diarrhea. Tolerate oral diet. No headache or dizziness. No chest pain. Continue dexamethasone, Lovenox subcu and vitamin supplementation. Pulmonary is on board. 01/28/2021 Patient is in the telemetry unit. Awake alert and oriented x3. No complaints of worsening shortness of breath. But patient still requiring oxygen and is on Airvo. Completed remdesivir course. Currently on Solu-Medrol 60 mg every 6 hourly and multivitamins and on anticoagulation. No complaints of fever or chills. No nausea vomiting or abdominal pain or diarrhea. Continues to have elevated inflammatory markers. Chest x-ray showed bilateral stable infiltrates. Continued on current management and pulmonary is on board. 01/29/2021 Patient is awake alert and oriented x3. Currently on Airvo at 60L. No complaints of chest pain or worsening shortness of breath. Continued on IV Solu-Medrol and multivitamins and Lovenox. D-dimer level is 1.88 and blood sugar is controlled. LDH is 451 and CRP less than 0.4. Still requiring high flow oxygen. Patient has been afebrile. No nausea vomiting abdominal pain or diarrhea. Tolerating oral diet. 01/30/2021 Patient is awake alert and oriented x3. Still requiring 60 L oxygen with FiO2 83% and saturating at 96%. Patient was tachycardic this morning. No complaints of chest pain or worsening shortness of breath. Patient is currently on IV Solu-Medrol, Lovenox and multivitamins. Patient has been afebrile. Has not improved her breathing status last few days. Pulmonary is on board. 01/31/2021 Patient is currently lying in the bed comfortably. Awake alert oriented x3. Still requiring oxygen at 60 L airvo with FiO2 80%. Patient is being continued on IV Solu-Medrol, Lovenox twice daily and multivitamins. Laboratory data showed WBC 21.35, hemoglobin 14.1 and platelets 183 Sodium 140 potassium 4.2 chloride 102 BUN 13 creatinine 0.6 blood sugar is 145 and procalcitonin level is 0.05 Denied any complaints of nausea or vomiting or abdominal pain or diarrhea. 02/01/2021 Patient is currently in the medical floor. Remains on high flow oxygenAirvo 60 L with 80% FiO2. No complaints of chest pain or worsening shortness of breath. Patient is slow to respond. Afebrile. No nausea vomiting or abdominal pain or diarrhea. Chest x-ray was done today showed correlate for pneumonia. Patient is being continued on IV Solu-Medrol, Lovenox and multivitamins. Improving inflammatory markers. 02/02/2021 Patient is currently resting in the bed. Awake alert and oriented x3. Requiring high flowAirvo 55 L with 60% FiO2 and saturating at 92%. Laboratory data showed WBC 14.96, hemoglobin 12.7 and platelets 167 D-dimer is 1.26 and LDH 341. Blood sugar is 142 this morning. Patient is being continued on IV Solu-Medrol, Lovenox and multivitamins and colchicine. Patient has been afebrile. No nausea vomiting abdominal pain or diarrhea. Tolerating oral diet. No cough or sputum production. No chest pain or worsening shortness of breath. 02/03/2021 Patient is currently lying in her bed awake at work x3. Oxygen requirement is trending down to Airvo 30 L with FiO2 50% today. Still requiring oxygen. Able to ambulate to the bathroom without much shortness of breath. Otherwise patient is being continued Solu-Medrol 60 mg every 12 hours. Continue with tapering dose. Currently on Lovenox and multivitamins. Blood sugar is controlled. Continue with insulin regimen and follow-up. Pulmonary is on board. Active Medications Generic Name Dose Route Start Last Admin Trade Name Freq PRN Reason Stop Dose Admin Acetaminophen 650 mg 01/17/21 20:03 01/19/21 05:20 Acetaminophen Tab 325 Mg Tab PO 650 mg Q6HR PRN Administration Mild Pain or Fever > 100.5 Amlodipine Besylate 10 mg 02/01/21 09:00 02/03/21 08:18 Amlodipine 10 Mg Tab PO 10 mg DAILY CARMINE Administration Ascorbic Acid 1,000 mg 01/18/21 14:30 02/03/21 08:18 Ascorbic Acid 500 Mg Tab PO 1,000 mg DAILY CARMINE Administration Cholecalciferol 25 mcg 01/18/21 14:30 02/03/21 08:19 Cholecalciferol 25 Mcg (1000 Iu) Tablet PO 25 mcg DAILY CARMINE Administration Colchicine 0.6 mg 01/18/21 21:00 02/03/21 20:49 Colchicine 0.6 Mg Each PO 0.6 mg BID CARMINE Administration Enoxaparin Sodium 40 mg 02/02/21 09:00 02/03/21 08:19 Enoxaparin 40 Mg/0.4 Ml Syringe SQ 40 mg DAILY CARMINE Administration Famotidine 20 mg 01/31/21 21:00 02/03/21 20:45 Famotidine 20 Mg Tab PO 20 mg BID CARMINE Administration Hydralazine HCl 25 mg 01/22/21 12:10 01/31/21 02:41 Hydralazine Hcl 25 Mg Tab PO 25 mg Q6HR PRN Administration Blood Pressure - High Hydralazine HCl 50 mg 01/23/21 21:30 02/03/21 20:45 Hydralazine Hcl 50 Mg Tab PO 50 mg BID CARMINE Administration Sodium Chloride 1,000 mls @ 20 mls/hr 01/17/21 20:15 02/03/21 11:53 Saline 0.9% IV Not Given .Q24H CARMINE Insulin Aspart 0 unit 01/25/21 17:30 02/03/21 20:47 Insulin Aspart (Novolog) 100 Unit/Ml Vial SQ 4 unit ACHS CARMINE Administration Protocol Lisinopril 20 mg 02/01/21 09:00 02/03/21 08:19 Lisinopril 20 Mg Tab PO 20 mg DAILY CARMINE Administration Methylprednisolone Sodium Succinate 60 mg 02/03/21 21:00 02/03/21 20:46 Methylprednisolone Sod Succi 125 Mg/2 Ml Vial IV 60 mg Q12HR CARMINE Administration Naloxone HCl 0.2 mg 01/17/21 20:03 Naloxone 0.4 Mg/Ml 1 Ml Vial IV Q2M PRN Opioid Reversal Zinc Sulfate 220 mg 01/18/21 14:30 02/03/21 08:19 Zinc Sulfate 220 Mg Cap PO 220 mg DAILY CARMINE Administration Objective - Vital Signs Vital signs: Vital Signs Temp 97.9 F 02/03/21 14:00 Pulse 84 02/03/21 14:00 Resp 19 02/03/21 14:00 BP 151/68 02/03/21 14:00 Pulse Ox 93 L 02/03/21 14:00 Intake & Output 02/02/21 02/03/21 02/03/21 18:59 06:59 18:59 Output Total 800 Balance -800 Output: Urine 800 Other: Voiding Method Bedside Commode # Voids 3 2 # Bowel Movements 1 2 - Exam PHYSICAL EXAMINATION: Patient is lying in the bed comfortably, no acute distress, awake alert and orie nted.. HEENT: Normocephalic. Neck is supple. Pupils reactive. Nostrils clear. Oral cavity is moist. Ears reveal no drainage. Neck reveals no JVD, carotid bruits, or thyromegaly. CHEST EXAMINATION: Trachea is central. Symmetrical expansion. No wheezing. Scattered coarse sounds.. CARDIAC: Normal S1, S2 with no gallops. No murmurs ABDOMEN: Soft. Bowel sounds normal. No organomegaly. No abdominal bruits. Extremities: reveal no edema. No clubbing or cyanosis Neurologically awake, alert, oriented x3 with well-coordinated movements. No focal deficits noted Skin: No rash or skin lesions. Psychiatric: Coperative. Nonsuicidal Musculoskeletal: No joint swelling or deformity. Normal range of motion. - Labs CBC & Chem 7: 02/02/21 06:11 01/31/21 07:58 Labs: Abnormal Lab Results - Last 24 Hours (Table) 02/02/21 02/02/21 02/03/21 Range/Units 16:37 20:01 07:02 POC Glucose (mg/dL) 223 H 234 H 151 H (75-99) mg/dL 02/03/21 Range/Units 11:44 POC Glucose (mg/dL) 195 H (75-99) mg/dL Assessment and Plan Assessment: Acute hypoxic respiratory failure secondary to covid 19 pneumoniae with upper lobe peripheral infiltrates. Elevated inflammatory markers secondary to Coumadin 19 pneumonia improving Hypertension Hyperlipidemia Morbid obesity with BMI 38.3 Elevated d-dimer level without evidence of pulmonary embolism History of smoking Plan: Patient will be continued on oxygen supplementation and titrate down FiO2 slowly as tolerated. Patient is slow to improve. Patient will be continued on Solumedrol, Lovenox colchicine and vitamin supplementation. Patient completed Remdesivir course. Pulmonary is on board. Prognosis is guarded at this time. Continue to monitor closely. Time with Patient: Greater than 30
[2021-02-04 07:33] LABS: Glucose,Whole Blood 116 mg/dL (75-99)
[2021-02-04] MEDS: INSULIN ASPART (NovoLOG) 100 UNIT/ML VIAL SQ SCH ×4 (08:23→21:51)
[2021-02-04] MEDS: methylPREDNISolone SOD SUCCI 125 MG/2 ML VIAL IV SCH ×2 (08:29→21:52)
[2021-02-04] MEDS: hydrALAZINE HCL 50 MG TAB PO SCH ×2 (08:32→21:51)
[2021-02-04] MEDS: CHOLECALCIFEROL 25 MCG (1000 IU) TABLET PO SCH (08:32)
[2021-02-04] MEDS: lisinopriL 20 MG TAB PO SCH (08:32)
[2021-02-04] MEDS: ENOXAPARIN 40 MG/0.4 ML SYRINGE SQ SCH (08:32)
[2021-02-04] MEDS: ASCORBIC ACID 500 MG TAB PO SCH (08:32)
[2021-02-04] MEDS: ZINC SULFATE 220 MG CAP PO SCH (08:32)
[2021-02-04] MEDS: amLODIPine 10 MG TAB PO SCH (08:32)
[2021-02-04] MEDS: COLCHICINE 0.6 MG EACH PO SCH (08:32)
[2021-02-04] MEDS: FAMOTIDINE 20 MG TAB PO SCH ×2 (08:32→21:51)
[2021-02-04] MEDS: SODIUM CHLORIDE 0.9% 1,000 ML IV SCH (08:33)
[2021-02-04 09:07] LABS: Basophils # (A) 0.02 X 10*3/uL (0.00-0.10); Basophils % (A) 0.1 %; Eosinophils # (A) 0 X 10*3/uL (0.04-0.35); Eosinophils % (A) 0 %; HCT 40.1 % (37.2-46.3); HGB 12.7 g/dL (12.0-15.0); Lymphocytes # (A) 0.65 X 10*3/uL (0.90-5.00); Lymphocytes % (A) 4.1 %; MCH 28.4 pg (27.0-32.0); MCHC 31.7 g/dL (32.0-37.0); MCV 89.7 fL (80.0-97.0); Mean Platelet Volume 11.8 fL (9.5-12.2); Monocytes # (A) 0.77 X 10*3/uL (0.20-1.00); Monocytes % (A) 4.8 %; Neutrophils % (A) 89.4 %; Platelet Count 191 X 10*3/uL (140-440); RBC 4.47 X 10*6/uL (4.10-5.20); RDW 15.9 % (11.5-14.5)
[2021-02-04 09:21] LABS: Anion Gap 3.2 mmol/L (4.00-12.00); Calcium 8.2 mg/dL (8.7-10.3); Carbon Dioxide 31.8 mmol/L (21.6-31.8); Non-African American GFR(CKD) 88.9 (60.0-200.0); Potassium 4.3 mmol/L (3.5-5.5)
[2021-02-04 12:11] LABS: Glucose,Whole Blood 220 mg/dL (75-99)
--- NOTE | 2021-02-04 15:37 | P.PN ---
Subjective Progress Note Date: 02/04/21 Acute hypoxic respiratory failure secondary to covid 19 pneumoniae with upper lobe peripheral infiltrates. Elevated inflammatory markers secondary to Coumadin 19 pneumonia Patient is a 85-year-old female with known history of hypertension, hyperlipidemia, history of Polanco's palsy and previous history of smoking presents to ER on 01/17/2021 with complaints of fever and generalized weakness and exertional dyspnea. Patient states that she received first dose of Covid 19 vaccine on 01/08/2021. Patient says that she has been feeling progressively weak since then. Patient does complain of cough along with fever for the past 5 days. Denied any abdominal pain. No nausea or vomiting. Patient has not been eating well due to decreased appetite. Chest x-ray showed mild cardiomegaly. Reticulonodular interstitial changes bilaterally and chronic parenchymal changes. Areas of acute infiltrate in the periphery of the upper lungs cannot be excluded. CT angiogram showed suboptimal study without central acute pulmonary embolus. Cannot exclude small segmental and subsegmental on the embolism on this study. Multifocal infiltrates/and or edema on background upper lung fibrotic changes consistent with Covid 19 infection. Reactive thoracic adenopathy noted. Underlying cardiomegaly present. D-dimer 1.41 Sodium 135 percussion 4.3, chloride 101, BUN 13 and creatinine 0.72 Ferritin 520, Eliquis 902, CRP 53.6 and a pro-calcitonin level is 0.09 Urinalysis is negative for infection. Covid 19 PCR is detected. Patient was hypoxic with pulse ox 88% on room air on admission and tachycardic and febrile with T-max 102.2 01/19/2021 Patient is currently resting in the bed awake alert and oriented. No acute distress. Exertional dyspnea and requiring oxygen high flow at 15 L via nasal cannula and 100% nonrebreather intermittently. T-max is 100.8 Chest x-ray showed bilateral diffuse interstitial and airspace opacities unchanged compared to prior study. Laboratory data showed LDH 972 CRP 62.8 and D-dimer 1.51 pulmonary is following. Patient is being continued on dexameth asone, remdesivir course and Lovenox. No nausea vomiting or abdominal pain or diarrhea. No dysuria or hematuria. No chest pain. 01/20/2021 Patient is awake alert and oriented x3. No acute distress. Currently 100% nonrebreather with 15 L high flow oxygen. Still elevated inflammatory markers. Remdesivir day 3. Patient has been afebrile today. No complaints of nausea vomiting or abdominal pain or diarrhea. Tolerate oral diet. No headache or dizziness. No chest pain. Continue dexamethasone, Lovenox subcu and vitamin supplementation. Pulmonary is on board. 01/28/2021 Patient is in the telemetry unit. Awake alert and oriented x3. No complaints of worsening shortness of breath. But patient still requiring oxygen and is on Airvo. Completed remdesivir course. Currently on Solu-Medrol 60 mg every 6 hourly and multivitamins and on anticoagulation. No complaints of fever or chills. No nausea vomiting or abdominal pain or diarrhea. Continues to have elevated inflammatory markers. Chest x-ray showed bilateral stable infiltrates. Continued on current management and pulmonary is on board. 01/29/2021 Patient is awake alert and oriented x3. Currently on Airvo at 60L. No complain ts of chest pain or worsening shortness of breath. Continued on IV Solu-Medrol and multivitamins and Lovenox. D-dimer level is 1.88 and blood sugar is controlled. LDH is 451 and CRP less than 0.4. Still requiring high flow oxygen. Patient has been afebrile. No nausea vomiting abdominal pain or diarrhea. Tolerating oral diet. 01/30/2021 Patient is awake alert and oriented x3. Still requiring 60 L oxygen with FiO2 83% and saturating at 96%. Patient was tachycardic this morning. No complaints of chest pain or worsening shortness of breath. Patient is currently on IV Solu-Medrol, Lovenox and multivitamins. Patient has been afebrile. Has not improved her breathing status last few days. Pulmonary is on board. 01/31/2021 Patient is currently lying in the bed comfortably. Awake alert oriented x3. Still requiring oxygen at 60 L airvo with FiO2 80%. Patient is being continued on IV Solu-Medrol, Lovenox twice daily and multivitamins. Laboratory data showed WBC 21.35, hemoglobin 14.1 and platelets 183 Sodium 140 potassium 4.2 chloride 102 BUN 13 creatinine 0.6 blood sugar is 145 and procalcitonin level is 0.05 Denied any complaints of nausea or vomiting or abdominal pain or diarrhea. 02/01/2021 Patient is currently in the medical floor. Remains on high flow oxygenAirvo 60 L with 80% FiO2. No complaints of chest pain or worsening shortness of breath. Patient is slow to respond. Afebrile. No nausea vomiting or abdominal pain or diarrhea. Chest x-ray was done today showed correlate for pneumonia. Patient is being continued on IV Solu-Medrol, Lovenox and multivitamins. Improving inflammatory markers. 02/02/2021 Patient is currently resting in the bed. Awake alert and oriented x3. Requiring high flowAirvo 55 L with 60% FiO2 and saturating at 92%. Laboratory data showed WBC 14.96, hemoglobin 12.7 and platelets 167 D-dimer is 1.26 and LDH 341. Blood sugar is 142 this morning. Patient is being continued on IV Solu-Medrol, Lovenox and multivitamins and colchicine. Patient has been afebrile. No nausea vomiting abdominal pain or diarrhea. Tolerating oral diet. No cough or sputum production. No chest pain or worsening shortness of breath. 02/03/2021 Patient is currently lying in her bed awake at work x3. Oxygen requirement is trending down to Airvo 30 L with FiO2 50% today. Still requiring oxygen. Able to ambulate to the bathroom without much shortness of breath. Otherwise patient is being continued Solu-Medrol 60 mg every 12 hours. Continue with tapering dose. Currently on Lovenox and multivitamins. Blood sugar is controlled. Continue with insulin regimen and follow-up. Pulmonary is on board. 02/04/2021 Patient is seen and evaluated in follow-up with no acute overnight issues. Patient continues to require oxygen with airvo and titrating slowly as tolerated. Flow rate is 15 with an FiO2 of 55% and is currently 90% oxygen saturation. Patient is currently maintained on Lovenox along with colchicine, vitamins and zinc supplements and will continue at this time. Pulmonary following and patient is maintained on breathing inhalational treatments along with IV steroids and will continue. White blood count is 15.9, hemoglobin is stable at 12.7, sodium is 136, potassium is 4.3, current creatinine is 0.5. Blood sugars appear to be more controlled and will continue with sliding scale at this time. Review of systems: Constitutional: No reports of fatigue, fever, or chills Cardiovascular: No reports of chest pain or palpitations Respiratory: Reports continued shortness of breath GI: No reports of nausea, vomiting, or diarrhea : No reports of dysuria or retention Neurovascular: No reports of weakness or numbness All medications have been reviewed Objective - Vital Signs Vital signs: Vital Signs Temp 97.4 F L 02/04/21 10:00 Pulse 88 02/04/21 10:00 Resp 18 02/04/21 10:00 BP 167/86 02/04/21 10:00 Pulse Ox 90 L 02/04/21 12:03 Intake & Output 02/03/21 02/04/21 02/04/21 18:59 06:59 18:59 Output Total 1000 Balance -1000 Output: Urine 1000 Other: Voiding Method Bedside Commode # Voids 3 # Bowel Movements 1 2 - Exam Patient is lying in the bed comfortably, no acute distress, awake alert and oriented.. HEENT: Normocephalic. Neck is supple. Pupils reactive. Nostrils clear. Oral cavity is moist. Ears reveal no drainage. Neck reveals no JVD, carotid bruits, or thyromegaly. CHEST EXAMINATION: diminished breath sounds bilaterally with some bilateral scattered coarse rhonchi noted CARDIAC: Normal S1, S2 with no gallops. No murmurs ABDOMEN: Soft. Bowel sounds normal. No organomegaly. No abdominal bruits. Extremities: reveal no edema. No clubbing or cyanosis Neurologically awake, alert, oriented x3 with well-coordinated movements. No focal deficits noted Skin: No rash or skin lesions. Psychiatric: Cooperative. Non-suicidal Musculoskeletal: No joint swelling or deformity. Normal range of motion. - Labs CBC & Chem 7: 02/04/21 06:28 02/04/21 06:28 Labs: Abnormal Lab Results - Last 24 Hours (Table) 02/03/21 02/03/21 02/04/21 Range/Units 16:56 20:15 06:28 WBC 15.90 H (4.50-10.00) X 10*3/uL MCHC 31.7 L (32.0-37.0) g/dL RDW 15.9 H (11.5-14.5) % Immature Gran # 0.26 H (0.00-0.04) X 10*3/uL Neutrophils # 14.20 H (1.80-7.70) X 10*3/uL Lymphocytes # 0.65 L (0.90-5.00) X 10*3/uL Eosinophils # 0 L (0.04-0.35) X 10*3/uL Anion Gap (4.00-12.00) mmol/L BUN (9.0-27.0) mg/dL Creatinine (0.6-1.5) mg/dL BUN/Creatinine Ratio (12.00-20.00) Ratio Glucose (70-110) mg/dL POC Glucose (mg/dL) 175 H 183 H (75-99) mg/dL Calcium (8.7-10.3) mg/dL 02/04/21 02/04/21 Range/Units 06:28 07:31 WBC (4.50-10.00) X 10*3/uL MCHC (32.0-37.0) g/dL RDW (11.5-14.5) % Immature Gran # (0.00-0.04) X 10*3/uL Neutrophils # (1.80-7.70) X 10*3/uL Lymphocytes # (0.90-5.00) X 10*3/uL Eosinophils # (0.04-0.35) X 10*3/uL Anion Gap 3.20 L (4.00-12.00) mmol/L BUN 28.0 H (9.0-27.0) mg/dL Creatinine 0.5 L (0.6-1.5) mg/dL BUN/Creatinine Ratio 56.00 H (12.00-20.00) Ratio Glucose 136 H (70-110) mg/dL POC Glucose (mg/dL) 116 H (75-99) mg/dL Calcium 8.2 L (8.7-10.3) mg/dL Assessment and Plan Assessment: Acute hypoxic respiratory failure secondary to covid 19 pneumoniae with upper lobe peripheral infiltrates. Elevated inflammatory markers secondary to covid 19 pneumonia improving Hypertension Hyperlipidemia Morbid obesity with BMI 38.3 Elevated d-dimer level without evidence of pulmonary embolism History of smoking Plan: Patient will be continued on oxygen supplementation and titrate down FiO2 slowly as tolerated. Patient is slow to improve. Patient will be continued on Solumedrol, Lovenox colchicine and vitamin supplementation. Patient has completed Remdesivir course. Pulmonary is on board. Continue to monitor closely.
[2021-02-04 16:54] LABS: Glucose,Whole Blood 187 mg/dL (75-99)
--- NOTE | 2021-02-04 17:16 | P.PN ---
Subjective Progress Note Date: 02/04/21 Principal diagnosis: Acute CoVID 19 pneumonia This is a very pleasant 85-year-old female patient who follows with Dr. Lopez as her primary care provider. She has a history of hypertension, Polanco's palsy, former smoker. She presented to the emergency room yesterday with complaints of ongoing fever and weakness. She had obtained the Moderna vaccination approximately 7 days ago. Shortly after that she developed increasing cough, congestion, aches, weakness, fever. Her cough and shortness of breath has been progressively getting worse the past 5 days. She presented here to the emergency room yesterday for the same. Chest x-ray revealed mild cardiomegaly. Reticular nodular interstitial changes bilaterally with possible chronic parenchymal fibrosis. Areas of acute infiltrate in the periphery of the upper lungs. CT angiogram ruled out any central PE. There is noted multifocal infiltrates and/or edema back on of upper lung fibrotic changes, consistent with CoVID 19 infection. Reactive thoracic adenopathy noted. CoVID 19 screen positive. White count 4.7. Hemoglobin 13.5. Lymphocytes 0.9. D-dimer 1.41. Sodium 135. Potassium 4.3. Creatinine 0.72. LDH 902. C-reactive protein 53.6. Pro-calcitonin 0.09. She been initiated on dexamethasone. She is seen today in consultation on the regular medical floor. She is currently resting comfortably in bed. Awake and alert. In mild respiratory distress. Earlier this morning she was on 3 L maintain O2 saturation in the 90s. She is currently on 13 L high flow nasal cannula. Temperature 100.3. Hemodynamically stable. She has a loose nonproductive cough. The patient seen today 01/19/2021 in follow-up on the regular medical floor. She is currently resting in bed. Awake and alert in no acute distress. She is still requiring 15 L high flow nasal cannula along with a nonrebreather mask but having O2 saturations in the upper 90s. Earlier temperature today 100.8. Chest x-ray continues to show bilateral infiltrates. Blood cultures reveal no growth to date. D-dimer 1.51. LDH is 972. C-reactive protein 62.8. She is on day #2 of Remdesivir. She remains on Lovenox, dexamethasone, vitamin supplements. The patient is seen today 01/20/2021 in follow-up on the regular medical floor. She is currently resting fairly comfortably in bed. Awake and alert in no acute distress. She is still requiring 15 L high flow nasal cannula and a nonrebreather mask will maintaining O2 saturations are 95%. Blood cultures reveal no growth. D-dimer 1.27. LDH 398. C-reactive protein 6.8. This is day #3 of her Remdesivir. She remains on Lovenox, dexamethasone, vitamin supplements. The patient is seen today 01/26/2021 in follow-up on the regular medical floor. She is currently sitting up in bed. Awake and alert in no acute distress. She states she is feeling quite a bit better. She is still requiring 15 L high flow nasal cannula along with a nonrebreather to maintain O2 saturations in the 90s. No worsening shortness of breath, cough or congestion. D-dimer 3.32. Sodium 139. Potassium 3.8. Creatinine 0.62. LDH 1259. C-reactive protein 11.7. She remains on IV Solu-Medrol, which is seen, Lovenox, vitamin supplements. He completed a course of Remdesivir. The patient is seen today 02/04/2021 in follow-up on the regular medical floor. She is currently sitting up in bed. Awake and alert in no acute distress. States breathing quite a bit better over the past couple of days. She is still requiring oxygen via AirVo high flow at 55 L and 90% FiO2. White count 15.9. Hemoglobin 12.7. Lymphocytes 0.65. Sodium 136. Potassium 4.3. Creatinine 0.5. She has completed a course of Remdesivir. Remains on IV Solu-Medrol, Lovenox, vitamin supplements. Objective - Vital Signs Vital signs: Vital Signs Temp 97.4 F L 02/04/21 10:00 Pulse 88 02/04/21 10:00 Resp 18 02/04/21 10:00 BP 167/86 02/04/21 10:00 Pulse Ox 90 L 02/04/21 12:03 Intake & Output 02/03/21 02/04/21 02/04/21 18:59 06:59 18:59 Output Total 1000 Balance -1000 Output: Urine 1000 Other: Voiding Method Bedside Commode # Voids 3 # Bowel Movements 1 2 - Exam GENERAL EXAM: Alert, obese, pleasant 85-year-old female patient, on AirVo high f low at 55 L and 90% FiO2, comfortable in mild distress. HEAD: Normocephalic. EYES: Normal reaction of pupils, equal size. NOSE: Clear with pink turbinates. THROAT: No erythema or exudates. NECK: No masses, no JVD. CHEST: No chest wall deformity. LUNGS: Equal air entry with crackles in the posterior bases, scattered rhonchi. CVS: S1 and S2 normal with no audible murmur, regular rhythm. ABDOMEN: No hepatosplenomegaly, normal bowel sounds, no guarding or rigidity. SPINE: No scoliosis or deformity SKIN: No rashes CENTRAL NERVOUS SYSTEM: No focal deficits, tone is normal in all 4 extremities. EXTREMITIES: There is no peripheral edema. No clubbing, no cyanosis. Peripheral pulses are intact. - Labs CBC & Chem 7: 02/04/21 06:28 02/04/21 06:28 Labs: Abnormal Lab Results - Last 24 Hours (Table) 02/03/21 02/04/21 02/04/21 Range/Units 20:15 06:28 06:28 WBC 15.90 H (4.50-10.00) X 10*3/uL MCHC 31.7 L (32.0-37.0) g/dL RDW 15.9 H (11.5-14.5) % Immature Gran # 0.26 H (0.00-0.04) X 10*3/uL Neutrophils # 14.20 H (1.80-7.70) X 10*3/uL Lymphocytes # 0.65 L (0.90-5.00) X 10*3/uL Eosinophils # 0 L (0.04-0.35) X 10*3/uL Anion Gap 3.20 L (4.00-12.00) mmol/L BUN 28.0 H (9.0-27.0) mg/dL Creatinine 0.5 L (0.6-1.5) mg/dL BUN/Creatinine Ratio 56.00 H (12.00-20.00) Ratio Glucose 136 H (70-110) mg/dL POC Glucose (mg/dL) 183 H (75-99) mg/dL Calcium 8.2 L (8.7-10.3) mg/dL 02/04/21 02/04/21 02/04/21 Range/Units 07:31 12:10 16:52 WBC (4.50-10.00) X 10*3/uL MCHC (32.0-37.0) g/dL RDW (11.5-14.5) % Immature Gran # (0.00-0.04) X 10*3/uL Neutrophils # (1.80-7.70) X 10*3/uL Lymphocytes # (0.90-5.00) X 10*3/uL Eosinophils # (0.04-0.35) X 10*3/uL Anion Gap (4.00-12.00) mmol/L BUN (9.0-27.0) mg/dL Creatinine (0.6-1.5) mg/dL BUN/Creatinine Ratio (12.00-20.00) Ratio Glucose (70-110) mg/dL POC Glucose (mg/dL) 116 H 220 H 187 H (75-99) mg/dL Calcium (8.7-10.3) mg/dL Assessment and Plan Assessment: 1 Acute hypoxic respiratory failure secondary to acute CoVID 19 pneumonitis. Initiated on Remdesivir 01/18/2021 2 Febrile illness secondary to above, recovered 3 Lymphocytopenia secondary to above 4 Elevated inflammatory markers secondary to above 5 Obesity 6 Hypertension 7 Former smoker Plan: The patient was seen and evaluated by Dr. Soriano Completed a course of Remdesivir Continue dexamethasone, Lovenox, vitamin supplements Titrate down the FiO2 as tolerated Increase her activity as tolerated We will continue to follow I, the cosigning physician, performed a history & physical examination of the patient. Lungs sounds with crackles in bilateral bases, few scattered rhonchi. Maintaining good O2 saturations in the 90s on AirVo high flow oxygen at 55 L and 90% FiO2. I discussed the assessment and plan of care with my nurse practitioner, Alley Luna. I attest to the above note as dictated by her.
[2021-02-04 20:49] LABS: Glucose,Whole Blood 147 mg/dL (75-99)
[2021-02-05 07:03] LABS: Glucose,Whole Blood 121 mg/dL (75-99)
[2021-02-05] MEDS: INSULIN ASPART (NovoLOG) 100 UNIT/ML VIAL SQ SCH ×4 (07:19→20:49)
[2021-02-05] MEDS: FAMOTIDINE 20 MG TAB PO SCH ×2 (08:35→20:13)
[2021-02-05] MEDS: lisinopriL 20 MG TAB PO SCH (08:35)
[2021-02-05] MEDS: methylPREDNISolone SOD SUCCI 125 MG/2 ML VIAL IV SCH ×2 (08:35→20:12)
[2021-02-05] MEDS: CHOLECALCIFEROL 25 MCG (1000 IU) TABLET PO SCH (08:35)
[2021-02-05] MEDS: hydrALAZINE HCL 50 MG TAB PO SCH ×2 (08:35→20:13)
[2021-02-05] MEDS: ZINC SULFATE 220 MG CAP PO SCH (08:35)
[2021-02-05] MEDS: amLODIPine 10 MG TAB PO SCH (08:35)
[2021-02-05] MEDS: ENOXAPARIN 40 MG/0.4 ML SYRINGE SQ SCH (08:35)
[2021-02-05] MEDS: ASCORBIC ACID 500 MG TAB PO SCH (08:35)
[2021-02-05 11:32] LABS: Glucose,Whole Blood 138 mg/dL (75-99)
[2021-02-05] MEDS: SODIUM CHLORIDE 0.9% 1,000 ML IV SCH (12:20)
--- NOTE | 2021-02-05 15:09 | P.PN ---
Subjective Acute hypoxic respiratory failure secondary to covid 19 pneumoniae with upper lobe peripheral infiltrates. Elevated inflammatory markers secondary to Coumadin 19 pneumonia Patient is a 85-year-old female with known history of hypertension, hyperli pidemia, history of Polanco's palsy and previous history of smoking presents to ER on 01/17/2021 with complaints of fever and generalized weakness and exertional dyspnea. Patient states that she received first dose of Covid 19 vaccine on 01/08/2021. Patient says that she has been feeling progressively weak since then. Patient does complain of cough along with fever for the past 5 days. Denied any abdominal pain. No nausea or vomiting. Patient has not been eating well due to decreased appetite. Chest x-ray showed mild cardiomegaly. Reticulonodular interstitial changes bilaterally and chronic parenchymal changes. Areas of acute infiltrate in the periphery of the upper lungs cannot be excluded. CT angiogram showed suboptimal study without central acute pulmonary embolus. Cannot exclude small segmental and subsegmental on the embolism on this study. Multifocal infiltrates/and or edema on background upper lung fibrotic changes consistent with Covid 19 infection. Reactive thoracic adenopathy noted. Underlying cardiomegaly present. D-dimer 1.41 Sodium 135 percussion 4.3, chloride 101, BUN 13 and creatinine 0.72 Ferritin 520, Eliquis 902, CRP 53.6 and a pro-calcitonin level is 0.09 Urinalysis is negative for infection. Covid 19 PCR is detected. Patient was hypoxic with pulse ox 88% on room air on admission and tachycardic and febrile with T-max 102.2 01/19/2021 Patient is currently resting in the bed awake alert and oriented. No acute distress. Exertional dyspnea and requiring oxygen high flow at 15 L via nasal cannula and 100% nonrebreather intermittently. T-max is 100.8 Chest x-ray showed bilateral diffuse interstitial and airspace opacities unchanged compared to prior study. Laboratory data showed LDH 972 CRP 62.8 and D-dimer 1.51 pulmonary is following. Patient is being continued on dexamethasone, remdesivir course and Lovenox. No nausea vomiting or abdominal pain or diarrhea. No dysuria or hematuria. No chest pain. 01/20/2021 Patient is awake alert and oriented x3. No acute distress. Currently 100% nonrebreather with 15 L high flow oxygen. Still elevated inflammatory markers. Remdesivir day 3. Patient has been afebrile today. No complaints of nausea vomiting or abdominal pain or diarrhea. Tolerate oral diet. No headache or dizziness. No chest pain. Continue dexamethasone, Lovenox subcu and vitamin supplementation. Pulmonary is on board. 01/28/2021 Patient is in the telemetry unit. Awake alert and oriented x3. No complaints of worsening shortness of breath. But patient still requiring oxygen and is on Airvo. Completed remdesivir course. Currently on Solu-Medrol 60 mg every 6 hourly and multivitamins and on anticoagulation. No complaints of fever or chills. No nausea vomiting or abdominal pain or diarrhea. Continues to have elevated inflammatory markers. Chest x-ray showed bilateral stable infiltrates. Continued on current management and pulmonary is on board. 01/29/2021 Patient is awake alert and oriented x3. Currently on Airvo at 60L. No complaints of chest pain or worsening shortness of breath. Continued on IV Solu-Medrol and multivitamins and Lovenox. D-dimer level is 1.88 and blood sugar is controlled. LDH is 451 and CRP less than 0.4. Still requiring high flow oxygen. Patient has been afebrile. No nausea vomiting abdominal pain or diarrhea. Tolerating oral diet. 01/30/2021 Patient is awake alert and oriented x3. Still requiring 60 L oxygen with FiO2 83% and saturating at 96%. Patient was tachycardic this morning. No complaints of chest pain or worsening shortness of breath. Patient is currently on IV Solu-Medrol, Lovenox and multivitamins. Patient has been afebrile. Has not improved her breathing status last few days. Pulmonary is on board. 01/31/2021 Patient is currently lying in the bed comfortably. Awake alert oriented x3. Still requiring oxygen at 60 L airvo with FiO2 80%. Patient is being continued on IV Solu-Medrol, Lovenox twice daily and multivitamins. Laboratory data showed WBC 21.35, hemoglobin 14.1 and platelets 183 Sodium 140 potassium 4.2 chloride 102 BUN 13 creatinine 0.6 blood sugar is 145 and procalcitonin level is 0.05 Denied any complaints of nausea or vomiting or abdominal pain or diarrhea. 02/01/2021 Patient is currently in the medical floor. Remains on high flow oxygenAirvo 60 L with 80% FiO2. No complaints of chest pain or worsening shortness of breath. Patient is slow to respond. Afebrile. No nausea vomiting or abdominal pain or diarrhea. Chest x-ray was done today showed correlate for pneumonia. Patient is being continued on IV Solu-Medrol, Lovenox and multivitamins. Improving inflammatory markers. 02/02/2021 Patient is currently resting in the bed. Awake alert and oriented x3. Requiring high flowAirvo 55 L with 60% FiO2 and saturating at 92%. Laboratory data showed WBC 14.96, hemoglobin 12.7 and platelets 167 D-dimer is 1.26 and LDH 341. Blood sugar is 142 this morning. Patient is being continued on IV Solu-Medrol, Lovenox and multivitamins and colchicine. Patient has been afebrile. No nausea vomiting abdominal pain or diarrhea. Tolerating oral diet. No cough or sputum production. No chest pain or worsening shortness of breath. 02/03/2021 Patient is currently lying in her bed awake at work x3. Oxygen requirement is trending down to Airvo 30 L with FiO2 50% today. Still requiring oxygen. Able to ambulate to the bathroom without much shortness of breath. Otherwise patient is being continued Solu-Medrol 60 mg every 12 hours. Continue with tapering dose. Currently on Lovenox and multivitamins. Blood sugar is controlled. Continue with insulin regimen and follow-up. Pulmonary is on board. 02/04/2021 Patient is seen and evaluated in follow-up with no acute overnight issues. Patient continues to require oxygen with airvo and titrating slowly as tolerated. Flow rate is 15 with an FiO2 of 55% and is currently 90% oxygen saturation. Patient is currently maintained on Lovenox along with colchicine, vitamins and zinc supplements and will continue at this time. Pulmonary following and patient is maintained on breathing inhalational treatments along with IV steroids and will continue. White blood count is 15.9, hemoglobin is stable at 12.7, sodium is 136, potassium is 4.3, current creatinine is 0.5. Blood sugars appear to be more controlled and will continue with sliding scale at this time. 02/05/2021 Patient the looks good denied any shortness of breath remains on Airvo , patient is on 15 L of oxygen better compared to yesterday and FiO2 of 55%. Review of systems: Constitutional: No reports of fatigue, fever, or chills Cardiovascular: No reports of chest pain or palpitations Respiratory: Reports continued shortness of breath GI: No reports of nausea, vomiting, or diarrhea : No reports of dysuria or retention Neurovascular: No reports of weakness or numbness All medications have been reviewed Objective - Vital Signs Vital signs: Vital Signs Temp 98.1 F 02/05/21 14:00 Pulse 87 02/05/21 14:00 Resp 18 02/05/21 14:00 BP 150/80 02/05/21 14:00 Pulse Ox 88 L 02/05/21 14:00 Intake & Output 02/04/21 02/05/21 02/05/21 18:59 06:59 18:59 Intake Total 100 Output Total 4 1 Balance -4 99 Intake: Oral 100 Output: Stool 4 Urine/Stool Mix 1 Other: Voiding Method Bedside Commode # Voids 10 2 # Bowel Movements 1 - Exam Patient is sitting on the chair, no acute distress, awake alert and oriented.. HEENT: Normocephalic. Neck is supple. Pupils reactive. Nostrils clear. Oral cavity is moist. Ears reveal no drainage. Neck reveals no JVD, carotid bruits, or thyromegaly. CHEST EXAMINATION: diminished breath sounds bilaterally with some bilateral scattered coarse rhonchi noted CARDIAC: Normal S1, S2 with no gallops. No murmurs ABDOMEN: Soft. Bowel sounds normal. No organomegaly. No abdominal bruits. Extremities: reveal no edema. No clubbing or cyanosis Neurologically awake, alert, oriented x3 with well-coordinated movements. No focal deficits noted Skin: No rash or skin lesions. Psychiatric: Cooperative. Non-suicidal Musculoskeletal: No joint swelling or deformity. Normal range of motion. - Labs CBC & Chem 7: 02/04/21 06:28 02/04/21 06:28 Labs: Abnormal Lab Results - Last 24 Hours (Table) 02/04/21 02/04/21 02/05/21 Range/Units 16:52 20:48 07:01 POC Glucose (mg/dL) 187 H 147 H 121 H (75-99) mg/dL 02/05/21 Range/Units 11:31 POC Glucose (mg/dL) 138 H (75-99) mg/dL Assessment and Plan Plan: Acute hypoxic respiratory failure secondary to covid 19 pneumoniae with upper lobe peripheral infiltrates. Continue with oxygen support, systemic steroids vitamin supplementation wean off oxygen as tolerated appears to have some improvement. Elevated inflammatory markers secondary to covid 19 pneumonia improving Hypertension Hyperlipidemia Morbid obesity with BMI 38.3 Elevated d-dimer level without evidence of pulmonary embolism History of smoking Plan: Patient will be continued on oxygen supplementation and titrate down FiO2 slowly as tolerated. Patient is slow to improve. Patient will be continued on Solumedrol, Lovenox colchicine and vitamin supplementation. Patient has completed Remdesivir course. Pulmonary is on board. Continue to monitor closely.
[2021-02-05 16:45] LABS: Glucose,Whole Blood 180 mg/dL (75-99)
--- NOTE | 2021-02-05 17:58 | P.PN ---
Subjective Progress Note Date: 02/05/21 Principal diagnosis: Acute CoVID 19 pneumonia This is a very pleasant 85-year-old female patient who follows with Dr. Lopez as her primary care provider. She has a history of hypertension, Polanco's palsy, former smoker. She presented to the emergency room yesterday with complaints of ongoing fever and weakness. She had obtained the Moderna vaccination approximately 7 days ago. Shortly after that she developed increasing cough, congestion, aches, weakness, fever. Her cough and shortness of breath has been progressively getting worse the past 5 days. She presented here to the emergency room yesterday for the same. Chest x-ray revealed mild cardiomegaly. Reticular nodular interstitial changes bilaterally with possible chronic parenchymal fibrosis. Areas of acute infiltrate in the periphery of the upper lungs. CT angiogram ruled out any central PE. There is noted multifocal infiltrates and/or edema back on of upper lung fibrotic changes, consistent with CoVID 19 infection. Reactive thoracic adenopathy noted. CoVID 19 screen positive. White count 4.7. Hemoglobin 13.5. Lymphocytes 0.9. D-dimer 1.41. Sodium 135. Potassium 4.3. Creatinine 0.72. LDH 902. C-reactive protein 53.6. Pro-calcitonin 0.09. She been initiated on dexamethasone. She is seen today in consultation on the regular medical floor. She is currently resting comfortably in bed. Awake and alert. In mild respiratory distress. Earlier this morning she was on 3 L maintain O2 saturation in the 90s. She is currently on 13 L high flow nasal cannula. Temperature 100.3. Hemodynamically stable. She has a loose nonproductive cough. The patient seen today 01/19/2021 in follow-up on the regular medical floor. She is currently resting in bed. Awake and alert in no acute distress. She is still requiring 15 L high flow nasal cannula along with a nonrebreather mask but having O2 saturations in the upper 90s. Earlier temperature today 100.8. Chest x-ray continues to show bilateral infiltrates. Blood cultures reveal no growth to date. D-dimer 1.51. LDH is 972. C-reactive protein 62.8. She is on day #2 of Remdesivir. She remains on Lovenox, dexamethasone, vitamin supplements. The patient is seen today 01/20/2021 in follow-up on the regular medical floor. She is currently resting fairly comfortably in bed. Awake and alert in no acute distress. She is still requiring 15 L high flow nasal cannula and a nonrebreather mask will maintaining O2 saturations are 95%. Blood cultures reveal no growth. D-dimer 1.27. LDH 398. C-reactive protein 6.8. This is day #3 of her Remdesivir. She remains on Lovenox, dexamethasone, vitamin supplements. The patient is seen today 01/26/2021 in follow-up on the regular medical floor. She is currently sitting up in bed. Awake and alert in no acute distress. She states she is feeling quite a bit better. She is still requiring 15 L high flow nasal cannula along with a nonrebreather to maintain O2 saturations in the 90s. No worsening shortness of breath, cough or congestion. D-dimer 3.32. Sodium 139. Potassium 3.8. Creatinine 0.62. LDH 1259. C-reactive protein 11.7. She remains on IV Solu-Medrol, which is seen, Lovenox, vitamin supplements. He completed a course of Remdesivir. The patient is seen today 02/04/2021 in follow-up on the regular medical floor. She is currently sitting up in bed. Awake and alert in no acute distress. States breathing quite a bit better over the past couple of days. She is still requiring oxygen via AirVo high flow at 55 L and 90% FiO2. White count 15.9. Hemoglobin 12.7. Lymphocytes 0.65. Sodium 136. Potassium 4.3. Creatinine 0.5. She has completed a course of Remdesivir. Remains on IV Solu-Medrol, Lovenox, vitamin supplements. The patient is seen today 02/05/2021 in follow-up on the regular medical floor. She continues to rest comfortably in bed. Awake and alert in no acute distress. Her breathing is improving. Her strength is improving. She is still AirVo at 15 L and 55% FiO2. Blood glucose 180. She has completed a course of Remdesivir. Remains on IV Solu-Medrol, Lovenox, vitamin supplements. Objective - Vital Signs Vital signs: Vital Signs Temp 98.1 F 02/05/21 14:00 Pulse 87 02/05/21 14:00 Resp 18 02/05/21 14:00 BP 150/80 02/05/21 14:00 Pulse Ox 93 L 02/05/21 15:24 Intake & Output 02/04/21 02/05/21 02/05/21 18:59 06:59 18:59 Intake Total 100 Output Total 4 1 Balance -4 99 Intake: Oral 100 Output: Stool 4 Urine/Stool Mix 1 Other: Voiding Method Bedside Commode # Voids 10 2 2 # Bowel Movements 1 - Exam GENERAL EXAM: Alert, obese, pleasant 85-year-old female patient, on AirVo high flow at 15 L and 55% FiO2, comfortable in mild distress. HEAD: Normocephalic. EYES: Normal reaction of pupils, equal size. NOSE: Clear with pink turbinates. THROAT: No erythema or exudates. NECK: No masses, no JVD. CHEST: No chest wall deformity. LUNGS: Equal air entry with crackles in the posterior bases, scattered rhonchi. CVS: S1 and S2 normal with no audible murmur, regular rhythm. ABDOMEN: No hepatosplenomegaly, normal bowel sounds, no guarding or rigidity. SPINE: No scoliosis or deformity SKIN: No rashes CENTRAL NERVOUS SYSTEM: No focal deficits, tone is normal in all 4 extremities. EXTREMITIES: There is no peripheral edema. No clubbing, no cyanosis. Peripheral pulses are intact. - Labs CBC & Chem 7: 02/04/21 06:28 02/04/21 06:28 Labs: Abnormal Lab Results - Last 24 Hours (Table) 02/04/21 02/05/21 02/05/21 Range/Units 20:48 07:01 11:31 POC Glucose (mg/dL) 147 H 121 H 138 H (75-99) mg/dL 02/05/21 Range/Units 16:44 POC Glucose (mg/dL) 180 H (75-99) mg/dL Assessment and Plan Assessment: 1 Acute hypoxic respiratory failure secondary to acute CoVID 19 pneumonitis. Completed a course of Remdesivir 2 Febrile illness secondary to above, recovered 3 Lymphocytopenia secondary to above 4 Elevated inflammatory markers secondary to above 5 Obesity 6 Hypertension 7 Former smoker Plan: The patient was seen and evaluated by Dr. Soriano Continue dexamethasone, Lovenox, vitamin supplements Titrate down the FiO2 as tolerated Increase her activity as tolerated Follow-up chest x-ray in a.m. We will continue to follow I, the cosigning physician, performed a history & physical examination of the patient. Lungs sounds with crackles in bilateral bases, few scattered rhonchi. Maintaining good O2 saturations in the 90s on AirVo high flow oxygen at 15 L and 55% FiO2. I discussed the assessment and plan of care with my nurse practitioner, Alley Luna. I attest to the above note as dictated by her.
[2021-02-05 20:34] LABS: Glucose,Whole Blood 204 mg/dL (75-99)
[2021-02-05] MEDS: hydrALAZINE HCL 25 MG TAB PO PRN (22:27)
[2021-02-06 07:11] LABS: Glucose,Whole Blood 138 mg/dL (75-99)
[2021-02-06] MEDS: INSULIN ASPART (NovoLOG) 100 UNIT/ML VIAL SQ SCH ×4 (07:28→21:16)
[2021-02-06] MEDS: methylPREDNISolone SOD SUCCI 125 MG/2 ML VIAL IV SCH ×2 (07:49→21:15)
[2021-02-06] MEDS: FAMOTIDINE 20 MG TAB PO SCH ×2 (07:49→21:16)
[2021-02-06] MEDS: ASCORBIC ACID 500 MG TAB PO SCH (07:49)
[2021-02-06] MEDS: ENOXAPARIN 40 MG/0.4 ML SYRINGE SQ SCH (07:49)
[2021-02-06] MEDS: lisinopriL 20 MG TAB PO SCH (07:50)
[2021-02-06] MEDS: ZINC SULFATE 220 MG CAP PO SCH (07:50)
[2021-02-06] MEDS: CHOLECALCIFEROL 25 MCG (1000 IU) TABLET PO SCH (07:50)
[2021-02-06] MEDS: hydrALAZINE HCL 50 MG TAB PO SCH ×2 (07:50→21:16)
[2021-02-06] MEDS: amLODIPine 10 MG TAB PO SCH (07:50)
--- NOTE | 2021-02-06 09:46 | XR ---
EXAMINATION TYPE: XR chest 1V portable DATE OF EXAM: 02/06/2021 COMPARISON: Chest x-ray dated 02/02/2021 HISTORY: Covid pneumonia TECHNIQUE: Single frontal view of the chest is obtained. FINDINGS: There is no significant interval change IMPRESSION: Findings consistent with pneumonia
[2021-02-06 12:22] LABS: Glucose,Whole Blood 163 mg/dL (75-99)
[2021-02-06] MEDS: SODIUM CHLORIDE 0.9% 1,000 ML IV SCH (13:00)
[2021-02-06 16:50] LABS: Glucose,Whole Blood 145 mg/dL (75-99)
--- NOTE | 2021-02-06 17:37 | P.PN ---
Subjective Progress Note Date: 02/06/21 Acute hypoxic respiratory failure secondary to covid 19 pneumoniae with upper lobe peripheral infiltrates. Elevated inflammatory markers secondary to Coumadin 19 pneumonia Patient is a 85-year-old female with known history of hypertension, hyperlipidemia, history of Polanco's palsy and previous history of smoking presents to ER on 01/17/2021 with complaints of fever and generalized weakness and exertional dyspnea. Patient states that she received first dose of Covid 19 vaccine on 01/08/2021. Patient says that she has been feeling progressively weak since then. Patient does complain of cough along with fever for the past 5 days. Denied any abdominal pain. No nausea or vomiting. Patient has not been eating well due to decreased appetite. Chest x-ray showed mild cardiomegaly. Reticulonodular interstitial changes bilaterally and chronic parenchymal changes. Areas of acute infiltrate in the periphery of the upper lungs cannot be excluded. CT angiogram showed suboptimal study without central acute pulmonary embolus. Cannot exclude small segmental and subsegmental on the embolism on this study. Multifocal infiltrates/and or edema on background upper lung fibrotic changes consistent with Covid 19 infection. Reactive thoracic adenopathy noted. Underlying cardiomegaly present. D-dimer 1.41 Sodium 135 percussion 4.3, chloride 101, BUN 13 and creatinine 0.72 Ferritin 520, Eliquis 902, CRP 53.6 and a pro-calcitonin level is 0.09 Urinalysis is negative for infection. Covid 19 PCR is detected. Patient was hypoxic with pulse ox 88% on room air on admission and tachycardic and febrile with T-max 102.2 01/19/2021 Patient is currently resting in the bed awake alert and oriented. No acute distress. Exertional dyspnea and requiring oxygen high flow at 15 L via nasal cannula and 100% nonrebreather intermittently. T-max is 100.8 Chest x-ray showed bilateral diffuse interstitial and airspace opacities unchanged compared to prior study. Laboratory data showed LDH 972 CRP 62.8 and D-dimer 1.51 pulmonary is following. Patient is being continued on dexameth asone, remdesivir course and Lovenox. No nausea vomiting or abdominal pain or diarrhea. No dysuria or hematuria. No chest pain. 01/20/2021 Patient is awake alert and oriented x3. No acute distress. Currently 100% nonrebreather with 15 L high flow oxygen. Still elevated inflammatory markers. Remdesivir day 3. Patient has been afebrile today. No complaints of nausea vomiting or abdominal pain or diarrhea. Tolerate oral diet. No headache or dizziness. No chest pain. Continue dexamethasone, Lovenox subcu and vitamin supplementation. Pulmonary is on board. 01/28/2021 Patient is in the telemetry unit. Awake alert and oriented x3. No complaints of worsening shortness of breath. But patient still requiring oxygen and is on Airvo. Completed remdesivir course. Currently on Solu-Medrol 60 mg every 6 hourly and multivitamins and on anticoagulation. No complaints of fever or chills. No nausea vomiting or abdominal pain or diarrhea. Continues to have elevated inflammatory markers. Chest x-ray showed bilateral stable infiltrates. Continued on current management and pulmonary is on board. 01/29/2021 Patient is awake alert and oriented x3. Currently on Airvo at 60L. No complain ts of chest pain or worsening shortness of breath. Continued on IV Solu-Medrol and multivitamins and Lovenox. D-dimer level is 1.88 and blood sugar is controlled. LDH is 451 and CRP less than 0.4. Still requiring high flow oxygen. Patient has been afebrile. No nausea vomiting abdominal pain or diarrhea. Tolerating oral diet. 01/30/2021 Patient is awake alert and oriented x3. Still requiring 60 L oxygen with FiO2 83% and saturating at 96%. Patient was tachycardic this morning. No complaints of chest pain or worsening shortness of breath. Patient is currently on IV Solu-Medrol, Lovenox and multivitamins. Patient has been afebrile. Has not improved her breathing status last few days. Pulmonary is on board. 01/31/2021 Patient is currently lying in the bed comfortably. Awake alert oriented x3. Still requiring oxygen at 60 L airvo with FiO2 80%. Patient is being continued on IV Solu-Medrol, Lovenox twice daily and multivitamins. Laboratory data showed WBC 21.35, hemoglobin 14.1 and platelets 183 Sodium 140 potassium 4.2 chloride 102 BUN 13 creatinine 0.6 blood sugar is 145 and procalcitonin level is 0.05 Denied any complaints of nausea or vomiting or abdominal pain or diarrhea. 02/01/2021 Patient is currently in the medical floor. Remains on high flow oxygenAirvo 60 L with 80% FiO2. No complaints of chest pain or worsening shortness of breath. Patient is slow to respond. Afebrile. No nausea vomiting or abdominal pain or diarrhea. Chest x-ray was done today showed correlate for pneumonia. Patient is being continued on IV Solu-Medrol, Lovenox and multivitamins. Improving inflammatory markers. 02/02/2021 Patient is currently resting in the bed. Awake alert and oriented x3. Requiring high flowAirvo 55 L with 60% FiO2 and saturating at 92%. Laboratory data showed WBC 14.96, hemoglobin 12.7 and platelets 167 D-dimer is 1.26 and LDH 341. Blood sugar is 142 this morning. Patient is being continued on IV Solu-Medrol, Lovenox and multivitamins and colchicine. Patient has been afebrile. No nausea vomiting abdominal pain or diarrhea. Tolerating oral diet. No cough or sputum production. No chest pain or worsening shortness of breath. 02/03/2021 Patient is currently lying in her bed awake at work x3. Oxygen requirement is trending down to Airvo 30 L with FiO2 50% today. Still requiring oxygen. Able to ambulate to the bathroom without much shortness of breath. Otherwise patient is being continued Solu-Medrol 60 mg every 12 hours. Continue with tapering dose. Currently on Lovenox and multivitamins. Blood sugar is controlled. Continue with insulin regimen and follow-up. Pulmonary is on board. 02/04/2021 Patient is seen and evaluated in follow-up with no acute overnight issues. Patient continues to require oxygen with airvo and titrating slowly as tolerated. Flow rate is 15 with an FiO2 of 55% and is currently 90% oxygen saturation. Patient is currently maintained on Lovenox along with colchicine, vitamins and zinc supplements and will continue at this time. Pulmonary following and patient is maintained on breathing inhalational treatments along with IV steroids and will continue. White blood count is 15.9, hemoglobin is stable at 12.7, sodium is 136, potassium is 4.3, current creatinine is 0.5. Blood sugars appear to be more controlled and will continue with sliding scale at this time. 02/05/2021 Patient the looks good denied any shortness of breath remains on Airvo , patient is on 15 L of oxygen better compared to yesterday and FiO2 of 55%. 02/06/2021 Patient is seen and evaluated in follow-up continues to be maintained on airvo this morning and titrating down to nasal cannula. Patient is currently 94% on 2 L via nasal cannula. Patient is sitting up in the chair and appears to be in no acute distress. Patient states she feels her breathing is improved. Pulmonary is following and patient will be maintained on same medications. Will repeat a.m. labs and continue to monitor closely. Review of systems: Constitutional: No reports of fatigue, fever, or chills Cardiovascular: No reports of chest pain or palpitations Respiratory: Reports continued shortness of breath GI: No reports of nausea, vomiting, or diarrhea : No reports of dysuria or retention Neurovascular: No reports of weakness or numbness All medications have been reviewed Objective - Vital Signs Vital signs: Vital Signs Temp 97.5 F L 02/06/21 10:18 Pulse 92 02/06/21 10:18 Resp 14 02/06/21 10:18 BP 157/81 02/06/21 10:18 Pulse Ox 94 L 02/06/21 11:11 Intake & Output 02/05/21 02/06/21 02/06/21 18:59 06:59 18:59 Output Total 4 Balance -4 Output: Stool 4 Other: Voiding Method Bedside Commode Bedside Commode # Voids 2 3 # Bowel Movements 1 1 - Exam Patient is sitting up in the chair comfortably, no acute distress, awake alert and oriented.. HEENT: Normocephalic. Neck is supple. Pupils reactive. Nostrils clear. Oral cavity is moist. Ears reveal no drainage. Neck reveals no JVD, carotid bruits, or thyromegaly. CHEST EXAMINATION: diminished breath sounds bilaterally with some bilateral scattered coarse rhonchi noted CARDIAC: Normal S1, S2 with no gallops. No murmurs ABDOMEN: Soft. Bowel sounds normal. No organomegaly. No abdominal bruits. Extremities: reveal no edema. No clubbing or cyanosis Neurologically awake, alert, oriented x3 with well-coordinated movements. No focal deficits noted Skin: No rash or skin lesions. Psychiatric: Cooperative. Non-suicidal Musculoskeletal: No joint swelling or deformity. Normal range of motion. - Labs CBC & Chem 7: 02/04/21 06:28 02/04/21 06:28 Labs: Abnormal Lab Results - Last 24 Hours (Table) 02/05/21 02/05/21 02/06/21 Range/Units 16:44 20:32 07:08 POC Glucose (mg/dL) 180 H 204 H 138 H (75-99) mg/dL 02/06/21 Range/Units 12:05 POC Glucose (mg/dL) 163 H (75-99) mg/dL Assessment and Plan Assessment: Acute hypoxic respiratory failure secondary to covid 19 pneumoniae with upper lobe peripheral infiltrates. Continue with current oxygen support and Airvo is currently on standby and patient is maintaining 94% oxygenation on 2 L via nasal cannula. Elevated inflammatory markers secondary to covid 19 pneumonia improving Hypertension Hyperlipidemia Morbid obesity with BMI 38.3 Elevated d-dimer level without evidence of pulmonary embolism History of smoking Plan: Patient will be continued on oxygen supplementation and titrate down FiO2 slowly as tolerated. Patient is slow to improve although has been taken off of Airvo by respiratory today and maintaining 94% saturation on 2 L via nasal cannula.. Patient will be continued on Solumedrol, Lovenox colchicine and vitamin supplementation. Patient has completed Remdesivir course. Pulmonary following. Will repeat a.m. labs. Will also discuss with case management about possible home oxygen needs. Continue to monitor closely.
--- NOTE | 2021-02-06 19:07 | P.PN ---
Subjective Progress Note Date: 02/06/21 Principal diagnosis: Acute CoVID 19 pneumonia This is a very pleasant 85-year-old female patient who follows with Dr. Lopez as her primary care provider. She has a history of hypertension, Polanco's palsy, former smoker. She presented to the emergency room yesterday with complaints of ongoing fever and weakness. She had obtained the Moderna vaccination approximately 7 days ago. Shortly after that she developed increasing cough, congestion, aches, weakness, fever. Her cough and shortness of breath has been progressively getting worse the past 5 days. She presented here to the emergency room yesterday for the same. Chest x-ray revealed mild cardiomegaly. Reticular nodular interstitial changes bilaterally with possible chronic parenchymal fibrosis. Areas of acute infiltrate in the periphery of the upper lungs. CT angiogram ruled out any central PE. There is noted multifocal infiltrates and/or edema back on of upper lung fibrotic changes, consistent with CoVID 19 infection. Reactive thoracic adenopathy noted. CoVID 19 screen positive. White count 4.7. Hemoglobin 13.5. Lymphocytes 0.9. D-dimer 1.41. Sodium 135. Potassium 4.3. Creatinine 0.72. LDH 902. C-reactive protein 53.6. Pro-calcitonin 0.09. She been initiated on dexamethasone. She is seen today in consultation on the regular medical floor. She is currently resting comfortably in bed. Awake and alert. In mild respiratory distress. Earlier this morning she was on 3 L maintain O2 saturation in the 90s. She is currently on 13 L high flow nasal cannula. Temperature 100.3. Hemodynamically stable. She has a loose nonproductive cough. The patient seen today 01/19/2021 in follow-up on the regular medical floor. She is currently resting in bed. Awake and alert in no acute distress. She is still requiring 15 L high flow nasal cannula along with a nonrebreather mask but having O2 saturations in the upper 90s. Earlier temperature today 100.8. Chest x-ray continues to show bilateral infiltrates. Blood cultures reveal no growth to date. D-dimer 1.51. LDH is 972. C-reactive protein 62.8. She is on day #2 of Remdesivir. She remains on Lovenox, dexamethasone, vitamin supplements. The patient is seen today 01/20/2021 in follow-up on the regular medical floor. She is currently resting fairly comfortably in bed. Awake and alert in no acute distress. She is still requiring 15 L high flow nasal cannula and a nonrebreather mask will maintaining O2 saturations are 95%. Blood cultures reveal no growth. D-dimer 1.27. LDH 398. C-reactive protein 6.8. This is day #3 of her Remdesivir. She remains on Lovenox, dexamethasone, vitamin supplements. The patient is seen today 01/26/2021 in follow-up on the regular medical floor. She is currently sitting up in bed. Awake and alert in no acute distress. She states she is feeling quite a bit better. She is still requiring 15 L high flow nasal cannula along with a nonrebreather to maintain O2 saturations in the 90s. No worsening shortness of breath, cough or congestion. D-dimer 3.32. Sodium 139. Potassium 3.8. Creatinine 0.62. LDH 1259. C-reactive protein 11.7. She remains on IV Solu-Medrol, which is seen, Lovenox, vitamin supplements. He completed a course of Remdesivir. The patient is seen today 02/04/2021 in follow-up on the regular medical floor. She is currently sitting up in bed. Awake and alert in no acute distress. States breathing quite a bit better over the past couple of days. She is still requiring oxygen via AirVo high flow at 55 L and 90% FiO2. White count 15.9. Hemoglobin 12.7. Lymphocytes 0.65. Sodium 136. Potassium 4.3. Creatinine 0.5. She has completed a course of Remdesivir. Remains on IV Solu-Medrol, Lovenox, vitamin supplements. The patient is seen today 02/05/2021 in follow-up on the regular medical floor. She continues to rest comfortably in bed. Awake and alert in no acute distress. Her breathing is improving. Her strength is improving. She is still AirVo at 15 L and 55% FiO2. Blood glucose 180. She has completed a course of Remdesivir. Remains on IV Solu-Medrol, Lovenox, vitamin supplements. The patient is seen today 02/06/2021 in follow-up on the regular medical floor. She is currently sitting up in a chair at the bedside. Awake and alert in no acute distress. Doing quite a bit better. She is now on 2 L nasal cannula with O2 saturations in the 90s. Chest x-ray continues to show patchy airspace disease. Stable. Blood glucose 145. Continued on Lovenox, IV Solu-Medrol, vitamin supplements. Objective - Vital Signs Vital signs: Vital Signs Temp 97.3 F L 02/06/21 15:03 Pulse 84 02/06/21 18:35 Resp 14 02/06/21 15:03 BP 134/59 02/06/21 15:03 Pulse Ox 90 L 02/06/21 15:03 Intake & Output 02/06/21 02/06/21 02/07/21 06:59 18:59 06:59 Output Total 4 Balance -4 Weight 97.976 kg Output: Stool 4 Other: Voiding Method Bedside Commode Bedside Commode # Voids 3 2 # Bowel Movements 1 1 - Exam GENERAL EXAM: Alert, obese, pleasant 85-year-old female patient, on 2 L nasal cannula, comfortable in mild distress. HEAD: Normocephalic. EYES: Normal reaction of pupils, equal size. NOSE: Clear with pink turbinates. THROAT: No erythema or exudates. NECK: No masses, no JVD. CHEST: No chest wall deformity. LUNGS: Equal air entry with crackles in the posterior bases, scattered rhonchi. CVS: S1 and S2 normal with no audible murmur, regular rhythm. ABDOMEN: No hepatosplenomegaly, normal bowel sounds, no guarding or rigidity. SPINE: No scoliosis or deformity SKIN: No rashes CENTRAL NERVOUS SYSTEM: No focal deficits, tone is normal in all 4 extremities. EXTREMITIES: There is no peripheral edema. No clubbing, no cyanosis. Peripheral pulses are intact. - Labs CBC & Chem 7: 02/04/21 06:28 02/04/21 06:28 Labs: Abnormal Lab Results - Last 24 Hours (Table) 02/05/21 02/06/21 02/06/21 Range/Units 20:32 07:08 12:05 POC Glucose (mg/dL) 204 H 138 H 163 H (75-99) mg/dL 02/06/21 Range/Units 16:48 POC Glucose (mg/dL) 145 H (75-99) mg/dL Assessment and Plan Assessment: 1 Acute hypoxic respiratory failure secondary to acute CoVID 19 pneumonitis. Completed a course of Remdesivir 2 Febrile illness secondary to above, recovered 3 Lymphocytopenia secondary to above 4 Elevated inflammatory markers secondary to above 5 Obesity 6 Hypertension 7 Former smoker Plan: The patient was seen and evaluated by Dr. Soriano Continue dexamethasone, Lovenox, vitamin supplements Probable discharge in a.m. May require home oxygen Increase her activity as tolerated We will continue to follow I, the cosigning physician, performed a history & physical examination of the patient. Lungs sounds with crackles in bilateral bases, few scattered rhonchi. Maintaining good O2 saturations in the 90s on 2 L/m per nasal cannula. I discussed the assessment and plan of care with my nurse practitioner, Alley Luna. I attest to the above note as dictated by her.
[2021-02-06 20:56] LABS: Glucose,Whole Blood 190 mg/dL (75-99)
[2021-02-07 07:00] LABS: Glucose,Whole Blood 129 mg/dL (75-99)
[2021-02-07] MEDS: amLODIPine 10 MG TAB PO SCH (07:13)
[2021-02-07] MEDS: FAMOTIDINE 20 MG TAB PO SCH ×2 (07:13→21:25)
[2021-02-07] MEDS: hydrALAZINE HCL 50 MG TAB PO SCH ×2 (07:13→21:25)
[2021-02-07] MEDS: ASCORBIC ACID 500 MG TAB PO SCH (07:13)
[2021-02-07] MEDS: ENOXAPARIN 40 MG/0.4 ML SYRINGE SQ SCH (07:13)
[2021-02-07] MEDS: ZINC SULFATE 220 MG CAP PO SCH (07:13)
[2021-02-07] MEDS: lisinopriL 20 MG TAB PO SCH (07:13)
[2021-02-07] MEDS: CHOLECALCIFEROL 25 MCG (1000 IU) TABLET PO SCH (07:13)
[2021-02-07] MEDS: INSULIN ASPART (NovoLOG) 100 UNIT/ML VIAL SQ SCH ×4 (07:13→21:25)
[2021-02-07] MEDS: methylPREDNISolone SOD SUCCI 125 MG/2 ML VIAL IV SCH ×2 (07:14→21:25)
[2021-02-07 09:20] LABS: Basophils # (A) 0.1 k/uL (0-0.2); Basophils % (A) 0 %; Eosinophils # (A) 0.2 k/uL (0-0.7); Eosinophils % (A) 1 %; HCT 43.8 % (34.0-46.0); HGB 14.5 gm/dL (11.4-16.0); Lymphocytes # (A) 0.9 k/uL (1.0-4.8); Lymphocytes % (A) 4 %; MCH 29.4 pg (25.0-35.0); MCHC 33.1 g/dL (31.0-37.0); MCV 88.9 fL (80.0-100.0); Mean Platelet Volume 8.9; Monocytes # (A) 0.5 k/uL (0-1.0); Monocytes % (A) 2 %; Neutrophils # (A) 20.1 k/uL (1.3-7.7); Neutrophils % (A) 93 %; Platelet Count 220 k/uL (150-450); RBC 4.93 m/uL (3.80-5.40); RDW 15.9 % (11.5-15.5); WBC 21.7 k/uL (3.8-10.6)
[2021-02-07 09:40] LABS: African American GFR (CKD) >90 (>60 ml/min/1.73 sqM); Anion Gap 9 mmol/L; Blood Urea Nitrogen 28 mg/dL (7-17); Calcium 8.9 mg/dL (8.4-10.2); Carbon Dioxide 26 mmol/L (22-30); Chloride 100 mmol/L (98-107); Glucose 221 mg/dL (74-99); Non-African American GFR(CKD) 86 (>60 ml/min/1.73 sqM); Potassium 5.1 mmol/L (3.5-5.1); Sodium 135 mmol/L (137-145)
[2021-02-07 11:35] LABS: Glucose,Whole Blood 178 mg/dL (75-99)
[2021-02-07] MEDS: SODIUM CHLORIDE 0.9% 1,000 ML IV SCH (12:21)
--- NOTE | 2021-02-07 15:28 | P.PN ---
Subjective Progress Note Date: 02/07/21 Acute hypoxic respiratory failure secondary to covid 19 pneumoniae with upper lobe peripheral infiltrates. Elevated inflammatory markers secondary to Coumadin 19 pneumonia Patient is a 85-year-old female with known history of hypertension, hyperlipidemia, history of Polanco's palsy and previous history of smoking presents to ER on 01/17/2021 with complaints of fever and generalized weakness and exertional dyspnea. Patient states that she received first dose of Covid 19 vaccine on 01/08/2021. Patient says that she has been feeling progressively weak since then. Patient does complain of cough along with fever for the past 5 days. Denied any abdominal pain. No nausea or vomiting. Patient has not been eating well due to decreased appetite. Chest x-ray showed mild cardiomegaly. Reticulonodular interstitial changes bilaterally and chronic parenchymal changes. Areas of acute infiltrate in the periphery of the upper lungs cannot be excluded. CT angiogram showed suboptimal study without central acute pulmonary embolus. Cannot exclude small segmental and subsegmental on the embolism on this study. Multifocal infiltrates/and or edema on background upper lung fibrotic changes consistent with Covid 19 infection. Reactive thoracic adenopathy noted. Underlying cardiomegaly present. D-dimer 1.41 Sodium 135 percussion 4.3, chloride 101, BUN 13 and creatinine 0.72 Ferritin 520, Eliquis 902, CRP 53.6 and a pro-calcitonin level is 0.09 Urinalysis is negative for infection. Covid 19 PCR is detected. Patient was hypoxic with pulse ox 88% on room air on admission and tachycardic and febrile with T-max 102.2 01/19/2021 Patient is currently resting in the bed awake alert and oriented. No acute distress. Exertional dyspnea and requiring oxygen high flow at 15 L via nasal cannula and 100% nonrebreather intermittently. T-max is 100.8 Chest x-ray showed bilateral diffuse interstitial and airspace opacities unchanged compared to prior study. Laboratory data showed LDH 972 CRP 62.8 and D-dimer 1.51 pulmonary is following. Patient is being continued on dexameth asone, remdesivir course and Lovenox. No nausea vomiting or abdominal pain or diarrhea. No dysuria or hematuria. No chest pain. 01/20/2021 Patient is awake alert and oriented x3. No acute distress. Currently 100% nonrebreather with 15 L high flow oxygen. Still elevated inflammatory markers. Remdesivir day 3. Patient has been afebrile today. No complaints of nausea vomiting or abdominal pain or diarrhea. Tolerate oral diet. No headache or dizziness. No chest pain. Continue dexamethasone, Lovenox subcu and vitamin supplementation. Pulmonary is on board. 01/28/2021 Patient is in the telemetry unit. Awake alert and oriented x3. No complaints of worsening shortness of breath. But patient still requiring oxygen and is on Airvo. Completed remdesivir course. Currently on Solu-Medrol 60 mg every 6 hourly and multivitamins and on anticoagulation. No complaints of fever or chills. No nausea vomiting or abdominal pain or diarrhea. Continues to have elevated inflammatory markers. Chest x-ray showed bilateral stable infiltrates. Continued on current management and pulmonary is on board. 01/29/2021 Patient is awake alert and oriented x3. Currently on Airvo at 60L. No complain ts of chest pain or worsening shortness of breath. Continued on IV Solu-Medrol and multivitamins and Lovenox. D-dimer level is 1.88 and blood sugar is controlled. LDH is 451 and CRP less than 0.4. Still requiring high flow oxygen. Patient has been afebrile. No nausea vomiting abdominal pain or diarrhea. Tolerating oral diet. 01/30/2021 Patient is awake alert and oriented x3. Still requiring 60 L oxygen with FiO2 83% and saturating at 96%. Patient was tachycardic this morning. No complaints of chest pain or worsening shortness of breath. Patient is currently on IV Solu-Medrol, Lovenox and multivitamins. Patient has been afebrile. Has not improved her breathing status last few days. Pulmonary is on board. 01/31/2021 Patient is currently lying in the bed comfortably. Awake alert oriented x3. Still requiring oxygen at 60 L airvo with FiO2 80%. Patient is being continued on IV Solu-Medrol, Lovenox twice daily and multivitamins. Laboratory data showed WBC 21.35, hemoglobin 14.1 and platelets 183 Sodium 140 potassium 4.2 chloride 102 BUN 13 creatinine 0.6 blood sugar is 145 and procalcitonin level is 0.05 Denied any complaints of nausea or vomiting or abdominal pain or diarrhea. 02/01/2021 Patient is currently in the medical floor. Remains on high flow oxygenAirvo 60 L with 80% FiO2. No complaints of chest pain or worsening shortness of breath. Patient is slow to respond. Afebrile. No nausea vomiting or abdominal pain or diarrhea. Chest x-ray was done today showed correlate for pneumonia. Patient is being continued on IV Solu-Medrol, Lovenox and multivitamins. Improving inflammatory markers. 02/02/2021 Patient is currently resting in the bed. Awake alert and oriented x3. Requiring high flowAirvo 55 L with 60% FiO2 and saturating at 92%. Laboratory data showed WBC 14.96, hemoglobin 12.7 and platelets 167 D-dimer is 1.26 and LDH 341. Blood sugar is 142 this morning. Patient is being continued on IV Solu-Medrol, Lovenox and multivitamins and colchicine. Patient has been afebrile. No nausea vomiting abdominal pain or diarrhea. Tolerating oral diet. No cough or sputum production. No chest pain or worsening shortness of breath. 02/03/2021 Patient is currently lying in her bed awake at work x3. Oxygen requirement is trending down to Airvo 30 L with FiO2 50% today. Still requiring oxygen. Able to ambulate to the bathroom without much shortness of breath. Otherwise patient is being continued Solu-Medrol 60 mg every 12 hours. Continue with tapering dose. Currently on Lovenox and multivitamins. Blood sugar is controlled. Continue with insulin regimen and follow-up. Pulmonary is on board. 02/04/2021 Patient is seen and evaluated in follow-up with no acute overnight issues. Patient continues to require oxygen with airvo and titrating slowly as tolerated. Flow rate is 15 with an FiO2 of 55% and is currently 90% oxygen saturation. Patient is currently maintained on Lovenox along with colchicine, vitamins and zinc supplements and will continue at this time. Pulmonary following and patient is maintained on breathing inhalational treatments along with IV steroids and will continue. White blood count is 15.9, hemoglobin is stable at 12.7, sodium is 136, potassium is 4.3, current creatinine is 0.5. Blood sugars appear to be more controlled and will continue with sliding scale at this time. 02/05/2021 Patient the looks good denied any shortness of breath remains on Airvo , patient is on 15 L of oxygen better compared to yesterday and FiO2 of 55%. 02/06/2021 Patient is seen and evaluated in follow-up continues to be maintained on airvo this morning and titrating down to nasal cannula. Patient is currently 94% on 2 L via nasal cannula. Patient is sitting up in the chair and appears to be in no acute distress. Patient states she feels her breathing is improved. Pulmonary is following and patient will be maintained on same medications. Will repeat a.m. labs and continue to monitor closely. 02/07/2021 Patient is seen and examined this morning and is currently maintaining 90% oxygenation on 2 L via nasal cannula. Prescription provided to case management for home oxygen as patient oxygen saturation on room air is 87%. Patient also receiving a walker for gait dysfunction. Patient continues to be weak although is working with physical therapy and will be getting a walker. Patient also being arranged for home care in the outpatient setting. Patient refusing to go to any rehab facility. Patient is currently maintained on IV steroids which we will transition to a prednisone taper on discharge. Patient is anticipating going home tomorrow. Review of systems: Constitutional: No reports of fatigue, fever, or chills Cardiovascular: No reports of chest pain or palpitations Respiratory: Reports continued shortness of breath GI: No reports of nausea, vomiting, or diarrhea : No reports of dysuria or retention Neurovascular: reports generalized weakness All medications have been reviewed Objective - Vital Signs Vital signs: Vital Signs Temp 97.4 F L 02/07/21 05:06 Pulse 78 02/07/21 08:00 Resp 17 02/07/21 08:00 BP 154/75 02/07/21 05:06 Pulse Ox 90 L 02/07/21 05:06 Intake & Output 02/06/21 02/07/21 02/07/21 18:59 06:59 18:59 Output Total 4 4 4 Balance -4 -4 -4 Weight 97.976 kg Output: Stool 4 4 4 Other: Voiding Method Bedside Commode Bedside Commode Bedside Commode # Voids 2 3 # Bowel Movements 1 2 - Exam Patient is sitting up in the chair comfortably, no acute distress, awake alert and oriented.. HEENT: Normocephalic. Neck is supple. Pupils reactive. Nostrils clear. Oral cavity is moist. Ears reveal no drainage. Neck reveals no JVD, carotid bruits, or thyromegaly. CHEST EXAMINATION: diminished breath sounds bilaterally with some bilateral scattered coarse rhonchi noted CARDIAC: Normal S1, S2 with no gallops. No murmurs ABDOMEN: Soft. Bowel sounds normal. No organomegaly. No abdominal bruits. Extremities: reveal no edema. No clubbing or cyanosis Neurologically awake, alert, oriented x3 with well-coordinated movements. No focal deficits noted Skin: No rash or skin lesions. Psychiatric: Cooperative. Non-suicidal Musculoskeletal: No joint swelling or deformity. Normal range of motion. - Labs CBC & Chem 7: 02/07/21 08:51 02/07/21 08:51 Labs: Abnormal Lab Results - Last 24 Hours (Table) 02/06/21 02/06/21 02/06/21 Range/Units 12:05 16:48 20:54 POC Glucose (mg/dL) 163 H 145 H 190 H (75-99) mg/dL 02/07/21 Range/Units 06:57 POC Glucose (mg/dL) 129 H (75-99) mg/dL Assessment and Plan Assessment: Acute hypoxic respiratory failure secondary to covid 19 pneumoniae with upper lobe peripheral infiltrates. Continue with current oxygen support is currently maintaining 94% oxygenation on 2 L via nasal cannula. Elevated inflammatory markers secondary to covid 19 pneumonia improving Hypertension Hyperlipidemia Morbid obesity with BMI 38.3 Elevated d-dimer level without evidence of pulmonary embolism History of smoking Plan: Patient will be continued on oxygen supplementation and titrate down FiO2 slowly as tolerated. maintaining 94% saturation on 2 L via nasal cannula.. Prescription provided for home oxygen as her oxygen saturation on room air was 87%. Patient will be continued on Solumedrol, Lovenox colchicine and vitamin supplementation. Patient has completed Remdesivir course. Pulmonary following. Will transition to oral steroids upon discharge. Patient will be having home care in the outpatient setting. Continue to monitor closely. Anticipate discharge in 24 hours.
--- NOTE | 2021-02-07 16:29 | P.PN ---
Subjective Progress Note Date: 02/07/21 Principal diagnosis: Acute CoVID 19 pneumonia This is a very pleasant 85-year-old female patient who follows with Dr. Lopez as her primary care provider. She has a history of hypertension, Polanco's palsy, former smoker. She presented to the emergency room yesterday with complaints of ongoing fever and weakness. She had obtained the Moderna vaccination approximately 7 days ago. Shortly after that she developed increasing cough, congestion, aches, weakness, fever. Her cough and shortness of breath has been progressively getting worse the past 5 days. She presented here to the emergency room yesterday for the same. Chest x-ray revealed mild cardiomegaly. Reticular nodular interstitial changes bilaterally with possible chronic parenchymal fibrosis. Areas of acute infiltrate in the periphery of the upper lungs. CT angiogram ruled out any central PE. There is noted multifocal infiltrates and/or edema back on of upper lung fibrotic changes, consistent with CoVID 19 infection. Reactive thoracic adenopathy noted. CoVID 19 screen positive. White count 4.7. Hemoglobin 13.5. Lymphocytes 0.9. D-dimer 1.41. Sodium 135. Potassium 4.3. Creatinine 0.72. LDH 902. C-reactive protein 53.6. Pro-calcitonin 0.09. She been initiated on dexamethasone. She is seen today in consultation on the regular medical floor. She is currently resting comfortably in bed. Awake and alert. In mild respiratory distress. Earlier this morning she was on 3 L maintain O2 saturation in the 90s. She is currently on 13 L high flow nasal cannula. Temperature 100.3. Hemodynamically stable. She has a loose nonproductive cough. The patient seen today 01/19/2021 in follow-up on the regular medical floor. She is currently resting in bed. Awake and alert in no acute distress. She is still requiring 15 L high flow nasal cannula along with a nonrebreather mask but having O2 saturations in the upper 90s. Earlier temperature today 100.8. Chest x-ray continues to show bilateral infiltrates. Blood cultures reveal no growth to date. D-dimer 1.51. LDH is 972. C-reactive protein 62.8. She is on day #2 of Remdesivir. She remains on Lovenox, dexamethasone, vitamin supplements. The patient is seen today 01/20/2021 in follow-up on the regular medical floor. She is currently resting fairly comfortably in bed. Awake and alert in no acute distress. She is still requiring 15 L high flow nasal cannula and a nonrebreather mask will maintaining O2 saturations are 95%. Blood cultures reveal no growth. D-dimer 1.27. LDH 398. C-reactive protein 6.8. This is day #3 of her Remdesivir. She remains on Lovenox, dexamethasone, vitamin supplements. The patient is seen today 01/26/2021 in follow-up on the regular medical floor. She is currently sitting up in bed. Awake and alert in no acute distress. She states she is feeling quite a bit better. She is still requiring 15 L high flow nasal cannula along with a nonrebreather to maintain O2 saturations in the 90s. No worsening shortness of breath, cough or congestion. D-dimer 3.32. Sodium 139. Potassium 3.8. Creatinine 0.62. LDH 1259. C-reactive protein 11.7. She remains on IV Solu-Medrol, which is seen, Lovenox, vitamin supplements. He completed a course of Remdesivir. The patient is seen today 02/04/2021 in follow-up on the regular medical floor. She is currently sitting up in bed. Awake and alert in no acute distress. States breathing quite a bit better over the past couple of days. She is still requiring oxygen via AirVo high flow at 55 L and 90% FiO2. White count 15.9. Hemoglobin 12.7. Lymphocytes 0.65. Sodium 136. Potassium 4.3. Creatinine 0.5. She has completed a course of Remdesivir. Remains on IV Solu-Medrol, Lovenox, vitamin supplements. The patient is seen today 02/05/2021 in follow-up on the regular medical floor. She continues to rest comfortably in bed. Awake and alert in no acute distress. Her breathing is improving. Her strength is improving. She is still AirVo at 15 L and 55% FiO2. Blood glucose 180. She has completed a course of Remdesivir. Remains on IV Solu-Medrol, Lovenox, vitamin supplements. The patient is seen today 02/06/2021 in follow-up on the regular medical floor. She is currently sitting up in a chair at the bedside. Awake and alert in no acute distress. Doing quite a bit better. She is now on 2 L nasal cannula with O2 saturations in the 90s. Chest x-ray continues to show patchy airspace disease. Stable. Blood glucose 145. Continued on Lovenox, IV Solu-Medrol, vitamin supplements. The patient is seen today 02/07/2021 in follow-up on the regular medical floor. She is awake and alert in no acute distress. Up in a chair at the bedside. Continues to improve daily. She is down to 1.5 L of oxygen maintaining O2 saturation in the 90s. She is set up for home oxygen. White count 21.7. Hemoccult 14.5. Lymphocytes 0.9. Sodium 135. Potassium 5.1. Creatinine 0.57. Remains on IV Solu-Medrol, Lovenox, vitamin supplements. Objective - Vital Signs Vital signs: Vital Signs Temp 97.9 F 02/07/21 14:00 Pulse 105 H 02/07/21 14:00 Resp 20 02/07/21 14:00 BP 138/64 02/07/21 14:00 Pulse Ox 90 L 02/07/21 14:00 Intake & Output 02/06/21 02/07/21 02/07/21 18:59 06:59 18:59 Output Total 4 4 4 Balance -4 -4 -4 Weight 97.976 kg Output: Stool 4 4 4 Other: Voiding Method Bedside Commode Bedside Commode Bedside Commode # Voids 2 3 # Bowel Movements 1 2 - Exam GENERAL EXAM: Alert, obese, pleasant 85-year-old female patient, on 1.5 L nasal cannula, comfortable in mild distress. HEAD: Normocephalic. EYES: Normal reaction of pupils, equal size. NOSE: Clear with pink turbinates. THROAT: No erythema or exudates. NECK: No masses, no JVD. CHEST: No chest wall deformity. LUNGS: Equal air entry with crackles in the posterior bases, scattered rhonchi. CVS: S1 and S2 normal with no audible murmur, regular rhythm. ABDOMEN: No hepatosplenomegaly, normal bowel sounds, no guarding or rigidity. SPINE: No scoliosis or deformity SKIN: No rashes CENTRAL NERVOUS SYSTEM: No focal deficits, tone is normal in all 4 extremities. EXTREMITIES: There is no peripheral edema. No clubbing, no cyanosis. Peripheral pulses are intact. - Labs CBC & Chem 7: 02/07/21 08:51 02/07/21 08:51 Labs: Abnormal Lab Results - Last 24 Hours (Table) 02/06/21 02/06/21 02/07/21 Range/Units 16:48 20:54 06:57 WBC (3.8-10.6) k/uL RDW (11.5-15.5) % Neutrophils # (1.3-7.7) k/uL Lymphocytes # (1.0-4.8) k/uL Sodium (137-145) mmol/L BUN (7-17) mg/dL Glucose (74-99) mg/dL POC Glucose (mg/dL) 145 H 190 H 129 H (75-99) mg/dL 02/07/21 02/07/21 02/07/21 Range/Units 08:51 08:51 11:34 WBC 21.7 H (3.8-10.6) k/uL RDW 15.9 H (11.5-15.5) % Neutrophils # 20.1 H (1.3-7.7) k/uL Lymphocytes # 0.9 L (1.0-4.8) k/uL Sodium 135 L (137-145) mmol/L BUN 28 H (7-17) mg/dL Glucose 221 H (74-99) mg/dL POC Glucose (mg/dL) 178 H (75-99) mg/dL Assessment and Plan Assessment: 1 Acute hypoxic respiratory failure secondary to acute CoVID 19 pneumonitis. Completed a course of Remdesivir 2 Febrile illness secondary to above, recovered 3 Lymphocytopenia secondary to above 4 Elevated inflammatory markers secondary to above 5 Obesity 6 Hypertension 7 Former smoker Plan: The patient was seen and evaluated by Dr. Soriano Probable discharge in a.m. May require home oxygen We will continue to follow I, the cosigning physician, performed a history & physical examination of the patient. Lungs sounds with crackles in bilateral bases, few scattered rhonchi. Maintaining good O2 saturations in the 90s on 1.5 L/m per nasal cannula. I discussed the assessment and plan of care with my nurse practitioner, Alley Luna. I attest to the above note as dictated by her.
[2021-02-07 16:31] LABS: Glucose,Whole Blood 170 mg/dL (75-99)
[2021-02-07 20:25] LABS: Glucose,Whole Blood 130 mg/dL (75-99)
[2021-02-08 07:20] LABS: Glucose,Whole Blood 136 mg/dL (75-99)
[2021-02-08] MEDS: methylPREDNISolone SOD SUCCI 125 MG/2 ML VIAL IV SCH (08:22)
[2021-02-08] MEDS: ENOXAPARIN 40 MG/0.4 ML SYRINGE SQ SCH (08:22)
[2021-02-08] MEDS: hydrALAZINE HCL 50 MG TAB PO SCH (08:23)
[2021-02-08] MEDS: INSULIN ASPART (NovoLOG) 100 UNIT/ML VIAL SQ SCH ×2 (08:23→11:48)
[2021-02-08] MEDS: amLODIPine 10 MG TAB PO SCH (08:23)
[2021-02-08] MEDS: CHOLECALCIFEROL 25 MCG (1000 IU) TABLET PO SCH (08:23)
[2021-02-08] MEDS: ZINC SULFATE 220 MG CAP PO SCH (08:23)
[2021-02-08] MEDS: FAMOTIDINE 20 MG TAB PO SCH (08:23)
[2021-02-08] MEDS: lisinopriL 20 MG TAB PO SCH (08:23)
[2021-02-08] MEDS: ASCORBIC ACID 500 MG TAB PO SCH (08:23)
[2021-02-08 10:32] VITALS: BP 138/71; PULSE 100; RESP 21; TEMP 97.9
[2021-02-08 11:23] LABS: Glucose,Whole Blood 127 mg/dL (75-99)
--- NOTE | 2021-02-08 16:36 | P.DS ---
Providers Date of admission: 01/17/21 20:16 Expected date of discharge: 02/08/21 Attending physician: Viviane Lee Consults: 01/17/21 20:03 Consult Physician Stat Consulting Provider: Annalise Soriano Consult Reason/Comments: Covid pneumonia, hypoxemia Do you want consulting provider notified?: Yes Primary care physician: John Taylor Hospital Course: Final diagnosis Acute hypoxic respiratory failure secondary to covid 19 pneumoniae with upper lobe peripheral infiltrates. Elevated inflammatory markers secondary to covid 19 pneumonia improving Hypertension Hyperlipidemia Morbid obesity with BMI 38.3 Elevated d-dimer level without evidence of pulmonary embolism History of smoking Discharge disposition Patient is being discharged in a stable condition with guarded prognosis to home and will have continued Homecare. Patient will follow-up with Dr. Lopez upon discharge. Patient will continue with prednisone taper upon discharge along with vitamin C and zinc supplements. Total time taken is >35 minutes. Hospital course Acute hypoxic respiratory failure secondary to covid 19 pneumoniae with upper lobe peripheral infiltrates. Elevated inflammatory markers secondary to Covid 19 pneumonia Patient is a 85-year-old female with known history of hypertension, hyperlipidemia, history of Polanco's palsy and previous history of smoking presents to ER on 01/17/2021 with complaints of fever and generalized weakness and exertional dyspnea. Patient states that she received first dose of Covid 19 vaccine on 01/08/2021. Patient says that she has been feeling progressively weak since then. Patient does complain of cough along with fever for the past 5 days. Denied any abdominal pain. No nausea or vomiting. Patient has not been eating well due to decreased appetite. Chest x-ray showed mild cardiomegaly. Reticulonodular interstitial changes bilaterally and chronic parenchymal changes. Areas of acute infiltrate in the periphery of the upper lungs cannot be excluded. CT angiogram showed suboptimal study without central acute pulmonary embolus. Cannot exclude small segmental and subsegmental on the embolism on this study. Multifocal infiltrates/and or edema on background upper lung fibrotic changes consistent with Covid 19 infection. Reactive thoracic adenopathy noted. Underlying cardiomegaly present. D-dimer 1.41 Sodium 135 percussion 4.3, chloride 101, BUN 13 and creatinine 0.72 Ferritin 520, Eliquis 902, CRP 53.6 and a pro-calcitonin level is 0.09 Urinalysis is negative for infection. Covid 19 PCR is detected. Patient was hypoxic with pulse ox 88% on room air on admission and tachycardic and febrile with T-max 102.2 02/08/2021 Patient has prolonged stay in the hospital secondary to Covid 19 and was requiring oxygen supplementation in the form of high flow oxygen for quite some time. Patient continued to be weak and was seen and evaluated by PT/OT therapy recommending subacute rehab until patient refused and states she is aware she will be weak but will improve at home and is agreeable to home care. Patient is seen and evaluated and follow-up this morning stating she is ready to go home. Patient continues to be weak although has received a walker and home oxygen secondary to Covid. Patient will continue with home care in the outpatient setting as she is refusing rehab. Currently no reports of chest pain, worsening shortness of breath, or palpitations. Patient is afebrile. No reports of nausea or vomiting and patient is tolerating diet. She will be discharged home today. Guarded prognosis. Please refer to previous dictations for further HPI. On exam vital signs are stable. Cardio S1, S2 are muffled. Respiratory shows diminished breath sounds at the bases with no wheezing or rhonchi noted. Abdomen is soft and nontender. Nervous system shows no focal deficits. Please refer to medication reconciliation sheet for a list of medications. Patient Condition at Discharge: Fair Plan - Discharge Summary Discharge Rx Participant: No New Discharge Prescriptions: New hydrALAZINE HCL [Apresoline] 50 mg PO BID 30 Days #60 tab Zinc Sulfate [Orazinc] 220 mg PO DAILY 30 Days #30 cap Acetaminophen Tab [Tylenol] 650 mg PO Q6HR PRN #30 tab PRN Reason: Mild Pain Or Fever > 100.5 Cholecalciferol [Vitamin D3 (25 Mcg = 1000 Iu)] 25 mcg PO DAILY 30 Days #30 tablet amLODIPine [Norvasc] 10 mg PO DAILY 30 Days #30 tab Famotidine [Pepcid] 20 mg PO BID 30 Days #60 tab predniSONE 10 mg PO DIRECTED #30 tab Ascorbic Acid [Vitamin C] 1,000 mg PO DAILY 30 Days #60 tab lisinopriL [Zestril] 20 mg PO DAILY 30 Days #30 tab Continue Montelukast Sodium [Singulair] 10 mg PO HS Discontinued lisinopriL [Zestril] 5 mg PO DAILY Discharge Medication List Montelukast Sodium [Singulair] 10 mg PO HS 01/17/21 [History] Acetaminophen Tab [Tylenol] 650 mg PO Q6HR PRN #30 tab 02/08/21 [Rx] Ascorbic Acid [Vitamin C] 1,000 mg PO DAILY 30 Days #60 tab 02/08/21 [Rx] Cholecalciferol [Vitamin D3 (25 Mcg = 1000 Iu)] 25 mcg PO DAILY 30 Days #30 tablet 02/08/21 [Rx] Famotidine [Pepcid] 20 mg PO BID 30 Days #60 tab 02/08/21 [Rx] Zinc Sulfate [Orazinc] 220 mg PO DAILY 30 Days #30 cap 02/08/21 [Rx] amLODIPine [Norvasc] 10 mg PO DAILY 30 Days #30 tab 02/08/21 [Rx] hydrALAZINE HCL [Apresoline] 50 mg PO BID 30 Days #60 tab 02/08/21 [Rx] lisinopriL [Zestril] 20 mg PO DAILY 30 Days #30 tab 02/08/21 [Rx] predniSONE 10 mg PO DIRECTED #30 tab 02/08/21 [Rx] Follow up Appointment(s)/Referral(s): Brandon Lopez MD [Primary Care Provider] - 1-2 days [facility] [NON-STAFF] - As Needed (Please call for Meals on Wheels and/or housekeeping assistance.) [facility],Equipment [NON-STAFF] - ([facility] will deliver a portable oxygen tank to your bedside before discharge. *Please call [facility] once home to arrange delivery of the oxygen concentrator*) [facility], [NON-STAFF] - ([facility] will call you to set up your first visit within 1-2 days of discharge from the hospital. ) Patient Instructions/Handouts: Coronavirus Disease 2019 (COVID-19) Activity/Diet/Wound Care/Special Instructions: Obtain a pulse oximeter to keep track of your oxygen levels at home. You can purchase one from most pharmacies. Discharge Disposition: HOME WITH HOME HEALTH SERVICES
== END 2021-02-08 13:44 | disposition home health service (06) | DRG 177 ==
LOC: EC 17:15 → 4SSUR 20:16
PROVIDERS: ADMIT Internal Medicine; ATTEND Internal Medicine
PROC: XW033E5 Introduction of Remdesivir Anti-infective into Peripheral Vein, Percutaneous Approach, New Technology Group 5 (ICD-10-PCS; principal; 2021-01-21)
PROC: 5A0955A Assistance with Respiratory Ventilation, Greater than 96 Consecutive Hours, High Flow/Velocity Cannula (ICD-10-PCS; 2021-01-28)
DX: U07.1 COVID-19 (principal); J12.82 Pneumonia due to coronavirus disease 2019; J96.01 Acute respiratory failure with hypoxia; Z88.0 Allergy status to penicillin; E78.5 Hyperlipidemia, unspecified; Z87.891 Personal history of nicotine dependence; G51.0 Bell's palsy; E66.01 Morbid (severe) obesity due to excess calories; Z68.38 Body mass index [BMI] 38.0-38.9, adult; D72.810 Lymphocytopenia; I10 Essential (primary) hypertension; T45.515A Adverse effect of anticoagulants, initial encounter; Z79.01 Long term (current) use of anticoagulants; R00.0 Tachycardia, unspecified
CPT/HCPCS: 36415; 71045; 71275; 80048; 80053; 81001; 82728; 83605; 83615; 83735; 84145; 84484; 85025; 85379; 85610; 85730; 86140; 87040; 87635; 93005; 94760; 96361; 96374; 99285

== ENCOUNTER → 2021-07-29 | Outpatient (CLI) | payer MEDICARE | END | disposition home or self-care (01) | LOC: LABWHC1 10:49 | PROVIDERS: ATTEND Internal Medicine | DX: U07.1 COVID-19 (principal) | CPT/HCPCS: 36415; 86769 ==

== ENCOUNTER → 2022-03-06 | Outpatient (CLI) | payer MEDICARE ==
--- NOTE | 2022-03-06 13:33 | XR ---
EXAMINATION TYPE: XR chest 2V DATE OF EXAM: 03/06/2022 COMPARISON: Chest x-ray 04/18/2021 HISTORY: Covid pneumonia TECHNIQUE: Frontal and lateral views of the chest are obtained. FINDINGS: The patient is rotated. There is prominence of the interstitium, no pleural or pericardial effusion evident, no pneumothorax. The cardiac silhouette size is within normal limits. Right aashish diaphragm is mildly elevated. The osseous structures are intact. IMPRESSION: Suspect underlying interstitial lung disease similar to prior exam
== END | disposition home or self-care (01) ==
LOC: RADXRMAIN 12:37
PROVIDERS: ATTEND Internal Medicine
DX: U07.1 COVID-19 (principal); J12.82 Pneumonia due to coronavirus disease 2019
CPT/HCPCS: 71046